=== PATIENT | female | born 1960 | race Caucasian/White ===

== ENCOUNTER 2021-07-31 15:23 | Inpatient (IN) | payer OTHER, SELFPAY ==
[2021-07-31] VITALS (8 sets, daily range): BP systolic 103–132; BP diastolic 41–53; PULSE 75–94; RESP 16–20; TEMP 36.1–37; O2SAT 99–100; BMI 29.7
--- NOTE | ~2021-07-31 | CT_ITS ---
EXAMINATION: CT abdomen pelvis wo con DATE: 07/31/2021 18:16 INDICATION: Left lower quadrant pain. Reflux. TECHNIQUE: Computed tomography (CT) of the abdomen and pelvis was performed without intravenous contr ast. The dose-length product was 935.20 mGy-cm. Automated exposure control and iterative reconstruction technique were employed. COMPARISON: None. FINDINGS: Lung bases are unremarkable. Heart size is normal. No significant pleural or pericardial ef fusion. Heart size is normal. Status post cholecystectomy. There is diffuse bladder wall thickening w ith mild perivesical fatty infiltration, suspicious for cystitis. There is atherosclerosis of the aor ta without aneurysm. No lymphadenopathy. There is mild thickening of the sigmoid colon with subtle sl ight surrounding stranding, consistent with mild acute diverticulitis. Status post cholecystectomy. The liver, spleen, pancreas, adrenal glands are unremarkable. Moderate o steoarthritis of the hips. There is a low-density lesion in the right kidney laterally measuring 3.6 cm with density measurement of 26 Hounsfield units, indeterminate. There are punctate nonobstructing bilateral renal stones. IMPRESSION: 1. Mildly thickened sigmoid colon with subtle surrounding pericolonic fatty infiltration, compatible with acute uncomplicated diverticulitis. 2: Thickened bladder wall with mild subtle perivesical fatty infiltration. Consider acute cystitis i n the appropriate clinical setting. 3: Nonobstructing bilateral nephrolithiasis. 4: Hypodense right renal mass, most likely complicated cysts, although further evaluation with ultras ound is recommended. Reviewed, dictated and finalized at location A. IMPRESSION: 1. Mildly thickened sigmoid colon with subtle surrounding pericolonic fatty inf iltration, compatible with acute uncomplicated diverticulitis. 2: Thickened bladder wall with mild subtle perivesical fatty infiltration. Con heel splitter acute cystitis in the appropriate clinical setting. 3: Nonobstructing bilateral nephrolithiasis. 4: Hypodense right renal mass, most likely complicated cysts, although further evaluation with ultrasound is recommended.
--- NOTE | ~2021-07-31 | US_ITS ---
US abdomen complete EXAMINATION: US Abdomen Complete INDICATION: Renal mass PROCEDURE: Realtime High Resolution abdomen ultrasound. COMPARISON: No prior studies for comparison FINDINGS: Gallbladder is surgically absent. Common bile duct measures 6 mm. Liver echotexture within normal limits without focal mass. Pancreas within normal limits. Pancreati c tail is obscured by bowel gas. Spleen is enlarged measuring 14 cm. There is a right renal cyst demetrio suring 3.3 cm corresponding to the mass seen on CT examination. There is mild right hydronephrosis. R ight kidney measures 12.7 cm. Left kidney measures 10.6 cm. Visualized aspects of the aorta and IVC are within normal limits. Portal vein is patent. No sonograph ic Serrano's sign indicated by the technologist. IMPRESSION: 1: Right renal cyst measuring 3.3 cm corresponding to the mass identified on CT. 2: Splenomegaly. Reviewed, dictated and finalized at location A. IMPRESSION: 1: Right renal cyst measuring 3.3 cm corresponding to the mass identified on CT . 2: Splenomegaly.
[2021-07-31 16:18] LABS: Mean Corpuscular HGB Conc 32.4 g/dl (32-36); Mean Corpuscular Hemoglobin 31.3 pg (26-34); Mean Corpuscular Volume 96.8 fl (80-100); Mean Platelet Volume 8.3 fl (7.4-10.4); Platelet Count Result 169 k/mm3 (150-375); Red Blood Count 2.17 M/mm3 (4.2-5.4); Red Cell Distribution Width 13.5 % (11.5-14.5); White Blood Count 3.5 K/mm3 (4.5-10.0)
--- NOTE | 2021-07-31 16:20 | ED.RECABL ---
HPI - Recheck/Abnormal Lab/Rx General Chief Complaint: Recheck/Abnormal Lab/Rx Stated Complaint: Low H&H, Seen at [place] Yesterday Time Seen by Provider: 07/31/21 16:00 History of Present Illness HPI narrative: Patient is a 61-year-old female sent here by her doctor low hemoglobin. Patient also complaining of a boil on her left buttocks that started 3 days ago. Patient has a history of lung CA and currently undergoing chemotherapy. Patient does admit to feeling weak and gets easily short of breath on exertion. Patient denies any GI bleeding. Patient denies any chest pain, abdominal pain, nausea, vomiting, diarrhea, fever or chills. Related Data Home Medications Medication Instructions Recorded Confirmed acetaminophen 325 mg capsule 325 mg PO Q6H PRN 06/22/21 06/22/21 (Tylenol) albuterol sulfate 90 mcg/actuation 1 inh inhalation Q4H 06/22/21 06/22/21 aerosol inhaler budesonide-formoterol HFA 80 2 puff inhalation Q12H 06/22/21 06/22/21 mcg-4.5 mcg/actuation aerosol inhaler (Symbicort) buspirone 10 mg tablet 10 mg PO BID 06/22/21 06/22/21 citalopram 40 mg tablet 20 mg PO DAILY 06/22/21 06/22/21 fluticasone propionate 50 1 spray intranasal DAILY 06/22/21 06/22/21 mcg/actuation nasal spray,suspension (Flonase Allergy Relief) simvastatin 5 mg tablet 5 mg PO DAILY 06/22/21 06/22/21 Allergies Allergy/AdvReac Type Severity Reaction Status Date / Time cortisone Allergy Unknown RASH Verified 06/22/21 07:47 Sulfa (Sulfonamide Allergy Unknown RASH Verified 06/22/21 07:47 Antibiotics) PROPOXYPHENE NAPSYLATE AdvReac Unknown NAUSEA Uncoded 06/22/21 07:47 Review of Systems Review of Systems: All systems reviewed & are unremarkable except as noted in HPI and below Constitutional: Constitutional: Denies body ache(s), Denies chills, Denies excessive sweating, Denies fatigue, Denies fever(s), Denies headache(s), Denies lethargy, Denies malaise and Denies weight loss Eyes: Eyes: Denies blurry vision, Denies change in vision and Denies loss of vision ENT: Denies dizziness, Denies ear discharge, Denies headache(s), Denies lip swelling, Denies epistaxis, Denies nasal congestion, Denies neck pain, Denies throat swelling and Denies tongue swelling Cardiovascular: Cardiovascular: Denies chest pain, Denies chest pain at rest, Denies chest pain with activity, Denies diaphoresis, Denies rapid heart rate, Denies edema, Denies irregular heart rhythm, Denies lightheadedness, Denies palpitations and Denies dyspnea Respiratory: Respiratory: Denies chest congestion, Denies cough, Denies hemoptysis and Denies dyspnea Gastrointestinal: Gastrointestinal: Denies abdominal pain, Denies melena, Denies hematochezia, Denies diarrhea, Denies nausea, Denies vomiting and Denies hematemesis Musculoskeletal: Musculoskeletal: Denies abnormal gait, Denies deformity, Denies joint swelling, Denies limited range of motion, Denies neck pain and Denies numbness Neurologic: Denies Abnormal speech present, Denies abnormal gait, Denies confusion, Denies dizziness, Denies headache(s), Denies focal weakness, Denies loss of vision, Denies numbness, Denies Other visual disturbances, Denies Sensory deficit (Neuro) and Denies weakness Psychiatric: Psychiatric: Denies confusion, Denies depression, Denies auditory hallucinations, Denies homicidal ideation and Denies suicidal ideation Endocrine: Endocrine: Denies cold intolerance, Denies excessive sweating, Denies fatigue, Denies heat intolerance and Denies palpitations Hematologic/Lymphatic: Hematologic/Lymphatic: Denies easy bleeding and Denies easy bruising Allergic/Immunologic: Allergic/Immunologic: Denies lip swelling, Denies throat swelling and Denies tongue swelling [facility] Family History Family History Father Cerebrovascular accident Mother Family history of congestive heart failure Social History Social History (Reviewed 07/31/21 @ 16:42 by Jayy
[2021-07-31 16:24] LABS: Hemoglobin 6.8 g/dL (12.0-15.0)
[2021-07-31 16:31] LABS: Alanine Aminotransferase 18 U/L (6-35); Alkaline Phosphatase 74 U/L (38-126); Anion Gap 7 mmol/L (8-16); Aspartate Amino Transferase 24 U/L (14-36); Bilirubin,Total 0.4 mg/dL (0.2-1.3); Blood Urea Nitrogen 8 mg/dL (7-17); Carbon Dioxide 28 mmol/L (22-30); Chloride 102 mmol/L (98-107); Estimated CRCL calculation 77 ml/min; Estimated Glomerular Filt Rate > 60; Glucose 122 mg/dL (65-110); Potassium 3.6 mmol/L (3.4-5.0); Sodium 137 mmol/L (137-145)
[2021-07-31 16:39] LABS: Band Neutrophils Percent 1 % (0-6); Lymphocytes Absolute Manual 1.26 K/mm3 (1.1-4.5); Lymphocytes Percent Manual 36 % (18-44); Monocytes Absolute Manual 0.52 K/mm3 (0.1-0.90); Monocytes Percent Manual 15 % (3-9); Neutrophils Absolute Manual 1.71 K/mm3 (1.7-7.2); Neutrophils Percent Manual 48 % (46-73); Platelet Estimate Adequate (Adequate); Total Cells Counted 100
[2021-07-31 16:40] LABS: Ovalocytes 1+ (NORMAL)
[2021-07-31] MEDS: HYDROmorphone HCL INJ (*CRX) 1 MG/ML SYR 0.5 MG IV PUSH (17:22)
[2021-07-31] MEDS: diphenhydrAMINE HCl CAP 25 MG CAPSULE 50 MG PO (17:22)
[2021-07-31] MEDS: ACETAMINOPHEN 325 MG TABLET 650 MG PO (17:23)
[2021-07-31] MEDS: SODIUM CHLORIDE 0.9% IV 250 ML 30 ML (19:10)
[2021-07-31] MEDS: TUBING, BLOOD PLUM PUMP TUBING 1 EACH XX (19:26)
[2021-07-31] MEDS: LIDO 1%/EPINEPHRINE 1:100,000 10 ML VIAL (20:50)
[2021-07-31 22:00] LABS: SARS-CoV-2 RNA PCR Negative
--- NOTE | 2021-07-31 22:11 | PC.NURSE ---
Abscess lanced by EDP and packed with iodoform gauze. Initial drainage of moderate amount of pink tinged pus noted. Pt tolerated procedure well.
[2021-07-31] MEDS: HYDROcodone/acetaminophen (*CRX) 5-325 MG TABLET 2 TAB PO (22:17)
--- NOTE | 2021-07-31 22:31 | PM.IMHP ---
H&P: [facility] History of Present Illness Date/Time: 07/31/21 22:31 Chief Complaint: skin lesion and low hemoglobin Narrative: 61-year-old female with past medical history significant for lung cancer currently receiving chemotherapy was referred to the ER for an incidental finding of low hemoglobin. While in the ER, she also was complaining of a boil on her left buttocks that has been there for the last few days. She does state that she has been feeling more short of breath and weak over the last few days. She denies blood in her stool. No nausea vomiting or diarrhea. She denies chest pain or shortness of breath. No fevers or chills. In the ER, an I&D was performed expressing purulent fluid. It was packed with iodoform. Due to her hemoglobin being 6.8, she was transfused 1 unit of packed red blood cells. Additionally, CT scan showed acute diverticulitis and therefore she was started on Zosyn. Review of Systems Review of Systems: Twelve point review of systems was reviewed and is negative except as noted in the HPI [facility] Family History Family History Father Cerebrovascular accident Cancer Mother Family history of congestive heart failure Sibling Cancer Malignant neoplasm of prostate Esophagus cancer Lung cancer Social History Social History Smoking packs per day: 1 Smoking cigarettes per day: 20.0 Years smoked: 48 Smoking pack-years: 48.00 Smoking status: Current some day smoker Tobacco type: cigarettes Alcohol intake: former Substance use: never Spiritual care concerns: Yes Meds Home Medications and Allergies Home Medications Medication Instructions Recorded Confirmed Type acetaminophen 325 mg capsule 325 mg PO Q6H PRN Pain 06/22/21 07/31/21 History (Tylenol) albuterol sulfate 90 mcg/actuation 1 inh inhalation Q4H 06/22/21 07/31/21 History aerosol inhaler budesonide-formoterol HFA 80 2 puff inhalation Q12H 06/22/21 07/31/21 History mcg-4.5 mcg/actuation aerosol inhaler (Symbicort) buspirone 10 mg tablet 10 mg PO PRN PRN Anxiety 06/22/21 07/31/21 History citalopram 40 mg tablet 20 mg PO DAILY 06/22/21 07/31/21 History famotidine 20 mg tablet 20 mg PO QHS #30 tabs 06/22/21 07/31/21 Rx simvastatin 5 mg tablet 5 mg PO DAILY 06/22/21 07/31/21 History bupropion HCl 100 mg tablet,12 hr 1 tablet PO BID 07/31/21 07/31/21 History sustained-release dexamethasone 4 mg tablet 1 tablet PO DAILY 07/31/21 07/31/21 History mirtazapine 15 mg tablet 1 tablet PO DAILY 07/31/21 07/31/21 History mupirocin 2 % topical ointment 1 applic topical PRN PRN Dry Nasal 07/31/21 07/31/21 History Passages omeprazole 40 mg capsule,delayed 1 cap PO DAILY 07/31/21 07/31/21 History release Allergies Allergy/AdvReac Type Severity Reaction Status Date / Time mold Allergy Severe Difficulty Verified 07/31/21 23:00 Breathing cortisone Allergy Mild RASH Verified 07/31/21 23:00 Sulfa (Sulfonamide Allergy Mild RASH Verified 07/31/21 23:00 Antibiotics) PROPOXYPHENE NAPSYLATE AdvReac Mild NAUSEA Uncoded 07/31/21 23:00 Vital Signs Vital Signs - 24 hr 07/31/21 15:26 07/31/21 19:10 07/31/21 19:25 Temperature 97.0 F L 98.1 F 98.5 F Pulse Rate 94 80 75 Respiratory Rate 20 17 16 Blood Pressure 109/53 L 113/51 L 107/46 L Pulse Oximetry 100 99 100 Oxygen Delivery Nasal Cannula Oxygen Flow Rate 4 07/31/21 20:25 07/31/21 20:48 07/31/21 20:49 Temperature 98.6 F 98.4 F 97.4 F L Pulse Rate 81 79 79 Respiratory Rate 16 16 16 Blood Pressure 103/41 L 110/42 L 110/42 L Pulse Oximetry 100 100 100 Oxygen Delivery Oxygen Flow Rate 07/31/21 22:17 Temperature 97.8 F Pulse Rate 84 Respiratory Rate 18 Blood Pressure 105/47 L Pulse Oximetry 100 Oxygen Delivery Oxygen Flow Rate Exam Narrative: General: Patient resting comfortably in bed, no acute di
--- NOTE | 2021-07-31 22:53 | ADMGEN ---
This patient, Marcia Salinas, was admitted to 3 Med Surg Room 309-01. Patient/family oriented to hospital policies and general routines including ID bracelet, bed and alarms, visiting hours, pain management, procedures, bathroom and other care routines, personal items, smoking policy, room service/diet, and visiting hours. Information on how to activate the Rapid Response Team has been discussed. Patient/Family are encouraged to report perceived risks to care and to ask questions if they do not understand what they are told or what they should do.
[2021-08-01] VITALS (8 sets, daily range): BP systolic 130–147; BP diastolic 51–60; PULSE 71–91; RESP 18–20; TEMP 36.1–36.6; O2SAT 97–100; BMI 29.7
[2021-08-01] MEDS: HYDROmorphone HCL INJ (*CRX) 1 MG/ML SYR 0.5 MG IV PUSH ×3 (00:18→08:39)
--- NOTE | 2021-08-01 08:46 | WPDPN ---
Progress Note: A&P Assessment and Plan (1) Anemia: Code(s): D64.9 - Anemia, unspecified Status: Acute (2) Abscess of buttock, left: Code(s): L02.31 - Cutaneous abscess of buttock Status: Acute Plan (1) Acute diverticulitis: ?Code(s): K57.92 - Diverticulitis of intestine, part unspecified, without perforation or abscess without bleeding ?Status:?Acute ?Assessment and Plan: ?continue Zosyn, follow-up general surgery recommendations per GI may possibly need EGD occult blood pending continue Zosyn continue PPI (2) Abscess of buttock, left: ?Code(s): L02.31 - Cutaneous abscess of buttock ?Status:?Acute ?Assessment and Plan: ?I&D in ER, consult wound care for management, will also need medical social worker to arrange outpatient wound care (3) GERD (gastroesophageal reflux disease): ?Code(s): K21.9 - Gastro-esophageal reflux disease without esophagitis ?Status:?Acute (4) Anxiety: ?Code(s): F41.9 - Anxiety disorder, unspecified ?Status:?Acute (5) Lung cancer: ?Code(s): C34.90 - Malignant neoplasm of unspecified part of unspecified bronchus or lung ?Status:?Acute ?Assessment and Plan: ?receiving chemotherapy at [place] for lung cancer (6) Anemia: ?Code(s): D64.9 - Anemia, unspecified ?Status:?Acute ?Assessment and Plan: ?unknown etiology, check fecal occult blood test, consult GI possibly secondary to hemorrhoids hemoglobin6.8>8.1 1 unit of PRBCs infused in the ED no active bleeding noted Subjective Date/time seen: 08/01/21 08:46 Interval history: patient complains of hemorrhoid point today. she notes that 2 days ago she took medication for constipation since then she has been experiencing hemorrhoid pain. Patient denies any bloody stools. She also notes that she has chronic back pain. she continues to also have lower abdominal pain. Patient notes that she did attempt to eat her meal denies any nausea vomiting does notice she did not have the urge to ED. Patient denies SOB, CP, palpitation, extremity numbness, lightheadness, dizziness, constipation, diarrhea, or chills or fever Review of Systems Review of Systems: All systems reviewed & are unremarkable except as noted in HPI and below Objective Data Vital Signs Vital Signs: Vital Signs - 24 hr 07/31/21 15:26 07/31/21 19:10 07/31/21 19:25 Temperature 97.0 F L 98.1 F 98.5 F Pulse Rate 94 80 75 Respiratory Rate 20 17 16 Blood Pressure 109/53 L 113/51 L 107/46 L Pulse Oximetry 100 99 100 Oxygen Delivery Nasal Cannula Oxygen Flow Rate 4 07/31/21 20:25 07/31/21 20:48 07/31/21 20:49 Temperature 98.6 F 98.4 F 97.4 F L Pulse Rate 81 79 79 Respiratory Rate 16 16 16 Blood Pressure 103/41 L 110/42 L 110/42 L Pulse Oximetry 100 100 100 Oxygen Delivery Oxygen Flow Rate 07/31/21 22:17 07/31/21 22:40 08/01/21 00:53 Temperature 97.8 F 97.1 F L Pulse Rate 84 79 Respiratory Rate 18 18 Blood Pressure 105/47 L 132/49 L Pulse Oximetry 100 100 97 Oxygen Delivery Nasal Cannula Oxygen Flow Rate 2 08/01/21 06:00 Temperature 97.8 F Pulse Rate 91 Respiratory Rate 18 Blood Pressure 147/60 H Pulse Oximetry 100 Oxygen Delivery Oxygen Flow Rate Intake/Output Intake/Output: Intake & Output 07/29/21 07/30/21 07/31/21 08/01/21 23:59 23:59 23:59 23:59 Intake Total 500 400 Balance 500 400 Meds/Results Medications: Active Medications Generic Name Dose Route Start Last Admin Trade Name Freq PRN Reason Stop Dose Admin Acetaminophen 650 mg 08/01/21 08:37 Acetaminophen 325 Mg Tablet PO Q4H PRN Pain Rated 1-3 Hydrocodone Bitart/Acetaminophen 1 tab 08/01/21 08:37 Hydrocodone/Acetaminophen (*Crx) 5-325 Mg Tablet PO Q6H PRN Pain Rated 4-6 Albuterol 1 puff 08/01/21 08:35 Albuterol Sulfate (*Sp) Aerosol 1 Puff INHALATION Q4H [facility] Bupropion HCl 100 mg 08/01/21 09:00
[2021-08-01 09:09] LABS: Hematocrit 24.4 % (37.0-47.0); Hemoglobin 8.1 g/dL (12.0-15.0); Mean Corpuscular HGB Conc 33.2 g/dl (32-36); Mean Corpuscular Hemoglobin 31.8 pg (26-34); Mean Corpuscular Volume 95.7 fl (80-100); Mean Platelet Volume 8.7 fl (7.4-10.4); Platelet Count Result 178 k/mm3 (150-375); Red Blood Count 2.55 M/mm3 (4.2-5.4); Red Cell Distribution Width 13.6 % (11.5-14.5); White Blood Count 4.6 K/mm3 (4.5-10.0)
[2021-08-01 09:20] LABS: Alanine Aminotransferase 21 U/L (6-35); Albumin Level 3.4 g/dL (3.5-5.1); Alkaline Phosphatase 101 U/L (38-126); Anion Gap 7 mmol/L (8-16); Aspartate Amino Transferase 25 U/L (14-36); Blood Urea Nitrogen 7 mg/dL (7-17); Calcium 8.1 mg/dL (8.4-10.2); Carbon Dioxide 26 mmol/L (22-30); Chloride 99 mmol/L (98-107); Estimated CRCL calculation 77 ml/min; Estimated Glomerular Filt Rate > 60; Glucose 119 mg/dL (65-110); Magnesium 1.6 mg/dL (1.6-2.3); Sodium 132 mmol/L (137-145)
[2021-08-01] MEDS: DEXAMETHASONE 4 MG TABLET PO (10:08)
[2021-08-01] MEDS: oxyCODONE/ACETAMINOPHEN (*CRX) 5-325 MG TABLET 1 TABLET PO ×3 (10:08→23:33)
[2021-08-01] MEDS: MIRTAZAPINE 15 MG TABLET PO (10:08)
[2021-08-01] MEDS: CITALOPRAM HYDROBROMIDE 20 MG TABLET PO (10:09)
[2021-08-01] MEDS: PANTOPRAZOLE 40 MG TABLET PO ×2 (10:09→20:31)
[2021-08-01] MEDS: buPROPion HCL SR (12HR) 100 MG TABCR PO ×2 (10:09→20:31)
[2021-08-01] MEDS: polyethylene glycoL 3350 17 GM POWD.PACK PO (10:09)
--- NOTE | 2021-08-01 10:44 | WPDGICN ---
GI Consult Note Consult date/time: 08/01/21 10:44 Reason for consult: Anemia and diverticulitis. HPI: Marcia Salinas is a 61 year old female seen in consultation request the hospitalist. The patient was examined and the chart was reviewed. Impression: Anemia. No evidence of GI blood loss at this time. The anemia is most likely multifactorial. Most certainly anemia of chronic disease. Abdominal pain compatible with diverticulitis. Ischiorectal abscess status post I&D. GERD with dysphagia. History of adenomatous colon polyps. PMH: COPD, small cell lung cancer, obesity, vocal cord paralysis, and remote history of cocaine use. Recommendation: Anemia workup including stools for occult blood. PPI b.i.d.. Antibiotics for diverticulitis. IV fluids. May eventually need EGD. Evaluation for heart murmur and carotid bruits per hospitalist. History: This 61-year-old white female with the above past medical history presented the emergency department with complaints of a boil on her left buttocks. This started approximately 3 days prior to admission. She was found to have an abscess which was incised and drained. The patient was also having complaints of increasing shortness of breath, weakness and dyspnea exertion. She has a history of small-cell lung cancer and is scheduled to undergo chemotherapy. Patient was found to be significantly anemic. She denies any nausea, vomiting or hematemesis. She denies any hematochezia, melena or acholic stools. She does have a history of reflux disease. She takes a PPI which controls her symptoms. She has had complaints of dysphagia to both solids and liquids the last couple of days. She initially denied any abdominal pain. However, last night, she began having lower abdominal pain. She describes the pain as somewhat severe. The pain is exacerbated at the time of defecation. She normally denies any hematochezia, melena, constipation or diarrhea. However, she has been having constipation for the last 3 or 4 days. She had 3 small bowel movements this morning. Patient underwent CT imaging. CT imaging revealed: IMPRESSION: 1. Mildly thickened sigmoid colon with subtle surrounding pericolonic fatty infiltration, compatible with acute uncomplicated diverticulitis. 2:? Thickened bladder wall with mild subtle perivesical fatty infiltration. Consider acute cystitis in the appropriate clinical setting. 3: Nonobstructing bilateral nephrolithiasis. 4: Hypodense right renal mass, most likely complicated cysts, although further evaluation with ultrasound is recommended. GI consultation was obtained to evaluate the anemia and for diverticulitis. Patient does have complaints of shortness of breath, dyspnea exertion and wheezing. She has a productive cough of clear phlegm. Fourteen point review systems otherwise unremarkable. General: very pleasant patient in no acute distress. HEENT: Head was normocephalic sclerae is clear mouth without masses neck was supple. Heart: Rate rhythm regular without S3 or S4. Systolic murmur radiating to the carotids. Lungs: Expiratory wheezes. Abdomen: Soft with no guarding or rigidity. Bowel sounds were active. Neurologic: Cranial nerves 2 through 12 intact. No focal defects. No clonus. Musculoskeletal system: Revealed no joint tenderness or swelling no muscle atrophy. Extremities: Reveal no significant edema. Skin: Warm and dry with normal turgor. Left buttocks shows wound from abscess. Mental status: intact. Patient is alert and oriented. [facility] Past Medical History Medical History (Updated 08/01/21 @ 10:41 by Soto Lima DO) Adenomatous colon polyp Anxiety Cocaine use COPD (chronic obstructive pulmonary disease) GERD (gastroesophageal reflux disease) Lung cancer Obesity Vocal cord paralysis Surgical History Surgical History (Updated 08/01/21 @ 10:41 by Soto Lima DO) H/O colonoscopy H/O tubal ligation S/P cholecys
[2021-08-01] MEDS: ALBUTEROL SULFATE (*SP) AEROSOL 1 PUFF INHALATION ×2 (11:30→20:09)
[2021-08-01 11:37] LABS: Hematocrit 22.7 % (37.0-47.0); Hemoglobin 7.7 g/dL (12.0-15.0); Immature Reticulocyte Fraction 14.9 % (3.0-15.9); Mean Corpuscular HGB Conc 33.9 g/dl (32-36); Mean Corpuscular Hemoglobin 31.7 pg (26-34); Mean Corpuscular Volume 93.4 fl (80-100); Mean Platelet Volume 8.5 fl (7.4-10.4); Platelet Count Result 180 k/mm3 (150-375); Red Blood Count 2.43 M/mm3 (4.2-5.4); Red Cell Distribution Width 13.7 % (11.5-14.5); Reticulocyte Hemoglobin Conten 37.4 pg (28.2-35.7); Reticulocyte Percent 1.48 % (0.7-4.3); Reticulocytes Absolute 0.04 B/L (32.2-175.7); White Blood Count 4.5 K/mm3 (4.5-10.0)
[2021-08-01 11:46] LABS: Anion Gap 6 mmol/L (8-16); Blood Urea Nitrogen 8 mg/dL (7-17); Calcium 8.1 mg/dL (8.4-10.2); Carbon Dioxide 27 mmol/L (22-30); Chloride 99 mmol/L (98-107); Cholesterol 150 mg/dL (0-200); Estimated CRCL calculation 88 ml/min; Estimated Glomerular Filt Rate > 60; Glucose 115 mg/dL (65-110); HDL Direct 25 mg/dL; Lactate Dehydrogenase 416 U/L (313-618); Magnesium 1.6 mg/dL (1.6-2.3); Potassium 4.1 mmol/L (3.4-5.0); Sodium 132 mmol/L (137-145); Triglycerides 132 mg/dL (<150)
[2021-08-01 12:03] LABS: LDL Cholesterol Direct 86 mg/dL
[2021-08-01 12:04] LABS: Iron 49 ug/dL (37-170)
[2021-08-01 12:08] LABS: T4 Thyroxine 7.19 ug/dL (5.53-11.0)
[2021-08-01 12:18] LABS: Percent Iron Saturation 26 % (20-50)
[2021-08-01 12:22] LABS: Thyroid Stimulating Hormone 0.646 uIU/mL (0.465-4.680)
[2021-08-01] MEDS: SODIUM CHLORIDE 0.9% IV 1,000 ML 100 ML IV CONT (12:23)
[2021-08-01] MEDS: MUPIROCIN 2% OINT 22 GM TUBE 1 APPLIC TOPICAL (12:27)
[2021-08-01 12:28] LABS: Free T4 Free Thyroxine 1.15 ng/mL (0.78-2.19)
[2021-08-01 13:04] LABS: Folic Acid 9.4 ng/mL (2.76->20); Vitamin B12 > 1000.0 pg/mL (239-931)
--- NOTE | 2021-08-01 13:17 | PM.CNGS ---
Assessment and Plan Assessment and plan (1) Perirectal abscess: Code(s): K61.1 - Rectal abscess Status: Acute Assessment and Plan: Patient underwent incision and drainage in the emergency department last night. This appears to be adequately drained at this time. Continue daily packing changes with quarter-inch iodoform gauze. Will continue to assess the wound daily and determine if further debridement incision and drainage is necessary as this progresses. Continue current antibiotics. (2) Acute diverticulitis: Code(s): K57.92 - Diverticulitis of intestine, part unspecified, without perforation or abscess without bleeding Status: Acute Assessment and Plan: I reviewed the CT. There does not appear to be any signs of perforation or abscess at this time. Continue to monitor and treat with antibiotics. (3) Lung cancer: Code(s): C34.90 - Malignant neoplasm of unspecified part of unspecified bronchus or lung Status: Acute (4) Anemia: Code(s): D64.9 - Anemia, unspecified Status: Acute History of Present Illness Consult details Consult date: 08/01/21 Reason for consult: other (Perirectal abscess) Requesting physician: Ann Pimentel DO Narrative: This is a 61-year-old woman who I am asked to see for a perirectal abscess. She presented to the emergency department yesterday with complaints profound anemia swelling and pain near her rectum. She has a recent diagnosis of lung cancer and is undergoing chemotherapy at [facility]. She was there getting treatment and was found to be profoundly anemic and was sent to [facility] emergency department. She did not want to wait there and decided to come home. She then came to our emergency department yesterday. She has noticed a boil near her rectum that started about 3 days ago. Incision and drainage was performed in the emergency department yesterday. The abscess was packed with iodoform gauze. She is still having tenderness in that region. She denies any fevers or chills. CT abdomen and pelvis in the emergency department did show evidence of acute uncomplicated diverticulitis as well. She was admitted for further treatment and placed on broad-spectrum IV antibiotics. Review of Systems Review of Systems: All systems reviewed & are unremarkable except as noted in HPI and below Constitutional: Constitutional: Denies chills and Denies fever(s) Eyes: Eyes: Denies change in vision ENT: Denies hearing loss, Denies neck pain and Denies sore throat Cardiovascular: Cardiovascular: Denies chest pain and Denies dyspnea Respiratory: Respiratory: Denies cough, Denies dyspnea and Denies wheezing Gastrointestinal: Gastrointestinal: Reports as per HPI Genitourinary: Genitourinary: Denies hematuria and Denies dysuria Musculoskeletal: Musculoskeletal: Denies arthralgias, Denies joint swelling and Denies neck pain Allergic/Immunologic: Allergic/Immunologic: Denies wheezing [facility] Past Medical History Medical History (Updated 08/01/21 @ 13:23 by Dirk Zaman DO) Adenomatous colon polyp Anxiety Cocaine use COPD (chronic obstructive pulmonary disease) GERD (gastroesophageal reflux disease) Lung cancer Obesity Vocal cord paralysis Surgical History Surgical History (Updated 08/01/21 @ 10:41 by Soto Lima DO) H/O colonoscopy H/O tubal ligation S/P cholecystectomy Family History Family History Father Cerebrovascular accident Cancer Mother Family history of congestive heart failure Sibling Cancer Malignant neoplasm of prostate Esophagus cancer Lung cancer Social History Social History Smoking packs per day: 1 Smoking cigarettes per day: 20.0 Years smoked: 48 Smoking pack-years: 48.00 Smoking status: Current some day smoker Tobacco type: cigarettes Alcohol intake: former Substance use
[2021-08-01 13:58] LABS: IFOB Positive Control Positive
[2021-08-01 14:12] LABS: Immunochemical Fecal Occult Bl Positive (N)
--- NOTE | 2021-08-01 15:36 | PC.NURSE ---
Pt positive for stool occult blood. Doctor Clarence called at 1535 to report this lab finding
[2021-08-01] MEDS: FLUTICASONE/SALMETEROL 45-21 MCG INHALER 1 PUFF 2 PUFF INHALATION (20:09)
[2021-08-01] MEDS: PHENYLEPHRINE HCL/COCOA BUTTER SUPP.RECT (*BKC) 1 SUPP RECTAL (20:31)
[2021-08-01] MEDS: FAMOTIDINE 20 MG TABLET PO (20:31)
[2021-08-01] MEDS: LORazepam INJ (*CRX) 2 MG/ML VIAL 0.5 MG IV PUSH (23:32)
[2021-08-01] MEDS: traMADol HCL (*CRX) 25 MG TABLET PO (23:32)
[2021-08-02] MEDS: SODIUM CHLORIDE 0.9% IV 1,000 ML 100 ML IV CONT ×2 (01:10→20:59)
[2021-08-02 06:00] VITALS: BP 123/64; PULSE 83; RESP 18; TEMP 37; O2SAT 98
[2021-08-02 07:34] LABS: Hematocrit 25.6 % (37.0-47.0); Hemoglobin 8.3 g/dL (12.0-15.0); Mean Corpuscular HGB Conc 32.4 g/dl (32-36); Mean Corpuscular Hemoglobin 31.8 pg (26-34); Mean Corpuscular Volume 98.1 fl (80-100); Mean Platelet Volume 8.9 fl (7.4-10.4); Platelet Count Result 234 k/mm3 (150-375); Red Blood Count 2.61 M/mm3 (4.2-5.4); Red Cell Distribution Width 13.8 % (11.5-14.5); White Blood Count 2.4 K/mm3 (4.5-10.0)
[2021-08-02] MEDS: FLUTICASONE/SALMETEROL 45-21 MCG INHALER 1 PUFF 2 PUFF INHALATION ×2 (07:35→19:52)
[2021-08-02 07:37] VITALS: PULSE 79; RESP 14
[2021-08-02 07:46] LABS: Alanine Aminotransferase 21 U/L (6-35); Albumin Level 3.5 g/dL (3.5-5.1); Alkaline Phosphatase 84 U/L (38-126); Anion Gap 6 mmol/L (8-16); Aspartate Amino Transferase 25 U/L (14-36); Bilirubin,Total 0.7 mg/dL (0.2-1.3); Blood Urea Nitrogen 11 mg/dL (7-17); Calcium 8.4 mg/dL (8.4-10.2); Carbon Dioxide 27 mmol/L (22-30); Chloride 105 mmol/L (98-107); Estimated CRCL calculation 88 ml/min; Estimated Glomerular Filt Rate > 60; Glucose 106 mg/dL (65-110); Potassium 4.3 mmol/L (3.4-5.0); Sodium 138 mmol/L (137-145)
[2021-08-02 08:00] VITALS: O2SAT 96
--- NOTE | 2021-08-02 08:13 | PM.IMPN ---
Progress Note: A&P Assessment and Plan (1) Acute diverticulitis: Code(s): K57.92 - Diverticulitis of intestine, part unspecified, without perforation or abscess without bleeding <Cecile Salter PA-C - Last Filed: 08/02/21 13:20> Status: Acute <Cecile Landeros LENI Salter - Last Filed: 08/02/21 13:20> Assessment and Plan: -08/02- Found incidentally, following complaints of abdominal pain. Started on Zosyn and PPI by GI. Patient denies nausea/vomiting/diarrhea. She does endorse severe constipation. Patient was placed on clear liquids, but is tolerating her diet. Will advance her diet as tolerated. Continue to monitor with AM labs, continue PPI. Possible EGD on Tuesday. <Cecile Salter PA-C - Last Filed: 08/02/21 13:20> (2) Perirectal abscess: Code(s): K61.1 - Rectal abscess <Cecile Salter PA-C - Last Filed: 08/02/21 13:20> Status: Acute <Cecile Salter PA-C - Last Filed: 08/02/21 13:20> Assessment and Plan: -08/01- Patient's underwent I&D in the ER. Surgery is following.? Continue daily packing changes with quarter-inch iodoform gauze. -08/02- Patient is stable at this time. Continue dressing changes. <Cecile Salter PA-C - Last Filed: 08/02/21 13:20> (3) Anemia: Code(s): D64.9 - Anemia, unspecified <Cecile Salter PA-C - Last Filed: 08/02/21 13:20> Status: Acute <Cecile Salter PA-C - Last Filed: 08/02/21 13:20> Assessment and Plan: Multifactorial. Fecal occult blood was positive. GI is currently following. -08/01- Hgb 6.8 on arrival. Pt 1 unit of PRBCs infused in the ED; denies active bleeding, blood in the stool. GI was consulted. - PPI BID - Anemia workup has thus far revealed elevated ferritin, normal iron, low TIBC, Folate, TSH, WNL, elevated B12 - RUQ US showed right renal cyst, splenomegaly. -08/02- Hgb 7.8 at noon. Continue to monitor H&H Q 6 hrs, transfuse if <7, continue PPI BID, Patient continues regular diet. EGD scheduled for Tuesday. <Cecile Salter PA-C - Last Filed: 08/02/21 13:20> (4) Murmur, cardiac: Code(s): R01.1 - Cardiac murmur, unspecified <Cecile Salter PA-C - Last Filed: 08/02/21 13:20> Status: Acute <Cecile Salter PA-C - Last Filed: 08/02/21 13:20> Assessment and Plan: -08/02- Systolic ejection murmur over the aortic area with radiation to bilateral carotids. distinct S1/S2 auscultated. Given patient's recent worsening shortness of breath and decreased exercise tolerance will evaluate with echocardiogram for valvular heart disease. <Cecile Salter PA-C - Last Filed: 08/02/21 13:20> (5) Lung cancer: Code(s): C34.90 - Malignant neoplasm of unspecified part of unspecified bronchus or lung <Cecile Salter PA-C - Last Filed: 08/02/21 13:20> Status: Acute <Cecile Salter PA-C - Last Filed: 08/02/21 13:20> Assessment and Plan: Patient currently undergoing chemotherapy at [facility] for small cell lung cancer. -08/02-phone 3 L supplemental oxygen nasal cannula, saturating well. <Cecile Salter PA-C - Last Filed: 08/02/21 13:20> Subjective Date/time seen: 08/02/21 08:13 61-year-old female with history of small-cell lung cancer undergoing chemotherapy anemia, presents to the ER with complaints of a boil on her left which started 3 days prior to admission. Patient underwent incision and drainage of the perirectal abscess in the ER on 08/01. During her stay she developed left lower quadrant pain, and CT found acute uncomplicated diverticulitis, and was placed on Zosyn. Patient endorses severe constipation at this time. She is only having small pebble like bowel movements. She denies nausea, vomiting epigastric pain. Does endorse a 1 month history of worsening shortness of breath, denies any maine syncope or dizziness. she does have occasional retrosternal ?twisting pain?, but none during her stay here. She denies card
--- NOTE | 2021-08-02 09:26 | WPDGIPROGNO ---
Subjective Date/time seen: 08/02/21 09:26 Patient feeling better. Much less abdominal pain. No nausea or vomiting. No evidence of significant GI bleeding. Vital signs stable. Heart rate rhythm regular. Lungs relatively clear. Abdomen was soft. No significant tenderness at this time. Bowel sounds were present. Impression: Anemia.? No evidence of overt GI blood loss at this time. All call blood in stool is noted. The anemia is most likely multifactorial.? Most certainly anemia of chronic disease.? Abdominal pain compatible with diverticulitis. Improved. Ischiorectal abscess status post I&D. GERD with dysphagia. History of adenomatous colon polyps. PMH:? COPD, small cell lung cancer, obesity, vocal cord paralysis, and remote history of cocaine use. Recommendation: Continue IV antibiotics. Advance diet as tolerated. EGD next week. Patient may need repeat colonoscopy as an outpatient in 6-8 weeks pending review previous colonoscopy report. Objective Data Vital Signs Vital Signs: Vital Signs - 24 hr 08/01/21 11:33 08/01/21 14:00 08/01/21 20:09 Temperature 36.1 C L Pulse Rate 79 79 71 Respiratory Rate 18 20 20 Blood Pressure 130/51 L Pulse Oximetry 97 Oxygen Delivery Oxygen Flow Rate 08/01/21 20:09 08/01/21 22:00 08/02/21 06:00 Temperature 36.6 C 37.0 C Pulse Rate 76 83 Respiratory Rate 18 18 Blood Pressure 130/60 123/64 Pulse Oximetry 100 98 98 Oxygen Delivery Nasal Cannula Oxygen Flow Rate 3 08/02/21 07:37 Temperature Pulse Rate 79 Respiratory Rate 14 Blood Pressure Pulse Oximetry Oxygen Delivery Oxygen Flow Rate Intake/Output Intake/Output: Intake & Output 07/30/21 07/31/21 08/01/21 08/02/21 23:59 23:59 23:59 23:59 Intake Total 500 2540 300 Balance 500 2540 300 Meds/Results Medications: Active Medications Generic Name Dose Route Start Last Admin Trade Name Freq PRN Reason Stop Dose Admin Acetaminophen 650 mg 08/01/21 08:37 Acetaminophen 325 Mg Tablet PO Q4H PRN Pain Rated 1-3 Albuterol 1 puff 08/01/21 08:35 08/01/21 20:09 Albuterol Sulfate (*Sp) Aerosol 1 Puff INHALATION 1 puff Q4H PRN Administration Shortness Of Breath Bupropion HCl 100 mg 08/01/21 09:00 08/01/21 20:31 Bupropion Hcl Sr (12hr) 100 Mg Tabcr PO 100 mg Q12HR LATOYA Administration Citalopram Hydrobromide 20 mg 08/01/21 09:00 08/01/21 10:09 Citalopram Hydrobromide 20 Mg Tablet PO 20 mg DAILY LATOYA Administration Dexamethasone 4 mg 08/01/21 09:00 08/01/21 10:08 Dexamethasone 4 Mg Tablet PO 4 mg DAILY LATOYA Administration Famotidine 20 mg 08/01/21 21:00 08/01/21 20:31 Famotidine 20 Mg Tablet PO 20 mg HS LATOYA Administration Hydromorphone HCl 0.5 mg 07/31/21 21:12 08/01/21 08:39 Hydromorphone Hcl Inj (*Crx) 1 Mg/Ml Syr IV PUSH 0.5 mg Q4H PRN Administration Pain Rated 7-10 Sodium Chloride 1,000 mls @ 75 mls/hr 08/01/21 08:40 08/02/21 01:10 Normal Saline Iv IV CONT 100 mls/hr .[id number] LATOYA Administration Piperacillin/Tazobactam/Dextrose 3.375 gm in 50 mls @ 100 mls/hr 08/01/21 12:00 08/02/21 05:26 Zosyn 3.375 Gm/D5w 50ml Pm IVPB 100 mls/hr Q6HR LATOYA Administration Lorazepam 0.5 mg 08/01/21 08:37 08/01/21 23:32 Lorazepam Inj (*Crx) 2 Mg/Ml Vial IV PUSH 0.5 mg Q6H PRN Administration Anxiety Mirtazapine 15 mg 08/01/21 09:00 08/01/21 10:08 Mirtazapine 15 Mg Tablet PO 15 mg DAILY LATOYA Administration Mupirocin 1 applic 08/01/21 08:35 08/01/21 12:27 Mupirocin 2% Oint 22 Gm Tube TOPICAL 1 applic PRN PRN Administration Dry Nasal Passages Oxycodone/Acetaminophen 1 tablet 08/01/21 09:25 08/01/21 23:33 Oxycodone/Acetaminophen (*Crx) 5-325 Mg Tablet PO 1 tablet Q6HR PRN Administration Pain Rated 7-10 Pantoprazole Sodium 40 mg 08/01/21 09:00 08/01/21 20:31 Pantoprazole 40 Mg Tablet PO 40 mg Q12HR LATOYA
[2021-08-02] MEDS: buPROPion HCL SR (12HR) 100 MG TABCR PO ×2 (09:32→20:55)
[2021-08-02] MEDS: DEXAMETHASONE 4 MG TABLET PO (09:32)
[2021-08-02] MEDS: MIRTAZAPINE 15 MG TABLET PO (09:32)
[2021-08-02] MEDS: CITALOPRAM HYDROBROMIDE 20 MG TABLET PO (09:32)
[2021-08-02] MEDS: PHENYLEPHRINE HCL/COCOA BUTTER SUPP.RECT (*BKC) 1 SUPP RECTAL (09:32)
[2021-08-02] MEDS: PANTOPRAZOLE 40 MG TABLET PO ×2 (09:32→20:55)
[2021-08-02] MEDS: polyethylene glycoL 3350 17 GM POWD.PACK PO (09:32)
[2021-08-02] MEDS: oxyCODONE/ACETAMINOPHEN (*CRX) 5-325 MG TABLET 1 TABLET PO ×2 (10:10→20:59)
[2021-08-02] MEDS: LORazepam INJ (*CRX) 2 MG/ML VIAL 0.5 MG IV PUSH ×2 (10:12→23:35)
[2021-08-02 11:51] LABS: Hematocrit 23.3 % (37.0-47.0); Hemoglobin 7.8 g/dL (12.0-15.0)
[2021-08-02 14:00] VITALS: BP 96/54; PULSE 75; RESP 16; TEMP 36.6; O2SAT 100
--- NOTE | 2021-08-02 14:10 | PM.PNGS ---
Progress Note: A&P Assessment and Plan (1) Perirectal abscess: Code(s): K61.1 - Rectal abscess Status: Acute Assessment and Plan: Continue daily packing changes Continue antibiotics Doesn't need any further intervention at this time OK to discharge from surgical standpoint as long as patient can arrange for wound care needs at home Follow up in office in 2 weeks (2) Lung cancer: Code(s): C34.90 - Malignant neoplasm of unspecified part of unspecified bronchus or lung Status: Acute (3) Anemia: Code(s): D64.9 - Anemia, unspecified Status: Acute (4) Acute diverticulitis: Code(s): K57.92 - Diverticulitis of intestine, part unspecified, without perforation or abscess without bleeding Status: Acute Subjective Subjective Date/Time Seen: 08/02/21 14:10 Interval history: Pain improved. Tolerating packing changes. No fevers. Exam GI: Other: Minimal erythema surrounding left perirectal abscess. No fluctuance or purulent drainage. Induration improved. Objective Data Vital Signs Vital Signs: Vital Signs - 24 hr 08/01/21 20:09 08/01/21 20:09 08/01/21 22:00 Temperature 36.6 C Pulse Rate 71 76 Respiratory Rate 20 18 Blood Pressure 130/60 Pulse Oximetry 100 98 Oxygen Delivery Nasal Cannula Oxygen Flow Rate 3 08/02/21 06:00 08/02/21 07:37 Temperature 37.0 C Pulse Rate 83 79 Respiratory Rate 18 14 Blood Pressure 123/64 Pulse Oximetry 98 Oxygen Delivery Oxygen Flow Rate Intake/Output Intake/Output: Intake & Output 07/30/21 07/31/21 08/01/21 08/02/21 23:59 23:59 23:59 23:59 Intake Total 500 2540 750 Balance 500 2540 750 Meds/Results Medications: Active Medications Generic Name Dose Route Start Last Admin Trade Name Freq PRN Reason Stop Dose Admin Acetaminophen 650 mg 08/01/21 08:37 Acetaminophen 325 Mg Tablet PO Q4H PRN Pain Rated 1-3 Albuterol 1 puff 08/01/21 08:35 08/01/21 20:09 Albuterol Sulfate (*Sp) Aerosol 1 Puff INHALATION 1 puff Q4H PRN Administration Shortness Of Breath Bupropion HCl 100 mg 08/01/21 09:00 08/02/21 09:32 Bupropion Hcl Sr (12hr) 100 Mg Tabcr PO 100 mg Q12HR LATOYA Administration Citalopram Hydrobromide 20 mg 08/01/21 09:00 08/02/21 09:32 Citalopram Hydrobromide 20 Mg Tablet PO 20 mg DAILY LATOYA Administration Dexamethasone 4 mg 08/01/21 09:00 08/02/21 09:32 Dexamethasone 4 Mg Tablet PO 4 mg DAILY LATOYA Administration Famotidine 20 mg 08/01/21 21:00 08/01/21 20:31 Famotidine 20 Mg Tablet PO 20 mg HS LATOYA Administration Hydromorphone HCl 0.5 mg 07/31/21 21:12 08/01/21 08:39 Hydromorphone Hcl Inj (*Crx) 1 Mg/Ml Syr IV PUSH 0.5 mg Q4H PRN Administration Pain Rated 7-10 Sodium Chloride 1,000 mls @ 75 mls/hr 08/01/21 08:40 08/02/21 01:10 Normal Saline Iv IV CONT 100 mls/hr .[id number] LATOYA Administration Piperacillin/Tazobactam/Dextrose 3.375 gm in 50 mls @ 100 mls/hr 08/01/21 12:00 08/02/21 05:26 Zosyn 3.375 Gm/D5w 50ml Pm IVPB 100 mls/hr Q6HR LATOYA Administration Lorazepam 0.5 mg 08/01/21 08:37 08/02/21 10:12 Lorazepam Inj (*Crx) 2 Mg/Ml Vial IV PUSH 0.5 mg Q6H PRN Administration Anxiety Mirtazapine 15 mg 08/01/21 09:00 08/02/21 09:32 Mirtazapine 15 Mg Tablet PO 15 mg DAILY LATOYA Administration Mupirocin 1 applic 08/01/21 08:35 08/01/21 12:27 Mupirocin 2% Oint 22 Gm Tube TOPICAL 1 applic PRN PRN Administration Dry Nasal Passages Oxycodone/Acetaminophen 1 tablet 08/01/21 09:25 08/02/21 10:10 Oxycodone/Acetaminophen (*Crx) 5-325 Mg Tablet PO 1 tablet Q6HR PRN Administration Pain Rated 7-10 Pantoprazole Sodium 40 mg 08/01/21 09:00 08/02/21 09:32 Pantoprazole 40 Mg Tablet PO 40 mg Q12HR LATOYA Administration Perflutren Lipid Microsphere 0 ml 08/02/21 12:58 Perflutren Lipid Microspheres 1.5 Ml Vial Diluted To 10 Ml
[2021-08-02 18:58] LABS: Hematocrit 23.3 % (37.0-47.0); Hemoglobin 7.9 g/dL (12.0-15.0)
[2021-08-02 19:57] VITALS: PULSE 80; O2SAT 98
[2021-08-02] MEDS: FAMOTIDINE 20 MG TABLET PO (20:55)
[2021-08-02 22:00] VITALS: BP 120/60; PULSE 66; RESP 16; TEMP 35.9; O2SAT 100
[2021-08-03] VITALS (7 sets, daily range): BP systolic 114–125; BP diastolic 45–65; PULSE 72–88; RESP 18–20; TEMP 35.8–36.2; O2SAT 97–100
--- NOTE | 2021-08-03 | ECHO_ITS ---
Patient Info Name: Marcia Salinas Age: 61 years : 1960 Gender: Female Ht: 69 in Wt: 200 lbs BSA: 2.12 m2 HR: 106 bpm BP: 120 / 54 mmHg Technical Quality: Good Exam Date: 08/03/2021 1:08 PM Exam Location[facility] Patient Status: Inpatient Admit Date: 08/02/2021 Staff Ordering Physician: Cecile Salter PA-C Washroom Attendant: Marcia Bah RDCS Attending Provider: Cecile Salter PA-C Referring Physician: Gaetano ALEJO; Exam Type: CA echo doppler color flow Study Info Indications I35.0 - Nonrheumatic aortic (valve) stenosis Complete two-dimensional, color flow and Doppler transthoracic echocardiogram is performed. Summary 1. Complete two-dimensional, color flow and Doppler transthoracic echocardiogram is performed. 2. Left ventricular chamber dimension is normal. 3. Left ventricular systolic function is normal, estimated at 60-65%. 4. The left ventricular diastolic function is abnormal. 5. E/e' 16 is elevated. 6. Left atrial chamber dimension is moderately enlarged. 7. There is mild aortic valve sclerosis. 8. There is trace tricuspid valve regurgitation. 9. No pulmonary hypertension, estimated pulmonary arterial systolic pressure is 25 mmHg. 10. There is small circumferential pericardial effusion. No cardiac tamponade. Left Ventricle E/e' 16 is elevated. Left ventricular chamber dimension is normal. Left ventricular systolic function is normal, estimated at 60-65%. The left ventricular diastolic function is abnormal. Right Ventricle Right ventricular systolic function is normal and with normal TAPSE 2.5 cm. Right ventricular chamber dimension is normal. Left Atria Left atrial chamber dimension is moderately enlarged. Right Atria Right atrial chamber dimension is normal. Aortic Valve The aortic valve is trileaflet. There is mild aortic valve sclerosis. There is no aortic valve stenosis. There is no aortic valve regurgitation. Pulmonic Valve There is no pulmonic regurgitation. Mitral Valve There is no mitral valve stenosis. There is no mitral valve regurgitation. Tricuspid Valve There is trace tricuspid valve regurgitation. No pulmonary hypertension, estimated pulmonary arterial systolic pressure is 25 mmHg. Pericardium/Pleural There is small circumferential pericardial effusion. No cardiac tamponade. Inferior Vena Cava Normal inferior vena cava with >50% collapse upon inspiration consistent with normal right atrial pressure, 5 mmHg. Aorta The aortic root size at the sinus of Valsalva is normal. Left Ventricular Outflow Tract Name Value Normal LVOT 2D LVOT Diameter 2.1 cm LVOT Doppler LVOT Peak Gradient 8 mmHg LVOT Mean Gradient 3 mmHg LVOT VTI 26 cm LVOT VTI/AV VTI Ratio 0.7 LVOT Stroke Volume 86 ml LVOT CO 16.8 l/min LVOT CI 7.9 l/min/m2 Pulmonic Valve
[2021-08-03 00:30] LABS: Hemoglobin 7.4 g/dL (12.0-15.0)
[2021-08-03] MEDS: oxyCODONE/ACETAMINOPHEN (*CRX) 5-325 MG TABLET 1 TABLET PO ×3 (05:37→21:11)
[2021-08-03 06:00] LABS: Hematocrit 22.7 % (37.0-47.0); Hemoglobin 7.4 g/dL (12.0-15.0); Mean Corpuscular HGB Conc 32.6 g/dl (32-36); Mean Corpuscular Hemoglobin 31.2 pg (26-34); Mean Corpuscular Volume 95.8 fl (80-100); Mean Platelet Volume 8.5 fl (7.4-10.4); Platelet Count Result 189 k/mm3 (150-375); Red Blood Count 2.37 M/mm3 (4.2-5.4); Red Cell Distribution Width 14.1 % (11.5-14.5); White Blood Count 2.6 K/mm3 (4.5-10.0)
[2021-08-03 06:10] LABS: Alanine Aminotransferase 21 U/L (6-35); Alkaline Phosphatase 70 U/L (38-126); Anion Gap 5 mmol/L (8-16); Aspartate Amino Transferase 23 U/L (14-36); Bilirubin,Total 0.4 mg/dL (0.2-1.3); Blood Urea Nitrogen 11 mg/dL (7-17); Calcium 8.2 mg/dL (8.4-10.2); Carbon Dioxide 25 mmol/L (22-30); Chloride 106 mmol/L (98-107); Estimated CRCL calculation 88 ml/min; Estimated Glomerular Filt Rate > 60; Glucose 99 mg/dL (65-110); Sodium 136 mmol/L (137-145)
[2021-08-03 06:55] LABS: Anisocytosis 1+ (NORMAL); Atypical Lymphocytes Present; Band Neutrophils Percent 5 % (0-6); Blastocytes 1 %; Lymphocytes Absolute Manual 1.95 K/mm3 (1.1-4.5); Monocytes Absolute Manual 0.13 K/mm3 (0.1-0.90); Monocytes Percent Manual 5 % (3-9); Neutrophils Absolute Manual 0.49 K/mm3 (1.7-7.2); Neutrophils Percent Manual 14 % (46-73); Platelet Estimate Adequate (Adequate); Poikilocytosis 1+ (NORMAL); Total Cells Counted 100
[2021-08-03 06:56] LABS: Hypochromasia 1+ (NORMAL)
[2021-08-03] MEDS: FLUTICASONE/SALMETEROL 45-21 MCG INHALER 1 PUFF 2 PUFF INHALATION ×2 (07:39→19:28)
--- NOTE | 2021-08-03 09:19 | WPDGIPROGNO ---
Subjective Date/time seen: 08/03/21 09:19 The patient presently stooling better. Tolerating full liquid diet. No nausea, vomiting, hematochezia, melena or acholic stools. Vital signs stable.? Heart rate rhythm regular. Lungs CTA. Abdomen was soft.? No significant tenderness at this time.? Bowel sounds were present.? Impression: Anemia.? No evidence of overt GI blood loss at this time.? All call blood in stool is noted.? The anemia is most likely multifactorial.? Most certainly anemia of chronic disease.? Pancytopenia noted. Abdominal pain compatible with diverticulitis.? Improved. Ischiorectal abscess status post I&D. GERD with dysphagia. History of adenomatous colon polyps. PMH:? COPD, small cell lung cancer, obesity, vocal cord paralysis, and remote history of cocaine use. Recommendation: Continue IV antibiotics.? EGD next week.? Patient may need repeat colonoscopy as an outpatient in 6-8 weeks pending review previous colonoscopy report. [facility] to resume care in a.m.. Objective Data Vital Signs Vital Signs: Vital Signs - 24 hr 08/02/21 14:00 08/02/21 19:57 08/02/21 22:00 Temperature 36.6 C 35.9 C L Pulse Rate 75 80 66 Respiratory Rate 16 16 Blood Pressure 96/54 L 120/60 Pulse Oximetry 100 98 100 Oxygen Delivery Nasal Cannula Oxygen Flow Rate 3 08/03/21 05:41 08/03/21 07:44 Temperature 36.1 C L Pulse Rate 73 72 Respiratory Rate 18 Blood Pressure 120/54 L Pulse Oximetry 100 98 Oxygen Delivery Nasal Cannula Oxygen Flow Rate 3 Intake/Output Intake/Output: Intake & Output 07/31/21 08/01/21 08/02/21 08/03/21 23:59 23:59 23:59 23:59 Intake Total 500 2540 2530 590 Output Total 1000 Balance 500 2540 2530 -410 Meds/Results Medications: Active Medications Generic Name Dose Route Start Last Admin Trade Name Freq PRN Reason Stop Dose Admin Acetaminophen 650 mg 08/01/21 08:37 Acetaminophen 325 Mg Tablet PO Q4H PRN Pain Rated 1-3 Albuterol 1 puff 08/01/21 08:35 08/01/21 20:09 Albuterol Sulfate (*Sp) Aerosol 1 Puff INHALATION 1 puff Q4H PRN Administration Shortness Of Breath Bupropion HCl 100 mg 08/01/21 09:00 08/02/21 20:55 Bupropion Hcl Sr (12hr) 100 Mg Tabcr PO 100 mg Q12HR LATOYA Administration Citalopram Hydrobromide 20 mg 08/01/21 09:00 08/02/21 09:32 Citalopram Hydrobromide 20 Mg Tablet PO 20 mg DAILY LATOYA Administration Dexamethasone 4 mg 08/01/21 09:00 08/02/21 09:32 Dexamethasone 4 Mg Tablet PO 4 mg DAILY LATOYA Administration Famotidine 20 mg 08/01/21 21:00 08/02/21 20:55 Famotidine 20 Mg Tablet PO 20 mg HS LATOYA Administration Hydromorphone HCl 0.5 mg 07/31/21 21:12 08/01/21 08:39 Hydromorphone Hcl Inj (*Crx) 1 Mg/Ml Syr IV PUSH 0.5 mg Q4H PRN Administration Pain Rated 7-10 Sodium Chloride 1,000 mls @ 75 mls/hr 08/01/21 08:40 08/02/21 20:59 Normal Saline Iv IV CONT 100 mls/hr .[id number] LATOYA Administration Piperacillin/Tazobactam/Dextrose 3.375 gm in 50 mls @ 100 mls/hr 08/01/21 12:00 08/03/21 06:05 Zosyn 3.375 Gm/D5w 50ml Pm IVPB Infused Q6HR LATOYA Infusion Lorazepam 0.5 mg 08/01/21 08:37 08/02/21 23:35 Lorazepam Inj (*Crx) 2 Mg/Ml Vial IV PUSH 0.5 mg Q6H PRN Administration Anxiety Mirtazapine 15 mg 08/01/21 09:00 08/02/21 09:32 Mirtazapine 15 Mg Tablet PO 15 mg DAILY LATOYA Administration Mupirocin 1 applic 08/01/21 08:35 08/01/21 12:27 Mupirocin 2% Oint 22 Gm Tube TOPICAL 1 applic PRN PRN Administration Dry Nasal Passages Oxycodone/Acetaminophen 1 tablet 08/01/21 09:25 08/03/21 05:37 Oxycodone/Acetaminophen (*Crx) 5-325 Mg Tablet PO 1 tablet Q6HR PRN Administration Pain Rated 7-10 Pantoprazole Sodium 40 mg 08/01/21 09:00 08/02/21 20:55 Pantoprazole 40 Mg Tablet PO 40 mg Q12HR LATOYA Administration Perflutren Lipid Microsphere 0 ml 08/02/21 12:58 Perflutren Lipid Microsphe
[2021-08-03] MEDS: polyethylene glycoL 3350 17 GM POWD.PACK PO (09:50)
[2021-08-03] MEDS: MIRTAZAPINE 15 MG TABLET PO (09:50)
[2021-08-03] MEDS: buPROPion HCL SR (12HR) 100 MG TABCR PO ×2 (09:50→20:55)
[2021-08-03] MEDS: PHENYLEPHRINE HCL/COCOA BUTTER SUPP.RECT (*BKC) 1 SUPP RECTAL (09:50)
[2021-08-03] MEDS: CITALOPRAM HYDROBROMIDE 20 MG TABLET PO (09:51)
[2021-08-03] MEDS: PANTOPRAZOLE 40 MG TABLET PO ×2 (09:51→20:55)
[2021-08-03] MEDS: DEXAMETHASONE 4 MG TABLET PO (09:51)
[2021-08-03] MEDS: ALPRAZolam (*CRX) 0.25 MG TABLET PO ×2 (09:52→21:12)
--- NOTE | 2021-08-03 11:12 | PM.PNGS ---
Progress Note: A&P Assessment and Plan (1) Perirectal abscess: Code(s): K61.1 - Rectal abscess Status: Acute Assessment and Plan: No further packing needed. Will change wound care orders to silver gel with 4 x 4 gauze and tape daily. Continue antibiotics Doesn't need any further intervention at this time OK to discharge from surgical standpoint as long as patient can arrange for wound care needs at home Follow up in office in 2 weeks (2) Lung cancer: Code(s): C34.90 - Malignant neoplasm of unspecified part of unspecified bronchus or lung Status: Acute (3) Anemia: Code(s): D64.9 - Anemia, unspecified Status: Acute (4) Acute diverticulitis: Code(s): K57.92 - Diverticulitis of intestine, part unspecified, without perforation or abscess without bleeding Status: Acute Subjective Subjective Date/Time Seen: 08/03/21 11:12 Interval history: Abscess area still painful. No other new complaints per Exam GI: Other: Perirectal abscess with 1 cm x 2 cm area of eschar at surface. Wound adequately opened with minimal scant purulence drainage. Minimal erythema, but no significant induration or fluctuance remaining. Objective Data Vital Signs Vital Signs: Vital Signs - 24 hr 08/02/21 14:00 08/02/21 19:57 08/02/21 22:00 Temperature 36.6 C 35.9 C L Pulse Rate 75 80 66 Respiratory Rate 16 16 Blood Pressure 96/54 L 120/60 Pulse Oximetry 100 98 100 Oxygen Delivery Nasal Cannula Oxygen Flow Rate 3 08/03/21 05:41 08/03/21 07:44 08/03/21 08:00 Temperature 36.1 C L Pulse Rate 73 72 Respiratory Rate 18 Blood Pressure 120/54 L Pulse Oximetry 100 98 98 Oxygen Delivery Nasal Cannula Nasal Cannula Oxygen Flow Rate 3 3 Intake/Output Intake/Output: Intake & Output 07/31/21 08/01/21 08/02/21 08/03/21 23:59 23:59 23:59 23:59 Intake Total 500 2540 2530 590 Output Total 1000 Balance 500 2540 2530 -410 Meds/Results Medications: Active Medications Generic Name Dose Route Start Last Admin Trade Name Freq PRN Reason Stop Dose Admin Acetaminophen 650 mg 08/01/21 08:37 Acetaminophen 325 Mg Tablet PO Q4H PRN Pain Rated 1-3 Albuterol 1 puff 08/01/21 08:35 08/01/21 20:09 Albuterol Sulfate (*Sp) Aerosol 1 Puff INHALATION 1 puff Q4H PRN Administration Shortness Of Breath Alprazolam 0.25 mg 08/03/21 09:36 08/03/21 09:52 Alprazolam (*Crx) 0.25 Mg Tablet PO 0.25 mg TID PRN Administration Anxiety Bupropion HCl 100 mg 08/01/21 09:00 08/03/21 09:50 Bupropion Hcl Sr (12hr) 100 Mg Tabcr PO 100 mg Q12HR LATOYA Administration Citalopram Hydrobromide 20 mg 08/01/21 09:00 08/03/21 09:51 Citalopram Hydrobromide 20 Mg Tablet PO 20 mg DAILY LATOYA Administration Dexamethasone 4 mg 08/01/21 09:00 08/03/21 09:51 Dexamethasone 4 Mg Tablet PO 4 mg DAILY LATOYA Administration Famotidine 20 mg 08/01/21 21:00 08/02/21 20:55 Famotidine 20 Mg Tablet PO 20 mg HS LATOYA Administration Hydromorphone HCl 0.5 mg 07/31/21 21:12 08/01/21 08:39 Hydromorphone Hcl Inj (*Crx) 1 Mg/Ml Syr IV PUSH 0.5 mg Q4H PRN Administration Pain Rated 7-10 Sodium Chloride 1,000 mls @ 75 mls/hr 08/01/21 08:40 08/02/21 20:59 Normal Saline Iv IV CONT 100 mls/hr .[id number] LAOTYA Administration Piperacillin/Tazobactam/Dextrose 3.375 gm in 50 mls @ 100 mls/hr 08/01/21 12:00 08/03/21 06:05 Zosyn 3.375 Gm/D5w 50ml Pm IVPB Infused Q6HR LATOYA Infusion Lorazepam 0.5 mg 08/01/21 08:37 08/02/21 23:35 Lorazepam Inj (*Crx) 2 Mg/Ml Vial IV PUSH 0.5 mg Q6H PRN Administration Anxiety Mirtazapine 15 mg 08/01/21 09:00 08/03/21 09:50 Mirtazapine 15 Mg Tablet PO 15 mg DAILY LATOYA Administration Mupirocin 1 applic 08/01/21 08:35 08/01/21 12:27 Mupirocin 2% Oint 22 Gm Tube TOPICAL 1 applic PRN PRN Administration Dry Nasal Passages Oxycodone/Acetaminop
[2021-08-03] MEDS: SILVERGEL (ELTA) 45 ML 1 APPLIC TOPICAL (12:20)
--- NOTE | 2021-08-03 12:58 | PM.IMPN ---
Progress Note: A&P Assessment and Plan (1) Acute diverticulitis: Code(s): K57.92 - Diverticulitis of intestine, part unspecified, without perforation or abscess without bleeding Status: Acute Assessment and Plan: -08/02- Found incidentally, following complaints of abdominal pain. Started on Zosyn and PPI by GI. Patient denies nausea/vomiting/diarrhea. She does endorse severe constipation. Patient was placed on clear liquids, but is tolerating her diet. Will advance her diet as tolerated. Continue to monitor with AM labs, continue PPI. Possible EGD on Tuesday. 08/03/2021 interval history: today patient states feeling better pain is controlled and able to tolerate her diet, seen by surgery service examined the wound does not need any more wound packing, may use silver gel and gauze for daily wound care, patient stats with history of lung CA and had been treated and now anemia and rectal abscess has developed depression and anxiety, her depression is controlled with celexa, will add atarax and xanax as needed. (2) Perirectal abscess: Code(s): K61.1 - Rectal abscess Status: Acute Assessment and Plan: -08/01- Patient's underwent I&D in the ER. Surgery is following.? Continue daily packing changes with quarter-inch iodoform gauze. -08/02- Patient is stable at this time. Continue dressing changes. (3) Anemia: Code(s): D64.9 - Anemia, unspecified Status: Acute Assessment and Plan: Multifactorial. Fecal occult blood was positive. GI is currently following. -08/01- Hgb 6.8 on arrival. Pt 1 unit of PRBCs infused in the ED; denies active bleeding, blood in the stool. GI was consulted. - PPI BID - Anemia workup has thus far revealed elevated ferritin, normal iron, low TIBC, Folate, TSH, WNL, elevated B12 - RUQ US showed right renal cyst, splenomegaly. -08/02- Hgb 7.8 at noon. Continue to monitor H&H Q 6 hrs, transfuse if <7, continue PPI BID, Patient continues regular diet. EGD scheduled for Tuesday. (4) Murmur, cardiac: Code(s): R01.1 - Cardiac murmur, unspecified Status: Acute Assessment and Plan: -08/02- Systolic ejection murmur over the aortic area with radiation to bilateral carotids. distinct S1/S2 auscultated. Given patient's recent worsening shortness of breath and decreased exercise tolerance will evaluate with echocardiogram for valvular heart disease. (5) Lung cancer: Code(s): C34.90 - Malignant neoplasm of unspecified part of unspecified bronchus or lung Status: Acute Assessment and Plan: Patient currently undergoing chemotherapy at [facility] for small cell lung cancer. -08/02-phone 3 L supplemental oxygen nasal cannula, saturating well. Subjective Date/time seen: 08/03/21 12:58 08/03/2021 interval history: today patient states feeling better pain is controlled and able to tolerate her diet, seen by surgery service examined the wound does not need any more wound packing, may use silver gel and gauze for daily wound care, patient stats with history of lung CA and had been treated and now anemia and rectal abscess has developed depression and anxiety, her depression is controlled with celexa, will add atarax and xanax as needed. Review of Systems Review of Systems: All systems reviewed & are unremarkable except as noted in HPI and below Exam Narrative: Patient is comfortable, NAD HEENT: eyes are clear and none icteric LUNGS: normal respiratory effort ABD: distended Lower extremities: no edema SKIN: nonjaundiced Neuro: grossly intact. Objective Data Vital Signs Vital Signs: Vital Signs - 24 hr 08/02/21 14:00 08/02/21 19:57 08/02/21 22:00 Temperature 97.8 F 96.6 F L Pulse Rate 75 80 66 Respiratory Rate 16 16 Blood Pressure 96/54 L 120/60 Pulse Oximetry 100 98 100 Oxygen Delivery Nasal Cannula Oxygen Flow Rate 3 08/03/21 05:41 08/03/21 07:44 08/03/21 08:00 Temperature 96.9 F L Puls
[2021-08-03] MEDS: ALBUTEROL SULFATE (*SP) AEROSOL 1 PUFF INHALATION ×2 (14:38→19:27)
[2021-08-03] MEDS: FAMOTIDINE 20 MG TABLET PO (20:54)
[2021-08-04] VITALS (7 sets, daily range): BP systolic 108–144; BP diastolic 46–78; PULSE 74–84; RESP 20–22; TEMP 36–36.1; O2SAT 95–100
[2021-08-04] MEDS: LORazepam INJ (*CRX) 2 MG/ML VIAL 0.5 MG IV PUSH (03:26)
[2021-08-04 06:34] LABS: Hematocrit 22.4 % (37.0-47.0); Hemoglobin 7.5 g/dL (12.0-15.0); Immature Granulocyte Absolute 0.03 K/mm3 (0.00-0.031); Immature Granulocyte Percent A 0.9 % (0-0.5); Lymphocytes Absolute Auto 2.45 K/mm3 (0.9-3.2); Lymphocytes Percent Auto 72.5 % (18.3-44.2); Mean Corpuscular HGB Conc 33.5 g/dl (32-36); Mean Corpuscular Hemoglobin 31.8 pg (26-34); Mean Corpuscular Volume 94.9 fl (80-100); Mean Platelet Volume 8.3 fl (7.4-10.4); Monocytes Absolute Auto 0.5 K/mm3 (0.1-0.6); Monocytes Percent Auto 13.6 % (2.6-8.5); Neutrophils Absolute Auto 0.4 K/mm3 (1.3-6.7); Platelet Count Result 183 k/mm3 (150-375); Red Blood Count 2.36 M/mm3 (4.2-5.4); White Blood Count 3.4 K/mm3 (4.5-10.0)
[2021-08-04 06:50] LABS: Alanine Aminotransferase 27 U/L (6-35); Alkaline Phosphatase 71 U/L (38-126); Anion Gap 8 mmol/L (8-16); Aspartate Amino Transferase 23 U/L (14-36); Bilirubin,Total 0.3 mg/dL (0.2-1.3); Blood Urea Nitrogen 10 mg/dL (7-17); Calcium 8.2 mg/dL (8.4-10.2); Carbon Dioxide 23 mmol/L (22-30); Chloride 108 mmol/L (98-107); Estimated CRCL calculation 77 ml/min; Estimated Glomerular Filt Rate > 60; Glucose 103 mg/dL (65-110); Potassium 3.5 mmol/L (3.4-5.0); Sodium 139 mmol/L (137-145)
[2021-08-04 07:30] LABS: Platelet Estimate Adequate (Adequate)
[2021-08-04 07:31] LABS: Anisocytosis 1+ (NORMAL)
[2021-08-04] MEDS: FLUTICASONE/SALMETEROL 45-21 MCG INHALER 1 PUFF 2 PUFF INHALATION (08:01)
[2021-08-04] MEDS: ALBUTEROL SULFATE (*SP) AEROSOL 1 PUFF INHALATION (08:05)
[2021-08-04] MEDS: CITALOPRAM HYDROBROMIDE 20 MG TABLET PO (08:07)
[2021-08-04] MEDS: DEXAMETHASONE 4 MG TABLET PO (08:07)
[2021-08-04] MEDS: SODIUM CHLORIDE 0.9% IV 1,000 ML 75 ML IV CONT ×2 (08:07→13:00)
[2021-08-04] MEDS: MIRTAZAPINE 15 MG TABLET PO (08:07)
[2021-08-04] MEDS: ALPRAZolam (*CRX) 0.25 MG TABLET PO ×2 (08:08→12:20)
[2021-08-04] MEDS: PANTOPRAZOLE 40 MG TABLET PO (08:08)
[2021-08-04] MEDS: buPROPion HCL SR (12HR) 100 MG TABCR PO (08:08)
[2021-08-04] MEDS: PHENYLEPH/MINERAL OIL/PETROLAT OINTMENT 57 GM 1 APPLIC RECTAL (08:10)
[2021-08-04] MEDS: SILVERGEL (ELTA) 45 ML 1 APPLIC TOPICAL (08:10)
[2021-08-04] MEDS: polyethylene glycoL 3350 17 GM POWD.PACK PO (08:10)
--- NOTE | 2021-08-04 09:02 | PC.NURSE ---
report given to GI lab, gl lab to sign consent with pt prior to procedure, possible EGD at 1130 am this morning.
[2021-08-04] MEDS: LACTATED RINGERS 1,000 ML 150 ML IV CONT (10:27)
--- NOTE | 2021-08-04 10:46 | WPDANESEPPF ---
Anes - Initial Pre Proc Eval Procedure: Operation Date: 08/04/21 11:30 Proposed Procedures p Esophagogastroduodenoscopy - Soto Amato MD Date/Time: 08/04/21 10:46 Surgeon: Cecile Salter PA-C Pre Op Diagnosis: Anemia, acute diverticulitis, left buttock abscess Patient Data Age: 61 Gender: F Height: 1.75 m Weight: 91.4 kg Last Vital Signs Temp 36.0 C L 08/04/21 10:25 Pulse 79 08/04/21 10:25 Resp 20 08/04/21 10:25 BP 116/62 08/04/21 10:25 Pulse Ox 100 08/04/21 10:25 O2 Del Method Nasal Cannula 08/04/21 10:25 O2 Flow Rate 3 08/04/21 10:25 Allergies Allergy/AdvReac Type Severity Reaction Status Date / Time mold Allergy Severe Difficulty Verified 07/31/21 23:00 Breathing cortisone Allergy Mild RASH Verified 07/31/21 23:00 Sulfa (Sulfonamide Allergy Mild RASH Verified 07/31/21 23:00 Antibiotics) propoxyphene AdvReac Mild Nausea Verified 08/03/21 10:10 Home Medications Medication Instructions Recorded Confirmed Type acetaminophen 325 mg capsule 325 mg PO Q6H PRN Pain 06/22/21 07/31/21 History (Tylenol) albuterol sulfate 90 mcg/actuation 1 inh inhalation Q4H 06/22/21 07/31/21 History aerosol inhaler budesonide-formoterol HFA 80 2 puff inhalation Q12H 06/22/21 07/31/21 History mcg-4.5 mcg/actuation aerosol inhaler (Symbicort) buspirone 10 mg tablet 10 mg PO PRN PRN Anxiety 06/22/21 07/31/21 History citalopram 40 mg tablet 20 mg PO DAILY 06/22/21 07/31/21 History famotidine 20 mg tablet 20 mg PO QHS #30 tabs 06/22/21 07/31/21 Rx simvastatin 5 mg tablet 5 mg PO DAILY 06/22/21 07/31/21 History bupropion HCl 100 mg tablet,12 hr 1 tablet PO BID 07/31/21 07/31/21 History sustained-release dexamethasone 4 mg tablet 1 tablet PO DAILY 07/31/21 07/31/21 History mirtazapine 15 mg tablet 1 tablet PO DAILY 07/31/21 07/31/21 History mupirocin 2 % topical ointment 1 applic topical PRN PRN Dry Nasal 07/31/21 07/31/21 History Passages omeprazole 40 mg capsule,delayed 1 cap PO DAILY 07/31/21 07/31/21 History release Laboratory Tests 08/04/21 08/04/21 06:27 06:27 WBC 3.4 K/mm3 L K/mm3 (4.5-10.0) RBC 2.36 M/mm3 L M/mm3 (4.2-5.4) Hgb 7.5 g/dL L g/dL (12.0-15.0) Hct 22.4 % L % (37.0-47.0) MCV 94.9 fl fl (80-100) MCH 31.8 pg pg (26-34) MCHC 33.5 g/dl g/dl (32-36) RDW 14.0 % % (11.5-14.5) Plt Count 183 k/mm3 k/mm3 (150-375) MPV 8.3 fl fl (7.4-10.4) Immature Gran % (Auto) 0.9 % H % (0-0.5) Neut % (Auto) 13.0 % L % (45.5-73.1) Lymph % (Auto) 72.5 % H % (18.3-44.2) Bea[place] % (Auto) 13.6 % H % (2.6-8.5) Eos % (Auto) 0.0 % % (0-4.4) Baso % (Auto) 0.0 % L % (0.2-1.2) Lymph # (Auto) 2.45 K/mm3 K/mm3 (0.9-3.2) [place] # (Auto) 0.5 K/mm3 K/mm3 (0.1-0.6) Eos # (Auto) 0.0 K/mm3 K/mm3 (0-0.3) Baso # (Auto) 0.0 K/mm3 K/mm3 (0.0-0.1) Abs Immat Gran (auto) 0.03 K/mm3 K/mm3 (0.00-0.031) Absolute Neuts (auto) 0.4 K/mm3 L K/mm3 (1.3-6.7) Absolute Nucleated RBC 0.0 K/mm3 K/mm3 (0.0-0.012) Nucleated RBC % 0.0 % % (0.0-0.2) Platelet Estimate Adequate (Adequate) Anisocytosis 1+ (NORMAL) Sodium 139 mmol/L mmol/L (137-145) Potassium 3.5 mmol/L mmol/L (3.4-5.0) Chloride 108 mmol/L H mmol/L (98-107) Carbon Dioxide 23 mmol/L mmol/L (22-30) Anion Gap 8 mmol/L mmol/L (8-16) BUN 10 mg/dL mg/dL (7-17) Creatinine 0.80 mg/dL mg/dL (0.7-1.0) Estim Creat Clear Calc 77 ml/min ml/min Estimated GFR > 60 (59 - ) Glucose 103 mg/dL mg/dL (65-110) Calcium 8.2 mg/dL L mg/dL (8.4-10.2) Total Bilirubin 0.3 mg/dL mg/dL (0.2-1.3) AST 23 U/L U/L (14-36) ALT 27 U/L U/L (6-35) Alkaline Phosphatase 71 U/L U/L (38-126) Total Protein 7.0 g/dL g/dL
[2021-08-04] MEDS: BENZOCAINE (*SP) 60 ML SPRAY CAN (HURRICAINE) 1 SPRAY MUCOUS MEM (11:13)
[2021-08-04] MEDS: oxyCODONE/ACETAMINOPHEN (*CRX) 5-325 MG TABLET 1 TABLET PO (12:20)
--- NOTE | 2021-08-04 14:00 | PC.NURSE ---
called MD Fernandez for consult, MD Wagner inquiring if pt can follow up outpatieint.
--- NOTE | 2021-08-04 14:04 | PC.NURSE ---
Md Fernandez stated ok to discharge will follow up outpatient, informed Md Wagner, MD Wagner to discharge pt home with self care.
--- NOTE | 2021-08-04 14:22 | PM.DS ---
DS: Admitting Diagnosis Discharge Date 08/04/2021 Admitting Diagnosis Anemia and rectal abscess DS: Discharge Diagnosis Discharge Diagnosis (1) Acute diverticulitis: Code(s): K57.92 - Diverticulitis of intestine, part unspecified, without perforation or abscess without bleeding Status: Acute Assessment and Plan: -08/02- Found incidentally, following complaints of abdominal pain. Started on Zosyn and PPI by GI. Patient denies nausea/vomiting/diarrhea. She does endorse severe constipation. Patient was placed on clear liquids, but is tolerating her diet. Will advance her diet as tolerated. Continue to monitor with AM labs, continue PPI. Possible EGD on Tuesday. (2) Perirectal abscess: Code(s): K61.1 - Rectal abscess Status: Acute Assessment and Plan: -08/01- Patient's underwent I&D in the ER. Surgery is following.? Continue daily packing changes with quarter-inch iodoform gauze. -08/02- Patient is stable at this time. Continue dressing changes. (3) Anemia: Code(s): D64.9 - Anemia, unspecified Status: Acute Assessment and Plan: Multifactorial. Fecal occult blood was positive. GI is currently following. -08/01- Hgb 6.8 on arrival. Pt 1 unit of PRBCs infused in the ED; denies active bleeding, blood in the stool. GI was consulted. - PPI BID - Anemia workup has thus far revealed elevated ferritin, normal iron, low TIBC, Folate, TSH, WNL, elevated B12 - RUQ US showed right renal cyst, splenomegaly. -08/02- Hgb 7.8 at noon. Continue to monitor H&H Q 6 hrs, transfuse if <7, continue PPI BID, Patient continues regular diet. EGD scheduled for Tuesday. (4) Murmur, cardiac: Code(s): R01.1 - Cardiac murmur, unspecified Status: Acute Assessment and Plan: -08/02- Systolic ejection murmur over the aortic area with radiation to bilateral carotids. distinct S1/S2 auscultated. Given patient's recent worsening shortness of breath and decreased exercise tolerance will evaluate with echocardiogram for valvular heart disease. (5) Lung cancer: Code(s): C34.90 - Malignant neoplasm of unspecified part of unspecified bronchus or lung Status: Acute Assessment and Plan: Patient currently undergoing chemotherapy at [facility] for small cell lung cancer. -08/02-phone 3 L supplemental oxygen nasal cannula, saturating well. DS: Summary Hospital Course Reason for hospitalization: skin lesion and low hemoglobin Narrative: ?61-year-old female with past medical history significant for lung cancer currently receiving chemotherapy was referred to the ER for an incidental finding of low hemoglobin.? While in the ER, she also was complaining of a boil on her left buttocks that has been there for the last few days.? She does state that she has been feeling more short of breath and weak over the last few days.? She denies blood in her stool.? No nausea vomiting or diarrhea.? She denies chest pain or shortness of breath.? No fevers or chills. In the ER, an I&D was performed expressing purulent fluid.? It was packed with iodoform.? Due to her hemoglobin being 6.8, she was transfused 1 unit of packed red blood cells.? Additionally, CT scan showed acute diverticulitis and therefore she was started on Zosyn.? Hospital Course: today patient states feeling better pain is controlled and able to tolerate her diet, seen by surgery service examined the wound? does not need any more wound packing,? may use silver gel and gauze for daily wound care, patient stats with history of lung CA and had been treated and now anemia and rectal abscess, has developed depression and anxiety, her depression is controlled with celexa, will add atarax and xanax as needed. 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
--- NOTE | 2021-08-04 14:44 | PC.NURSE ---
IV removed, discharge paperwork explained, all question and concerns answered. Awaiting ride home for discharge.
[2021-08-05 05:34] LABS: Haptoglobin 353 mg/dL (43-212)
[2021-08-05 10:13] LABS: Vitamin D 1,25 (OH)2 Total 33 pg/mL (18-72); Vitamin D2 1,25 (OH)2 <8 pg/mL; Vitamin D3 1,25 (OH)2 33 pg/mL
[2021-08-05 15:25] LABS: Hematocrit 23.6 % (35.0-45.0); Hemoglobin 7.6 g/dL (11.7-15.5); MCH 30.9 pg (27.0-33.0); MCV 95.9 fL (80.0-100.0); RDW 14.1 % (11.0-15.0); Red Blood Cell Count 2.46 Mill/uL (3.80-5.10)
== END 2021-08-04 15:30 | disposition home or self-care (01) | DRG 244 ==
LOC: ANHED 18:44 → ANH3MEDSUR 21:52
PROVIDERS: Internal Medicine Gastroenterology; Nurse Practitioner; Student in an Organized Health Care Education/Training Program; Admitting Provider Student in an Organized Health Care Education/Training Program; Emergency Provider Emergency Medicine; PCP Internal Medicine; Visit Provider Family Medicine
PROC: 0DJ08ZZ Inspection of Upper Intestinal Tract, Via Natural or Artificial Opening Endoscopic (ICD-10-PCS; CPT 43235; principal; 2021-08-04 11:30)
DX: K57.92 Diverticulitis of intestine, part unspecified, without perforation or abscess without bleeding (principal); C34.90 Malignant neoplasm of unspecified part of unspecified bronchus or lung; K22.70 Barrett's esophagus without dysplasia; L02.31 Cutaneous abscess of buttock; Z20.822 Contact with and (suspected) exposure to COVID-19; F17.210 Nicotine dependence, cigarettes, uncomplicated; D64.9 Anemia, unspecified; K21.9 Gastro-esophageal reflux disease without esophagitis; F41.9 Anxiety disorder, unspecified; K64.9 Unspecified hemorrhoids; G89.29 Other chronic pain; M54.9 Dorsalgia, unspecified; R01.1 Cardiac murmur, unspecified; R13.10 Dysphagia, unspecified; J44.9 Chronic obstructive pulmonary disease, unspecified; E66.9 Obesity, unspecified; Z68.29 Body mass index [BMI] 29.0-29.9, adult
CPT/HCPCS: 36415; 36430; 74176; 76700; 80048; 80053; 80061; 82274; 82525; 82607; 82652; 82728; 82746; 83010; 83021; 83540; 83550; 83615; 83735; 84100; 84436; 84439; 84443; 85014; 85018; 85025; 85027; 85046; 86850; 86900; 86901; 86920; 87081; 88305; 93306; 94640; 96361; 96365; 96366; 96375; 96376; 99285; A9270; C9803; G0378; G0379; J1170; J2060; J2543; J2704; J7030; J7050; J7120; J8540; P9016; U0003; U0005

== ENCOUNTER 2021-08-19 12:36 | Inpatient (IN) | payer OTHER, SELFPAY ==
[2021-08-19] VITALS (16 sets, daily range): BP systolic 98–135; BP diastolic 51–55; PULSE 79–94; RESP 16–22; TEMP 36.2–36.4; O2SAT 89–100; BMI 28.0
--- NOTE | ~2021-08-19 | CT_ITS ---
EXAMINATION: CT abdomen pelvis wo con DATE: 08/19/2021 13:10 INDICATION: Left lower quadrant abdominal pain. Diarrhea. TECHNIQUE: Computed tomography (CT) of the abdomen and pelvis was performed without intravenous contr ast. Automated exposure control and iterative reconstruction technique were employed. The dose-length product was 641.85 mGy-cm. COMPARISON: CT abdomen and pelvis 07/31/2021, abdomen ultrasound 08/01/2021 FINDINGS: The visualized portions of the lung bases demonstrate peripheral septal thickening, consist ent with mild chronic interstitial lung disease. No pleural effusion. The heart size is normal. No pe ricardial effusion. The liver is normal. There are changes of cholecystectomy. There is mild splenome hao that may be secondary to obesity. The pancreas, adrenal glands, and left kidney are normal. Ther e is a 3.5 cm cyst in right kidney. There are calcified fibroids in the uterus. There is wall thicken ing of sigmoid colon with surrounding fat stranding. There are foci of extraluminal gas adjacent to s igmoid colon. There is a 3.3 x 3.0 cm perisigmoid access with involvement of the wall of the bladder. There is wall thickening of the bladder. There are no pathologically enlarged lymph nodes. There is lumbar dextroscoliosis and mild spondylosis. IMPRESSION: 1. Sigmoid diverticulitis with microperforation and perisigmoid abscess with involvement of the bladd er wall. Reviewed, dictated and finalized at location B. IMPRESSION: 1. Sigmoid diverticulitis with microperforation and perisigmoid abscess with in volvement of the bladder wall.
--- NOTE | ~2021-08-19 | XR_ITS ---
XR abdomen NG/feed tube insert INDICATION: Evaluate NG tube position. TECHNIQUE: Limited KUB perform for evaluating NG tube . COMPARISON: 09/03/2021 FINDINGS: NG tube tip in the stomach. Visualized bowel gas pattern is unremarkable.Nonspecific bowel gas pattern. There is bilateral airspace disease, likely reflecting edema. There are cholecystectomy clips. IMPRESSION: 1: NG tube tip in the stomach. Reviewed, dictated and finalized at location A.
--- NOTE | ~2021-08-19 | XR_ITS ---
XR lumbar spine 2-3V DATE: 08/20/2021 17:54 INDICATION: Severe back pain TECHNIQUE: AP, lateral, coned lateral lumbosacral views COMPARISON: None FINDINGS: There is osteopenia. There is dextroscoliosis of the thoracolumbar spine. There is moderate degenerative spurring of lumbar spine but lumbar and lumbosacral interspaces are re latively well preserved. No fracture or bone destruction is detected. The lumbar pedicles are intact. The sacroiliac joints appear normal. Abdominal aortic calcification without evidence of aneurysm. Status post cholecystectomy. IMPRESSION: Osteopenia Dextroscoliosis Mild degenerative spurring Reviewed, dictated and finalized at location A.
--- NOTE | ~2021-08-19 | XR_ITS ---
EXAMINATION: XR chest ET placement INDICATION: Endotracheal tube insertion TECHNIQUE: Portable AP chest at 2105 hours COMPARISON: 0836 hours FINDINGS: An endotracheal tube is been inserted which ends approximately 4.7 cm above the liliya. The nasogastric tube is followed as far as the stomach. Its tip is beyond the inferior margin of the rad iograph. Diffuse interstitial and airspace opacities persist throughout all lung zones without signif icant change. A left pleural effusion is questioned. The cardiomediastinal silhouette is stable. Ther e is no pneumothorax. IMPRESSION: 1. An endotracheal tube ending approximately 4.7 cm above the liliya. 2. Diffuse lung disease without significant change, consistent with pneumonia/or pulmonary edema. 3. Probable left pleural effusion. Reviewed, dictated and finalized at location F. IMPRESSION: 1. An endotracheal tube ending approximately 4.7 cm above the liliya. 2. Diffuse lung disease without significant change, consistent with pneumonia/o r pulmonary edema. 3. Probable left pleural effusion.
--- NOTE | ~2021-08-19 | XR_ITS ---
EXAMINATION: XR chest 1V portable DATE: 09/02/2021 05:30 INDICATION: Respiratory failure TECHNIQUE: frontal view of the chest was obtained. COMPARISON: Chest radiograph dated 09/01/2021 FINDINGS: Persistent mild elevation of left hemidiaphragm. Persistent diffuse hazy opacity throughout the left hemithorax likely due to persistent consolidation of the left upper lobe and lingula with suggestion of nonobstructing left hilar mass as seen on recent CT dated 08/29/2021. Diffuse increased interstitia l pattern throughout both lungs consistent with superimposed mild pulmonary edema. No pleural effusio n or pneumothorax. The left side of the cardiac silhouette is partially obscured but does not appear enlarged. Cholecystectomy clips in the right upper quadrant. IMPRESSION: 1. Persistent diffuse opacification of the left upper lobe and lingula prior CT is concerning for pos tobstructive atelectasis and/or pneumonia secondary to a left hilar mass which is suspicious for antoine gnancy. 2. Persistent diffuse mild pulmonary edema. Reviewed, dictated and finalized at location A. IMPRESSION: 1. Persistent diffuse opacification of the left upper lobe and lingula prior CT is concerning for postobstructive atelectasis and/or pneumonia secondary to a left hilar mass which is suspicious for malignancy. 2. Persistent diffuse mild pulmonary edema.
--- NOTE | ~2021-08-19 | XR_ITS ---
XR abdomen/kub 1V 09/04/2021 09:24 Indication: Left lower quadrant pain. Vomiting and ileus. Status post recent sigmoidectomy. Procedure: KUB Comparison: Comparison to multiple prior studies sequentially, with oldest reviewed study dated 09/03. Findings: Nonobstructive bowel gas pattern. There is laparotomy staple line. There is a surgical drai n in the pelvis. Residual contrast is present in the right colon. Impression: 1: Nonobstructive bowel gas pattern. Reviewed, dictated and finalized at location A. Impression: 1: Nonobstructive bowel gas pattern.
--- NOTE | ~2021-08-19 | XR_ITS ---
EXAMINATION: XR abdomen NG/feed tube insert INDICATION: Nasogastric tube placement TECHNIQUE: Portable AP KUB-NG at 2105 hours COMPARISON: None available FINDINGS: The nasogastric tube is in the stomach. There are patchy airspace opacities of the visualiz ed lung bases. Surgical clips in the right upper quadrant are likely from prior cholecystectomy. IMPRESSION: 1. Nasogastric tube in the stomach. Reviewed, dictated and finalized at location F.
--- NOTE | ~2021-08-19 | XR_ITS ---
EXAMINATION: XR chest 1V portable DATE: 08/28/2021 05:28 INDICATION: Pleural effusion. TECHNIQUE: A single frontal view of the chest was obtained. COMPARISON: Chest single view 08/27/2021, CT abdomen and pelvis 08/25/2021 FINDINGS: There is mild elevation of left hemidiaphragm. There are airspace opacities in left perihil ar region. There is a diffuse interstitial pattern in the lungs. No pleural effusion or pneumothorax. The heart size is normal. The endotracheal tube tip is 3.6 cm above the liliya. The nasogastric tube tip is in the stomach. IMPRESSION: 1. Airspace opacities in left perihilar region and mild elevation of left hemidiaphragm, likely a lef t hilar mass with left upper lobe collapse. The patient has a recent diagnosis of lung cancer at [facility]. Correlate with outside CT. 2. Diffuse interstitial pattern, likely a combination of chronic interstitial lung disease and mild p ulmonary edema. Reviewed, dictated and finalized at location A. IMPRESSION: 1. Airspace opacities in left perihilar region and mild elevation of left hemid iaphragm, likely a left hilar mass with left upper lobe collapse. The patient h as a recent diagnosis of lung cancer at an outside hospital. Correlate with out side CT. 2. Diffuse interstitial pattern, likely a combination of chronic interstitial l balaji disease and mild pulmonary edema.
--- NOTE | ~2021-08-19 | CT_ITS ---
EXAMINATION: CT guide absc cath placement DATE: 08/25/2021 15:30 INDICATION: Perisigmoid abscess. TECHNIQUE: The procedure including the risks, benefits, and alternatives was discussed with the patie nt. Risks discussed included bleeding and infection. The patient understood the risks and benefits an d agreed to proceed. The patient was confirmed to be receiving appropriate antibiotic coverage. The skin overlying the lower abdomen was prepped and draped in usual sterile fashion. Anesthetic was adm inistered with 1% lidocaine subcutaneously. An 18 gauge trochar needle was inserted into the perisigm oid abscess with CT guidance. The needle was exchanged over a wire for 6 Djib[place]ian and 8 Djib[place]ian dilators and then for an 8.5 [place]ian pigtail catheter. The catheter was stitched to the skin, and a sterile dr essing was applied. The mA was adjusted according to patient size. Iterative reconstruction technique was employed. The dose-length product was 303.28 mGy-cm. There were no immediate complications. FINDINGS: CT images demonstrate the catheter within the perisigmoid abscess. 4 mL fluid was aspirated for testing. IMPRESSION: 1. Successful CT-guided perisigmoid abscess drainage. 2. 4 mL opaque, green-knowles, foul-smelling fluid was sent for aerobic and anaerobic cultures. Reviewed, dictated and finalized at location A. IMPRESSION: 1. Successful CT-guided perisigmoid abscess drainage. 2. 4 mL opaque, green-knowles, foul-smelling fluid was sent for aerobic and anaerob ic cultures.
--- NOTE | ~2021-08-19 | XR_ITS ---
XR abdomen/kub 1V DATE: 09/03/2021 13:57 INDICATION: Vomiting following earlier upper gastrointestinal series TECHNIQUE: Portable supine AP views on 09/03/2021 1348 1352 hours COMPARISON: 09/03/2021 upper GI series 08/27/2021 abdomen for NG tube 08/25/2021 CT abdomen pelvis FINDINGS: There are branden along the anterior abdominal and pelvic salazar. Surgical drain overlies th e right lower abdomen and lower central pelvis. There is retained contrast material within the stomach, duodenum and proximal small bowel. There are gas distended small bowel segments. The colon appears relatively evacuated. Surgical clips overlie the right upper quadrant, consistent with cholecystectomy. Extensive bilateral pulmonary infiltrates. IMPRESSION: Gaseous distention of multiple small bowel segments, possibly due to postoperative adynam ic ileus; retained contrast material in the stomach and proximal small bowel Postoperative change including some surgical drain overlying right lower abdomen and lower mid pelvis Extensive bilateral pulmonary infiltrates Reviewed, dictated and finalized at Location A. Reviewed, dictated and finalized at location B. IMPRESSION: Gaseous distention of multiple small bowel segments, possibly due t o postoperative adynamic ileus; retained contrast material in the stomach and p roximal small bowel Postoperative change including some surgical drain overlying right lower abdome n and lower mid pelvis Extensive bilateral pulmonary infiltrates
--- NOTE | ~2021-08-19 | XR_ITS ---
EXAMINATION: XR chest 1V portable DATE: 09/01/2021 06:09 INDICATION: Respiratory failure TECHNIQUE: frontal view of the chest was obtained. COMPARISON: Chest radiograph dated 08/31/[address] dated 08/29/2021 FINDINGS: Diffuse opacification of the left hemithorax corresponding to diffuse consolidation of the left upper lobe and lingula with meghana sickle lucency at the left apex corresponding to residual aerated lung at the superior segment of the left lower lobe hyperexpanded to account for some atelectasis in the opa cified left upper lobe and lingula. Also indicative of the volume loss is mild elevation of the left hemidiaphragm. Diffuse increased interstitial pattern in the right lung consistent with mild pulmonar y edema. No pneumothorax or definitive pleural effusion. Heart size is normal with partially obscured left side of the cardiac silhouette. IMPRESSION: 1. Persistent diffuse opacification of the left upper lobe and lingula which based upon prior CT is c oncerning for postobstructive atelectasis and pneumonia secondary to a left hilar mass suspicious for malignancy evident on prior CT. Consider bronchoscopy for further evaluation. 2. Persistent diffuse mild pulmonary edema. Reviewed, dictated and finalized at location A. IMPRESSION: 1. Persistent diffuse opacification of the left upper lobe and lingula which ba sed upon prior CT is concerning for postobstructive atelectasis and pneumonia s econdary to a left hilar mass suspicious for malignancy evident on prior CT. Co nsider bronchoscopy for further evaluation. 2. Persistent diffuse mild pulmonary edema.
--- NOTE | ~2021-08-19 | XR_ITS ---
EXAMINATION: XR chest 1V portable Exam Date/Time: 09/08/2021 21:25 CDT HISTORY: SOB Comparison: 09/04/2021. RESULT: Lines, tubes, and devices: Interval NG tube removal. Right upper extremity PICC, terminates in the s uperior vena cava. Lungs and pleura: Worsening reticular and coarse interstitial opacities with patchy groundglass opac ities overlying diffuse left lung opacification. Cardiomediastinal silhouette: Stable cardiomediastinal silhouette. Other: No acute osseous or upper abdominal finding. IMPRESSION: Right upper extremity PICC, in good position. Worsening pulmonary opacities represent worsening edema , infection and ARDS should be considered in the differential. Reviewed, dictated and finalized at location K. IMPRESSION: Right upper extremity PICC, in good position. Worsening pulmonary opacities rep resent worsening edema, infection and ARDS should be considered in the differen tial.
--- NOTE | ~2021-08-19 | CT_ITS ---
EXAMINATION: CT abdomen pelvis wo con DATE: 08/25/2021 08:19 INDICATION: Diverticular abscess. TECHNIQUE: Computed tomography (CT) of the abdomen and pelvis was performed without intravenous contr ast. Automated exposure control and iterative reconstruction technique were employed. The dose-length product was 659.79 mGy-cm. COMPARISON: CT abdomen and pelvis 08/19/2021, abdomen ultrasound 08/01/2021 FINDINGS: The visualized portions of the lung bases demonstrate small pleural effusions. There is per ipheral septal thickening in the lungs, likely a combination of mild pulmonary edema and chronic inte rstitial lung disease. There is mild dependent atelectasis bilaterally. The heart size is normal. No pericardial effusion. The liver and spleen are normal. There are changes of cholecystectomy. The panc reas, adrenal glands, and left kidney are normal. There is a 3.4 cm cyst in right kidney. There is wa ll thickening of the sigmoid colon. There is free gas and fat stranding adjacent to the sigmoid colon . There are abscesses adjacent to the sigmoid colon measuring up to 5.1 x 3.7 cm with involvement of the bladder wall. There are no dilated loops of bowel. The appendix is normal. There are no pathologi ana enlarged lymph nodes. There is no free intraperitoneal fluid. There are calcified fibroids in u terus. There is mild lumbar spondylosis. IMPRESSION: 1. Sigmoid diverticulitis with worsened perisigmoid abscesses. 2. Worsened small pleural effusions. Reviewed, dictated and finalized at location A.
--- NOTE | ~2021-08-19 | XR_ITS ---
XR abdomen/kub 1V DATE: 09/05/2021 06:43 INDICATION: Vomiting, ileus TECHNIQUE: Portable supine AP view on 09/05/2021 at 0611 hours COMPARISON: 09/04/2021 portable KUB at 0905 hours FINDINGS: NG tube unchanged in position, distal tip overlying gastric antrum approximately. Surgical clips, right upper quadrant, consistent with cholecystectomy. Skin branden overlie the anterior mid and lower abdomen. There is a catheter overlying the pelvis. Nonspecific bowel gas pattern without apparent obstruction. Residual contrast material remains withou t significant improvement since 09/04/2021. IMPRESSION: Likely postoperative adynamic ileus Reviewed, dictated and finalized at Location A. Reviewed, dictated and finalized at location A.
--- NOTE | ~2021-08-19 | XR_ITS ---
EXAMINATION: XR chest 1V portable INDICATION: Respiratory failure TECHNIQUE: Portable AP chest at 0511 hours COMPARISON: 08/29/2021 FINDINGS: The endotracheal tube has been removed. The nasogastric tube is followed as far as the stom ach. Its tip is beyond the inferior margin of the radiograph. A mild diffuse interstitial pattern per sists throughout the right lung. There is also near complete opacification of the left hemithorax wit h slight improvement in aeration of the left lung base. No pneumothorax is identified. The heart size is normal. IMPRESSION: 1. Near complete opacification of left hemithorax with slight improvement in aeration of the left hamzah g base, demonstrated to reflect left upper lobe collapse and pleural effusion on recent CT. 2. Stable diffuse interstitial opacities of the right lung, consistent with pulmonary edema, atelecta sis, pneumonia. Reviewed, dictated and finalized at location A. IMPRESSION: 1. Near complete opacification of left hemithorax with slight improvement in ae ration of the left lung base, demonstrated to reflect left upper lobe collapse and pleural effusion on recent CT. 2. Stable diffuse interstitial opacities of the right lung, consistent with pul monary edema, atelectasis, pneumonia.
--- NOTE | ~2021-08-19 | XR_ITS ---
EXAMINATION: XR chest 1V portable Exam Date/Time: 09/02/2021 18:50 CDT HISTORY: sob Comparison: 09/02/2021 at 5:23 AM. RESULT: Lines, tubes, and devices: None. Lungs and pleura: Worsening diffuse groundglass and reticular opacities, overlying persistent left u pper and lingular consolidation and left hilar mass. Cardiomediastinal silhouette: Stable cardiomediastinal silhouette. Other: No acute osseous or upper abdominal finding. IMPRESSION: Increasing bilateral pulmonary opacities may reflect worsening pulmonary edema. Reviewed, dictated and finalized at location K.
--- NOTE | ~2021-08-19 | XR_ITS ---
EXAMINATION: XR chest 1V portable DATE: 08/27/2021 08:57 INDICATION: Preoperative evaluation TECHNIQUE: frontal view of the chest was obtained. COMPARISON: Chest radiograph dated 03/08/2012 FINDINGS: Mild elevation of the left hemidiaphragm. Bilateral lung disease on the right with indistinct interst itial prominence on the left with more diffuse groundglass opacity which obscures the left heart bord er and the vascular structures at the left hilum. No pneumothorax or definitive pleural effusion. Hea rt size is normal. IMPRESSION: 1. Diffuse bilateral lung disease which could represent pulmonary edema or pneumonia. Reviewed, dictated and finalized at location B. IMPRESSION: 1. Diffuse bilateral lung disease which could represent pulmonary edema or pneu monia.
--- NOTE | ~2021-08-19 | US_ITS ---
EXAMINATION: US renal BI DATE: 09/08/2021 10:25 INDICATION: Acute kidney injury TECHNIQUE: Multiple grayscale and Doppler ultrasound images of the kidneys were obtained. COMPARISON: None. FINDINGS: The right kidney measures 14.7 x 4.1 x 5.1 cm and contains a 3.1 cm cyst. The left kidney m easures 12.8 x 5.1 x 6.3 cm. The kidneys demonstrate normal parenchymal echogenicity. There is no hyd ronephrosis. . There is questionable debris in the urinary bladder IMPRESSION: 1. Normal kidneys without hydronephrosis. 2. Possible debris in the urinary bladder. Correlate with urinalysis. Reviewed, dictated and finalized at location B.
--- NOTE | ~2021-08-19 | XR_ITS ---
EXAMINATION: XR chest 1V portable DATE: 08/31/2021 05:51 INDICATION: Respiratory failure TECHNIQUE: frontal view of the chest was obtained. COMPARISON: Chest radiograph dated 08/30/21 FINDINGS: Persistent diffuse opacification of the left hemithorax diffuse increased interstitial pattern throug hout both lungs. No pneumothorax discernible pleural effusion. Heart size is normal. Partially obscur ed. IMPRESSION: 1. Unchanged bilateral lung disease which on CT correspond to diffuse pulmonary edema and complete co nsolidation of the left upper lobe and lingula which could represent pneumonia, atelectasis and under lying malignancy not excludable. Reviewed, dictated and finalized at location A. IMPRESSION: 1. Unchanged bilateral lung disease which on CT correspond to diffuse pulmonary edema and complete consolidation of the left upper lobe and lingula which coul d represent pneumonia, atelectasis and underlying malignancy not excludable.
--- NOTE | ~2021-08-19 | XR_ITS ---
EXAMINATION: XR UGI water soluble wo kub DATE: 09/03/2021 11:20 INDICATION: . TECHNIQUE: Water-soluble contrast was administered orally. Fluoroscopic images of the esophagus, sto mach, and proximal duodenum were obtained in various projections. Thereafter, overhead images of the abdomen were performed. 1.6 minutes of fluroscopy. 61 fluoroscopic images. FINDINGS: The esophagus is normal in caliber, without mucosal lesions or strictures. There is normal esophagea l peristalsis. There is a small hiatal hernia. Gastroesophageal reflux witnessed during the course o f the study. No evidence for extravasation. Small bowel is dilated proximally, although no transition point identified. Gastric folds are unremarkable. There are cholecystectomy clips.. IMPRESSION: 1. Small hiatal hernia with gastroesophageal reflux. 2: Mildly dilated proximal small bowel without transition point, possibly ileus. Reviewed, dictated and finalized at location A. IMPRESSION: 1. Small hiatal hernia with gastroesophageal reflux. 2: Mildly dilated proximal small bowel without transition point, possibly ileus .
--- NOTE | ~2021-08-19 | XR_ITS ---
EXAMINATION: XR chest 1V portable INDICATION: Respiratory failure TECHNIQUE: Portable AP chest at 0500 hours COMPARISON: 08/28/2021 FINDINGS: The endotracheal tube ends approximately 4.9 cm above the liliya. The nasogastric tube is f ollowed as far as the stomach. Its tip is beyond the inferior margin of the radiograph. There is incr easing diffuse opacification of the left hemithorax. There is a mild diffuse interstitial pattern thr oughout the right lung. The heart border is obscured. No pneumothorax is identified. IMPRESSION: 1. Increasing diffuse opacification throughout the left hemithorax, possibly cavitation of pleural ef fusion and airspace disease. 2. Diffuse interstitial opacities, likely chronic interstitial lung disease and pulmonary edema. Reviewed, dictated and finalized at location A. IMPRESSION: 1. Increasing diffuse opacification throughout the left hemithorax, possibly ca vitation of pleural effusion and airspace disease. 2. Diffuse interstitial opacities, likely chronic interstitial lung disease and pulmonary edema.
--- NOTE | ~2021-08-19 | XR_ITS ---
XR UGI water soluble w sbs DATE: 09/05/2021 12:01 INDICATION: Postoperative ileus TECHNIQUE: Water-soluble Gastrografin upper gastrointestinal series 59.93 DAP 1.2 minutes fluoroscopy time COMPARISON: None FINDINGS: Water-soluble radiopaque Gastrografin contrast material (380 CC) was administered through t he existing nasogastric tube. Skin branden are noted along the central mid and lower abdomen. Surgical clips, right upper quadrant, consistent with cholecystectomy. No stricture, mucosal fold thickening, ulceration or intraluminal mass lesion of the esophagus or sto mach or duodenum is detected. There is normal transit of contrast material through the small bowel, with contrast material reaching the colon in 45 minutes. No small bowel mucosal fold thickening, stricture, obstruction or dilatatio n or intraluminal mass lesion is evident. IMPRESSION: No evidence of gastric or small bowel obstruction; contrast material reaches the colon wi thin 45 minutes Reviewed, dictated and finalized at Location A. Reviewed, dictated and finalized at location A. IMPRESSION: No evidence of gastric or small bowel obstruction; contrast materia l reaches the colon within 45 minutes
--- NOTE | ~2021-08-19 | XR_ITS ---
XR chest 1V portable 09/04/2021 09:24 Indication: Infiltrates. Shortness of breath. Procedure: AP portable chest Comparison: Comparison to multiple prior studies sequentially, with oldest reviewed study dated 10/31. Findings: NG tube in the stomach. Bilateral asymmetric airspace disease, left greater than right, unc hanged. No pneumothorax. No significant effusion. Impression: 1: Stable diffuse bilateral airspace disease, left greater than right. Differential diagnosis include s pneumonia and edema. Reviewed, dictated and finalized at location A. Impression: 1: Stable diffuse bilateral airspace disease, left greater than right. Differen tial diagnosis includes pneumonia and edema.
--- NOTE | ~2021-08-19 | CT_ITS ---
EXAMINATION: CT diagnostic chest wo con DATE: 08/29/2021 15:20 INDICATION: Resp Failure TECHNIQUE: Computed tomography (CT) of the chest was performed without intravenous contrast. Automate d exposure control and iterative reconstruction technique were employed. The dose-length product was 860.94 mGy-cm. COMPARISON: X-ray chest same date. CTPA 03/08/2012. FINDINGS: CHEST: Thoracic aorta: Mild arch calcification. No dilation.. Lung parenchyma and airways: Complete left upper lobe consolidation. Narrowing/occlusion of the right upper lobe mainstem bronchus. Interlobular septal thickening. Scattered centrilobular and groundglas s opacities. Peripheral reticulation. Thoracic inlet, axillae and chest wall: No thyroid or soft tissue mass. No axillary lymphadenopathy. Mediastinum: Mediastinal lymphadenopathy. Heart and pericardium: Normal size. Small pericardial effusion. Coronary artery calcifications: Moderate. Pleura: Small volume bilateral pleural fluid collections. Upper abdomen: Cholecystectomy. NG tube, in good position. Thoracic bones: No acute osseous finding in the chest. IMPRESSION: Complete left upper lobe consolidation, possibly secondary to a hilar mass or mucus plugging. Mediast inal lymphadenopathy. Pulmonary edema. Small bilateral effusions. Small pericardial effusion. Reviewed, dictated and finalized at location K. IMPRESSION: Complete left upper lobe consolidation, possibly secondary to a hilar mass or m ucus plugging. Mediastinal lymphadenopathy. Pulmonary edema. Small bilateral ef fusions. Small pericardial effusion.
--- NOTE | ~2021-08-19 | XR_ITS ---
EXAMINATION: XR chest 1V portable INDICATION: Shortness of breath TECHNIQUE: Portable AP chest at 0457 hours COMPARISON: 09/08/2021 FINDINGS: A right upper extremity PICC ends with its tip at the superior cavoatrial junction. There i s unchanged diffuse opacification throughout the left hemithorax. Patchy bilateral interstitial and a irspace opacities persist without significant change. No pneumothorax is identified. The cardiac silh ouette is obscured. IMPRESSION: 1. Stable diffuse lung disease, consistent with pneumonia and/or pulmonary edema. 2. Unchanged diffuse opacification throughout the left lung which likely reflects combination of pleu ral effusion and parenchymal lung disease. Reviewed, dictated and finalized at location B. IMPRESSION: 1. Stable diffuse lung disease, consistent with pneumonia and/or pulmonary jeevan a. 2. Unchanged diffuse opacification throughout the left lung which likely reflec ts combination of pleural effusion and parenchymal lung disease.
--- NOTE | ~2021-08-19 | NM_ITS ---
EXAMINATION: NM pulmonary perfusion DATE: 09/09/2021 14:57 INDICATION: Acute on chronic hypoxic respiratory failure TECHNIQUE: 4.7 mCi Tc-99m MAA by intravenous route. Scintigraphic images of the chest were obtained. COMPARISON: Chest radiograph dated 09/08/2021 FINDINGS: There is diffuse decreased perfusion throughout the left lung with corresponding airspace opacities t hroughout the left hemithorax. Small perfusion defect at the lateral right midlung zone also with cor responding airspace opacity on the prior radiograph. No unmatched perfusion defects identified. IMPRESSION: 1. Nondiagnostic (intermediate probability for pulmonary embolism). Reviewed, dictated and finalized at location A.
--- NOTE | 2021-08-19 12:46 | ECG_ITS ---
Measurements Intervals [place] Rate: 87 P: 29 [place]: 159 QRS: 59 QRSD: 103 T: 57 QT: 389 QTc: 468 Interpretive Statements SINUS RHYTHM INCOMPLETE RIGHT BUNDLE BRANCH BLOCK [90+ ms QRS DURATION, TERMINAL R IN V1/V2, 40+ ms S IN I/aVL/V4/V5/V6] MINIMAL ST DEPRESSION [0.025+ mV ST DEPRESSION] NO PREVIOUS ECG AVAILABLE FOR COMPARISON Electronically Signed On 08-20-2021 11:13:36 CDT by Kalin Figueroa MD
--- NOTE | 2021-08-19 13:11 | ED.GENADULT ---
HPI - General Adult General Chief complaint: Unspecified Stated complaint: ABD Pain Time Seen by Provider: 08/19/21 12:42 Source: patient History of Present Illness HPI narrative: Patient presents with left lower quadrant abdominal pain. Pain is achy, constant, radiates across her lower abdomen, no clear aggravating or alleviating factors. Patient ports history of diverticulitis and this feels like her prior episodes. Symptoms associated with nausea vomiting and diarrhea. She has not noted any fevers or urinary symptoms. Denies any chest pain or shortness of breath lightheadedness or dizziness. She attempted her pain medications at home however due to her nausea she threw them up. Related Data Home Medications Medication Instructions Recorded Confirmed acetaminophen 325 mg capsule 325 mg PO Q6H PRN Pain 06/22/21 07/31/21 (Tylenol) albuterol sulfate 90 mcg/actuation 1 inh inhalation Q4H 06/22/21 07/31/21 aerosol inhaler budesonide-formoterol HFA 80 2 puff inhalation Q12H 06/22/21 07/31/21 mcg-4.5 mcg/actuation aerosol inhaler (Symbicort) buspirone 10 mg tablet 10 mg PO PRN PRN Anxiety 06/22/21 07/31/21 citalopram 40 mg tablet 20 mg PO DAILY 06/22/21 07/31/21 simvastatin 5 mg tablet 5 mg PO DAILY 06/22/21 07/31/21 bupropion HCl 100 mg tablet,12 hr 1 tablet PO BID 07/31/21 07/31/21 sustained-release dexamethasone 4 mg tablet 1 tablet PO DAILY 07/31/21 07/31/21 mirtazapine 15 mg tablet 1 tablet PO DAILY 07/31/21 07/31/21 mupirocin 2 % topical ointment 1 applic topical PRN PRN Dry Nasal 07/31/21 07/31/21 Passages omeprazole 40 mg capsule,delayed 1 cap PO DAILY 07/31/21 07/31/21 release Allergies Allergy/AdvReac Type Severity Reaction Status Date / Time mold Allergy Severe Difficulty Verified 08/19/21 12:45 Breathing cortisone Allergy Mild RASH Verified 08/19/21 12:45 Sulfa (Sulfonamide Allergy Mild RASH Verified 08/19/21 12:45 Antibiotics) propoxyphene AdvReac Mild Nausea Verified 08/19/21 12:45 Review of Systems Review of Systems: CONSTITUTIONAL: Denies fever, chills, or sweats. EYES: Denies visual changes, redness, or discharge. ENT: Denies rhinorrhea, congestion, sore throat, or otalgia. CARDIOVASCULAR: Denies chest pain, palpitations, or edema. RESPIRATORY: Denies cough or dyspnea. GASTROINTESTINAL: Lower abdominal pain with nausea vomiting and diarrhea GENITOURINARY: Denies dysuria or hematuria. SKIN: Denies rash or itching. MUSCULOSKELETAL: Denies back pain, joint pain, or myalgia. NEUROLOGIC: Denies headache, numbness, dizziness, or weakness. PSYCHIATRIC: Denies anxiety or depression. All systems reviewed & are unremarkable except as noted in HPI and below PMFSH Past Medical History Medical History (Updated 08/19/21 @ 16:18 by DONNA Duron) Adenomatous colon polyp Anxiety Bond esophagus Cocaine use History of cocaine use, reportedly has not used since 1999 COPD (chronic obstructive pulmonary disease) GERD (gastroesophageal reflux disease) Lung cancer Obesity Vocal cord paralysis Surgical History Surgical History H/O colonoscopy H/O tubal ligation History of cataract extraction S/P cholecystectomy 2010 Laparoscopic cholecystectomy Family History Family History Father Cerebrovascular accident Cancer Mother Family history of congestive heart failure Sibling Cancer Malignant neoplasm of prostate Esophagus cancer Lung cancer Social History Social History Smoking packs per day: 1 Smoking cigarettes per day: 20.0 Years smoked: 48 Smoking pack-years: 48.00 Smoking status: Current some day smoker Tobacco type: cigarettes Smoking end date: 06/06/21 Alcohol intake: former Substance use: former Substance use type: crack/cocaine Last use: 1999 Living arrangements:
[2021-08-19] MEDS: ONDANSETRON INJ 4 MG/2 ML VIAL IV PUSH ×2 (13:37→18:16)
[2021-08-19] MEDS: SODIUM CHLORIDE 0.9% IV 1,000 ML 999 ML IV CONT (13:38)
[2021-08-19] MEDS: MORPHINE SULFATE (*CRX) 4 MG/ML INJ IV PUSH ×2 (13:38→16:36)
[2021-08-19 13:40] LABS: Hematocrit 23.8 % (37.0-47.0); Hemoglobin 7.6 g/dL (12.0-15.0); Mean Corpuscular HGB Conc 31.9 g/dl (32-36); Mean Corpuscular Hemoglobin 32.5 pg (26-34); Mean Corpuscular Volume 101.7 fl (80-100); Mean Platelet Volume 8.8 fl (7.4-10.4); Platelet Count Result 186 k/mm3 (150-375); Red Blood Count 2.34 M/mm3 (4.2-5.4); Red Cell Distribution Width 17.3 % (11.5-14.5); White Blood Count 4.5 K/mm3 (4.5-10.0)
[2021-08-19 13:53] LABS: Alanine Aminotransferase 15 U/L (6-35); Albumin Level 3.4 g/dL (3.5-5.1); Alkaline Phosphatase 89 U/L (38-126); Anion Gap 5 mmol/L (8-16); Aspartate Amino Transferase 16 U/L (14-36); Bilirubin,Total 0.3 mg/dL (0.2-1.3); Blood Urea Nitrogen 7 mg/dL (7-17); Calcium 8.3 mg/dL (8.4-10.2); Carbon Dioxide 29 mmol/L (22-30); Chloride 97 mmol/L (98-107); Estimated CRCL calculation 101 ml/min; Estimated Glomerular Filt Rate > 60; Glucose 118 mg/dL (65-110); Lipase 19 U/L (23-300); Potassium 3.5 mmol/L (3.4-5.0); Sodium 131 mmol/L (137-145)
[2021-08-19 13:54] LABS: Lactic Acid Reflex 1.9 mmol/L (0.7-2.0)
[2021-08-19 14:20] LABS: Band Neutrophils Percent 3 % (0-6); Blastocytes 1 %; Lymphocytes Absolute Manual 2.11 K/mm3 (1.1-4.5); Metamyelocytes Percent 1 %; Monocytes Absolute Manual 1.12 K/mm3 (0.1-0.90); Monocytes Percent Manual 25 % (3-9); Neutrophils Absolute Manual 1.17 K/mm3 (1.7-7.2); Neutrophils Percent Manual 23 % (46-73); Total Cells Counted 100
[2021-08-19 14:21] LABS: Spherocytes 1+ (NORMAL)
[2021-08-19 14:22] LABS: Macrocytosis 1+ (NORMAL); Poikilocytosis 1+ (NORMAL)
[2021-08-19 15:00] LABS: Appearance Urine Slightly Cloudy (Clear); Bilirubin Urine Negative (Negative); Blood Urine Negative (Negative); Color Urine Yellow (Yellow); Glucose Urine UA Negative (Negative); Ketones Urine Negative (Negative); Leukocyte Esterase Ur Trace LEU/UL (Negative); Nitrate Urine Negative (Negative); Protein Urine Negative (Negative); Urobilinogen Urine 0.2 mg/dL (<2.0)
[2021-08-19 15:09] LABS: Bacteria Urine Trace /hpf; RBC Urine 0-2 /hpf (0-2); Squamous Epithelial Cell Urine Many /hpf (Few); WBC Urine 0-3 /hpf
--- NOTE | 2021-08-19 15:09 | PM.CNGS ---
Assessment and Plan Assessment and plan (1) Diverticulitis of large intestine with perforation and abscess: Code(s): K57.20 - Diverticulitis of large intestine with perforation and abscess without bleeding Status: Acute Assessment and Plan: CT scan reviewed and discussed with the patient in detail. There is evidence of acute sigmoid diverticulitis with microperforation and a small peridiverticular abscess. Would recommend to continue broad-spectrum IV antibiotics, IV fluids, bowel rest, and analgesics as needed. I had consulted the Infectious Disease Pharmacist and he recommended that we continue with IV Zosyn for now and if there was any decompensation, then to consider adding IV Micafungin to her treatment regimen. Will continue to monitor with serial abdominal exams and labs. Discussed with the patient that this will likely improve with antibiotics, but there is a chance that she could require surgery with the risk of having an ostomy if she does not improve with conservative treatment. Will repeat labs tomorrow. (2) Lung cancer: Code(s): C34.90 - Malignant neoplasm of unspecified part of unspecified bronchus or lung Status: Acute Assessment and Plan: Diagnosed with lung cancer in June of 2021 and started chemotherapy. Reportedly switched her care to Dr. Fernandez. Her last treatment of chemotherapy was reportedly 2 months ago. (3) COPD (chronic obstructive pulmonary disease): Code(s): J44.9 - Chronic obstructive pulmonary disease, unspecified Status: Acute (4) Anemia: Code(s): D64.9 - Anemia, unspecified Status: Acute (5) GERD (gastroesophageal reflux disease): Code(s): K21.9 - Gastro-esophageal reflux disease without esophagitis Status: Acute (6) Anxiety: Code(s): F41.9 - Anxiety disorder, unspecified Status: Acute Additional Plan I have discussed the patient's case and plan of care with Dr. Neal. Thank you for allowing us to see the patient in consultation and we will continue to follow along with you. History of Present Illness Consult details Consult date: 08/19/21 Reason for consult: other (Sigmoid diverticulitis with microperforation and abscess) Requesting physician: Marc Mckeon MD Narrative: This is a 61-year-old female with a history of COPD, Bond's Esophagus, and metastatic lung cancer, who presented to the ER with complaints of abdominal pain, nausea, and vomiting. She was recently hospitalized at [facility] from 07/31/21 - 08/04/21 for anemia, perirectal abscess, and incidentally found to have acute uncomplicated diverticulitis. She received 5 days of IV antibiotics and had an I&D in the ER of the perirectal abscess. She had an EGD on 08/04/21 that showed Bond's Esophagus and underlying GE reflux. She was discharged home without additional oral antibiotics. She reports seeing her PCP, Dr. Jernigan, in follow-up after the hospitalization who prescribed her oral antibiotics. She reports completing all of the antibiotic, but cannot recall when she started them or how long they were taken. She reports noticing severe LLQ abdominal pain 2 days ago. She states she had more mild pain the few days before, but hadn't paid much attention to it. She reports associated nausea, vomiting, and loose stools. She is unsure of the stool color because she has impaired vision and did not look at her stools. She denies any fever or chills. Her abdominal pain persisted and she presented to the ER today for further evaluation. CT scan of the abdomen and pelvis showed acute sigmoid diverticulitis with microperforation and a small peridiverticular abscess. Labs showed a WBC count 4,500 and hemoglobin 7.6. She has been started on IV Zosyn and IV fluids. Our service was consulted by the ED physician. She is now seen in the ER. She appears uncomfortable and is restless in bed, which she states is related to her abdominal pain. She is no longer feeling nauseous and i
[2021-08-19 15:11] LABS: Add Urine Microscopic? YES
--- NOTE | 2021-08-19 16:57 | ADMGEN ---
This patient, Marcia Salinas, was admitted to Medical Room 257-01. Patient/family oriented to hospital policies and general routines including ID bracelet, bed and alarms, visiting hours, pain management, procedures, bathroom and other care routines, personal items, smoking policy, room service/diet, and visiting hours. Information on how to activate the Rapid Response Team has been discussed. Patient/Family are encouraged to report perceived risks to care and to ask questions if they do not understand what they are told or what they should do.
[2021-08-19] MEDS: SODIUM CHLORIDE 0.9% IV 1,000 ML 125 ML IV CONT (18:07)
[2021-08-19] MEDS: HYDROmorphone HCL INJ (*CRX) 1 MG/ML SYR IV PUSH ×2 (18:08→21:06)
--- NOTE | 2021-08-19 18:10 | PM.IMHP ---
H&P: HPI History of Present Illness Date/Time: Patient was placed observation status for expected length of stay less than 23 hours for management, will plan to re-evaluate tomorrow for improvement. 08/19/21 18:10 Chief Complaint: Abdominal pain Narrative: Ms. Salinas is a 61-year-old female who presented emergency room with complaints of abdominal pain. Patient states that she began having left lower quadrant pain on Tuesday. Patient states since that time she has had multiple loose stools and has been vomiting once to twice daily. Patient denies any fever or chills. Patient states she was recently admitted to the hospital for a perirectal abscess and had 5 days of antibiotics. Patient states she was feeling better after the antibiotics, but then on Tuesday she began having this abdominal pain. Patient denies any bloody stools, melena, or hematemesis. Patient denies any chest pain, shortness breast, lightheadedness, dizziness, syncopal, or near syncopal episodes. Upon evaluation in emergency room patient was noted to have a micro perforation of a diverticulum with abscess. Patient was given Zosyn and General surgery was consulted. Patient does have a known history of metastatic lung cancer and she states she has received chemotherapy at [facility], and she is attempting to change her oncologist Dr. Fernandez. Patient states she also has a known history of vocal cord paralysis and she has seen ENT for this. Patient also has a known history of COPD, GERD, anxiety, and anemia. During last admission patient did receive 1 unit packed red blood cells for her anemia. Review of Systems Review of Systems: A 12 point review of systems was completed patient all pertinent positive and negative per HPI the remainder are unremarkable. FOR[facility]LY [facility] Past Medical History Medical History (Updated 08/19/21 @ 16:18 by DONNA Duron) Adenomatous colon polyp Anxiety Bond esophagus Cocaine use History of cocaine use, reportedly has not used since 1999 COPD (chronic obstructive pulmonary disease) GERD (gastroesophageal reflux disease) Lung cancer Obesity Vocal cord paralysis Surgical History Surgical History H/O colonoscopy H/O tubal ligation History of cataract extraction S/P cholecystectomy 2010 Laparoscopic cholecystectomy Family History Family History Father Cerebrovascular accident Cancer Mother Family history of congestive heart failure Sibling Cancer Malignant neoplasm of prostate Esophagus cancer Lung cancer Social History Social History Smoking packs per day: 1 Smoking cigarettes per day: 20.0 Years smoked: 43 Smoking pack-years: 43.00 Smoking status: Former smoker Tobacco type: cigarettes Smoking end date: 06/06/21 Alcohol intake: never Substance use: never Substance use type: crack/cocaine Last use: 1999 Living arrangements: with family Additional living arrangements comments: her son Spiritual care concerns: No Meds Home Medications and Allergies Home Medications Medication Instructions Recorded Confirmed Type albuterol sulfate 90 mcg/actuation 1 inh inhalation Q4H 06/22/21 08/19/21 History aerosol inhaler budesonide-formoterol HFA 80 2 puff inhalation Q12H 06/22/21 08/19/21 History mcg-4.5 mcg/actuation aerosol inhaler (Symbicort) buspirone 10 mg tablet 10 mg PO PRN PRN Anxiety 06/22/21 08/19/21 History citalopram 40 mg tablet 20 mg PO HS 06/22/21 08/19/21 History simvastatin 5 mg tablet 5 mg PO HS 06/22/21 08/19/21 History bupropion HCl 100 mg tablet,12 hr 1 tablet PO BID 07/31/21 08/19/21 History sustained-release dexamethasone 4 mg tablet 1 tablet PO DAILY 07/31/21 08/19/21 History mirtazapine 15 mg tablet 1 tablet PO DAILY 07/31/21 08/19/21 History omeprazole 40 mg capsule,julia
[2021-08-19] MEDS: ALPRAZolam (*CRX) 0.25 MG TABLET PO (21:46)
[2021-08-20] VITALS (9 sets, daily range): BP systolic 99–146; BP diastolic 40–75; PULSE 80–99; RESP 16–18; TEMP 36.1–36.8; O2SAT 91–100; BMI 28.0
[2021-08-20] MEDS: HYDROmorphone HCL INJ (*CRX) 1 MG/ML SYR IV PUSH ×6 (01:22→20:35)
[2021-08-20] MEDS: SODIUM CHLORIDE 0.9% IV 1,000 ML 125 ML IV CONT ×2 (02:20→14:25)
[2021-08-20 05:38] LABS: Mean Corpuscular HGB Conc 32.3 g/dl (32-36); Mean Corpuscular Hemoglobin 32.2 pg (26-34); Mean Corpuscular Volume 99.5 fl (80-100); Mean Platelet Volume 8.7 fl (7.4-10.4); Platelet Count Result 181 k/mm3 (150-375); Red Blood Count 2.02 M/mm3 (4.2-5.4); Red Cell Distribution Width 17.5 % (11.5-14.5); White Blood Count 5.2 K/mm3 (4.5-10.0)
[2021-08-20 05:52] LABS: Anion Gap 5 mmol/L (8-16); Blood Urea Nitrogen 6 mg/dL (7-17); Calcium 7.9 mg/dL (8.4-10.2); Carbon Dioxide 25 mmol/L (22-30); Chloride 101 mmol/L (98-107); Estimated CRCL calculation 87 ml/min; Estimated Glomerular Filt Rate > 60; Glucose 107 mg/dL (65-110); Magnesium 1.6 mg/dL (1.6-2.3); Potassium 3.7 mmol/L (3.4-5.0); Sodium 131 mmol/L (137-145)
[2021-08-20 05:53] LABS: Hematocrit 20.1 % (37.0-47.0); Hemoglobin 6.5 g/dL (12.0-15.0)
[2021-08-20 06:20] LABS: Anisocytosis 1+ (NORMAL); Atypical Lymphocytes Present; Band Neutrophils Percent 4 % (0-6); Basophils Absolute Manual 0.05 K/mm3 (0.0-0.1); Basophils Percent Manual 1 % (0-1); Hypochromasia 2+ (NORMAL); Lymphocytes Absolute Manual 2.08 K/mm3 (1.1-4.5); Monocytes Absolute Manual 0.98 K/mm3 (0.1-0.90); Monocytes Percent Manual 19 % (3-9); Neutrophils Absolute Manual 2.08 K/mm3 (1.7-7.2); Neutrophils Percent Manual 36 % (46-73); Platelet Estimate Adequate (Adequate); Poikilocytosis 1+ (NORMAL); Total Cells Counted 100
[2021-08-20] MEDS: ONDANSETRON INJ 4 MG/2 ML VIAL IV PUSH (07:16)
[2021-08-20] MEDS: ENOXAPARIN 40 MG/0.4 ML SYRINGE SUB-Q (08:16)
--- NOTE | 2021-08-20 10:00 | PM.PNGS ---
Progress Note: A&P Assessment and Plan (1) Diverticulitis of large intestine with perforation and abscess: Code(s): K57.20 - Diverticulitis of large intestine with perforation and abscess without bleeding Status: Acute Assessment and Plan: Continue IV Zosyn, IV fluids, NPO with ice chips/sips, and analgesics as needed. Encouraged ambulating in the halls. Will repeat labs tomorrow. (2) Lung cancer: Code(s): C34.90 - Malignant neoplasm of unspecified part of unspecified bronchus or lung Status: Acute (3) COPD (chronic obstructive pulmonary disease): Code(s): J44.9 - Chronic obstructive pulmonary disease, unspecified Status: Acute (4) Anemia: Code(s): D64.9 - Anemia, unspecified Status: Acute Assessment and Plan: Anemia of chronic disease with a hemoglobin of 7.6 on admission, which is consistent with her labs from her recent hospitalization. Hgb down to 6.5 this morning. No signs of active bleeding, likely dilutional. Hospitalist ordered transfusion of 1 unit PRBCs today. Continue to monitor labs. Plan I have discussed the patient's case and plan of care with Dr. Neal. Subjective Subjective Date/Time Seen: 08/20/21 09:00 Patient reports: no new complaints, still having pain, voiding w/o difficulty, flatus, no bowel movement and afebrile Interval history: Patient seen and examined. She is still having lower abdominal pain mostly in the LLQ without much improvement. Reports nausea with one episode of vomiting early this morning, but her nausea has resolved. Reports flatus but no BM since admission. Last BM was yesterday morning. She also endorses a headache that started this morning. Review of Systems Review of Systems: All systems reviewed & are unremarkable except as noted in HPI and below Constitutional: Constitutional: Reports no additional constitutional complaints, Denies chills, Denies fever(s) and Reports headache(s) Gastrointestinal: Gastrointestinal: Reports as per HPI and Reports no additional gastrointestinal complaints Exam Const: General: no acute distress and ill appearing chronically Orientation/consciousness: patient oriented x3 GI: Inspection: non-distended GI Palp: Yes Soft to palpation, Yes Tenderness to palpation present (GI) (lower abdomen, worst in the LLQ), Yes Guarding due to palpation present (GI) (voluntary guarding in LLQ), No Hernia present and No Rebound tenderness present Auscultation: normal bowel sounds Skin: General skin exam: pallor Neuro: General: moves all extremities and no focal motor deficits Extrem: General: no calf tenderness and no edema Psych: Insight: Fair insight present (Psych) Judgement: Fair judgement present (Psych) Objective Data Vital Signs Vital Signs: Vital Signs - 24 hr 08/19/21 12:41 08/19/21 12:41 08/19/21 12:43 Temperature Pulse Rate 87 85 Respiratory Rate 20 21 H Blood Pressure 135/55 L 135/55 L Pulse Oximetry 100 95 100 Oxygen Delivery Nasal Cannula Oxygen Flow Rate 3 08/19/21 12:45 08/19/21 13:18 08/19/21 13:30 Temperature Pulse Rate 85 81 Respiratory Rate 17 19 Blood Pressure Pulse Oximetry 100 100 100 Oxygen Delivery Oxygen Flow Rate 08/19/21 13:45 08/19/21 14:00 08/19/21 14:15 Temperature Pulse Rate Respiratory Rate Blood Pressure Pulse Oximetry 96 99 89 L Oxygen Delivery Oxygen Flow Rate 08/19/21 14:30 08/19/21 14:45 08/19/21 15:00 Temperature Pulse Rate Respiratory Rate Blood Pressure Pulse Oximetry 96 100 100 Oxygen Delivery Oxygen Flow Rate 08/19/21 15:15 08/19/21 15:19 08/19/21 15:22 Temperature 97.2 F L Pulse Rate 86 79 Respiratory Rate 22 H 18 Blood Pressure 127/55 L Pulse Oximetry 96 100 Oxygen Delivery Oxygen Flow Rate 08/19/21 15:45 08/19/21 18:51 08/19/21 20:02 Temperature Pulse Rate 85 Respiratory Rate 16 Blood Pressure 113/51 L Pulse O
[2021-08-20] MEDS: SODIUM CHLORIDE 0.9% IV 250 ML 30 ML IV CONT (10:44)
[2021-08-20] MEDS: SILVERGEL (ELTA) 45 ML 1 APPLIC TOPICAL (10:44)
[2021-08-20] MEDS: FLUTICASONE/SALMETEROL 45-21 MCG INHALER 1 PUFF 2 PUFF INHALATION ×2 (11:01→20:45)
[2021-08-20] MEDS: ALBUTEROL SULFATE (*SP) AEROSOL 1 PUFF INHALATION ×4 (11:01→20:45)
--- NOTE | 2021-08-20 12:04 | PM.IMPN ---
Progress Note: A&P Assessment and Plan (1) Diverticulitis of large intestine with perforation and abscess: Code(s): K57.20 - Diverticulitis of large intestine with perforation and abscess without bleeding Status: Acute Assessment and Plan: General surgery has been consult and do appreciate further recommendations. At this point time patient is on Zosyn will continue with this antibiotic. Patient will be kept NPO. (2) COPD (chronic obstructive pulmonary disease): Code(s): J44.9 - Chronic obstructive pulmonary disease, unspecified Status: Acute Assessment and Plan: Will resume patient's home meter dose inhalers. Patient's COPD is stable at this time. (3) Anxiety: Code(s): F41.9 - Anxiety disorder, unspecified Status: Acute Assessment and Plan: Will have p.r.n. IV Ativan available for any anxiety. (4) Anemia: Code(s): D64.9 - Anemia, unspecified Status: Acute Assessment and Plan: Transfuse 1 unit. No active bleeding, fecal occult blood test pending. Subjective Date/time seen: 08/20/21 12:04 Having some mild lower abdominal pain. No nausea vomiting or diarrhea Exam Narrative: Constitutional: Patient is well-nourished in no acute distress. Patient is alert and oriented x3 HEENT: Moist mucous membranes. No scleral icterus. No lymphadenopathy. Neck: No carotid bruits noted no JVD noted Lungs: Lung sounds are clear to auscultation bilaterally. No accessory muscle use. No rhonchi, rales, or wheezes noted. Cardiovascular: Apical pulse is regular rate and rhythm. S1-S2 noted, no S3 or S4 noted. No gallops or rubs noted. Abdomen: Soft and round. Patient complains of tenderness to bilateral lower quadrants with palpation. No palpable masses. Extremities: No edema. Nontender. Skin: No rashes or lesions. Warm and dry. Skin is intact. Neurological: No focal neurological deficits. Cranial nerves II-XII grossly intact. Psychiatric: Cooperative, appropriate mood, and affect Objective Data Vital Signs Vital Signs: Vital Signs - 24 hr 08/19/21 12:41 08/19/21 12:41 08/19/21 12:43 Temperature Pulse Rate 87 85 Respiratory Rate 20 21 H Blood Pressure 135/55 L 135/55 L Pulse Oximetry 100 95 100 Oxygen Delivery Nasal Cannula Oxygen Flow Rate 3 08/19/21 12:45 08/19/21 13:18 08/19/21 13:30 Temperature Pulse Rate 85 81 Respiratory Rate 17 19 Blood Pressure Pulse Oximetry 100 100 100 Oxygen Delivery Oxygen Flow Rate 08/19/21 13:45 08/19/21 14:00 08/19/21 14:15 Temperature Pulse Rate Respiratory Rate Blood Pressure Pulse Oximetry 96 99 89 L Oxygen Delivery Oxygen Flow Rate 08/19/21 14:30 08/19/21 14:45 08/19/21 15:00 Temperature Pulse Rate Respiratory Rate Blood Pressure Pulse Oximetry 96 100 100 Oxygen Delivery Oxygen Flow Rate 08/19/21 15:15 08/19/21 15:19 08/19/21 15:22 Temperature 97.2 F L Pulse Rate 86 79 Respiratory Rate 22 H 18 Blood Pressure 127/55 L Pulse Oximetry 96 100 Oxygen Delivery Oxygen Flow Rate 08/19/21 15:45 08/19/21 18:51 08/19/21 20:02 Temperature Pulse Rate 85 Respiratory Rate 16 Blood Pressure 113/51 L Pulse Oximetry 95 Oxygen Delivery Room Air Room Air Oxygen Flow Rate 08/19/21 20:48 08/20/21 05:14 08/20/21 08:20 Temperature 97.6 F 98.1 F Pulse Rate 94 94 Respiratory Rate 18 16 Blood Pressure 98/53 L 99/57 L Pulse Oximetry 93 91 Oxygen Delivery Room Air Oxygen Flow Rate 08/20/21 10:38 08/20/21 10:54 08/20/21 11:09 Temperature 97.3 F L 97.3 F L 98.3 F Pulse Rate 80 80 82 Respiratory Rate 18 18 18 Blood Pressure 127/40 L 127/40 L 105/63 Pulse Oximetry 95 95 96 Oxygen Delivery Oxygen Flow Rate 08/20/21 11:09 Temperature 97 F L Pulse Rate 91 Respiratory Rate 18 Blood Pressure 109/45 L Pulse Oximetry 91 Oxygen Delivery Oxygen Flow Rate Intake/Outpu
[2021-08-20] MEDS: buPROPion HCL SR (12HR) 100 MG TABCR PO (18:24)
[2021-08-20] MEDS: LIDOCAINE 5% PATCH 1 PATCH TRANSDERM (18:24)
[2021-08-20] MEDS: hydrOXYzine HCL 25 MG TABLET PO (18:25)
[2021-08-20] MEDS: SIMVASTATIN 5 MG TABLET PO (20:44)
[2021-08-20] MEDS: CITALOPRAM HYDROBROMIDE 20 MG TABLET PO (20:45)
[2021-08-20] MEDS: HYDROmorphone HCL INJ (*CRX) 1 MG/ML SYR 0.5 MG IV PUSH (21:15)
[2021-08-21] VITALS (9 sets, daily range): BP systolic 120–144; BP diastolic 44–60; PULSE 86–95; RESP 14–26; TEMP 36.2–37.2; O2SAT 91–97
[2021-08-21] MEDS: ALBUTEROL SULFATE (*SP) AEROSOL 1 PUFF INHALATION ×3 (00:20→20:44)
[2021-08-21] MEDS: SODIUM CHLORIDE 0.9% IV 1,000 ML 125 ML IV CONT ×3 (00:35→21:17)
[2021-08-21] MEDS: HYDROmorphone HCL INJ (*CRX) 1 MG/ML SYR IV PUSH ×6 (03:40→21:16)
[2021-08-21 05:50] LABS: Hematocrit 21.3 % (37.0-47.0); Immature Granulocyte Absolute 0.02 K/mm3 (0.00-0.031); Immature Granulocyte Percent A 0.5 % (0-0.5); Lymphocytes Absolute Auto 1.04 K/mm3 (0.9-3.2); Lymphocytes Percent Auto 26.1 % (18.3-44.2); Mean Corpuscular HGB Conc 32.4 g/dl (32-36); Mean Corpuscular Hemoglobin 31.9 pg (26-34); Mean Corpuscular Volume 98.6 fl (80-100); Mean Platelet Volume 8.8 fl (7.4-10.4); Monocytes Absolute Auto 2.5 K/mm3 (0.1-0.6); Monocytes Percent Auto 62.8 % (2.6-8.5); Neutrophils Absolute Auto 0.4 K/mm3 (1.3-6.7); Neutrophils Percent Auto 10.6 % (45.5-73.1); Platelet Count Result 143 k/mm3 (150-375); Red Blood Count 2.16 M/mm3 (4.2-5.4); Red Cell Distribution Width 17.4 % (11.5-14.5)
[2021-08-21 06:13] LABS: Anion Gap 4 mmol/L (8-16); Blood Urea Nitrogen 4 mg/dL (7-17); Calcium 7.5 mg/dL (8.4-10.2); Carbon Dioxide 25 mmol/L (22-30); Chloride 101 mmol/L (98-107); Estimated CRCL calculation 103 ml/min; Estimated Glomerular Filt Rate > 60; Glucose 104 mg/dL (65-110); Potassium 3.3 mmol/L (3.4-5.0); Sodium 130 mmol/L (137-145)
[2021-08-21 07:14] LABS: Hemoglobin 6.9 g/dL (12.0-15.0)
[2021-08-21 07:28] LABS: Hypochromasia 2+ (NORMAL); Microcytosis 2+ (NORMAL); Platelet Estimate Adequate (Adequate)
[2021-08-21] MEDS: FLUTICASONE/SALMETEROL 45-21 MCG INHALER 1 PUFF 2 PUFF INHALATION ×2 (08:52→20:44)
[2021-08-21] MEDS: buPROPion HCL SR (12HR) 100 MG TABCR PO ×2 (10:05→16:41)
[2021-08-21] MEDS: hydrOXYzine HCL 25 MG TABLET PO ×2 (10:06→16:41)
[2021-08-21] MEDS: MIRTAZAPINE 15 MG TABLET PO (10:06)
[2021-08-21] MEDS: ENOXAPARIN 40 MG/0.4 ML SYRINGE SUB-Q (10:06)
[2021-08-21] MEDS: LIDOCAINE 5% PATCH 1 PATCH TRANSDERM (10:07)
--- NOTE | 2021-08-21 10:34 | PM.PNGS ---
Progress Note: A&P Assessment and Plan (1) Diverticulitis of large intestine with perforation and abscess: Code(s): K57.20 - Diverticulitis of large intestine with perforation and abscess without bleeding Status: Acute Assessment and Plan: Patient difficult to assess. Very anxious. Abdominal exam is clearly better than yesterday however. She still has tenderness especially in the left lower quadrant. Will continue NPO except ice chips. Possibly start liquids tomorrow. Continue IV antibiotics. Subjective Subjective Date/Time Seen: 08/21/21 10:34 Patient reports: still having pain, no bowel movement and afebrile Review of Systems Review of Systems: All systems reviewed & are unremarkable except as noted in HPI and below Cardiovascular: Cardiovascular: Denies chest pain and Denies dyspnea Respiratory: Respiratory: Denies cough and Denies dyspnea Gastrointestinal: Gastrointestinal: Reports as per HPI Exam Const: General: comfortable, no acute distress, alert and awake Nutritional Appearance: overweight Orientation/consciousness: No confusion GI: Inspection: non-distended and obesity GI Palp: Yes Soft to palpation, Yes Tenderness to palpation present (GI) ( Less tender than yesterday. Mostly in left lower quadrant.), No Guarding due to palpation present (GI) and No Rebound tenderness present Auscultation: Hypoactive bowel sounds present Extrem: General: no calf tenderness and no edema Objective Data Vital Signs Vital Signs: Vital Signs - 24 hr 08/20/21 10:38 08/20/21 10:54 08/20/21 11:09 Temperature 36.3 C L 36.3 C L 36.8 C Pulse Rate 80 80 82 Respiratory Rate 18 18 18 Blood Pressure 127/40 L 127/40 L 105/63 Pulse Oximetry 95 95 96 Oxygen Delivery Oxygen Flow Rate 08/20/21 11:09 08/20/21 12:12 08/20/21 13:16 Temperature 36.1 C L 36.1 C L 36.2 C L Pulse Rate 91 83 87 Respiratory Rate 18 18 18 Blood Pressure 109/45 L 111/45 L 107/44 L Pulse Oximetry 91 93 93 Oxygen Delivery Oxygen Flow Rate 08/20/21 14:17 08/20/21 20:33 08/20/21 20:54 Temperature 36.3 C L 36.7 C Pulse Rate 82 95 99 Respiratory Rate 16 16 Blood Pressure 108/75 146/53 H Pulse Oximetry 96 100 97 Oxygen Delivery Nasal Cannula Oxygen Flow Rate 3 06/17/22 05:43 08/21/21 08:53 08/21/21 08:53 Temperature 36.4 C L Pulse Rate 86 93 93 Respiratory Rate 14 26 H Blood Pressure 125/53 L Pulse Oximetry 96 97 Oxygen Delivery Nasal Cannula Oxygen Flow Rate 3 Intake/Output Intake/Output: Intake & Output 08/18/21 08/19/21 08/20/21 08/21/21 23:59 23:59 23:59 23:59 Intake Total 1200 2750 2150 Output Total 0 1000 Balance 1200 2750 1150 Meds/Results Medications: Active Medications Generic Name Dose Route Start Last Admin Trade Name Freq PRN Reason Stop Dose Admin Albuterol 1 puff 08/20/21 08:20 08/21/21 08:52 Albuterol Sulfate (*Sp) Aerosol 1 Puff INHALATION 1 puff Q4HRT LATOYA Administration Alprazolam 0.25 mg 08/19/21 20:57 08/19/21 21:46 Alprazolam (*Crx) 0.25 Mg Tablet PO 0.25 mg TID PRN Administration Anxiety Bupropion HCl 100 mg 08/20/21 17:00 08/21/21 10:05 Bupropion Hcl Sr (12hr) 100 Mg Tabcr PO 100 mg BID LATOYA Administration Buspirone HCl 10 mg 08/20/21 16:35 Buspirone Hcl 10 Mg Tablet PO PRN PRN Anxiety Citalopram Hydrobromide 20 mg 08/20/21 21:00 08/20/21 20:45 Citalopram Hydrobromide 20 Mg Tablet PO 20 mg HS LATOYA Administration Enoxaparin Sodium 40 mg 08/20/21 09:00 08/21/21 10:06 Enoxaparin 40 Mg/0.4 Ml Syringe SUB-Q 40 mg DAILY LATOYA Administration Hydromorphone HCl 1 mg 08/19/21 20:31 08/21/21 09:49 Hydromorphone Hcl Inj (*Crx) 1 Mg/Ml Syr IV PUSH 1 mg Q2H PRN Administration Pain Rated 7-10 Hydromorphone HCl 0.5 mg 08/19/21 20:31 08/20/21 21:15 Hydromorphone Hcl Inj (*Crx) 1 Mg/Ml Syr IV PUSH 0.5 mg Q2H PRN Administration Pain Rated 4-6
--- NOTE | 2021-08-21 10:44 | PCNFU ---
Nutrition Follow-Up Complete: Altered GI function as related to diverticulitis as evidenced by NPO Goal: Adequate Intake of at least 75% of meals/supplements patient has limited progress on goal. We will continue current goal. Pt current nutrition is NPO. Last recorded weight is 86 kg, no new weight to report. Bowel Motility:No BM reported. Labs Reviewed:Cr 0.5, BUN 4, Hct 21.3,Hgb 6.9,Na 130, K 3.3 Meds Noted:Remeron, Proventil, Lovenox, Dilaudid, Zosyn, NS Skin:Stage II Pressure Ulcer-Ischium Additional Notes: Patient remains NPO. Surgery consult. Plans to advance diet order to liquids tomorrow. Recommend Krystian BID for wound healing when diet order advances. Patient also requests Ensure Clear-Mixed Hernandez over Apple flavor for diet supplement preference. Monitoring: RD will monitor every 3 days.
--- NOTE | 2021-08-21 10:45 | PM.IMPN ---
Progress Note: A&P Assessment and Plan (1) Diverticulitis of large intestine with perforation and abscess: Code(s): K57.20 - Diverticulitis of large intestine with perforation and abscess without bleeding Status: Acute Assessment and Plan: General surgery has been consult and do appreciate further recommendations. At this point time patient is on Zosyn will continue with this antibiotic. Patient will be kept NPO with sips. Await further surgery recommendations. (2) COPD (chronic obstructive pulmonary disease): Code(s): J44.9 - Chronic obstructive pulmonary disease, unspecified Status: Acute Assessment and Plan: Will resume patient's home meter dose inhalers. Patient's COPD is stable at this time. (3) Anxiety: Code(s): F41.9 - Anxiety disorder, unspecified Status: Acute Assessment and Plan: Will have p.r.n. IV Ativan available for any anxiety. (4) Anemia: Code(s): D64.9 - Anemia, unspecified Status: Acute Assessment and Plan: Transfuse 1 unit. No active bleeding, fecal occult blood test pending. Subjective Date/time seen: 08/21/21 10:45 Has ongoing abdominal cramping pain. Also having some lower back pain. otherwise no new complaints. Exam Narrative: Constitutional: Patient is well-nourished in no acute distress. Patient is alert and oriented x3 HEENT: Moist mucous membranes. No scleral icterus. No lymphadenopathy. Neck: No carotid bruits noted no JVD noted Lungs: Lung sounds are clear to auscultation bilaterally. No accessory muscle use. No rhonchi, rales, or wheezes noted. Cardiovascular: Apical pulse is regular rate and rhythm. S1-S2 noted, no S3 or S4 noted. No gallops or rubs noted. Abdomen: Soft and round. Patient complains of tenderness to bilateral lower quadrants with palpation. No palpable masses. Extremities: No edema. Nontender. Skin: No rashes or lesions. Warm and dry. Skin is intact. Neurological: No focal neurological deficits. Cranial nerves II-XII grossly intact. Psychiatric: Cooperative, appropriate mood, and affect Objective Data Vital Signs Vital Signs: Vital Signs - 24 hr 08/20/21 10:54 08/20/21 11:09 08/20/21 11:09 Temperature 97.3 F L 98.3 F 97 F L Pulse Rate 80 82 91 Respiratory Rate 18 18 18 Blood Pressure 127/40 L 105/63 109/45 L Pulse Oximetry 95 96 91 Oxygen Delivery Oxygen Flow Rate 08/20/21 12:12 08/20/21 13:16 08/20/21 14:17 Temperature 97 F L 97.2 F L 97.3 F L Pulse Rate 83 87 82 Respiratory Rate 18 18 16 Blood Pressure 111/45 L 107/44 L 108/75 Pulse Oximetry 93 93 96 Oxygen Delivery Oxygen Flow Rate 08/20/21 20:33 08/20/21 20:54 08/21/21 05:43 Temperature 98.1 F 97.5 F L Pulse Rate 95 99 86 Respiratory Rate 16 14 Blood Pressure 146/53 H 125/53 L Pulse Oximetry 100 97 96 Oxygen Delivery Nasal Cannula Oxygen Flow Rate 3 08/21/21 08:53 08/21/21 08:53 Temperature Pulse Rate 93 93 Respiratory Rate 26 H Blood Pressure Pulse Oximetry 97 Oxygen Delivery Nasal Cannula Oxygen Flow Rate 3 Intake/Output Intake/Output: Intake & Output 08/18/21 08/19/21 08/20/21 08/21/21 23:59 23:59 23:59 23:59 Intake Total 1200 2750 2150 Output Total 0 1000 Balance 1200 2750 1150 Meds/Results Medications: Active Medications Generic Name Dose Route Start Last Admin Trade Name Freq PRN Reason Stop Dose Admin Albuterol 1 puff 08/20/21 08:20 08/21/21 08:52 Albuterol Sulfate (*Sp) Aerosol 1 Puff INHALATION 1 puff Q4HRT LATOYA Administration Alprazolam 0.25 mg 08/19/21 20:57 08/19/21 21:46 Alprazolam (*Crx) 0.25 Mg Tablet PO 0.25 mg TID PRN Administration Anxiety Bupropion HCl 100 mg 08/20/21 17:00 08/21/21 10:05 Bupropion Hcl Sr (12hr) 100 Mg Tabcr PO 100 mg BID LATOYA Administration Buspirone HCl 10 mg 08/20/21 16:35 Buspirone Hcl 10 Mg Tablet PO PRN PRN Anxiety Citalopram Hydrobromide
[2021-08-21] MEDS: ALPRAZolam (*CRX) 0.25 MG TABLET PO (13:49)
[2021-08-21] MEDS: POTASSIUM CHLORIDE 20 MEQ PACKET (FOR LIQUID) 40 MEQ PO (14:21)
--- NOTE | 2021-08-21 15:03 | PC.NURSE ---
Pt c/o pain to son via telephone. Pt never conveyed pain to nurse or charge nurse despite their being in the room with her administering other medications. Son stated her pain wasn't under control. I administered 1 mg IVP Dilaudid at 1345. Pt stated her pain was a 5, 6, maybe 7. At 1415, pain was reassessed. Pt was asked, What is your pain level? Pt would not answer, she just moaned. So I asked again, stating that I need to be able to reassess her pain level so that I can properly address her pain control, what is your pain level on a scale of 0 to 10, zero is no pain, ten is the worst pain you've ever had. Pt said, I don't know. It hurts. I asked, Can you give me a number? She answered, Eight. I told her that I'm confused about your pain level. Are you saying that your pain is worse now that it was before the Dilaudid? Pt did not answer. I told her, I gave you pain medicine a half hour ago. Is your pain better or worse? She said, The pain has eased up a bit. So, I asked her again to please give me a number for her pain level so that I would be able to accurately measure her pain and see whether the medicine was working or not. She did not answer. Since the patient wasn't answering regarding the pain medication and her pain level, I told her that her son had called and said that she has eye drops in her purse. She said, Don't worry about those. I told her that he wanted us to make sure she was getting those. I told her we don't have any eye drops on her home medication list and if she wants to get the eye drops, I need to know what kind of eye drops she uses. She said, Don't worry about it.
[2021-08-21] MEDS: SIMVASTATIN 5 MG TABLET PO (20:07)
[2021-08-21] MEDS: CITALOPRAM HYDROBROMIDE 20 MG TABLET PO (21:01)
[2021-08-21 22:49] LABS: Hematocrit 22.2 % (37.0-47.0); Hemoglobin 7.3 g/dL (12.0-15.0)
[2021-08-22] VITALS (7 sets, daily range): BP systolic 131–142; BP diastolic 47–55; PULSE 87–107; RESP 16–21; TEMP 36.1–36.6; O2SAT 93–100
[2021-08-22] MEDS: ALBUTEROL SULFATE (*SP) AEROSOL 1 PUFF INHALATION ×5 (00:30→20:09)
[2021-08-22] MEDS: HYDROmorphone HCL INJ (*CRX) 1 MG/ML SYR IV PUSH ×3 (02:58→12:26)
[2021-08-22] MEDS: SODIUM CHLORIDE 0.9% IV 1,000 ML 125 ML IV CONT ×2 (05:52→14:45)
[2021-08-22] MEDS: SILVERGEL (ELTA) 45 ML 1 APPLIC TOPICAL (05:55)
[2021-08-22 06:41] LABS: Anion Gap 5 mmol/L (8-16); Blood Urea Nitrogen 3 mg/dL (7-17); Calcium 7.7 mg/dL (8.4-10.2); Carbon Dioxide 24 mmol/L (22-30); Chloride 103 mmol/L (98-107); Estimated CRCL calculation 103 ml/min; Estimated Glomerular Filt Rate > 60; Glucose 108 mg/dL (65-110); Potassium 3.2 mmol/L (3.4-5.0); Sodium 132 mmol/L (137-145)
[2021-08-22 06:47] LABS: Hematocrit 23.1 % (37.0-47.0); Hemoglobin 7.7 g/dL (12.0-15.0); Mean Corpuscular HGB Conc 33.3 g/dl (32-36); Mean Corpuscular Hemoglobin 31.4 pg (26-34); Mean Corpuscular Volume 94.3 fl (80-100); Platelet Count Result 144 k/mm3 (150-375); Red Blood Count 2.45 M/mm3 (4.2-5.4); Red Cell Distribution Width 17.5 % (11.5-14.5); White Blood Count 4.1 K/mm3 (4.5-10.0)
[2021-08-22] MEDS: ALPRAZolam (*CRX) 0.25 MG TABLET PO ×3 (07:42→19:45)
[2021-08-22 07:43] LABS: IFOB Positive Control Positive; Immunochemical Fecal Occult Bl Negative (N)
[2021-08-22] MEDS: hydrOXYzine HCL 25 MG TABLET PO ×2 (08:23→17:00)
[2021-08-22] MEDS: LIDOCAINE 5% PATCH 1 PATCH TRANSDERM (08:24)
[2021-08-22] MEDS: MIRTAZAPINE 15 MG TABLET PO (08:24)
[2021-08-22] MEDS: ENOXAPARIN 40 MG/0.4 ML SYRINGE SUB-Q (08:24)
[2021-08-22] MEDS: buPROPion HCL SR (12HR) 100 MG TABCR PO ×2 (08:24→17:00)
[2021-08-22] MEDS: FLUTICASONE/SALMETEROL 45-21 MCG INHALER 1 PUFF 2 PUFF INHALATION ×2 (08:38→20:09)
--- NOTE | 2021-08-22 12:15 | PM.PNGS ---
Progress Note: A&P Assessment and Plan (1) Diverticulitis of large intestine with perforation and abscess: Code(s): K57.20 - Diverticulitis of large intestine with perforation and abscess without bleeding Status: Acute Assessment and Plan: exam improved, will try clears, cont Zosyn (2) Lung cancer: Code(s): C34.90 - Malignant neoplasm of unspecified part of unspecified bronchus or lung Status: Acute Assessment and Plan: management per oncology Subjective Subjective Date/Time Seen: 08/22/21 12:15 feels better this am, LLQ pain improved although still sore , hungry and wants to try diet Review of Systems Review of Systems: All systems reviewed & are unremarkable except as noted in HPI and below Exam Const: General: cooperative, no acute distress, alert, awake, Physically active and ill appearing Resp: Auscultation: diminished lung sounds Cardio: Rate: regular rate Rhythm: regular rhythm GI: Inspection: normal to inspection and non-distended GI Palp: Yes abdominal tenderness, Yes Soft to palpation, Yes Tenderness to palpation present (GI), No Guarding due to palpation present (GI) and No Rigid due to palpation Objective Data Vital Signs Vital Signs: Vital Signs - 24 hr 08/21/21 12:21 08/21/21 20:48 08/21/21 22:00 Temperature 37.2 C 36.2 C L Pulse Rate 93 95 Respiratory Rate 14 16 Blood Pressure 144/44 H 139/60 Pulse Oximetry 97 91 93 Oxygen Delivery Room Air Oxygen Flow Rate 08/21/21 20:00 08/22/21 06:00 08/22/21 08:42 Temperature 36.1 C L Pulse Rate 95 87 Respiratory Rate 16 21 H Blood Pressure 142/54 H Pulse Oximetry 93 100 94 Oxygen Delivery Room Air Nasal Cannula Oxygen Flow Rate 2 08/22/21 08:00 Temperature Pulse Rate Respiratory Rate Blood Pressure Pulse Oximetry 94 Oxygen Delivery Nasal Cannula Oxygen Flow Rate 2 Intake/Output Intake/Output: Intake & Output 08/19/21 08/20/21 08/21/21 08/22/21 23:59 23:59 23:59 23:59 Intake Total 1200 2750 3650 1100 Output Total 0 1650 600 Balance 1200 2750 2000 500 Meds/Results Medications: Active Medications Generic Name Dose Route Start Last Admin Trade Name Freq PRN Reason Stop Dose Admin Albuterol 1 puff 08/20/21 08:20 08/22/21 08:38 Albuterol Sulfate (*Sp) Aerosol 1 Puff INHALATION 1 puff Q4HRT LATOYA Administration Alprazolam 0.25 mg 08/19/21 20:57 08/22/21 07:42 Alprazolam (*Crx) 0.25 Mg Tablet PO 0.25 mg TID PRN Administration Anxiety Bupropion HCl 100 mg 08/20/21 17:00 08/22/21 08:24 Bupropion Hcl Sr (12hr) 100 Mg Tabcr PO 100 mg BID LATOYA Administration Buspirone HCl 10 mg 08/20/21 16:35 Buspirone Hcl 10 Mg Tablet PO PRN PRN Anxiety Citalopram Hydrobromide 20 mg 08/20/21 21:00 08/21/21 21:01 Citalopram Hydrobromide 20 Mg Tablet PO 20 mg HS LATOYA Administration Enoxaparin Sodium 40 mg 08/20/21 09:00 08/22/21 08:24 Enoxaparin 40 Mg/0.4 Ml Syringe SUB-Q 40 mg DAILY LATOYA Administration Hydromorphone HCl 1 mg 08/19/21 20:31 08/22/21 07:42 Hydromorphone Hcl Inj (*Crx) 1 Mg/Ml Syr IV PUSH 1 mg Q2H PRN Administration Pain Rated 7-10 Hydromorphone HCl 0.5 mg 08/19/21 20:31 08/20/21 21:15 Hydromorphone Hcl Inj (*Crx) 1 Mg/Ml Syr IV PUSH 0.5 mg Q2H PRN Administration Pain Rated 4-6 Hydroxyzine HCl 25 mg 08/20/21 17:00 08/22/21 08:23 Hydroxyzine Hcl 25 Mg Tablet PO 25 mg BID LATOYA Administration Piperacillin/Tazobactam/Dextrose 3.375 gm in 50 mls @ 100 mls/hr 08/19/21 21:00 08/22/21 09:00 Zosyn 3.375 Gm/D5w 50ml Pm IVPB Infused Q6H LATOYA Infusion Sodium Chloride 1,000 mls @ 125 mls/hr 08/19/21 14:20 08/22/21 05:52 Normal Saline Iv IV CONT 125 mls/hr .Q8H LATOYA Administration Lidocaine 1 patch 08/20/21 16:43 08/22/21 08:24 Lidocaine 5% Patch TRANSDERM 1 patch DAILY LATOYA Administration Mirtazapine 15 mg 08/21/21 09:00 08/05
[2021-08-22] MEDS: HYDROcodone/acetaminophen (*CRX) 5-325 MG TABLET 1 TAB PO (14:42)
[2021-08-22] MEDS: HYDROmorphone HCL INJ (*CRX) 1 MG/ML SYR 0.5 MG IV PUSH ×2 (17:01→19:44)
[2021-08-22] MEDS: CITALOPRAM HYDROBROMIDE 20 MG TABLET PO (19:45)
[2021-08-22] MEDS: SIMVASTATIN 5 MG TABLET PO (19:45)
[2021-08-23] VITALS (7 sets, daily range): BP systolic 135–155; BP diastolic 52–60; PULSE 83–102; RESP 16–21; TEMP 36.1–36.9; O2SAT 92–100
[2021-08-23] MEDS: SODIUM CHLORIDE 0.9% IV 1,000 ML 125 ML IV CONT ×3 (01:10→20:18)
[2021-08-23] MEDS: ALPRAZolam (*CRX) 0.25 MG TABLET PO ×2 (01:10→15:11)
[2021-08-23] MEDS: HYDROcodone/acetaminophen (*CRX) 5-325 MG TABLET 1 TAB PO (01:10)
--- NOTE | 2021-08-23 04:46 | PCRCNOTE ---
Window of time for administration has passed. See next scheduled administration.
[2021-08-23] MEDS: ALBUTEROL SULFATE (*SP) AEROSOL 1 PUFF INHALATION ×5 (04:59→20:23)
[2021-08-23] MEDS: busPIRone HCL 10 MG TABLET PO ×2 (06:28→08:18)
[2021-08-23] MEDS: FLUTICASONE/SALMETEROL 45-21 MCG INHALER 1 PUFF 2 PUFF INHALATION ×2 (07:30→20:23)
--- NOTE | 2021-08-23 08:10 | PM.PNGS ---
Progress Note: A&P Assessment and Plan (1) Diverticulitis of large intestine with perforation and abscess: Code(s): K57.20 - Diverticulitis of large intestine with perforation and abscess without bleeding Status: Acute Assessment and Plan: exam benign, cont low fiber diet, cont abx Subjective Subjective Date/Time Seen: 08/23/21 08:10 feels ok, some mild abd discomfort although overall improved, charles low fiber diet Review of Systems Review of Systems: All systems reviewed & are unremarkable except as noted in HPI and below Exam Const: General: comfortable, no acute distress and ill appearing Resp: Auscultation: diminished lung sounds Cardio: Rate: regular rate Rhythm: regular rhythm GI: Inspection: normal to inspection and non-distended GI Palp: Yes abdominal tenderness, Yes Soft to palpation, Yes Tenderness to palpation present (GI), No Guarding due to palpation present (GI) and No Rigid due to palpation Objective Data Vital Signs Vital Signs: Vital Signs - 24 hr 08/22/21 08:42 08/22/21 14:00 08/22/21 20:14 Temperature 36.6 C Pulse Rate 101 H Respiratory Rate 16 Blood Pressure 131/47 L Pulse Oximetry 94 93 94 Oxygen Delivery Nasal Cannula Nasal Cannula Oxygen Flow Rate 2 2 08/22/21 20:00 08/22/21 22:00 08/23/21 07:34 Temperature 36.3 C L Pulse Rate 101 H 107 H Respiratory Rate 16 18 Blood Pressure 134/55 L Pulse Oximetry 94 96 94 Oxygen Delivery Nasal Cannula Nasal Cannula Oxygen Flow Rate 3 2 08/23/21 06:00 Temperature 36.1 C L Pulse Rate 83 Respiratory Rate 21 H Blood Pressure 146/58 H Pulse Oximetry 100 Oxygen Delivery Oxygen Flow Rate Intake/Output Intake/Output: Intake & Output 08/20/21 08/21/21 08/22/21 08/23/21 23:59 23:59 23:59 23:59 Intake Total 2750 3650 4150 800 Output Total 1650 1400 1201 Balance 2750 1999 2750 -401 Meds/Results Medications: Active Medications Generic Name Dose Route Start Last Admin Trade Name Freq PRN Reason Stop Dose Admin Hydrocodone Bitart/Acetaminophen 1 tab 08/22/21 14:29 08/23/21 01:10 Hydrocodone/Acetaminophen (*Crx) 5-325 Mg Tablet PO 1 tab Q4H PRN Administration Pain Rated 4-6 Albuterol 1 puff 08/20/21 08:20 08/23/21 07:30 Albuterol Sulfate (*Sp) Aerosol 1 Puff INHALATION 1 puff Q4HRT LATOYA Administration Alprazolam 0.25 mg 08/19/21 20:57 08/23/21 01:10 Alprazolam (*Crx) 0.25 Mg Tablet PO 0.25 mg TID PRN Administration Anxiety Bupropion HCl 100 mg 08/20/21 17:00 08/22/21 17:00 Bupropion Hcl Sr (12hr) 100 Mg Tabcr PO 100 mg BID LATOYA Administration Buspirone HCl 10 mg 08/20/21 16:35 08/23/21 06:28 Buspirone Hcl 10 Mg Tablet PO 10 mg PRN PRN Administration Anxiety Citalopram Hydrobromide 20 mg 08/20/21 21:00 08/22/21 19:45 Citalopram Hydrobromide 20 Mg Tablet PO 20 mg HS LATOYA Administration Enoxaparin Sodium 40 mg 08/20/21 09:00 08/22/21 08:24 Enoxaparin 40 Mg/0.4 Ml Syringe SUB-Q 40 mg DAILY LATOYA Administration Hydromorphone HCl 0.5 mg 08/19/21 20:31 08/22/21 19:44 Hydromorphone Hcl Inj (*Crx) 1 Mg/Ml Syr IV PUSH 0.5 mg Q2H PRN Administration Pain Rated 7-10 Hydroxyzine HCl 25 mg 08/20/21 17:00 08/22/21 17:00 Hydroxyzine Hcl 25 Mg Tablet PO 25 mg BID LATOYA Administration Piperacillin/Tazobactam/Dextrose 3.375 gm in 50 mls @ 100 mls/hr 08/19/21 21:00 08/23/21 01:10 Zosyn 3.375 Gm/D5w 50ml Pm IVPB 100 mls/hr Q6H LATOYA Administration Sodium Chloride 1,000 mls @ 125 mls/hr 08/19/21 14:20 08/23/21 01:10 Normal Saline Iv IV CONT 125 mls/hr .Q8H LATOYA Administration Lidocaine 1 patch 08/20/21 16:43 08/22/21 08:24 Lidocaine 5% Patch TRANSDERM 1 patch DAILY LATOYA Administration Mirtazapine 15 mg 08/21/21 09:00 08/22/21 08:24 Mirtazapine 15 Mg Tablet PO 15 mg DAILY LATOYA Administration Ondansetron HCl 4 mg 08/19/21 14:19 08/20/21 07:16 Onda
[2021-08-23] MEDS: buPROPion HCL SR (12HR) 100 MG TABCR PO ×2 (08:18→16:04)
[2021-08-23] MEDS: ENOXAPARIN 40 MG/0.4 ML SYRINGE SUB-Q (08:18)
[2021-08-23] MEDS: MIRTAZAPINE 15 MG TABLET PO (08:18)
[2021-08-23] MEDS: LIDOCAINE 5% PATCH 1 PATCH TRANSDERM (08:18)
[2021-08-23] MEDS: hydrOXYzine HCL 25 MG TABLET PO ×2 (08:18→16:04)
[2021-08-23] MEDS: HYDROmorphone HCL INJ (*CRX) 1 MG/ML SYR 0.5 MG IV PUSH ×6 (08:32→17:39)
[2021-08-23] MEDS: POTASSIUM CHLORIDE 20 MEQ TABLET 40 MEQ PO (08:33)
[2021-08-23] MEDS: SILVERGEL (ELTA) 45 ML 1 APPLIC TOPICAL (08:37)
--- NOTE | 2021-08-23 11:33 | PM.IMPN ---
Progress Note: A&P Assessment and Plan (1) Diverticulitis of large intestine with perforation and abscess: Code(s): K57.20 - Diverticulitis of large intestine with perforation and abscess without bleeding Status: Acute Assessment and Plan: General surgery has been consult and do appreciate further recommendations. At this point time patient is on Zosyn will continue with this antibiotic. Low-fiber diet per surgery. Await further surgery recommendations. (2) COPD (chronic obstructive pulmonary disease): Code(s): J44.9 - Chronic obstructive pulmonary disease, unspecified Status: Acute Assessment and Plan: Will resume patient's home meter dose inhalers. Patient's COPD is stable at this time. (3) Anxiety: Code(s): F41.9 - Anxiety disorder, unspecified Status: Acute Assessment and Plan: Monitor (4) Anemia: Code(s): D64.9 - Anemia, unspecified Status: Acute Assessment and Plan: Transfuse 1 unit. No active bleeding, fecal occult blood test pending. Subjective Date/time seen: 08/23/21 11:33 The abdominal cramping still noted. Pain is improving a little bit each day. One loose BM this morning. Review of Systems Review of Systems: 10 point ROS negative except as stated in HPI / Subjective Exam Narrative: Constitutional: Patient is well-nourished in no acute distress. Patient is alert and oriented x3 HEENT: Moist mucous membranes. No scleral icterus. No lymphadenopathy. Neck: No carotid bruits noted no JVD noted Lungs: Lung sounds are clear to auscultation bilaterally. No accessory muscle use. No rhonchi, rales, or wheezes noted. Cardiovascular: Apical pulse is regular rate and rhythm. S1-S2 noted, no S3 or S4 noted. No gallops or rubs noted. Abdomen: Soft and round. Patient complains of tenderness to bilateral lower quadrants with palpation. No palpable masses. Extremities: No edema. Nontender. Skin: No rashes or lesions. Warm and dry. Skin is intact. Neurological: No focal neurological deficits. Cranial nerves II-XII grossly intact. Psychiatric: Cooperative, appropriate mood, and affect Objective Data Vital Signs Vital Signs: Vital Signs - 24 hr 08/22/21 14:00 08/22/21 20:14 08/22/21 20:00 Temperature 97.8 F Pulse Rate 101 H 101 H Respiratory Rate 16 16 Blood Pressure 131/47 L Pulse Oximetry 93 94 94 Oxygen Delivery Nasal Cannula Nasal Cannula Oxygen Flow Rate 2 3 08/22/21 22:00 08/23/21 07:34 08/23/21 06:00 Temperature 97.3 F L 97.0 F L Pulse Rate 107 H 83 Respiratory Rate 18 21 H Blood Pressure 134/55 L 146/58 H Pulse Oximetry 96 94 100 Oxygen Delivery Nasal Cannula Oxygen Flow Rate 2 08/23/21 08:44 Temperature Pulse Rate Respiratory Rate Blood Pressure Pulse Oximetry 94 Oxygen Delivery Nasal Cannula Oxygen Flow Rate 2 Intake/Output Intake/Output: Intake & Output 08/20/21 08/21/21 08/22/21 08/23/21 23:59 23:59 23:59 23:59 Intake Total 2750 3650 4150 1950 Output Total 1650 1400 1451 Balance 2750 1999 2750 499 Meds/Results Medications: Active Medications Generic Name Dose Route Start Last Admin Trade Name Freq PRN Reason Stop Dose Admin Hydrocodone Bitart/Acetaminophen 1 tab 08/22/21 14:29 08/23/21 01:10 Hydrocodone/Acetaminophen (*Crx) 5-325 Mg Tablet PO 1 tab Q4H PRN Administration Pain Rated 4-6 Albuterol 1 puff 08/20/21 08:20 08/23/21 11:15 Albuterol Sulfate (*Sp) Aerosol 1 Puff INHALATION 1 puff Q4HRT LATOYA Administration Alprazolam 0.25 mg 08/19/21 20:57 08/23/21 01:10 Alprazolam (*Crx) 0.25 Mg Tablet PO 0.25 mg TID PRN Administration Anxiety Bupropion HCl 100 mg 08/20/21 17:00 08/23/21 08:18 Bupropion Hcl Sr (12hr) 100 Mg Tabcr PO 100 mg BID LATOYA Administration Buspirone HCl 10 mg 08/20/21 16:35 08/23/21 08:18 Buspirone Hcl 10 Mg Tablet PO 10 mg PRN PRN Administration Anxiety Cital
--- NOTE | 2021-08-23 15:09 | PHAR ---
PT'S HOME MED PREDNISOLONE ACETATE 1% OPTH SUSP VERIFIED BY PHARMACY
[2021-08-23] MEDS: OFLOXACIN 0.3% OPHTH SOLN 5 ML BTL 1 DROP LEFT EYE (16:03)
[2021-08-23] MEDS: KETOROLAC 0.5% OP SOLN 5 ML BOTTLE 1 DROP LEFT EYE ×2 (16:30→20:19)
[2021-08-23] MEDS: prednisoLONE ACETATE 1% OPHTH 5 ML 1 DROP LEFT EYE (16:45)
[2021-08-23] MEDS: CITALOPRAM HYDROBROMIDE 20 MG TABLET PO (20:19)
[2021-08-23] MEDS: SIMVASTATIN 5 MG TABLET PO (20:20)
[2021-08-24] MEDS: ALBUTEROL SULFATE (*SP) AEROSOL 1 PUFF INHALATION ×6 (00:06→20:32)
[2021-08-24] MEDS: ALPRAZolam (*CRX) 0.25 MG TABLET PO ×2 (02:46→13:07)
[2021-08-24 06:00] VITALS: BP 129/52; PULSE 86; RESP 20; TEMP 36.4; O2SAT 98
[2021-08-24 08:01] VITALS: O2SAT 94
[2021-08-24] MEDS: FLUTICASONE/SALMETEROL 45-21 MCG INHALER 1 PUFF 2 PUFF INHALATION ×2 (08:01→20:32)
--- NOTE | 2021-08-24 08:12 | PM.PNGS ---
Progress Note: A&P Assessment and Plan (1) Diverticulitis of large intestine with perforation and abscess: Code(s): K57.20 - Diverticulitis of large intestine with perforation and abscess without bleeding Status: Acute Assessment and Plan: definitely improved. Patient could go home from my perspective either today or tomorrow on low-fiber diet and oral antibiotics to complete 10 days of antibiotic treatment. She would stay on a low-fiber diet for 2 weeks. I could see her in the office in 2 weeks. Nursing reports she is still taking Dilaudid IV preferentially for pain. Will discontinue this and change to [place] with backup of morphine sulfate. (2) Lung cancer: Code(s): C34.90 - Malignant neoplasm of unspecified part of unspecified bronchus or lung Status: Chronic Assessment and Plan: Could resume chemotherapy in 3-4 weeks. (3) Anemia: Code(s): D64.9 - Anemia, unspecified Status: Chronic (4) COPD (chronic obstructive pulmonary disease): Code(s): J44.9 - Chronic obstructive pulmonary disease, unspecified Status: Chronic Subjective Subjective Date/Time Seen: 08/24/21 08:12 Patient reports: feels better, pain is less, tolerating a regular diet, bowel movement and afebrile Review of Systems Review of Systems: All systems reviewed & are unremarkable except as noted in HPI and below Constitutional: Constitutional: Reports as per HPI, Denies chills, Denies fever(s), Denies night sweats and Denies poor appetite Cardiovascular: Cardiovascular: Denies chest pain and Denies dyspnea Respiratory: Respiratory: Denies cough and Denies dyspnea Gastrointestinal: Gastrointestinal: Reports as per HPI, Reports abdominal pain ( much better), Denies heartburn, Denies diarrhea and Denies nausea Exam Const: General: comfortable, no acute distress, alert and awake Nutritional Appearance: average body habitus Orientation/consciousness: No confusion GI: Inspection: normal to inspection and non-distended GI Palp: Yes Soft to palpation, Yes Tenderness to palpation present (GI) ( only tender left lower quadrant, this is better than previous exam), No Guarding due to palpation present (GI) and No Rebound tenderness present Auscultation: normal bowel sounds and normoactive bowel sounds Neuro: General: patient oriented x3, no focal motor deficits and No confusion Extrem: General: no calf tenderness and no edema Objective Data Vital Signs Vital Signs: Vital Signs - 24 hr 08/23/21 08:44 08/23/21 14:00 08/23/21 20:26 Temperature 36.8 C Pulse Rate 91 Respiratory Rate 16 Blood Pressure 155/60 H Pulse Oximetry 94 94 92 Oxygen Delivery Nasal Cannula Nasal Cannula Oxygen Flow Rate 2 3 08/23/21 20:00 08/23/21 22:00 08/24/21 06:00 Temperature 36.9 C 36.4 C Pulse Rate 102 H 86 Respiratory Rate 18 20 Blood Pressure 135/52 L 129/52 L Pulse Oximetry 96 95 98 Oxygen Delivery Nasal Cannula Oxygen Flow Rate 3 08/24/21 08:01 Temperature Pulse Rate Respiratory Rate Blood Pressure Pulse Oximetry 94 Oxygen Delivery Nasal Cannula Oxygen Flow Rate 3 Intake/Output Intake/Output: Intake & Output 08/21/21 08/22/21 08/23/21 08/24/21 23:59 23:59 23:59 23:59 Intake Total 3650 4150 3780 900 Output Total 1650 1400 2001 1300 Balance 1999 2750 8029 -400 Meds/Results Medications: Active Medications Generic Name Dose Route Start Last Admin Trade Name Freq PRN Reason Stop Dose Admin Hydrocodone Bitart/Acetaminophen 1 tab 08/22/21 14:29 08/23/21 01:10 Hydrocodone/Acetaminophen (*Crx) 5-325 Mg Tablet PO 1 tab Q4H PRN Administration Pain Rated 4-6 Hydrocodone Bitart/Acetaminophen 1 tab 08/24/21 08:07 Hydrocodone/Acetaminophen (*Crx) 10-325 Mg Tablet PO Q6H PRN Pain Rated 7-10; Albuterol 1 puff 08/20/21 08:20 08/24/21 08:00 Albuterol Sulfate (*Sp) Aerosol 1 Puff INHALATION 1 puff Q4HRT [facility] Administratio
[2021-08-24] MEDS: HYDROcodone/acetaminophen (*CRX) 10-325 MG TABLET 1 TAB PO ×3 (08:23→20:48)
[2021-08-24] MEDS: KETOROLAC 0.5% OP SOLN 5 ML BOTTLE 1 DROP LEFT EYE ×4 (08:24→20:46)
[2021-08-24] MEDS: buPROPion HCL SR (12HR) 100 MG TABCR PO ×2 (08:26→16:06)
[2021-08-24] MEDS: hydrOXYzine HCL 25 MG TABLET PO ×2 (08:26→16:05)
[2021-08-24] MEDS: ENOXAPARIN 40 MG/0.4 ML SYRINGE SUB-Q (08:26)
[2021-08-24] MEDS: busPIRone HCL 10 MG TABLET PO ×2 (08:26→20:47)
[2021-08-24] MEDS: MIRTAZAPINE 15 MG TABLET PO (08:27)
[2021-08-24] MEDS: LIDOCAINE 5% PATCH 1 PATCH TRANSDERM (08:27)
[2021-08-24] MEDS: SILVERGEL (ELTA) 45 ML 1 APPLIC TOPICAL (08:29)
[2021-08-24] MEDS: OFLOXACIN 0.3% OPHTH SOLN 5 ML BTL 1 DROP LEFT EYE ×3 (08:38→16:05)
[2021-08-24 08:39] VITALS: O2SAT 93
[2021-08-24] MEDS: prednisoLONE ACETATE 1% OPHTH 5 ML 1 DROP LEFT EYE ×3 (08:59→16:43)
[2021-08-24 09:07] LABS: Hematocrit 23.3 % (37.0-47.0); Hemoglobin 7.8 g/dL (12.0-15.0); Mean Corpuscular HGB Conc 33.5 g/dl (32-36); Mean Corpuscular Hemoglobin 31.6 pg (26-34); Mean Corpuscular Volume 94.3 fl (80-100); Platelet Count Result 140 k/mm3 (150-375); Red Blood Count 2.47 M/mm3 (4.2-5.4); Red Cell Distribution Width 17.9 % (11.5-14.5); White Blood Count 5.1 K/mm3 (4.5-10.0)
[2021-08-24 09:11] LABS: Anion Gap 4 mmol/L (8-16); Calcium 7.6 mg/dL (8.4-10.2); Carbon Dioxide 25 mmol/L (22-30); Chloride 102 mmol/L (98-107); Estimated CRCL calculation 103 ml/min; Estimated Glomerular Filt Rate > 60; Glucose 118 mg/dL (65-110); Potassium 2.9 mmol/L (3.4-5.0); Sodium 131 mmol/L (137-145)
[2021-08-24 09:21] LABS: Blood Urea Nitrogen < 2 mg/dL (7-17)
--- NOTE | 2021-08-24 10:26 | PM.IMPN ---
Progress Note: A&P Assessment and Plan (1) Diverticulitis of large intestine with perforation and abscess: Code(s): K57.20 - Diverticulitis of large intestine with perforation and abscess without bleeding Status: Acute Assessment and Plan: General surgery has been consult and do appreciate further recommendations. At this point time patient is on Zosyn will continue with this antibiotic. Low-fiber diet per surgery. Await further surgery recommendations. Question need to rescan abdomen at this point. Defer to General surgery. (2) COPD (chronic obstructive pulmonary disease): Code(s): J44.9 - Chronic obstructive pulmonary disease, unspecified Status: Chronic Assessment and Plan: Will resume patient's home meter dose inhalers. Patient's COPD is stable at this time. (3) Anxiety: Code(s): F41.9 - Anxiety disorder, unspecified Status: Acute Assessment and Plan: Monitor (4) Anemia: Code(s): D64.9 - Anemia, unspecified Status: Chronic Assessment and Plan: Transfuse 1 unit. No active bleeding, fecal occult blood test pending. Subjective Date/time seen: 08/24/21 10:26 Mild abdominal cramping. Overall improved. Exam Narrative: Constitutional: Patient is well-nourished in no acute distress. Patient is alert and oriented x3 HEENT: Moist mucous membranes. No scleral icterus. No lymphadenopathy. Neck: No carotid bruits noted no JVD noted Lungs: Lung sounds are clear to auscultation bilaterally. No accessory muscle use. No rhonchi, rales, or wheezes noted. Cardiovascular: Apical pulse is regular rate and rhythm. S1-S2 noted, no S3 or S4 noted. No gallops or rubs noted. Abdomen: Soft and round. Patient complains of tenderness to bilateral lower quadrants with palpation. No palpable masses. Extremities: No edema. Nontender. Skin: No rashes or lesions. Warm and dry. Skin is intact. Neurological: No focal neurological deficits. Cranial nerves II-XII grossly intact. Psychiatric: Cooperative, appropriate mood, and affect Objective Data Vital Signs Vital Signs: Vital Signs - 24 hr 08/23/21 14:00 08/23/21 20:26 08/23/21 20:00 Temperature 98.3 F Pulse Rate 91 Respiratory Rate 16 Blood Pressure 155/60 H Pulse Oximetry 94 92 96 Oxygen Delivery Nasal Cannula Nasal Cannula Oxygen Flow Rate 3 3 08/23/21 22:00 08/24/21 06:00 08/24/21 08:01 Temperature 98.4 F 97.6 F Pulse Rate 102 H 86 Respiratory Rate 18 20 Blood Pressure 135/52 L 129/52 L Pulse Oximetry 95 98 94 Oxygen Delivery Nasal Cannula Oxygen Flow Rate 3 08/24/21 08:39 Temperature Pulse Rate Respiratory Rate Blood Pressure Pulse Oximetry 93 Oxygen Delivery Nasal Cannula Oxygen Flow Rate 3 Intake/Output Intake/Output: Intake & Output 08/21/21 08/22/21 08/23/21 08/24/21 23:59 23:59 23:59 23:59 Intake Total 3650 4150 3780 950 Output Total 1650 1400 2000 1300 Balance 2000 0213 8216 -575 Meds/Results Medications: Active Medications Generic Name Dose Route Start Last Admin Trade Name Freq PRN Reason Stop Dose Admin Hydrocodone Bitart/Acetaminophen 1 tab 08/22/21 14:29 08/23/21 01:10 Hydrocodone/Acetaminophen (*Crx) 5-325 Mg Tablet PO 1 tab Q4H PRN Administration Pain Rated 4-6 Hydrocodone Bitart/Acetaminophen 1 tab 08/24/21 08:07 08/24/21 08:23 Hydrocodone/Acetaminophen (*Crx) 10-325 Mg Tablet PO 1 tab Q6H PRN Administration Pain Rated 7-10; Albuterol 1 puff 08/20/21 08:20 08/24/21 08:00 Albuterol Sulfate (*Sp) Aerosol 1 Puff INHALATION 1 puff Q4HRT LATOYA Administration Alprazolam 0.25 mg 08/19/21 20:57 08/24/21 02:46 Alprazolam (*Crx) 0.25 Mg Tablet PO 0.25 mg TID PRN Administration Anxiety Bupropion HCl 100 mg 08/20/21 17:00 08/24/21 08:26 Bupropion Hcl Sr (12hr) 100 Mg Tabcr PO 100 mg BID LATOYA Administration Buspirone HCl 10 mg 08/20/21 16:35 08/24/21 08:2
--- NOTE | 2021-08-24 10:36 | PCNFU ---
Nutrition Follow-Up Complete: Altered GI function as related to diverticulitis as evidenced by NPO Goal: Adequate Intake of at least 75% of meals/supplements Patient has limited progress toward goal. We will continue current goal. Pt current nutrition is Low fiber. Last recorded weight is 86 kg, no new weight to report. Bowel Motility:+BM reported 08/23 Labs Reviewed:Cr 0.5,Na 132, K 3.2, Hct 23.1,Hgb 7.7,BUN 3 Meds Noted:Remeron, Zosyn, Lovenox, Dilaudid, Zosyn, Proventil, [place], Zanax, Buspar. Skin: stage II Pressure Ulcer-Ischium Additional Notes: Nutrition follow up. Oral Intake has been poor, 5% reported today. Patient started on Ensure Clear-mixed yates BID providing an additional 240 kcals and 8 gms protein. Agree with diet orders. Monitoring: RD will monitor every 3 days.
[2021-08-24 14:00] VITALS: BP 153/56; PULSE 88; RESP 22; TEMP 36.6; O2SAT 98
[2021-08-24] MEDS: MORPHINE SULFATE (*CRX) 2 MG/ML INJ IV PUSH ×3 (16:01→21:47)
[2021-08-24 20:38] VITALS: O2SAT 94
[2021-08-24] MEDS: CITALOPRAM HYDROBROMIDE 20 MG TABLET PO (20:46)
[2021-08-24] MEDS: SIMVASTATIN 5 MG TABLET PO (20:46)
[2021-08-24 22:00] VITALS: BP 130/76; PULSE 97; RESP 24; TEMP 36.8; O2SAT 96
[2021-08-24] MEDS: POTASSIUM CHLORIDE 20 MEQ TABLET 40 MEQ PO (22:07)
[2021-08-24] MEDS: ONDANSETRON INJ 4 MG/2 ML VIAL IV PUSH (22:10)
[2021-08-25] MEDS: MORPHINE SULFATE (*CRX) 2 MG/ML INJ IV PUSH (00:21)
[2021-08-25] MEDS: ALBUTEROL SULFATE (*SP) AEROSOL 1 PUFF INHALATION ×5 (00:30→20:56)
[2021-08-25 00:43] LABS: Potassium 3.4 mmol/L (3.4-5.0)
[2021-08-25] MEDS: HYDROcodone/acetaminophen (*CRX) 10-325 MG TABLET 1 TAB PO ×4 (02:53→21:55)
[2021-08-25 05:08] LABS: Hematocrit 23.4 % (37.0-47.0); Hemoglobin 7.8 g/dL (12.0-15.0); Mean Corpuscular HGB Conc 33.3 g/dl (32-36); Mean Corpuscular Hemoglobin 31.8 pg (26-34); Mean Corpuscular Volume 95.5 fl (80-100); Platelet Count Result 143 k/mm3 (150-375); Red Blood Count 2.45 M/mm3 (4.2-5.4); Red Cell Distribution Width 17.9 % (11.5-14.5); White Blood Count 7.1 K/mm3 (4.5-10.0)
[2021-08-25] MEDS: ONDANSETRON INJ 4 MG/2 ML VIAL IV PUSH (05:08)
[2021-08-25 05:20] LABS: Anion Gap 4 mmol/L (8-16); Blood Urea Nitrogen 3 mg/dL (7-17); Calcium 7.8 mg/dL (8.4-10.2); Carbon Dioxide 27 mmol/L (22-30); Chloride 98 mmol/L (98-107); Estimated CRCL calculation 87 ml/min; Estimated Glomerular Filt Rate > 60; Glucose 104 mg/dL (65-110); Potassium 3.3 mmol/L (3.4-5.0); Sodium 129 mmol/L (137-145)
[2021-08-25 05:56] VITALS: BP 117/44; PULSE 97; RESP 24; TEMP 37.2; O2SAT 93
--- NOTE | 2021-08-25 07:40 | PM.PNGS ---
Progress Note: A&P Assessment and Plan (1) Diverticulitis of large intestine with perforation and abscess: Code(s): K57.20 - Diverticulitis of large intestine with perforation and abscess without bleeding Status: Acute Assessment and Plan: suspect emesis was more likely due to coughing and COPD with lung cancer rather than abdominal source. Will get repeat CT scan to evaluate diverticulitis as patient continues to have some tenderness in the left lower quadrant. Overall, her clinical progress suggest the diverticulitis is significantly better. She is also tolerating a low residue diet without difficulty. Unless CT scan shows larger abscess or other signs of progression, would recommend discharge with oral antibiotics as outlined in yesterday's note. (2) COPD (chronic obstructive pulmonary disease): Code(s): J44.9 - Chronic obstructive pulmonary disease, unspecified Status: Chronic (3) Lung cancer: Code(s): C34.90 - Malignant neoplasm of unspecified part of unspecified bronchus or lung Status: Chronic (4) Anemia: Code(s): D64.9 - Anemia, unspecified Status: Chronic Subjective Subjective Date/Time Seen: 08/25/21 07:40 Patient reports: still having pain ( still having some left lower quadrant pain; overall is much better), vomiting and afebrile Interval history: patient reports she was very hot earlier this morning. She then threw up. I talked with her nurse. This occurred wall nights was still seeing her. The night nurse reported that the patient had a lot of coughing and then coughed up sputum. Patient is still concerned that she has some left lower quadrant pain. She is very anxious. Review of Systems Review of Systems: All systems reviewed & are unremarkable except as noted in HPI and below ( HPI and those noted below) Constitutional: Constitutional: Reports as per HPI, Denies body ache(s), Denies chills, Denies fever(s) and Denies poor appetite Respiratory: Respiratory: Reports as per HPI and Reports cough Gastrointestinal: Gastrointestinal: Reports as per HPI, Reports abdominal pain ( left lower quadrant) and Denies early satiety Exam Const: General: cooperative, comfortable, no acute distress and alert Nutritional Appearance: average body habitus Orientation/consciousness: No confusion GI: Inspection: normal to inspection and non-distended GI Palp: Yes Soft to palpation, Yes Tenderness to palpation present (GI) ( left lower quadrant), No Guarding due to palpation present (GI) and No Rebound tenderness present Auscultation: normal bowel sounds Objective Data Vital Signs Vital Signs: Vital Signs - 24 hr 08/24/21 08:01 08/24/21 08:39 08/24/21 13:28 Temperature Pulse Rate Respiratory Rate Blood Pressure Pulse Oximetry 94 93 Oxygen Delivery Nasal Cannula Nasal Cannula Nasal Cannula Oxygen Flow Rate 3 3 3 08/24/21 14:00 08/24/21 15:02 08/24/21 20:38 Temperature 36.6 C Pulse Rate 88 Respiratory Rate 22 H Blood Pressure 153/56 H Pulse Oximetry 98 94 Oxygen Delivery Nasal Cannula Nasal Cannula Oxygen Flow Rate 3 3 08/24/21 22:00 08/25/21 05:56 Temperature 36.8 C 37.2 C Pulse Rate 97 97 Respiratory Rate 24 H 24 H Blood Pressure 130/76 117/44 L Pulse Oximetry 96 93 Oxygen Delivery Oxygen Flow Rate Intake/Output Intake/Output: Intake & Output 08/22/21 08/23/21 08/24/21 08/25/21 23:59 23:59 23:59 23:59 Intake Total 4150 3780 2190 50 Output Total 1400 2000 1900 700 Balance 2750 1779 290 -650 Meds/Results Medications: Active Medications Generic Name Dose Route Start Last Admin Trade Name Freq PRN Reason Stop Dose Admin Hydrocodone Bitart/Acetaminophen 1 tab 08/22/21 14:29 08/23/21 01:10 Hydrocodone/Acetaminophen (*Crx) 5-325 Mg Tablet PO 1 tab Q4H PRN Administration Pain Rated 4-6 Hydrocodone Bitart/Acetaminophen 1 tab 08/24/21 08:07 08/25/21 02:53 Hydrocodone/Acet
[2021-08-25 08:00] VITALS: O2SAT 97
[2021-08-25 08:41] VITALS: O2SAT 94
[2021-08-25] MEDS: FLUTICASONE/SALMETEROL 45-21 MCG INHALER 1 PUFF 2 PUFF INHALATION ×2 (08:42→20:56)
[2021-08-25] MEDS: POTASSIUM CHLORIDE 20 MEQ PACKET (FOR LIQUID) 40 MEQ PO (09:01)
[2021-08-25] MEDS: buPROPion HCL SR (12HR) 100 MG TABCR PO ×2 (09:05→16:39)
[2021-08-25] MEDS: ENOXAPARIN 40 MG/0.4 ML SYRINGE SUB-Q (09:05)
[2021-08-25] MEDS: hydrOXYzine HCL 25 MG TABLET PO ×2 (09:05→16:39)
[2021-08-25] MEDS: LIDOCAINE 5% PATCH 1 PATCH TRANSDERM (09:06)
[2021-08-25] MEDS: KETOROLAC 0.5% OP SOLN 5 ML BOTTLE 1 DROP LEFT EYE ×4 (09:06→21:08)
[2021-08-25] MEDS: MIRTAZAPINE 15 MG TABLET PO (09:06)
[2021-08-25] MEDS: prednisoLONE ACETATE 1% OPHTH 5 ML 1 DROP LEFT EYE ×3 (09:07→16:39)
[2021-08-25] MEDS: OFLOXACIN 0.3% OPHTH SOLN 5 ML BTL 1 DROP LEFT EYE ×3 (09:07→16:39)
--- NOTE | 2021-08-25 10:47 | PM.IMPN ---
Progress Note: A&P Assessment and Plan (1) Diverticulitis of large intestine with perforation and abscess: Code(s): K57.20 - Diverticulitis of large intestine with perforation and abscess without bleeding Status: Acute Assessment and Plan: General surgery has been consult and do appreciate further recommendations. At this point time patient is on Zosyn will continue with this antibiotic. Low-fiber diet per surgery. Follow up CT scan did show worsening abscess. Will make the patient NPO until surgery follows up with the patient. (2) COPD (chronic obstructive pulmonary disease): Code(s): J44.9 - Chronic obstructive pulmonary disease, unspecified Status: Chronic Assessment and Plan: Will resume patient's home meter dose inhalers. Patient's COPD is stable at this time. (3) Anxiety: Code(s): F41.9 - Anxiety disorder, unspecified Status: Acute Assessment and Plan: Monitor (4) Anemia: Code(s): D64.9 - Anemia, unspecified Status: Chronic Assessment and Plan: Monitor H and H transfuse as needed Subjective Date/time seen: 08/25/21 10:47 Still complaining of lower abdominal cramping and pain. CT scan ordered by surgery. Results show worsening abscess. Exam Narrative: Constitutional: Patient is well-nourished in no acute distress. Patient is alert and oriented x3 HEENT: Moist mucous membranes. No scleral icterus. No lymphadenopathy. Neck: No carotid bruits noted no JVD noted Lungs: Lung sounds are clear to auscultation bilaterally. No accessory muscle use. No rhonchi, rales, or wheezes noted. Cardiovascular: Apical pulse is regular rate and rhythm. S1-S2 noted, no S3 or S4 noted. No gallops or rubs noted. Abdomen: Soft and round. Patient complains of tenderness to bilateral lower quadrants with palpation. No palpable masses. Extremities: No edema. Nontender. Skin: No rashes or lesions. Warm and dry. Skin is intact. Neurological: No focal neurological deficits. Cranial nerves II-XII grossly intact. Psychiatric: Cooperative, appropriate mood, and affect Objective Data Vital Signs Vital Signs: Vital Signs - 24 hr 08/24/21 13:28 08/24/21 14:00 08/24/21 15:02 Temperature 97.9 F Pulse Rate 88 Respiratory Rate 22 H Blood Pressure 153/56 H Pulse Oximetry 98 Oxygen Delivery Nasal Cannula Nasal Cannula Oxygen Flow Rate 3 3 08/24/21 20:38 08/24/21 22:00 08/25/21 05:56 Temperature 98.3 F 99 F Pulse Rate 97 97 Respiratory Rate 24 H 24 H Blood Pressure 130/76 117/44 L Pulse Oximetry 94 96 93 Oxygen Delivery Nasal Cannula Oxygen Flow Rate 3 08/25/21 08:00 08/25/21 08:41 Temperature Pulse Rate Respiratory Rate Blood Pressure Pulse Oximetry 97 94 Oxygen Delivery Nasal Cannula Nasal Cannula Oxygen Flow Rate 3 3 Intake/Output Intake/Output: Intake & Output 08/22/21 08/23/21 08/24/21 08/25/21 23:59 23:59 23:59 23:59 Intake Total 4150 3780 2190 290 Output Total 1400 2001 1900 700 Balance 2750 1779 290 -410 Meds/Results Medications: Active Medications Generic Name Dose Route Start Last Admin Trade Name Freq PRN Reason Stop Dose Admin Hydrocodone Bitart/Acetaminophen 1 tab 08/22/21 14:29 08/23/21 01:10 Hydrocodone/Acetaminophen (*Crx) 5-325 Mg Tablet PO 1 tab Q4H PRN Administration Pain Rated 4-6 Hydrocodone Bitart/Acetaminophen 1 tab 08/24/21 08:07 08/25/21 09:08 Hydrocodone/Acetaminophen (*Crx) 10-325 Mg Tablet PO 1 tab Q6H PRN Administration Pain Rated 7-10; Albuterol 1 puff 08/20/21 08:20 08/25/21 08:42 Albuterol Sulfate (*Sp) Aerosol 1 Puff INHALATION 1 puff Q4HRT LATOYA Administration Alprazolam 0.25 mg 08/19/21 20:57 08/24/21 13:07 Alprazolam (*Crx) 0.25 Mg Tablet PO 0.25 mg TID PRN Administration Anxiety Bupropion HCl 100 mg 08/20/21 17:00 08/25/21 09:05 Bupropion Hcl Sr (12hr) 100 Mg Tabcr PO 100 mg BID S
[2021-08-25] MEDS: ALPRAZolam (*CRX) 0.25 MG TABLET PO ×2 (11:58→21:10)
[2021-08-25] MEDS: SILVERGEL (ELTA) 45 ML 1 APPLIC TOPICAL (11:58)
--- NOTE | 2021-08-25 13:44 | PCPTNOTE ---
Patient refused treatment this session. Pt stated that she didn't feel well this afternoon and had just got back to the bed.
--- NOTE | 2021-08-25 13:48 | PCOTNOTE ---
Attempted to see patient twice this date. First attempt, patient requested shower, however waiting for IV to be completed. Second attempt, patient just refused physical therapy reporting just getting back to bed. PT veterinarian assistant reported patient soon going for procedure. Pt not seen for this reason.
[2021-08-25 14:00] VITALS: BP 133/63; PULSE 85; RESP 16; TEMP 36.3; O2SAT 99
[2021-08-25 14:23] LABS: INR 1.4; Prothrombin Time 17.1 Seconds (11.1-14.7)
[2021-08-25 14:24] LABS: Partial Thromboplastin Time 38.4 SECONDS (22.3-36.8)
[2021-08-25 19:22] VITALS: BP 113/40; PULSE 90; RESP 17; TEMP 36.7; O2SAT 98
[2021-08-25 20:57] VITALS: PULSE 102; O2SAT 93
[2021-08-25] MEDS: SIMVASTATIN 5 MG TABLET PO (21:07)
[2021-08-25] MEDS: CITALOPRAM HYDROBROMIDE 20 MG TABLET PO (21:07)
[2021-08-25] MEDS: traZODone HCL 50 MG TABLET PO (21:55)
[2021-08-26] MEDS: ALBUTEROL SULFATE (*SP) AEROSOL 1 PUFF INHALATION ×6 (00:45→20:13)
[2021-08-26] MEDS: MORPHINE SULFATE (*CRX) 2 MG/ML INJ IV PUSH ×2 (02:33→21:26)
[2021-08-26 04:17] VITALS: BP 121/48; PULSE 100; RESP 18; TEMP 37.2; O2SAT 96
[2021-08-26 08:00] VITALS: O2SAT 96
[2021-08-26] MEDS: FLUTICASONE/SALMETEROL 45-21 MCG INHALER 1 PUFF 2 PUFF INHALATION ×2 (08:08→20:13)
[2021-08-26 08:09] VITALS: O2SAT 94
[2021-08-26 08:28] LABS: Hematocrit 22.1 % (37.0-47.0); Hemoglobin 7.4 g/dL (12.0-15.0); Mean Corpuscular HGB Conc 33.5 g/dl (32-36); Mean Corpuscular Volume 95.7 fl (80-100); Mean Platelet Volume 9.1 fl (7.4-10.4); Platelet Count Result 129 k/mm3 (150-375); Red Blood Count 2.31 M/mm3 (4.2-5.4); Red Cell Distribution Width 17.8 % (11.5-14.5); White Blood Count 5.2 K/mm3 (4.5-10.0)
[2021-08-26 08:37] LABS: Alanine Aminotransferase 14 U/L (6-35); Albumin Level 2.8 g/dL (3.5-5.1); Alkaline Phosphatase 126 U/L (38-126); Anion Gap 4 mmol/L (8-16); Aspartate Amino Transferase 16 U/L (14-36); Bilirubin,Total 1.1 mg/dL (0.2-1.3); Blood Urea Nitrogen 4 mg/dL (7-17); Calcium 7.7 mg/dL (8.4-10.2); Carbon Dioxide 30 mmol/L (22-30); Chloride 97 mmol/L (98-107); Estimated CRCL calculation 103 ml/min; Estimated Glomerular Filt Rate > 60; Glucose 105 mg/dL (65-110); Potassium 3.5 mmol/L (3.4-5.0); Sodium 131 mmol/L (137-145)
[2021-08-26 08:43] LABS: Lymphocytes Absolute Manual 1.66 K/mm3 (1.1-4.5); Monocytes Absolute Manual 1.66 K/mm3 (0.1-0.90); Monocytes Percent Manual 32 % (3-9); Neutrophils Percent Manual 36 % (46-73); Total Cells Counted 100
[2021-08-26 08:45] LABS: Hypochromasia 2+ (NORMAL); Platelet Estimate Adequate (Adequate)
[2021-08-26] MEDS: buPROPion HCL SR (12HR) 100 MG TABCR PO ×2 (09:32→17:33)
[2021-08-26] MEDS: hydrOXYzine HCL 25 MG TABLET PO ×2 (09:33→17:33)
[2021-08-26] MEDS: ENOXAPARIN 40 MG/0.4 ML SYRINGE SUB-Q (09:33)
[2021-08-26] MEDS: KETOROLAC 0.5% OP SOLN 5 ML BOTTLE 1 DROP LEFT EYE ×4 (09:33→21:28)
[2021-08-26] MEDS: prednisoLONE ACETATE 1% OPHTH 5 ML 1 DROP LEFT EYE ×3 (09:34→17:34)
[2021-08-26] MEDS: OFLOXACIN 0.3% OPHTH SOLN 5 ML BTL 1 DROP LEFT EYE ×3 (09:34→17:34)
[2021-08-26] MEDS: HYDROcodone/acetaminophen (*CRX) 10-325 MG TABLET 1 TAB PO ×2 (09:34→17:33)
[2021-08-26] MEDS: MIRTAZAPINE 15 MG TABLET PO (09:34)
[2021-08-26] MEDS: AMOXICILLIN/CLAVULANATE K 875-125 MG TAB 1 TABLET PO ×2 (09:57→21:29)
[2021-08-26] MEDS: SILVERGEL (ELTA) 45 ML 1 APPLIC TOPICAL (13:17)
[2021-08-26 14:00] VITALS: BP 130/59; PULSE 87; RESP 18; TEMP 36.4; O2SAT 95
--- NOTE | 2021-08-26 15:22 | PM.IMPN ---
Progress Note: A&P Assessment and Plan (1) Diverticulitis of large intestine with perforation and abscess: Code(s): K57.20 - Diverticulitis of large intestine with perforation and abscess without bleeding Status: Acute Assessment and Plan: General surgery has been consult and do appreciate further recommendations. At this point time patient is on Zosyn will continue with this antibiotic. Low-fiber diet per surgery. Follow up CT scan did show worsening abscess. Will make the patient NPO until surgery follows up with the patient. (2) COPD (chronic obstructive pulmonary disease): Code(s): J44.9 - Chronic obstructive pulmonary disease, unspecified Status: Chronic Assessment and Plan: Will resume patient's home meter dose inhalers. Patient's COPD is stable at this time. (3) Anxiety: Code(s): F41.9 - Anxiety disorder, unspecified Status: Acute Assessment and Plan: Monitor (4) Anemia: Code(s): D64.9 - Anemia, unspecified Status: Chronic Assessment and Plan: Monitor H and H transfuse as needed Subjective Date/time seen: 08/26/21 15:22 Interval history: Patient states her abdominal pain seems a little worse today than yesterday. She denies nausea and vomiting. Denies chest pain or shortness of breath. No fevers chills overnight events noted. Review of Systems Review of Systems: Twelve point review of systems was reviewed and is negative except as noted in the HPI Exam Narrative: General: Patient resting comfortably in bed, no acute distress, soft voice HEENT: Atraumatic, normocephalic, mucous membranes moist CV: Regular rate and rhythm, S1, S2, no murmurs rubs or gallops noted Lungs: Clear to auscultation bilaterally, no rales or crackles noted, no wheezes, good air entry Abdomen: Soft, diffusely tender to palpation, no rebounding or guarding Extremities: Normal to inspection, no edema noted Skin: No rashes noted, no lesions or wounds seen Psych: Euthymic, normal affect Objective Data Vital Signs Vital Signs: Vital Signs - 24 hr 08/25/21 19:22 08/25/21 20:57 08/26/21 04:17 Temperature 98.1 F 99 F Pulse Rate 90 102 H 100 Respiratory Rate 17 18 Blood Pressure 113/40 L 121/48 L Pulse Oximetry 98 93 96 Oxygen Delivery Nasal Cannula Oxygen Flow Rate 3 08/26/21 08:09 08/26/21 08:00 08/26/21 14:00 Temperature 97.6 F Pulse Rate 87 Respiratory Rate 18 Blood Pressure 130/59 L Pulse Oximetry 94 96 95 Oxygen Delivery Nasal Cannula Nasal Cannula Oxygen Flow Rate 3 3 Intake/Output Intake/Output: Intake & Output 08/23/21 08/24/21 08/25/21 08/26/21 23:59 23:59 23:59 23:59 Intake Total 378 2190 440 50 Output Total 20000 1800 500 Balance 1779 022 -0262 -788 Meds/Results Medications: Active Medications Generic Name Dose Route Start Last Admin Trade Name Freq PRN Reason Stop Dose Admin Hydrocodone Bitart/Acetaminophen 1 tab 08/22/21 14:29 08/23/21 01:10 Hydrocodone/Acetaminophen (*Crx) 5-325 Mg Tablet PO 1 tab Q4H PRN Administration Pain Rated 4-6 Hydrocodone Bitart/Acetaminophen 1 tab 08/24/21 08:07 08/26/21 09:34 Hydrocodone/Acetaminophen (*Crx) 10-325 Mg Tablet PO 1 tab Q6H PRN Administration Pain Rated 7-10; Albuterol 1 puff 08/20/21 08:20 08/26/21 12:55 Albuterol Sulfate (*Sp) Aerosol 1 Puff INHALATION 1 puff Q4HRT LATOYA Administration Alprazolam 0.25 mg 08/19/21 20:57 08/25/21 21:10 Alprazolam (*Crx) 0.25 Mg Tablet PO 0.25 mg TID PRN Administration Anxiety Amoxicillin/Clavulanate Potassium 1 tablet 08/26/21 09:00 08/26/21 09:57 Amoxicillin/Clavulanate K 875-125 Mg Tab PO 08/28/21 08:59 1 tablet Q12HR LATOYA Administration Bupropion HCl 100 mg 08/20/21 17:00 08/26/21 09:32 Bupropion Hcl Sr (12hr) 100 Mg Tabcr PO 100 mg BID LATOYA Administration Buspirone HCl 10 mg 08/20/21 16:35 08/24/21 20:47 Buspirone Hcl
[2021-08-26] MEDS: ALPRAZolam (*CRX) 0.25 MG TABLET PO (17:34)
--- NOTE | 2021-08-26 18:04 | PM.PNGS ---
Progress Note: A&P Assessment and Plan (1) Diverticulitis of large intestine with perforation and abscess: Code(s): K57.20 - Diverticulitis of large intestine with perforation and abscess without bleeding Status: Acute Assessment and Plan: Pelvic abscess drained. Pain seems to be mostly from drain catheter site. Will resume clear liquids tomorrow. Continue IV antibiotics. Continue to monitor. (2) Lung cancer: Code(s): C34.90 - Malignant neoplasm of unspecified part of unspecified bronchus or lung Status: Chronic (3) COPD (chronic obstructive pulmonary disease): Code(s): J44.9 - Chronic obstructive pulmonary disease, unspecified Status: Chronic Subjective Subjective Date/Time Seen: 08/26/21 18:04 Patient reports: still having pain (Still having abdominal pain, possibly worse. Seems to be from exit site of catheter) and afebrile Interval history: Patient had CT-guided drainage of pelvic abscess with placement of pigtail catheter yesterday afternoon. Purulent looking fluid was aspirated and sent for culture. Patient has remained NPO all day today. Review of Systems Review of Systems: All systems reviewed & are unremarkable except as noted in HPI and below (HPI and those items noted below) Constitutional: Constitutional: Denies chills and Denies fever(s) Cardiovascular: Cardiovascular: Denies chest pain, Denies diaphoresis, Denies dyspnea and Denies paroxysmal nocturnal dyspnea Respiratory: Respiratory: Denies chest congestion, Denies cough and Denies dyspnea Gastrointestinal: Gastrointestinal: Reports as per HPI and Reports abdominal pain Integumentary/Breasts: Skin/Breast: Denies lesions and Denies rash Exam Const: General: comfortable, no acute distress, alert and awake Nutritional Appearance: well nourished GI: Inspection: non-distended and incision (Drain in place with purulent fluid in container) GI Palp: Yes Soft to palpation and Yes Tenderness to palpation present (GI) (Mostly at drain exit site) Auscultation: normal bowel sounds Objective Data Vital Signs Vital Signs: Vital Signs - 24 hr 08/25/21 19:22 08/25/21 20:57 08/26/21 04:17 Temperature 36.7 C 37.2 C Pulse Rate 90 102 H 100 Respiratory Rate 17 18 Blood Pressure 113/40 L 121/48 L Pulse Oximetry 98 93 96 Oxygen Delivery Nasal Cannula Oxygen Flow Rate 3 08/26/21 08:09 08/26/21 08:00 08/26/21 14:00 Temperature 36.4 C Pulse Rate 87 Respiratory Rate 18 Blood Pressure 130/59 L Pulse Oximetry 94 96 95 Oxygen Delivery Nasal Cannula Nasal Cannula Oxygen Flow Rate 3 3 Intake/Output Intake/Output: Intake & Output 08/23/21 08/24/21 08/25/21 08/26/21 23:59 23:59 23:59 23:59 Intake Total 378 2190 440 50 Output Total 2000 1899 1800 500 Balance 1779 290 -7231 -102 Meds/Results Medications: Active Medications Generic Name Dose Route Start Last Admin Trade Name Freq PRN Reason Stop Dose Admin Hydrocodone Bitart/Acetaminophen 1 tab 08/22/21 14:29 08/23/21 01:10 Hydrocodone/Acetaminophen (*Crx) 5-325 Mg Tablet PO 1 tab Q4H PRN Administration Pain Rated 4-6 Hydrocodone Bitart/Acetaminophen 1 tab 08/24/21 08:07 08/26/21 17:33 Hydrocodone/Acetaminophen (*Crx) 10-325 Mg Tablet PO 1 tab Q6H PRN Administration Pain Rated 7-10; Albuterol 1 puff 08/20/21 08:20 08/26/21 12:55 Albuterol Sulfate (*Sp) Aerosol 1 Puff INHALATION 1 puff Q4HRT LATOYA Administration Alprazolam 0.25 mg 08/19/21 20:57 08/26/21 17:34 Alprazolam (*Crx) 0.25 Mg Tablet PO 0.25 mg TID PRN Administration Anxiety Amoxicillin/Clavulanate Potassium 1 tablet 08/26/21 09:00 08/26/21 09:57 Amoxicillin/Clavulanate K 875-125 Mg Tab PO 08/28/21 08:59 1 tablet Q12HR LATOYA Administration Bupropion HCl 100 mg 08/20/21 17:00 08/26/21 17:33 Bupropion Hcl Sr (12hr) 100 Mg Tabcr PO 100 mg BID LATOYA Administration Buspirone HCl 10 mg 08/20/21 16:
[2021-08-26 20:14] VITALS: O2SAT 95
[2021-08-26 20:22] VITALS: BP 117/54; PULSE 85; RESP 14; TEMP 36.5; O2SAT 97
[2021-08-26] MEDS: SIMVASTATIN 5 MG TABLET PO (21:29)
[2021-08-26] MEDS: CITALOPRAM HYDROBROMIDE 20 MG TABLET PO (21:29)
[2021-08-26] MEDS: traZODone HCL 50 MG TABLET PO (21:29)
[2021-08-27] VITALS (10 sets, daily range): BP systolic 113–163; BP diastolic 53–65; PULSE 89–98; RESP 16–27; TEMP 36.9–37.2; O2SAT 94–98
[2021-08-27] MEDS: ALBUTEROL SULFATE (*SP) AEROSOL 1 PUFF INHALATION ×2 (00:08→07:20)
[2021-08-27] MEDS: HYDROcodone/acetaminophen (*CRX) 10-325 MG TABLET 1 TAB PO (00:12)
[2021-08-27] MEDS: ALPRAZolam (*CRX) 0.25 MG TABLET PO ×2 (00:15→06:50)
[2021-08-27] MEDS: HYDROcodone/acetaminophen (*CRX) 5-325 MG TABLET 1 TAB PO (02:16)
[2021-08-27 06:31] LABS: Anion Gap 6 mmol/L (8-16); Blood Urea Nitrogen 5 mg/dL (7-17); Calcium 7.7 mg/dL (8.4-10.2); Carbon Dioxide 30 mmol/L (22-30); Chloride 97 mmol/L (98-107); Estimated CRCL calculation 125 ml/min; Estimated Glomerular Filt Rate > 60; Glucose 90 mg/dL (65-110); Potassium 3.4 mmol/L (3.4-5.0); Sodium 133 mmol/L (137-145)
[2021-08-27 07:00] LABS: Hematocrit 22.4 % (37.0-47.0); Hemoglobin 7.2 g/dL (12.0-15.0); Mean Corpuscular HGB Conc 32.1 g/dl (32-36); Mean Corpuscular Hemoglobin 31.6 pg (26-34); Mean Corpuscular Volume 98.2 fl (80-100); Mean Platelet Volume 9.2 fl (7.4-10.4); Platelet Count Result 123 k/mm3 (150-375); Red Blood Count 2.28 M/mm3 (4.2-5.4); White Blood Count 3.7 K/mm3 (4.5-10.0)
[2021-08-27 07:15] LABS: Band Neutrophils Percent 1 % (0-6); Lymphocytes Absolute Manual 1.51 K/mm3 (1.1-4.5); Monocytes Absolute Manual 0.99 K/mm3 (0.1-0.90); Monocytes Percent Manual 27 % (3-9); Neutrophils Absolute Manual 1.18 K/mm3 (1.7-7.2); Neutrophils Percent Manual 31 % (46-73); Total Cells Counted 100
[2021-08-27 07:16] LABS: Anisocytosis 1+ (NORMAL); Ovalocytes 1+ (NORMAL)
[2021-08-27 07:20] LABS: Hypochromasia 1+ (NORMAL)
[2021-08-27] MEDS: FLUTICASONE/SALMETEROL 45-21 MCG INHALER 1 PUFF 2 PUFF INHALATION (07:20)
--- NOTE | 2021-08-27 08:13 | PCWOUND ---
WOCN NOTE received order to curt patient's abdomen for descending colostomy. Patient in supine position to find optimal area, when patient was asked to cough, she refused due to discomfort. When I arrived in the room I was at the bedside and patient starting coughing hard to clear her throat. Again explained to patient the importance of her coughing to find the muscle in her abdomen, patient put not effort into coughing. Slight rise from muscle was felt, then patient was placed in a sitting position to assess abdomen for skin folds, while this was going on, patient crying out are you trying to kill me Explained that if I don't truly assess the abdomen for the most optimal spot that she could have worse issues after surgery. Patient kept complaining about she already has worse issues. Again asked patient to cough and little to no effort was given, tried to have her do it again and she refused. Black X placed on the abdomen for what is believed to be the best area for ostomy, covered with a Tegaderm. Will notify Dr Neal of the difficulty in marking patient.
--- NOTE | 2021-08-27 08:22 | PM.PNGS ---
Progress Note: A&P Assessment and Plan (1) Fecal peritonitis: Code(s): K65.8 - Other peritonitis Status: Acute Assessment and Plan: drainage from pigtail catheter yesterday was purulent. Nursing reports that through the night the drainage was purulent. However, I was present when the bag was being emptied this morning. There is clearly liquid stool by appearance and odor in the bag. Fecal peritonitis will not resolve without surgery. Although patient is certainly high risk for surgery and we had hoped to avoid laparotomy, waiting will only worsen her condition. I will restart her IV Zosyn and proceed with sigmoidectomy and end descending colostomy today. I discussed the findings and the reason for proceeding with the patient. I explained that the surgery is high risk but certainly less risk than continued leakage of stool from most likely diverticular perforation. She agrees to go ahead. (2) Diverticulitis of large intestine with perforation and abscess: Code(s): K57.20 - Diverticulitis of large intestine with perforation and abscess without bleeding Status: Acute Assessment and Plan: Now with essentially colovesical fistula with leakage of stool into the abscess drained by pigtail catheter and stool coming from the catheter. Please see above. Certainly possible the patient has a colon cancer as the cause of her fecal peritonitis and perforation although imaging makes diverticulitis much more likely. Will plan to go ahead with sigmoidectomy and colostomy as described above. (3) COPD (chronic obstructive pulmonary disease): Code(s): J44.9 - Chronic obstructive pulmonary disease, unspecified Status: Chronic Assessment and Plan: Increases surgical risk (4) Lung cancer: Code(s): C34.90 - Malignant neoplasm of unspecified part of unspecified bronchus or lung Status: Chronic Assessment and Plan: increases surgical risk (5) Anemia: Code(s): D64.9 - Anemia, unspecified Status: Chronic Assessment and Plan: increases surgical risk. Subjective Subjective Date/Time Seen: 08/27/21 06:32 Patient reports: still having pain ( Mostly at drain site, left lower quadrant), bowel movement and afebrile Review of Systems Review of Systems: All systems reviewed & are unremarkable except as noted in HPI and below ( HPI and those items noted below) Constitutional: Constitutional: Denies chills, Reports fatigue, Denies fever(s), Denies night sweats and Denies poor appetite Cardiovascular: Cardiovascular: Denies chest pain, Denies chest pain at rest, Denies diaphoresis, Denies irregular heart rhythm, Reports dyspnea on exertion and Denies paroxysmal nocturnal dyspnea Respiratory: Respiratory: Reports chest congestion, Reports cough and Reports dyspnea on exertion Gastrointestinal: Gastrointestinal: Reports as per HPI, Reports abdominal pain, Denies nausea and Denies vomiting Integumentary/Breasts: Skin/Breast: Denies lesions and Denies rash Exam Const: General: comfortable, no acute distress, alert and awake; No confusion Nutritional Appearance: well nourished Orientation/consciousness: No confusion GI: Inspection: non-distended and other ( liquid stool noted in pigtail catheter bag this morning. ) GI Palp: Yes Soft to palpation, Yes Tenderness to palpation present (GI) ( left lower quadrant and across lower abdomen, worse LLQ), No Guarding due to palpation present (GI), No Rebound tenderness present and Yes Other GI palpation findings present ( drain site in left lower quadrant where patient most tender) Auscultation: Hypoactive bowel sounds present Neuro: General: no focal motor deficits and No confusion Extrem: General: no calf tenderness and no edema Psych: Affect: normal affect Insight: Good insight present (Psych) Judgement: Good judgement present (Psych) Objective Data Vital Signs Vital Signs: Vital Signs - 24 hr 08/26/21
[2021-08-27] MEDS: buPROPion HCL SR (12HR) 100 MG TABCR PO (09:47)
[2021-08-27] MEDS: KETOROLAC 0.5% OP SOLN 5 ML BOTTLE 1 DROP LEFT EYE ×2 (09:47→20:30)
[2021-08-27] MEDS: prednisoLONE ACETATE 1% OPHTH 5 ML 1 DROP LEFT EYE ×2 (09:47→20:29)
[2021-08-27] MEDS: OFLOXACIN 0.3% OPHTH SOLN 5 ML BTL 1 DROP LEFT EYE ×2 (09:47→20:30)
[2021-08-27] MEDS: MIRTAZAPINE 15 MG TABLET PO (09:47)
[2021-08-27] MEDS: ENOXAPARIN 40 MG/0.4 ML SYRINGE SUB-Q (09:47)
[2021-08-27] MEDS: SILVERGEL (ELTA) 45 ML 1 APPLIC TOPICAL (09:48)
--- NOTE | 2021-08-27 10:53 | PCNFU ---
Nutrition Follow-Up Complete: Altered GI function as related to diverticulitis as evidenced by NPO Goal: Adequate Intake of at least 75% of meals/supplements Patient has limited progress towards goal. We will continue current goal. Pt current nutrition is NPO. Last recorded weight is 86 kg, no new weight to report. Bowel Motility:+Bm reported 08/27 Labs Reviewed:Cr 0.4,BUN 5, Na 133, Hct 22.4,Hgb 7.2 Meds Noted:Remeron, Zosyn, Lovenox, Dilaudid, Zosyn, Proventil, [place], Zanax, Wellbutrin. Skin: stage II Pressure Ulcer-Ischium Additional Notes: Patient currently NPO for surgery today. Plans to proceed with sigmoidectomy and end descending colostomy today. Will continue to monitor. Monitoring: RD will monitor every 3 days.
--- NOTE | 2021-08-27 11:43 | WPDANESPN ---
Anes - Prog Note Post-Op Date/Time: 08/27/21 11:43 Vital Signs: Last Vital Signs Temp 37.2 C 08/27/21 06:36 Pulse 98 08/27/21 06:36 Resp 16 08/27/21 06:36 BP 113/65 08/27/21 06:36 Pulse Ox 97 08/27/21 06:36 O2 Del Method Nasal Cannula 08/26/21 21:30 O2 Flow Rate 3 08/26/21 21:30 Pain Score (VAS): 0 I/O: Intake & Output 08/26/21 08/27/21 08/27/21 23:59 07:59 15:59 Intake Total 450 50 Output Total 460 520 Balance -10 -470 Laboratory Tests 08/27/21 05:54 08/27/21 05:54 08/27/21 08/27/21 08/27/21 05:54 05:54 08:38 WBC 3.7 L RBC 2.28 L Hgb 7.2 L Hct 22.4 L MCV 98.2 MCH 31.6 MCHC 32.1 RDW 18.0 H Plt Count 123 L MPV 9.2 Immature Gran % (Auto) Not Reportable Neut % (Auto) Not Reportable Lymph % (Auto) Not Reportable [place] % (Auto) Not Reportable Eos % (Auto) Not Reportable Baso % (Auto) Not Reportable Lymph # (Auto) Not Reportable [place] # (Auto) Not Reportable Eos # (Auto) Not Reportable Baso # (Auto) Not Reportable Abs Immat Gran (auto) Not Reportable Absolute Neuts (auto) Not Reportable Absolute Nucleated RBC Not Reportable Total Counted 100 Neutrophils % (Manual) 31 L Band Neutrophils % 1 Lymphocytes % (Manual) 41.0 Monocytes % (Manual) 27 H Nucleated RBC % Not Reportable Abs Neuts (Manual) 1.18 L Abs Lymphs (Manual) 1.51 Abs Monocytes (Manual) 0.99 H Platelet Estimate Slightly decreased Hypochromasia 1+ Anisocytosis 1+ Ovalocytes 1+ Sodium 133 L Potassium 3.4 Chloride 97 L Carbon Dioxide 30 Anion Gap 6 L BUN 5 L Creatinine 0.40 L Estim Creat Clear Calc 125 Estimated GFR > 60 Glucose 90 Calcium 7.7 L Blood Type O Positive Antibody Screen Negative Microbiology 08/25/21 15:30 Abscess Anaerobic Culture - Preliminary 08/25/21 15:30 Abscess Aerobic Culture - Preliminary Staphylococcus aureus Patient Feedback: Patient satisfied with anesthetic care.
--- NOTE | 2021-08-27 11:51 | PM.IMPN ---
Progress Note: A&P Assessment and Plan (1) Diverticulitis of large intestine with perforation and abscess: Code(s): K57.20 - Diverticulitis of large intestine with perforation and abscess without bleeding Status: Acute Assessment and Plan: OR later today for sigmoidectomy and colostomy Continue Zosyn, on antibiotic day 9 today, 1st dose started on August 19, 2021 (2) COPD (chronic obstructive pulmonary disease): Code(s): J44.9 - Chronic obstructive pulmonary disease, unspecified Status: Chronic Assessment and Plan: Will resume patient's home meter dose inhalers. Patient's COPD is stable at this time. (3) Anxiety: Code(s): F41.9 - Anxiety disorder, unspecified Status: Acute Assessment and Plan: Monitor (4) Anemia: Code(s): D64.9 - Anemia, unspecified Status: Chronic Assessment and Plan: Monitor H and H, transfuse as needed Subjective Date/time seen: 08/27/21 11:51 Interval history: Patient uncomfortable, states she is in more pain than yesterday. She is upset she is NPO for the procedure later today, but understands the ramifications. No overnight events noted. No fevers or chills. Review of Systems Review of Systems: Twelve point review of systems was reviewed and is negative except as noted in the HPI Exam Narrative: General: Patient resting comfortably in bed, no acute distress, soft voice HEENT: Atraumatic, normocephalic, mucous membranes moist CV: Regular rate and rhythm, S1, S2, no murmurs rubs or gallops noted Lungs: Clear to auscultation bilaterally, no rales or crackles noted, no wheezes, good air entry Abdomen: Soft, diffusely tender to palpation, no rebounding or guarding Extremities: Normal to inspection, no edema noted Skin: No rashes noted, no lesions or wounds seen Psych: Euthymic, normal affect Objective Data Vital Signs Vital Signs: Vital Signs - 24 hr 08/26/21 14:00 08/26/21 20:14 08/26/21 20:22 Temperature 97.6 F 97.7 F Pulse Rate 87 85 Respiratory Rate 18 14 Blood Pressure 130/59 L 117/54 L Pulse Oximetry 95 95 97 Oxygen Delivery Nasal Cannula Oxygen Flow Rate 3 08/26/21 21:30 08/27/21 06:36 Temperature 98.9 F Pulse Rate 98 Respiratory Rate 16 Blood Pressure 113/65 Pulse Oximetry 97 Oxygen Delivery Nasal Cannula Oxygen Flow Rate 3 Intake/Output Intake/Output: Intake & Output 08/24/21 08/25/21 08/26/21 08/27/21 23:59 23:59 23:59 23:59 Intake Total 2190 440 500 50 Output Total 1900 1800 960 520 Balance 603 -3510 -155 -870 Meds/Results Medications: Active Medications Generic Name Dose Route Start Last Admin Trade Name Freq PRN Reason Stop Dose Admin Hydrocodone Bitart/Acetaminophen 1 tab 08/22/21 14:29 08/27/21 02:16 Hydrocodone/Acetaminophen (*Crx) 5-325 Mg Tablet PO 1 tab Q4H PRN Administration Pain Rated 4-6 Hydrocodone Bitart/Acetaminophen 1 tab 08/24/21 08:07 08/27/21 00:12 Hydrocodone/Acetaminophen (*Crx) 10-325 Mg Tablet PO 1 tab Q6H PRN Administration Pain Rated 7-10; Albuterol 1 puff 08/20/21 08:20 08/27/21 07:20 Albuterol Sulfate (*Sp) Aerosol 1 Puff INHALATION 1 puff Q4HRT LATOYA Administration Alprazolam 0.25 mg 08/19/21 20:57 08/27/21 06:50 Alprazolam (*Crx) 0.25 Mg Tablet PO 0.25 mg TID PRN Administration Anxiety Bupropion HCl 100 mg 08/20/21 17:00 08/27/21 09:47 Bupropion Hcl Sr (12hr) 100 Mg Tabcr PO 100 mg BID LATOYA Administration Buspirone HCl 10 mg 08/20/21 16:35 08/24/21 20:47 Buspirone Hcl 10 Mg Tablet PO 10 mg PRN PRN Administration Anxiety Citalopram Hydrobromide 20 mg 08/20/21 21:00 08/26/21 21:29 Citalopram Hydrobromide 20 Mg Tablet PO 20 mg HS LATOYA Administration Enoxaparin Sodium 40 mg 08/20/21 09:00 08/27/21 09:47 Enoxaparin 40 Mg/0.4 Ml Syringe SUB-Q 40 mg DAILY LATOYA Administration Hydroxyzine HCl 25 mg 08/20/21 17:00
--- NOTE | 2021-08-27 12:01 | ECG_ITS ---
Measurements Intervals [place] Rate: 87 P: 60 NE: 152 QRS: 63 QRSD: 105 T: 57 QT: 387 QTc: 468 Interpretive Statements SINUS RHYTHM INCOMPLETE RIGHT BUNDLE BRANCH BLOCK [90+ ms QRS DURATION, TERMINAL R IN V1/V2, 40+ ms S IN I/aVL/V4/V5/V6] COMPARED TO ECG 08/19/2021 12:46:42 NO SIGNIFICANT CHANGES Electronically Signed On 08-28-2021 16:26:34 CDT by Viraj Belcher M.D.
[2021-08-27] MEDS: MORPHINE SULFATE (*CRX) 2 MG/ML INJ IV PUSH (12:35)
--- NOTE | 2021-08-27 13:10 | PCOTNOTE ---
Attempted to see pt. for occupational therapy treatment. Pt. refused treatment, stating that she was trying sleep up until her procedure at 3pm today.
--- NOTE | 2021-08-27 14:19 | PCPTNOTE ---
The patient treatment was not able to be completed on 08/27/2021 due to patient out of room for procedure. Will plan to continue treatment per plan of care.
--- NOTE | 2021-08-27 14:34 | P.PNAN_ITS ---
Anes - Eval Final PreProcedure Day of Procedure 08/27/21 14:34 Patient weight: overweight Heart: regular rate and rhythm Lungs: clear to auscultation Airway: Mallampati scale class II Neurological: alert and oriented Last oral intake: >/= 8 hours ASA classification: IV Emergent: no Anesthetic plan: proceed Anesthesia type and monitoring: general ETT and standard monitoring Results Review: All pre-operative results and documents have been reviewed as part of the pre- operative evaluation. Informed Consent: The patient's anesthetic plan and its attendant risks and benefits were discussed with the patient/family/POA. Questions were solicited and answers provided to the satisfaction of the patient/family/POA.
[2021-08-27] MEDS: LACTATED RINGERS 1,000 ML 30 ML IV CONT (14:57)
[2021-08-27] MEDS: MIDAZOLAM HCL (*CRX) 2 MG/2 ML VIAL IV PUSH (15:08)
--- NOTE | 2021-08-27 15:39 | WPDHPUPDATE1 ---
History and Physical Update Update Date/Time: 08/27/21 15:39 History and Physical has been reviewed, including an updated exam of the patient. There are NO changes in the patient's condition. Risks, benefits, and alternatives have been discussed and questions answered. Patient agrees to proceed with procedure.
--- NOTE | 2021-08-27 19:15 | PC.NURSE ---
This patient, Marcia Salinas, was received from [[facility]/OR ] on 08/28/21 at 1915. Patient/family oriented to unit policies and routines
--- NOTE | 2021-08-27 19:29 | W.PM.PROC2 ---
Procedure Note - Detailed Date of Procedure 08/27/21 Pre-op Diagnosis Diverticulitis with perforation, fecal peritonitis Post-op Diagnosis Same Procedure Performed Sigmoidectomy with end descending colostomy, Satya procedure Surgeon Robson Neal MD Lusterer SANTI Perez. Anesthesia General Indications Patient was admitted August 19 with diverticulitis and 3 cm abscess. She was treated with IV antibiotics and bowel rest initially but was then returned to oral intake and low residue diet. She continued to have persistent left lower quadrant pain. Repeat CT scan was performed on 08/25/2021. This showed a larger 5 cm abscess. This was drained with CT guidance and a pigtail catheter placed. Initially this drained purulent fluid. However this morning it was evident there was liquid stool being drained. Patient is taken to surgery now for free perforation of diverticulitis with fecal peritonitis. Findings She had a free perforation in the pelvis just posterior to the uterus. There was stool trapped by the inflammatory adhesions which apparently had been somewhat draining by the pigtail catheter. There was severe acute inflammation resulting in difficult dissection and more bleeding than usual. The degree of inflammation made the diagnosis difficult to delineate grossly in malignancy is a possibility. The sigmoid colon was able to be removed. Fecal peritonitis in the pelvis was controlled and washed out thoroughly. A drain was placed. Description of Procedure Patient was taken to surgery and induced into general anesthesia. She was placed in lithotomy in [facility]. The left lower quadrant pigtail catheter was removed prior to surgery. Dior catheter was placed. Rectal irrigation and rectal tube were placed. The abdomen was prepped and draped. Midline incision was made and dissection was carried through the midline fascia from above the umbilicus down to nearly the pubis. The abdomen was opened and explored. Some adhesions of omentum in the pelvis were taken down. The distal sigmoid was densely adherent in the pelvis. The right ovary was difficult to find although it was suspected to be attached to the sigmoid colon and appearance altered due to the adjacent inflammatory process. There was no free stool in the abdomen. We later found the stool to a been walled off in the anterior pelvis behind the uterus. After general exploration, lateral peritoneal attachments to the descending colon were taken down. The left ureter was found. We continued the dissection using blunt and sharp dissection. In the lower pelvis the ureter was densely adherent to the inflammatory mass of the sigmoid. This was carefully taken down and injury avoided. I also dissected the sigmoid from the patient's right side and provided mobilization in this direction down to the upper rectum. Continued dissection from both the patient's left and right side was carried out. The left ovary and associated vasculature was noted to be adjacent to the inflammatory process. The LigaSure was used to divide the vascular attachments of the left ovary and the ovary was left on the sigmoid colon. Dissection was carried out in the uterus was elevated from the inflammatory process. Eventually I was able to break into the abscess in the distal anterior pelvis. Fecal material was noted. This was suctioned away. Once this inflammatory process was broken up I was then able to mobilize the remaining sigmoid out of the pelvis. I exposed the upper rectum and divided the mesentery associated with it. I then used the contour stapling device and divided the sigmoid from the upper rectum. I then used the LigaSure and divided some of the mesenteric attachments to the sigmoid colon. Eventually we dissected back to the mesentery associated with the distal descending colon. This mesentery was divided with the LigaSure as well. I then used a TLC 75 stapler to divide the distal descending
--- NOTE | 2021-08-27 19:50 | PCRCNOTE ---
Patient mechanically ventilated, unable to administer mdi.
[2021-08-27] MEDS: PROPOFOL IV EMULSION 100 ML 12.9 MG IV CONT (20:06)
[2021-08-27 20:19] LABS: Hematocrit 25.6 % (37.0-47.0); Hemoglobin 8.2 g/dL (12.0-15.0); Mean Corpuscular Hemoglobin 31.1 pg (26-34); Mean Platelet Volume 9.2 fl (7.4-10.4); Platelet Count Result 145 k/mm3 (150-375); Red Blood Count 2.64 M/mm3 (4.2-5.4); Red Cell Distribution Width 17.9 % (11.5-14.5); White Blood Count 3.3 K/mm3 (4.5-10.0)
[2021-08-27] MEDS: fentaNYL CITRATE INJ (*CRX) 100 MCG/2 ML VIAL 50 MCG IV PUSH ×2 (20:25→22:43)
[2021-08-27] MEDS: MINERAL OIL/WHITE PETROLATUM OINTMENT 1 APPLIC EACH EYE (20:27)
[2021-08-27 20:33] LABS: Anion Gap 8 mmol/L (8-16); Blood Urea Nitrogen 8 mg/dL (7-17); Calcium 7.9 mg/dL (8.4-10.2); Carbon Dioxide 28 mmol/L (22-30); Chloride 98 mmol/L (98-107); Estimated CRCL calculation 103 ml/min; Estimated Glomerular Filt Rate > 60; Glucose 135 mg/dL (65-110); Magnesium 1.7 mg/dL (1.6-2.3); Potassium 4.1 mmol/L (3.4-5.0); Sodium 134 mmol/L (137-145)
[2021-08-27 20:40] LABS: NT Pro B Type Natriuretic Pept 2030 pg/mL (5-100)
[2021-08-27 20:54] LABS: Band Neutrophils Percent 5 % (0-6); Lymphocytes Absolute Manual 0.95 K/mm3 (1.1-4.5); Monocytes Absolute Manual 0.92 K/mm3 (0.1-0.90); Monocytes Percent Manual 28 % (3-9); Neutrophils Absolute Manual 1.41 K/mm3 (1.7-7.2); Neutrophils Percent Manual 38 % (46-73); Total Cells Counted 100
[2021-08-27 20:55] LABS: Anisocytosis 2+ (NORMAL); Platelet Estimate Decreased (Adequate)
[2021-08-27 21:00] LABS: Alveolar/Arterial O2 Gradient 178.7 mmHg; Base Excess ABG 2.4 mEq/l (+/-2.0); Carboxyhemoglobin 0.3 % THb (0-2.0); Device VENTILATOR; Fractional Inspired Oxygen 60 %; HCO3 ABG 26.7 mEq/l (22.0-26.0); Methemoglobin ABG 0.6 %THb (0-1.5); Modified Allen's Test Pass; Oxygen Content ABG 12.3 %vol (16.0-22.0); Oxygen Saturation ABG 99.4 % (95.0-100.0); Oxyhemoglobin 97.6 % THb (90.0-100.0); PCO2 ABG 39.8 mmHg (35.0-45.0); PO2 ABG 205.3 mmHg (80.0-100.0); PO2 FiO2 Ratio Arterial Blood 3.42 %; Reduced Hemoglobin 1.5 %THb (0-5.0); Site Drawn RIGHT RADIAL; Total Hemoglobin 8.6 g/dL (12.0-18.0); pH ABG 7.444 (7.350-7.450)
[2021-08-27 21:01] LABS: Arterial Blood Gas PEEP 5 cmH2O; Arterial Blood Gas Tidal Volume 420 ml; Arterial Blood Gas Vent Mode CMV; Arterial Blood Gas Ventilator rate 18 /MIN
[2021-08-27] MEDS: KCL 40 MEQ/D5/0.9% SOD CHL 1,000 ML 50 ML IV CONT (21:20)
[2021-08-28] VITALS (24 sets, daily range): BP systolic 80–144; BP diastolic 50–81; PULSE 62–101; RESP 16–29; TEMP 36.7–37.2; O2SAT 94–98; BMI 28.6
[2021-08-28 00:29] LABS: Glucose Point of Care 163 mg/dl (65-105)
[2021-08-28] MEDS: PROPOFOL IV EMULSION 100 ML 18.06 MG IV CONT (01:22)
[2021-08-28] MEDS: fentaNYL CITRATE INJ (*CRX) 100 MCG/2 ML VIAL 50 MCG IV PUSH ×3 (03:57→14:06)
[2021-08-28] MEDS: MORPHINE SULFATE (*CRX) 2 MG/ML INJ IV PUSH (05:59)
[2021-08-28 06:11] LABS: Anion Gap 6 mmol/L (8-16); Blood Urea Nitrogen 9 mg/dL (7-17); Calcium 7.6 mg/dL (8.4-10.2); Carbon Dioxide 27 mmol/L (22-30); Chloride 98 mmol/L (98-107); Estimated CRCL calculation 142 ml/min; Estimated Glomerular Filt Rate > 60; Glucose 135 mg/dL (65-110); Potassium 3.8 mmol/L (3.4-5.0); Sodium 131 mmol/L (137-145)
[2021-08-28 06:12] LABS: Glucose Point of Care 145 mg/dl (65-105)
[2021-08-28 06:15] LABS: Alveolar/Arterial O2 Gradient 115.7 mmHg; Base Excess ABG 6.9 mEq/l (+/-2.0); Carboxyhemoglobin 0.2 % THb (0-2.0); Fractional Inspired Oxygen 40 %; HCO3 ABG 31.2 mEq/l (22.0-26.0); Methemoglobin ABG 0.6 %THb (0-1.5); Oxygen Content ABG 11.4 %vol (16.0-22.0); Oxygen Saturation ABG 98.5 % (95.0-100.0); Oxyhemoglobin 96.6 % THb (90.0-100.0); PO2 ABG 118.9 mmHg (80.0-100.0); PO2 FiO2 Ratio Arterial Blood 2.97 %; Reduced Hemoglobin 2.6 %THb (0-5.0); Site Drawn RIGHT RADIAL; Total Hemoglobin 8.2 g/dL (12.0-18.0); pH ABG 7.469 (7.350-7.450)
[2021-08-28 06:16] LABS: Arterial Blood Gas PEEP 8 cmH2O; Arterial Blood Gas Tidal Volume 380 ml; Arterial Blood Gas Vent Mode CMV; Arterial Blood Gas Ventilator rate 18 /MIN; Device VENTILATOR; Modified Allen's Test Unable to perform
[2021-08-28] MEDS: PROPOFOL IV EMULSION 100 ML 15.48 MG IV CONT ×2 (06:18→11:52)
--- NOTE | 2021-08-28 06:58 | PM.PNGS ---
Progress Note: A&P Assessment and Plan (1) Diverticulitis of large intestine with perforation and abscess: Code(s): K57.20 - Diverticulitis of large intestine with perforation and abscess without bleeding Status: Acute Assessment and Plan: looks good after sigmoidectomy with drainage of pelvic abscess late yesterday. She is still on mechanical ventilator and is requiring quite a bit of narcotics p.r.n. for pain. Continue IV antibiotics, NG tube, NPO, ventilator management per horseradish maker. Follow daily labs exam. Start dressing changes tomorrow. (2) Fecal peritonitis: Code(s): K65.8 - Other peritonitis Status: Acute Assessment and Plan: Drain in place. On Zosyn. Contained free perforation in pelvis. (3) COPD (chronic obstructive pulmonary disease): Code(s): J44.9 - Chronic obstructive pulmonary disease, unspecified Status: Chronic (4) Lung cancer: Code(s): C34.90 - Malignant neoplasm of unspecified part of unspecified bronchus or lung Status: Chronic Subjective Subjective Date/Time Seen: 08/28/21 06:58 Post Op day: 1 Patient reports: other ( Sedated on mechanical ventilator. Receiving quite a bit to narcotics for pain ) Review of Systems Review of Systems: ROS unobtainable: Yes unobtainable due to endotracheal tube Exam Const: General: lethargic, patient obtunded and other ( intubated) Resp: Effort & Inspection: no audible wheezes and tachypneic ( rate 24, on ventilator) Auscultation: clear to auscultation bilaterally and no rales GI: Inspection: non-distended and incision ( dressing dry and intact, stoma pink and healthy) GI Palp: Yes Soft to palpation and Yes Tenderness to palpation present (GI) Auscultation: absent bowel sounds Objective Data Vital Signs Vital Signs: Vital Signs - 24 hr 08/27/21 13:16 08/27/21 14:00 08/27/21 19:25 Temperature 36.9 C Pulse Rate 89 90 Respiratory Rate 20 Blood Pressure 135/59 L Pulse Oximetry 95 94 98 Oxygen Delivery Nasal Cannula Nasal Cannula Mechanical Ventilation Oxygen Flow Rate 3 3 Fraction of Inspired Oxygen 60 08/27/21 20:06 08/27/21 21:00 08/27/21 20:00 Temperature Pulse Rate 90 90 Respiratory Rate 27 H Blood Pressure Pulse Oximetry 98 Oxygen Delivery Mechanical Ventilation Oxygen Flow Rate Fraction of Inspired Oxygen 50 60 08/27/21 22:28 08/27/21 20:00 08/27/21 22:40 Temperature Pulse Rate Respiratory Rate Blood Pressure Pulse Oximetry Oxygen Delivery Mechanical Ventilation Oxygen Flow Rate Fraction of Inspired Oxygen 40 60 40 08/27/21 22:00 08/27/21 22:25 08/27/21 22:34 Temperature Pulse Rate 91 92 94 Respiratory Rate 24 H 27 H Blood Pressure 163/53 H Pulse Oximetry 98 97 Oxygen Delivery Mechanical Ventilation Oxygen Flow Rate Fraction of Inspired Oxygen 40 08/28/21 00:00 08/27/21 22:00 08/28/21 00:00 Temperature Pulse Rate 101 H 91 Respiratory Rate Blood Pressure Pulse Oximetry Oxygen Delivery Oxygen Flow Rate Fraction of Inspired Oxygen 40 08/28/21 00:00 08/27/21 20:00 08/28/21 00:00 Temperature 37.1 C Pulse Rate 93 97 Respiratory Rate 29 H Blood Pressure 135/81 Pulse Oximetry 98 Oxygen Delivery Mechanical Ventilation Oxygen Flow Rate Fraction of Inspired Oxygen 40 08/28/21 01:22 08/28/21 02:00 08/28/21 02:00 Temperature Pulse Rate 87 87 87 Respiratory Rate 22 H 23 H Blood Pressure 143/60 H Pulse Oximetry 97 Oxygen Delivery Oxygen Flow Rate Fraction of Inspired Oxygen 08/28/21 01:55 08/28/21 04:00 08/28/21 04:00 Temperature 36.9 C Pulse Rate 88 89 Respiratory Rate 23 H Blood Pressure 144/56 H Pulse Oximetry 97 97 Oxygen Delivery Mechanical Ventilation Mechanical Ventilation Oxygen Flow Rate Fraction of Inspired Oxygen 40 40 08/28/21 04:00 08/28/21 04:00 08/28/21 05:00 Temperature
[2021-08-28 07:55] LABS: Hematocrit 23.3 % (37.0-47.0); Hemoglobin 7.5 g/dL (12.0-15.0); Mean Corpuscular HGB Conc 32.2 g/dl (32-36); Mean Corpuscular Hemoglobin 31.3 pg (26-34); Mean Corpuscular Volume 97.1 fl (80-100); Mean Platelet Volume 9.2 fl (7.4-10.4); Platelet Count Result 146 k/mm3 (150-375); White Blood Count 5.7 K/mm3 (4.5-10.0)
[2021-08-28] MEDS: prednisoLONE ACETATE 1% OPHTH 5 ML 1 DROP LEFT EYE ×3 (08:10→16:17)
[2021-08-28] MEDS: ENOXAPARIN 40 MG/0.4 ML SYRINGE SUB-Q (08:10)
[2021-08-28] MEDS: OFLOXACIN 0.3% OPHTH SOLN 5 ML BTL 1 DROP LEFT EYE ×3 (08:10→16:17)
[2021-08-28] MEDS: PANTOPRAZOLE SODIUM IV 40 MG VIAL IV PUSH (08:10)
[2021-08-28] MEDS: MINERAL OIL/WHITE PETROLATUM OINTMENT 1 APPLIC EACH EYE ×2 (08:11→21:03)
[2021-08-28] MEDS: SILVERGEL (ELTA) 45 ML 1 APPLIC TOPICAL (08:11)
[2021-08-28] MEDS: TOLNAFTATE 1% POWDER 45 GM BTL 1 APPLIC TOPICAL ×2 (08:11→21:04)
[2021-08-28] MEDS: KETOROLAC 0.5% OP SOLN 5 ML BOTTLE 1 DROP LEFT EYE ×4 (08:11→21:03)
--- NOTE | 2021-08-28 08:25 | WPDANESPN ---
Anes - Prog Note Post-Op Date/Time: 08/28/21 08:25 Vital Signs: Last Vital Signs Temp 36.9 C 08/28/21 04:00 Pulse 86 08/28/21 07:54 Resp 24 H 08/28/21 06:18 BP 144/67 H 08/28/21 06:00 Pulse Ox 97 08/28/21 07:54 O2 Del Method Mechanical Ventilation 08/28/21 07:54 O2 Flow Rate 3 08/27/21 14:00 FiO2 40 08/28/21 07:54 Pain Score (VAS): 0 I/O: Intake & Output 08/27/21 08/28/21 08/28/21 23:59 07:59 15:59 Intake Total 50 250 Output Total 30 390 Balance 20 -140 Laboratory Tests 08/28/21 05:21 08/27/21 08/27/21 08/27/21 08:38 20:04 20:04 WBC 3.3 L RBC 2.64 L Hgb 8.2 L Hct 25.6 L MCV 97.0 MCH 31.1 MCHC 32.0 RDW 17.9 H Plt Count 145 L MPV 9.2 Immature Gran % (Auto) Not Reportable Neut % (Auto) Not Reportable Lymph % (Auto) Not Reportable [place] % (Auto) Not Reportable Eos % (Auto) Not Reportable Baso % (Auto) Not Reportable Lymph # (Auto) Not Reportable [place] # (Auto) Not Reportable Eos # (Auto) Not Reportable Baso # (Auto) Not Reportable Abs Immat Gran (auto) Not Reportable Absolute Neuts (auto) Not Reportable Absolute Nucleated RBC Not Reportable Total Counted 100 Neutrophils % (Manual) 38 L Band Neutrophils % 5 Lymphocytes % (Manual) 29.0 Monocytes % (Manual) 28 H Nucleated RBC % Not Reportable Abs Neuts (Manual) 1.41 L Abs Lymphs (Manual) 0.95 L Abs Monocytes (Manual) 0.92 H Platelet Estimate Decreased Anisocytosis 2+ Puncture Site ABG pH ABG pCO2 ABG pO2 ABG PO2/FiO2 Ratio ABG HCO3 ABG O2 Saturation ABG O2 Content ABG Base Excess A-a Gradient Oxyhemoglobin Carboxyhemoglobin Methemoglobin Reduced Hemoglobin Total Hemoglobin O2 Delivery Device O2 Liters/Min Minute Volume Vent Rate Vent Mode FiO2 Tidal Volume PEEP Peak Inspir Pressure Pressure Support Sodium 134 L Potassium 4.1 Chloride 98 Carbon Dioxide 28 Anion Gap 8 BUN 8 Creatinine 0.50 L Estim Creat Clear Calc 103 Estimated GFR > 60 Glucose 135 H POC Capillary Glucose Calcium 7.9 L Magnesium 1.7 NT-Pro-B Natriuret Pep 2030 H Blood Type O Positive Antibody Screen Negative 08/27/21 08/28/21 08/28/21 20:45 00:21 05:21 WBC Pending RBC Pending Hgb Pending Hct Pending MCV Pending MCH Pending MCHC Pending RDW Pending Plt Count Pending MPV Pending Immature Gran % (Auto) Pending Neut % (Auto) Pending Lymph % (Auto) Pending [place] % (Auto) Pending Eos % (Auto) Pending Baso % (Auto) Pending Lymph # (Auto) Pending [place] # (Auto) Pending Eos # (Auto) Pending Baso # (Auto) Pending Abs Immat Gran (auto) Pending Absolute Neuts (auto) Pending Absolute Nucleated RBC Pending Total Counted Neutrophils % (Manual) Band Neutrophils % Lymphocytes % (Manual) Monocytes % (Manual) Nucleated RBC % Pending Abs Neuts (Manual) Abs Lymphs (Manual) Abs Monocytes (Manual) Platelet Estimate Anisocytosis Puncture Site Right radial ABG pH 7.444 ABG pCO2 39.8 ABG pO2 205.3 H ABG PO2/FiO2 Ratio 3.42 ABG HCO3 26.7 H ABG O2 Saturation 99.4 ABG O2 Content 12.3 L ABG Base Excess 2.4 A-a Gradient 178.7 Oxyhemoglobin 97.6 Carboxyhemoglobin 0.3 Methemoglobin 0.6 Reduced Hemoglobin 1.5 Total Hemoglobin 8.6 L O2 Delivery Device Ventilator O2 Liters/Min Not Reportable Minute Volume Not Reportable Vent Rate 18 Vent Mode Cmv FiO2 60 Tidal Volume 420 PEEP 5 Peak Inspir Pressure Not Reportable Pressure Support Not Reportable Sodium Potassium Chloride Carbon Dioxide Anion Gap BUN Creatinine Estim Creat Clear Calc Estimated GFR Glucose POC Capillary Glucose 163 H Calcium Magn
[2021-08-28 09:26] LABS: Alveolar/Arterial O2 Gradient 109.5 mmHg; Base Excess ABG 6.8 mEq/l (+/-2.0); Fractional Inspired Oxygen 40 %; HCO3 ABG 30.8 mEq/l (22.0-26.0); Oxygen Content ABG 7.6 %vol (16.0-22.0); Oxygen Saturation ABG 98.8 % (95.0-100.0); Oxyhemoglobin 95.7 % THb (90.0-100.0); PCO2 ABG 41.3 mmHg (35.0-45.0); PO2 ABG 128.2 mmHg (80.0-100.0)
[2021-08-28 09:27] LABS: Device VENTILATOR; Modified Allen's Test Pass; Site Drawn LEFT RADIAL
[2021-08-28 09:28] LABS: Arterial Blood Gas PEEP 5 cmH2O; Arterial Blood Gas Pressure Support 5 cmH2O; Arterial Blood Gas Vent Mode SPONTANEOUS
[2021-08-28 09:34] LABS: Total Hemoglobin 5.4 g/dL (12.0-18.0)
[2021-08-28] MEDS: MORPHINE SULFATE (*CRX) 4 MG/ML INJ IV PUSH ×2 (09:39→16:09)
[2021-08-28 10:42] LABS: Anisocytosis 1+ (NORMAL); Platelet Estimate Adequate (Adequate)
[2021-08-28 10:43] LABS: Band Neutrophils Percent 14 % (0-6); Lymphocytes Absolute Manual 1.65 K/mm3 (1.1-4.5); Lymphocytes Percent Manual 29 % (18-44); Metamyelocytes Percent 2 %; Monocytes Absolute Manual 1.93 K/mm3 (0.1-0.90); Monocytes Percent Manual 34 % (3-9); Neutrophils Absolute Manual 1.99 K/mm3 (1.7-7.2); Neutrophils Percent Manual 21 % (46-73); Total Cells Counted 100
--- NOTE | 2021-08-28 10:49 | PCNFU ---
Nutrition Follow-Up Complete: Altered GI function as related to diverticulitis as evidenced by NPO goal: Adequate Intake of at least 75% of meals/supplements Patient is not meeting current goal. New goal: meet estimated nutritional needs. Pt current nutrition is Vital AF 1.2 at 20 ml/hr over 22 hours. Last recorded weight is 88 kg, up from 86 kg on admit. Bowel Motility: ostomy Labs Reviewed:Glu 135, Na 131, Cr 0.4 Meds Noted: Propofol at 30 mics/15.48 ml/zh=508 kcals, Zosyn, Protonix, Lovenox Skin: Stage II Pressure Ulcer-Left Ischium Additional Notes: Patient had colostomy on 08/27. Patient transferred to ICU, currently on mechanical vent. Tube feedings started of Vital AF 1.2 at 20 ml/hr at this time. Propofol infusion at 30 mics/15.48 ml/fc=006 kcals. Plans to exchange engineer to Precedex. Once propofol is discontinued recommend goal rate at 65 ml/hr over 22 hours providing 1716 kcals/107 gms protein/1160 ml water. Free water flush 30 ml q 4 hours. Agree with diet orders. Monitoring :RD monitor in ICU rounds and reassessing every Tuesday and Tuesday.
[2021-08-28] MEDS: dexmedeTOMIDine 400 MCG/100 ML 400 MCG/100 ML BAG IV CONT (11:16)
[2021-08-28 11:22] LABS: Glucose Point of Care 136 mg/dl (65-105)
--- NOTE | 2021-08-28 14:23 | WPDCNINT ---
Assessment and Plan Assessment and plan (1) Acute respiratory failure: Code(s): J96.00 - Acute respiratory failure, unspecified whether with hypoxia or hypercapnia Status: Acute Assessment and Plan: Acute Respiratory failure secondary to , general anesthesia baseline COPD and lung cancer, bilateral infiltrates suggestive of pulmonary edema Chest x-ray reviewed 1. Airspace opacities in left perihilar region and mild elevation of left hemidiaphragm, likely a left hilar mass with left upper lobe collapse. The patient has a recent diagnosis of lung cancer at an outside hospital. Correlate with outside CT. 2. Diffuse interstitial pattern, likely a combination of chronic interstitial lung disease and mild pulmonary edema. ABG reviewed 08/28 I performed a PSV SBT. In failed due to high respiratory rate, RSBI, work of breathing, patient was agitated and pulling on lines and tubes. ABG was adequate. RSBI improved when patient was switched to 10/8 pressure support which will be continued for little bit eventually patient will be placed back on CMV today. I have started patient on Precedex to rule out anxiety as a reason for failure. It is quite possible a weaning will be difficult due to patient's history of COPD, pulmonary edema and lung cancer I will give her a dose of Lasix Continue full mechanical ventilation support to prevent hypoxemia/hypercarbia and end organ damage. ABG and PCXR reviewed and will repeat in am. Low tidal volume ventilation strategy to prevent volutrauma Add Bronchodilators (2) COPD (chronic obstructive pulmonary disease): Code(s): J44.9 - Chronic obstructive pulmonary disease, unspecified Status: Chronic Assessment and Plan: Continue bronchodilators Not in exacerbation hence hold steroids (3) Diverticulitis of large intestine with perforation and abscess: Code(s): K57.20 - Diverticulitis of large intestine with perforation and abscess without bleeding Status: Acute Assessment and Plan: Status post Sigmoidectomy with end descending colostomy, Satya procedure 08/[address] Pain control Start tube feeding Continue Zosyn Surgical wound care and HANNAH drain management per General surgery WBC normal and afebrile 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 1. Complete two-dimensional, color flow and Doppler transthoracic echocardiogram is performed. ? 2. Left ventricular chamber dimension is normal. ? 3. Left ventricular systolic function is normal, estimated at 60-65%. ? 4. The left ventricular diastolic function is abnormal. ? 5. E/e' 16 is elevated. ? 6. Left atrial chamber dimension is moderately enlarged. ? 7. There is mild aortic valve sclerosis. ? 8. There is trace tricuspid valve regurgitation. ? 9. No pulmonary hypertension, estimated pulmonary arterial systolic pressure is 25 mmHg. ? 10. There is small circumferential pericardial effusion. No cardiac tamponade. BNP 2000+ Hold further fluids Will give dose of Lasix at this time Additional Plan DVT prophylaxis -Lovenox Stress ulcer prophylaxis -PPI Nutrition -start Tube Feeds Code Status -patient is Full Code Case discussed with Dr. Neal from General surgery Total Cri
--- NOTE | 2021-08-28 14:41 | PCPTNOTE ---
PT held today due to patient transfer to ICU following change in medical status.
--- NOTE | 2021-08-28 15:39 | PM.IMPN ---
Progress Note: A&P Assessment and Plan (1) Acute respiratory failure: Code(s): J96.00 - Acute respiratory failure, unspecified whether with hypoxia or hypercapnia Status: Acute Assessment and Plan: Acute Respiratory failure secondary to , general anesthesia baseline COPD and lung cancer, bilateral infiltrates suggestive of pulmonary edema Appreciate critical care management of ventilator (2) COPD (chronic obstructive pulmonary disease): Code(s): J44.9 - Chronic obstructive pulmonary disease, unspecified Status: Chronic Assessment and Plan: Continue bronchodilators (3) Diverticulitis of large intestine with perforation and abscess: Code(s): K57.20 - Diverticulitis of large intestine with perforation and abscess without bleeding Status: Acute Assessment and Plan: Status post Sigmoidectomy with end descending colostomy, Satya procedure 08/[address] Pain control Start tube feeding Continue Zosyn Surgical wound care and HANNAH drain management per General surgery WBC normal and afebrile 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 Currently on chemotherapy Details of disease and treatment unknown Will try to obtain records from [facility] (6) GERD (gastroesophageal reflux disease): Code(s): K21.9 - Gastro-esophageal reflux disease without esophagitis Status: Acute Assessment and Plan: Continue PPI (7) Congestive heart failure: Code(s): I50.9 - Heart failure, unspecified Status: Acute Assessment and Plan: Echo 08/03 Summary ? 1. Complete two-dimensional, color flow and Doppler transthoracic echocardiogram is performed. ? 2. Left ventricular chamber dimension is normal. ? 3. Left ventricular systolic function is normal, estimated at 60-65%. ? 4. The left ventricular diastolic function is abnormal. ? 5. E/e' 16 is elevated. ? 6. Left atrial chamber dimension is moderately enlarged. ? 7. There is mild aortic valve sclerosis. ? 8. There is trace tricuspid valve regurgitation. ? 9. No pulmonary hypertension, estimated pulmonary arterial systolic pressure is 25 mmHg. ? 10. There is small circumferential pericardial effusion. No cardiac tamponade. BNP 2000+ Hold further fluids Will give dose of Lasix at this time Additional Plan DVT prophylaxis -Lovenox Stress ulcer prophylaxis -PPI Nutrition -start Tube Feeds Code Status -patient is Full Code Subjective Date/time seen: 08/28/21 15:39 Interval history: Patient is intubated, sedated. No overnight events noted. No fevers. Review of Systems Review of Systems: ROS unobtainable: Yes unobtainable due to endotracheal tube Exam Narrative: General: Pt is sedated, intubated and on mechanical ventilation Lungs/Chest: Trachea central Coarse BS B/L, bibasilar crackles, no significant wheezing Cardiac: RRR. Normal S1 S2. No murmurs Circulation: Pedal pulses are intact and symmetrical. Abdomen: Decreased bowel sounds. Obese. Soft. NT. ND. Colostomy on the left side, HANNAH drain with small amount of serosanguineous fluid, surgical incision is covered under dressing Extremities: No clubbing, cyanosis or edema. Warm : Dior in place Neurologic: Unable to assess due to sedation. Moves all 4 extremities, follows commands Objective Data Vital Signs Vital Signs: Vital Signs - 24 hr 08/27/21 19:25 08/27/21 20:06 08/27/21 21:00 Temperature Pulse Rate 90 90 90 Respiratory Rate 27 H Blood Pressure Pulse Oximetry 98 98 Oxygen Delivery Mechanical Ventilation Mechanical Ventilation Fraction of Inspired Oxygen 60 50 08/27/21 20:00 08/27/21 22:28 08/27/21 20:00 Temperatu
--- NOTE | 2021-08-28 16:09 | PCOTNOTE ---
D/C pt. from therapy services at this time as pt. has had change in medical status with procedure, has transferred to ICU-2 and is currently on respirator. Re-order when pt. is appropriate for continuation of services.
[2021-08-28] MEDS: FUROSEMIDE INJ 40 MG/4 ML VIAL IV PUSH (16:10)
[2021-08-28 16:54] LABS: Glucose Point of Care 121 mg/dl (65-105)
[2021-08-28] MEDS: PROPOFOL IV EMULSION 100 ML 7.74 MG IV CONT (18:55)
[2021-08-28] MEDS: dexmedeTOMIDine 400 MCG/100 ML 400 MCG/100 ML BAG 11 MCG IV CONT (20:59)
[2021-08-28] MEDS: PROPOFOL IV EMULSION 100 ML 2.58 MG IV CONT (21:01)
[2021-08-29] VITALS (20 sets, daily range): BP systolic 93–156; BP diastolic 51–79; PULSE 76–95; RESP 16–22; TEMP 36.7–37.4; O2SAT 93–99
[2021-08-29 00:46] LABS: Glucose Point of Care 139 mg/dl (65-105)
[2021-08-29 04:48] LABS: Mean Corpuscular Hemoglobin 31.1 pg (26-34); Mean Corpuscular Volume 97.2 fl (80-100); Mean Platelet Volume 9.2 fl (7.4-10.4); Platelet Count Result 120 k/mm3 (150-375); Red Blood Count 2.12 M/mm3 (4.2-5.4); Red Cell Distribution Width 18.1 % (11.5-14.5); White Blood Count 4.6 K/mm3 (4.5-10.0)
[2021-08-29 05:03] LABS: Alveolar/Arterial O2 Gradient 116.3 mmHg; Base Excess ABG 8.4 mEq/l (+/-2.0); Carboxyhemoglobin 0.2 % THb (0-2.0); Fractional Inspired Oxygen 35 %; HCO3 ABG 31.9 mEq/l (22.0-26.0); Methemoglobin ABG 0.8 %THb (0-1.5); Oxygen Content ABG 9.9 %vol (16.0-22.0); Oxygen Saturation ABG 97.4 % (95.0-100.0); Oxyhemoglobin 94.5 % THb (90.0-100.0); PCO2 ABG 39.8 mmHg (35.0-45.0); PO2 FiO2 Ratio Arterial Blood 2.49 %; Reduced Hemoglobin 4.5 %THb (0-5.0)
[2021-08-29 05:04] LABS: Total Hemoglobin 7.3 g/dL (12.0-18.0); pH ABG 7.522 (7.350-7.450)
[2021-08-29 05:05] LABS: Arterial Blood Gas PEEP 8 cmH2O; Arterial Blood Gas Tidal Volume 380 ml; Arterial Blood Gas Vent Mode CMV; Arterial Blood Gas Ventilator rate 18 /MIN; Device VENTILATOR; Modified Allen's Test Pass; Site Drawn LEFT RADIAL
[2021-08-29 05:22] LABS: Alanine Aminotransferase 14 U/L (6-35); Albumin Level 2.5 g/dL (3.5-5.1); Alkaline Phosphatase 106 U/L (38-126); Anion Gap 2 mmol/L (8-16); Aspartate Amino Transferase 19 U/L (14-36); Bilirubin,Total 0.9 mg/dL (0.2-1.3); Blood Urea Nitrogen 11 mg/dL (7-17); Calcium 7.6 mg/dL (8.4-10.2); Carbon Dioxide 34 mmol/L (22-30); Chloride 97 mmol/L (98-107); Estimated CRCL calculation 99 ml/min; Estimated Glomerular Filt Rate > 60; Glucose 153 mg/dL (65-110); Magnesium 1.9 mg/dL (1.6-2.3); Phosphorus 3.2 mg/dL (2.5-4.5); Potassium 3.3 mmol/L (3.4-5.0); Sodium 133 mmol/L (137-145)
[2021-08-29 05:25] LABS: Hematocrit 20.6 % (37.0-47.0); Hemoglobin 6.6 g/dL (12.0-15.0)
[2021-08-29] MEDS: dexmedeTOMIDine 400 MCG/100 ML 400 MCG/100 ML BAG 11 MCG IV CONT (05:58)
[2021-08-29 07:23] LABS: Anisocytosis 1+ (NORMAL); Lymphocytes Absolute Manual 1.84 K/mm3 (1.1-4.5); Monocytes Absolute Manual 1.28 K/mm3 (0.1-0.90); Monocytes Percent Manual 28 % (3-9); Neutrophils Percent Manual 32 % (46-73); Ovalocytes 1+ (NORMAL); Platelet Estimate Adequate (Adequate); Total Cells Counted 100
[2021-08-29] MEDS: POTASSIUM CHLORIDE 20 MEQ PACKET (FOR LIQUID) 40 MEQ FEED TUBE (08:15)
[2021-08-29] MEDS: OFLOXACIN 0.3% OPHTH SOLN 5 ML BTL 1 DROP LEFT EYE ×3 (08:16→16:33)
[2021-08-29] MEDS: PANTOPRAZOLE SODIUM IV 40 MG VIAL IV PUSH ×2 (08:16→20:01)
[2021-08-29] MEDS: SILVERGEL (ELTA) 45 ML 1 APPLIC TOPICAL (08:16)
[2021-08-29] MEDS: KETOROLAC 0.5% OP SOLN 5 ML BOTTLE 1 DROP LEFT EYE ×4 (08:16→20:01)
[2021-08-29] MEDS: prednisoLONE ACETATE 1% OPHTH 5 ML 1 DROP LEFT EYE ×3 (08:16→16:33)
[2021-08-29] MEDS: MINERAL OIL/WHITE PETROLATUM OINTMENT 1 APPLIC EACH EYE (08:17)
[2021-08-29] MEDS: TOLNAFTATE 1% POWDER 45 GM BTL 1 APPLIC TOPICAL ×2 (08:17→20:01)
[2021-08-29] MEDS: CALCIUM GLUC 1,000 MG/NS 50 ML 1,000 MG/50 ML BAG 100 MG IVPB (08:46)
[2021-08-29 08:53] LABS: Alveolar/Arterial O2 Gradient 112.9 mmHg; Base Excess ABG 9.9 mEq/l (+/-2.0); Fractional Inspired Oxygen 35 %; HCO3 ABG 33.6 mEq/l (22.0-26.0); Oxygen Content ABG 4.5 %vol (16.0-22.0); Oxygen Saturation ABG 97.5 % (95.0-100.0); Oxyhemoglobin 94.1 % THb (90.0-100.0); PCO2 ABG 41.4 mmHg (35.0-45.0); PO2 ABG 88.5 mmHg (80.0-100.0); PO2 FiO2 Ratio Arterial Blood 2.53 %
[2021-08-29 08:56] LABS: Device VENTILATOR; Modified Allen's Test Pass; Site Drawn LEFT RADIAL; pH ABG 7.527 (7.350-7.450)
[2021-08-29 08:57] LABS: Arterial Blood Gas PEEP 8 cmH2O; Arterial Blood Gas Vent Mode SPONTANEOUS
[2021-08-29 08:58] LABS: Arterial Blood Gas Pressure Support 5 cmH2O
[2021-08-29 09:00] LABS: Total Hemoglobin 3.2 g/dL (12.0-18.0)
--- NOTE | 2021-08-29 09:06 | WPDINTPN ---
Progress Note: A&P Assessment and Plan (1) Acute respiratory failure: Code(s): J96.00 - Acute respiratory failure, unspecified whether with hypoxia or hypercapnia Status: Acute Assessment and Plan: Acute Respiratory failure secondary to , general anesthesia baseline COPD and lung cancer, bilateral infiltrates suggestive of pulmonary edema Chest x-ray reviewed. Will get chest CT to further evaluate lung and pleural space ABG reviewed 08/28 I performed a PSV SBT. In failed due to high respiratory rate, RSBI, work of breathing, patient was agitated and pulling on lines and tubes. ABG was adequate. RSBI improved when patient was switched to 10/8 pressure support which will be continued for little bit eventually patient will be placed back on CMV today. I have started patient on Precedex to rule out anxiety as a reason for failure. It is quite possible a weaning will be difficult due to patient's history of COPD, pulmonary edema and lung cancer 08/28 patient was given a dose of Lasix 5/8 PSV SBT done on Precedex for more than 1/2 hour. RSBI, ABGI and Vitals acceptable. Pt awake and following commands. Will extubate and monitor. NPO for now. Bipap PRN Low tidal volume ventilation strategy to prevent volutrauma Add Bronchodilators (2) COPD (chronic obstructive pulmonary disease): Code(s): J44.9 - Chronic obstructive pulmonary disease, unspecified Status: Chronic Assessment and Plan: Continue bronchodilators Not in exacerbation hence hold steroids (3) Diverticulitis of large intestine with perforation and abscess: Code(s): K57.20 - Diverticulitis of large intestine with perforation and abscess without bleeding Status: Acute Assessment and Plan: Status post Sigmoidectomy with end descending colostomy, Satya procedure 08/[address] Pain control Was on tube feeding which on hold for weaning trial Continue Zosyn Surgical wound care and HANNAH drain management per General surgery WBC normal and afebrile 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 1. Complete two-dimensional, color flow and Doppler transthoracic echocardiogram is performed. ? 2. Left ventricular chamber dimension is normal. ? 3. Left ventricular systolic function is normal, estimated at 60-65%. ? 4. The left ventricular diastolic function is abnormal. ? 5. E/e' 16 is elevated. ? 6. Left atrial chamber dimension is moderately enlarged. ? 7. There is mild aortic valve sclerosis. ? 8. There is trace tricuspid valve regurgitation. ? 9. No pulmonary hypertension, estimated pulmonary arterial systolic pressure is 25 mmHg. ? 10. There is small circumferential pericardial effusion. No cardiac tamponade. BNP 2000+ Hold further fluids She received a dose of f Lasix 08/28 (8) Anemia: Code(s): D64.9 - Anemia, unspecified Status: Acute Assessment and Plan: Hemoglobin dropped to 6.6 today No evidence of bleeding at this time Change PPI to IV q.12 hours Chest was 1 unit PRBC and recheck hemoglobin later today I will hold her Lovenox until hemoglobin stable Additional Plan DVT prophylaxis -hold Lovenox, SCDs Stress ulcer prophylaxis -PPI Nutrition -currently on Tube Feeds Code St
[2021-08-29] MEDS: fentaNYL CITRATE INJ (*CRX) 100 MCG/2 ML VIAL 50 MCG IV PUSH (10:07)
[2021-08-29] MEDS: SODIUM CHLORIDE 0.9% IV 250 ML 30 ML IV CONT (10:30)
[2021-08-29] MEDS: MORPHINE SULFATE (*CRX) 2 MG/ML INJ IV PUSH (12:53)
--- NOTE | 2021-08-29 13:15 | PM.PNGS ---
Progress Note: A&P Assessment and Plan (1) Diverticulitis of large intestine with perforation and abscess: Code(s): K57.20 - Diverticulitis of large intestine with perforation and abscess without bleeding Status: Acute Assessment and Plan: OK to start clear liquids now that she is extubated Await ostomy output Continue IV antibiotics (2) Fecal peritonitis: Code(s): K65.8 - Other peritonitis Status: Acute Assessment and Plan: Drain in place. On Zosyn. Contained free perforation in pelvis. (3) COPD (chronic obstructive pulmonary disease): Code(s): J44.9 - Chronic obstructive pulmonary disease, unspecified Status: Chronic (4) Lung cancer: Code(s): C34.90 - Malignant neoplasm of unspecified part of unspecified bronchus or lung Status: Chronic Subjective Subjective Date/Time Seen: 08/29/21 13:15 Interval history: Extubated this AM. Having pain. Hemoglobin low this AM. Getting 1 unit PRBC today. Exam GI: Inspection: incision (dressing dry) GI Palp: Yes Tenderness to palpation present (GI) (incisional) Other: Ostomy pink, no stool in bag yet Objective Data Vital Signs Vital Signs: Vital Signs - 24 hr 08/28/21 13:47 08/28/21 14:00 08/28/21 14:00 Temperature 36.7 C Pulse Rate 84 81 85 Respiratory Rate 16 Blood Pressure 94/60 L Pulse Oximetry 97 97 Oxygen Delivery Mechanical Ventilation Fraction of Inspired Oxygen 40 08/28/21 16:00 08/28/21 16:51 08/28/21 16:00 Temperature 36.8 C Pulse Rate 88 84 83 Respiratory Rate 23 H 18 Blood Pressure 111/54 L Pulse Oximetry 95 97 96 Oxygen Delivery Mechanical Ventilation Mechanical Ventilation Fraction of Inspired Oxygen 40 40 08/28/21 16:00 08/28/21 16:00 08/28/21 18:00 Temperature Pulse Rate 62 62 Respiratory Rate Blood Pressure Pulse Oximetry Oxygen Delivery Fraction of Inspired Oxygen 40 08/28/21 18:00 08/28/21 20:00 08/28/21 20:00 Temperature 36.8 C Pulse Rate 83 82 Respiratory Rate 18 16 Blood Pressure 87/56 L 89/50 L Pulse Oximetry 96 97 Oxygen Delivery Mechanical Ventilation Fraction of Inspired Oxygen 40 08/28/21 20:00 08/28/21 22:00 08/28/21 20:00 Temperature Pulse Rate 88 81 Respiratory Rate 21 H Blood Pressure 80/54 L Pulse Oximetry 94 Oxygen Delivery Fraction of Inspired Oxygen 40 08/28/21 22:00 08/28/21 20:00 08/28/21 23:00 Temperature Pulse Rate 88 87 86 Respiratory Rate Blood Pressure Pulse Oximetry 96 96 Oxygen Delivery Mechanical Ventilation Mechanical Ventilation Fraction of Inspired Oxygen 40 40 08/29/21 00:00 08/29/21 00:00 08/29/21 00:00 Temperature 37.3 C Pulse Rate 84 Respiratory Rate 22 H Blood Pressure 93/51 L Pulse Oximetry 95 Oxygen Delivery Mechanical Ventilation Fraction of Inspired Oxygen 40 40 08/29/21 00:00 08/29/21 02:25 08/29/21 02:00 Temperature Pulse Rate 88 78 80 Respiratory Rate 19 Blood Pressure 98/54 L Pulse Oximetry 96 96 Oxygen Delivery Mechanical Ventilation Fraction of Inspired Oxygen 40 08/29/21 02:00 08/29/21 03:45 08/29/21 03:57 Temperature 37.4 C Pulse Rate 81 Respiratory Rate Blood Pressure Pulse Oximetry Oxygen Delivery Mechanical Ventilation Fraction of Inspired Oxygen 40 08/29/21 04:00 08/29/21 04:00 08/29/21 04:00 Temperature Pulse Rate 79 80 Respiratory Rate 18 Blood Pressure 94/54 L Pulse Oximetry 95 Oxygen Delivery Fraction of Inspired Oxygen 35 08/29/21 05:08 08/29/21 02:50 08/29/21 06:00 Temperature Pulse Rate 80 76 Respiratory Rate 18 Blood Pressure 102/79 Pulse Oximetry 94 94 95 Oxygen Delivery Mechanical Ventilation Fraction of Inspired Oxygen 35 35 08/29/21 06:00 08/29/21 07:58 08/29/21 08:00 Temperature Pulse Rate 76 77 77 Respiratory Rate 17 Blood Pressure Pulse Oximetry 99 99 Oxygen De
[2021-08-29] MEDS: oxyCODONE HCL (*CRX) 5 MG TAB IR 10 MG PO ×2 (13:32→17:15)
--- NOTE | 2021-08-29 15:13 | PM.IMPN ---
Progress Note: A&P Assessment and Plan (1) Acute respiratory failure: Code(s): J96.00 - Acute respiratory failure, unspecified whether with hypoxia or hypercapnia Status: Acute Assessment and Plan: Acute Respiratory failure secondary to , general anesthesia baseline COPD and lung cancer, bilateral infiltrates suggestive of pulmonary edema, improved (2) COPD (chronic obstructive pulmonary disease): Code(s): J44.9 - Chronic obstructive pulmonary disease, unspecified Status: Chronic Assessment and Plan: Continue bronchodilators Not in exacerbation hence hold steroids (3) Diverticulitis of large intestine with perforation and abscess: Code(s): K57.20 - Diverticulitis of large intestine with perforation and abscess without bleeding Status: Acute Assessment and Plan: Status post Sigmoidectomy with end descending colostomy, Satya procedure 08/27 Advanced diet as tolerated per surgery, monitor colostomy output 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 (6) GERD (gastroesophageal reflux disease): Code(s): K21.9 - Gastro-esophageal reflux disease without esophagitis Status: Acute Assessment and Plan: Continue PPI (7) Congestive heart failure: Code(s): I50.9 - Heart failure, unspecified Status: Acute Assessment and Plan: Echo 08/03 Summary ? 1. Complete two-dimensional, color flow and Doppler transthoracic echocardiogram is performed. ? 2. Left ventricular chamber dimension is normal. ? 3. Left ventricular systolic function is normal, estimated at 60-65%. ? 4. The left ventricular diastolic function is abnormal. ? 5. E/e' 16 is elevated. ? 6. Left atrial chamber dimension is moderately enlarged. ? 7. There is mild aortic valve sclerosis. ? 8. There is trace tricuspid valve regurgitation. ? 9. No pulmonary hypertension, estimated pulmonary arterial systolic pressure is 25 mmHg. ? 10. There is small circumferential pericardial effusion. No cardiac tamponade. BNP 2000+ Hold further fluids She received a dose of f Lasix 08/28 (8) Anemia: Code(s): D64.9 - Anemia, unspecified Status: Acute Assessment and Plan: Hemoglobin dropped to 6.6 today No evidence of bleeding at this time Change PPI to IV q.12 hours Chest was 1 unit PRBC and recheck hemoglobin later today I will hold her Lovenox until hemoglobin stable Subjective Date/time seen: 08/29/21 15:13 Interval history: Extubated this morning, attempting a diet today. No overnight events. No fevers or chills. Review of Systems Review of Systems: 12 point review of systems was assessed and was negative except as noted in the HPI Exam Narrative: Per bottom sander Objective Data Vital Signs Vital Signs: Vital Signs - 24 hr 08/28/21 16:00 08/28/21 16:51 08/28/21 16:00 Temperature 98.2 F Pulse Rate 88 84 83 Respiratory Rate 23 H 18 Blood Pressure 111/54 L Pulse Oximetry 95 97 96 Oxygen Delivery Mechanical Ventilation Mechanical Ventilation Oxygen Flow Rate Fraction of Inspired Oxygen 40 40 08/28/21 16:00 08/28/21 16:00 08/28/21 18:00 Temperature Pulse Rate 62 62 Respiratory Rate Blood Pressure Pulse Oximetry Oxygen Delivery Oxygen Flow Rate Fraction of Inspired Oxygen 40 08/28/21 18:00 08/28/21 20:00 08/28/21 20:00 Temperature 98.3 F Pulse Rate 83 82 Respiratory Rate 18 16 Blood Pressure 87/56 L 89/50 L Pulse Oximetry 96 97 Oxygen Delivery Mechanical Ventilation Oxygen Flow Rate Fraction
[2021-08-29] MEDS: fentaNYL CITRATE INJ (*CRX) 100 MCG/2 ML VIAL 25 MCG IV PUSH ×3 (15:33→23:01)
[2021-08-29] MEDS: ONDANSETRON INJ 4 MG/2 ML VIAL IV PUSH (15:35)
[2021-08-29] MEDS: FUROSEMIDE INJ 40 MG/4 ML VIAL IV PUSH (17:20)
[2021-08-29 17:34] LABS: Glucose Point of Care 119 mg/dl (65-105)
[2021-08-29] MEDS: FLUTICASONE/SALMETEROL 45-21 MCG INHALER 1 PUFF 2 PUFF INHALATION (20:24)
[2021-08-29] MEDS: ALBUTEROL SULFATE NEB 2.5 MG/3 ML INH INHALATION (20:24)
[2021-08-29] MEDS: IPRATROPIUM BR 0.02% INH SOLN 0.5 MG/2.5 ML VIAL INHALATION (20:24)
[2021-08-29] MEDS: HYDROcodone/acetaminophen (*CRX) 10-325 MG TABLET 1 TAB PO (20:56)
[2021-08-30] VITALS (10 sets, daily range): BP systolic 119–168; BP diastolic 59–67; PULSE 81–92; RESP 16–81; TEMP 36.3–37.2; O2SAT 92–98
[2021-08-30] MEDS: HYDROcodone/acetaminophen (*CRX) 10-325 MG TABLET 1 TAB PO (03:16)
[2021-08-30] MEDS: fentaNYL CITRATE INJ (*CRX) 100 MCG/2 ML VIAL 25 MCG IV PUSH ×3 (03:58→08:43)
[2021-08-30 04:16] LABS: Hematocrit 24.3 % (37.0-47.0); Hemoglobin 7.8 g/dL (12.0-15.0); Mean Corpuscular HGB Conc 32.1 g/dl (32-36); Mean Corpuscular Hemoglobin 30.5 pg (26-34); Mean Corpuscular Volume 94.9 fl (80-100); Mean Platelet Volume 9.3 fl (7.4-10.4); Platelet Count Result 107 k/mm3 (150-375); Red Blood Count 2.56 M/mm3 (4.2-5.4); Red Cell Distribution Width 18.2 % (11.5-14.5)
[2021-08-30 04:17] LABS: Alanine Aminotransferase 15 U/L (6-35); Albumin Level 2.8 g/dL (3.5-5.1); Alkaline Phosphatase 121 U/L (38-126); Anion Gap 5 mmol/L (8-16); Aspartate Amino Transferase 20 U/L (14-36); Bilirubin,Total 1.5 mg/dL (0.2-1.3); Blood Urea Nitrogen 9 mg/dL (7-17); Carbon Dioxide 33 mmol/L (22-30); Chloride 95 mmol/L (98-107); Estimated CRCL calculation 99 ml/min; Estimated Glomerular Filt Rate > 60; Glucose 118 mg/dL (65-110); Magnesium 1.6 mg/dL (1.6-2.3); Phosphorus 3.7 mg/dL (2.5-4.5); Potassium 3.2 mmol/L (3.4-5.0); Sodium 133 mmol/L (137-145)
[2021-08-30] MEDS: ALPRAZolam (*CRX) 0.25 MG TABLET PO (04:40)
[2021-08-30] MEDS: SIMETHICONE 80 MG TAB.CHEW PO ×2 (04:40→20:31)
[2021-08-30 05:01] LABS: Band Neutrophils Percent 2 % (0-6); Lymphocytes Absolute Manual 1.36 K/mm3 (1.1-4.5); Monocytes Absolute Manual 1.04 K/mm3 (0.1-0.90); Monocytes Percent Manual 26 % (3-9); Neutrophils Percent Manual 38 % (46-73); Total Cells Counted 100
[2021-08-30 05:02] LABS: Anisocytosis 1+ (NORMAL)
[2021-08-30] MEDS: PANTOPRAZOLE SODIUM IV 40 MG VIAL IV PUSH ×2 (08:46→20:32)
[2021-08-30] MEDS: prednisoLONE ACETATE 1% OPHTH 5 ML 1 DROP LEFT EYE ×3 (08:48→17:39)
[2021-08-30] MEDS: SILVERGEL (ELTA) 45 ML 1 APPLIC TOPICAL (08:48)
[2021-08-30] MEDS: TOLNAFTATE 1% POWDER 45 GM BTL 1 APPLIC TOPICAL ×2 (08:48→21:00)
[2021-08-30] MEDS: OFLOXACIN 0.3% OPHTH SOLN 5 ML BTL 1 DROP LEFT EYE ×3 (08:48→17:38)
[2021-08-30] MEDS: KETOROLAC 0.5% OP SOLN 5 ML BOTTLE 1 DROP LEFT EYE ×4 (08:48→20:31)
--- NOTE | 2021-08-30 09:36 | WPDINTPN ---
Progress Note: A&P Assessment and Plan (1) Acute respiratory failure: Code(s): J96.00 - Acute respiratory failure, unspecified whether with hypoxia or hypercapnia Status: Acute Assessment and Plan: Acute Respiratory failure secondary to , general anesthesia baseline COPD and lung cancer, bilateral infiltrates suggestive of pulmonary edema Chest x-ray reviewed. Will get chest CT to further evaluate lung and pleural space ABG reviewed 08/28 I performed a PSV SBT. In failed due to high respiratory rate, RSBI, work of breathing, patient was agitated and pulling on lines and tubes. ABG was adequate. RSBI improved when patient was switched to 10/8 pressure support which will be continued for little bit eventually patient will be placed back on CMV today. I have started patient on Precedex to rule out anxiety as a reason for failure. It is quite possible a weaning will be difficult due to patient's history of COPD, pulmonary edema and lung cancer 08/28 patient was given a dose of Lasix 08/29 5/8 PSV SBT done on Precedex for more than 1/2 hour. RSBI, ABGI and Vitals acceptable. Pt awake and following commands. Will extubate and monitor. NPO for now. Extubated Lasix given 08/[address] IMPRESSION: Complete left upper lobe consolidation, possibly secondary to a hilar mass or mucus plugging. Mediastinal lymphadenopathy. Pulmonary edema. Small bilateral effusions. Small pericardial effusion. Continue Bronchodilators Patient saturating well on 3 L nasal cannula Incentive spirometry Up in chair (2) COPD (chronic obstructive pulmonary disease): Code(s): J44.9 - Chronic obstructive pulmonary disease, unspecified Status: Chronic Assessment and Plan: Continue bronchodilators Not in exacerbation hence hold steroids (3) Diverticulitis of large intestine with perforation and abscess: Code(s): K57.20 - Diverticulitis of large intestine with perforation and abscess without bleeding Status: Acute Assessment and Plan: Status post Sigmoidectomy with end descending colostomy, Satya procedure 08/27 NG tube was removed by patient. 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 1. Complete two-dimensional, color flow and Doppler transthoracic echocardiogram is performed. ? 2. Left ventricular chamber dimension is normal. ? 3. Left ventricular systolic function is normal, estimated at 60-65%. ? 4. The left ventricular diastolic function is abnormal. ? 5. E/e' 16 is elevated. ? 6. Left atrial chamber dimension is moderately enlarged. ? 7. There is mild aortic valve sclerosis. ? 8. There is trace tricuspid valve regurgitation. ? 9. No pulmonary hypertension, estimated pulmonary arterial systolic pressure is 25 mmHg. ? 10. There is small circumferential pericardial effusion. No cardiac tamponade. BNP 2000+ Hold further fluids She received a dose of f Lasix 08/28 and 08/30 (8) Anemia: Code(s): D64.9 - Anemia, unspecified Status: Acute Assessment and P
--- NOTE | 2021-08-30 09:46 | P.PNIM_ITS ---
Progress Note: A&P Assessment and Plan (1) Acute respiratory failure: Code(s): J96.00 - Acute respiratory failure, unspecified whether with hypoxia or hypercapnia Status: Acute Assessment and Plan: Acute Respiratory failure secondary to , general anesthesia baseline COPD and lung cancer, bilateral infiltrates suggestive of pulmonary edema Chest x-ray reviewed. Will get chest CT to further evaluate lung and pleural space ABG reviewed 08/28 I performed a PSV SBT. In failed due to high respiratory rate, RSBI, work of breathing, patient was agitated and pulling on lines and tubes. ABG was adequate. RSBI improved when patient was switched to 10/8 pressure support which will be continued for little bit eventually patient will be placed back on CMV today. I have started patient on Precedex to rule out anxiety as a reason for failure. It is quite possible a weaning will be difficult due to patient's history of COPD, pulmonary edema and lung cancer 08/28 patient was given a dose of Lasix 08/29 5/8 PSV SBT done on Precedex for more than 1/2 hour. RSBI, ABGI and Vitals acceptable. Pt awake and following commands. Will extubate and monitor. NPO for now. Extubated Lasix given 08/[address] IMPRESSION: Complete left upper lobe consolidation, possibly secondary to a hilar mass or mucus plugging. Mediastinal lymphadenopathy. Pulmonary edema. Small bilateral effusions. Small pericardial effusion. Continue Bronchodilators Patient saturating well on 3 L nasal cannula Incentive spirometry Up in chair (2) COPD (chronic obstructive pulmonary disease): Code(s): J44.9 - Chronic obstructive pulmonary disease, unspecified Status: Chronic Assessment and Plan: Continue bronchodilators Not in exacerbation hence hold steroids (3) Diverticulitis of large intestine with perforation and abscess: Code(s): K57.20 - Diverticulitis of large intestine with perforation and abscess without bleeding Status: Acute Assessment and Plan: Status post Sigmoidectomy with end descending colostomy, Satya procedure 08/27 NG tube was removed by patient. 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 1. Complete two-dimensional, color flow and Doppler transthoracic echocardiogram is performed. ? 2. Left ventricular chamber dimension is normal. ? 3. Left ventricular systolic function is normal, estimated at 60-65%. ? 4. The left ventricular diastolic function is abnormal. ? 5. E/e' 16 is elevated. ? 6. Left atrial chamber dimension is moderately enlarged. ? 7. There is mild aortic valve sclerosis. ? 8. There is trace tricuspid valve regurgi
[2021-08-30] MEDS: HYDROmorphone HCL INJ (*CRX) 1 MG/ML SYR 0.5 MG IV PUSH (10:10)
[2021-08-30] MEDS: POTASSIUM CHLORIDE 20 MEQ PACKET (FOR LIQUID) 40 MEQ PO ×2 (10:11→17:39)
--- NOTE | 2021-08-30 10:38 | PM.PNGS ---
Progress Note: A&P Assessment and Plan (1) Diverticulitis of large intestine with perforation and abscess: Code(s): K57.20 - Diverticulitis of large intestine with perforation and abscess without bleeding Status: Acute Assessment and Plan: Advanced to full liquids Continue pain control with p.o. and IV pain meds Gradually increase activity Okay to transfer out of ICU (2) Fecal peritonitis: Code(s): K65.8 - Other peritonitis Status: Acute Assessment and Plan: Drain in place. On Zosyn. Contained free perforation in pelvis. (3) COPD (chronic obstructive pulmonary disease): Code(s): J44.9 - Chronic obstructive pulmonary disease, unspecified Status: Chronic (4) Lung cancer: Code(s): C34.90 - Malignant neoplasm of unspecified part of unspecified bronchus or lung Status: Chronic Subjective Subjective Date/Time Seen: 08/30/21 10:38 Interval history: Patient pulled NG out overnight. Does want NG replaced. Feels the need to cough, but cannot produce anything. Still complaining of a lot of abdominal pain. Exam GI: Inspection: non-distended, incision (Dry) and other (Ostomy functioning with minimal stool in bag) GI Palp: Yes Soft to palpation and Yes Tenderness to palpation present (GI) (Incisional) Objective Data Vital Signs Vital Signs: Vital Signs - 24 hr 08/29/21 12:00 08/29/21 12:00 08/29/21 12:00 Temperature Pulse Rate 82 86 86 Respiratory Rate 21 H 20 Blood Pressure 125/62 Pulse Oximetry 96 96 Oxygen Delivery Nasal Cannula Oxygen Flow Rate 4 08/29/21 14:00 08/29/21 14:00 08/29/21 16:00 Temperature Pulse Rate 86 86 89 Respiratory Rate 20 21 H Blood Pressure 125/62 Pulse Oximetry 96 95 Oxygen Delivery Nasal Cannula Oxygen Flow Rate 4 08/29/21 16:00 08/29/21 16:00 08/29/21 18:00 Temperature 36.7 C Pulse Rate 89 89 85 Respiratory Rate 21 H Blood Pressure 120/54 L Pulse Oximetry 95 Oxygen Delivery Oxygen Flow Rate 08/29/21 18:00 08/29/21 20:00 08/29/21 20:00 Temperature 37.1 C Pulse Rate 85 88 Respiratory Rate 22 H 19 Blood Pressure 144/58 H 146/64 H Pulse Oximetry 98 93 93 Oxygen Delivery Nasal Cannula Oxygen Flow Rate 4 08/29/21 20:27 08/29/21 20:27 08/29/21 20:40 Temperature Pulse Rate 86 86 Respiratory Rate 20 20 Blood Pressure Pulse Oximetry 97 Oxygen Delivery Nasal Cannula Oxygen Flow Rate 4 08/29/21 20:00 08/29/21 22:00 08/29/21 22:00 Temperature Pulse Rate 87 87 87 Respiratory Rate 16 Blood Pressure 156/63 H Pulse Oximetry 97 Oxygen Delivery Oxygen Flow Rate 08/30/21 00:00 08/30/21 00:00 08/30/21 00:00 Temperature 37.2 C Pulse Rate 88 88 Respiratory Rate 18 Blood Pressure 149/65 H Pulse Oximetry 97 97 Oxygen Delivery Nasal Cannula Oxygen Flow Rate 4 08/30/21 02:00 08/30/21 02:00 08/30/21 03:50 Temperature Pulse Rate 86 86 Respiratory Rate 17 Blood Pressure 152/64 H Pulse Oximetry 96 96 Oxygen Delivery Nasal Cannula Oxygen Flow Rate 3 08/30/21 04:00 08/30/21 04:00 08/30/21 06:00 Temperature 36.8 C Pulse Rate 87 88 83 Respiratory Rate 22 H 18 Blood Pressure 163/61 H 161/59 H Pulse Oximetry 96 95 Oxygen Delivery Oxygen Flow Rate 08/30/21 06:00 Temperature Pulse Rate 84 Respiratory Rate Blood Pressure Pulse Oximetry Oxygen Delivery Oxygen Flow Rate Intake/Output Intake/Output: Intake & Output 08/27/21 08/28/21 08/29/21 08/30/21 23:59 23:59 23:59 23:59 Intake Total 314 927 6090 1020 Output Total 443 763 3460 1830 Balance -450 190 317 -810 Meds/Results Medications: Active Medications Generic Name Dose Route Start Last Admin Trade Name Freq PRN Reason Stop Dose Admin Albuterol 2.5 mg 08/28/21 14:40 08/29/21 20:24 Albuterol Sulfate Neb 2.5 Mg/3 Ml Inh INHALATION 2.5 mg Q6HRT PRN Administration Wheezing Alpra
[2021-08-30 11:35] LABS: Glucose Point of Care 129 mg/dl (65-105)
[2021-08-30 11:36] LABS: Glucose Point of Care 118 mg/dl (65-105)
[2021-08-30] MEDS: MAGNESIUM SULF 2 GM/WATER 50ML 2 GM/50 ML BAG IVPB (12:35)
[2021-08-30 14:06] LABS: Glucose Point of Care 117 mg/dl (65-105)
[2021-08-30] MEDS: HYDROmorphone HCL INJ (*CRX) 1 MG/ML SYR IV PUSH ×2 (16:03→20:31)
[2021-08-30 18:01] LABS: Glucose Point of Care 114 mg/dl (65-105)
[2021-08-30] MEDS: LORazepam INJ (*CRX) 2 MG/ML VIAL 1 MG IV PUSH (20:30)
[2021-08-30 23:44] LABS: Glucose Point of Care 105 mg/dl (65-105)
[2021-08-31 01:17] LABS: Vancomycin Trough 11.4 ug/mL (10.0-20.0)
[2021-08-31] MEDS: HYDROmorphone HCL INJ (*CRX) 1 MG/ML SYR IV PUSH ×2 (02:16→08:49)
[2021-08-31] MEDS: oxyCODONE HCL (*CRX) 5 MG TAB IR 10 MG PO ×4 (05:00→20:39)
[2021-08-31] MEDS: ALPRAZolam (*CRX) 0.5 MG TABLET PO ×2 (05:00→20:39)
[2021-08-31 05:11] VITALS: BP 140/60; PULSE 88; RESP 20; TEMP 36.2; O2SAT 97
[2021-08-31 06:20] LABS: Hematocrit 23.4 % (37.0-47.0); Hemoglobin 7.4 g/dL (12.0-15.0); Mean Corpuscular HGB Conc 31.6 g/dl (32-36); Mean Corpuscular Hemoglobin 30.2 pg (26-34); Mean Corpuscular Volume 95.5 fl (80-100); Mean Platelet Volume 9.6 fl (7.4-10.4); Platelet Count Result 118 k/mm3 (150-375); Red Blood Count 2.45 M/mm3 (4.2-5.4); Red Cell Distribution Width 17.6 % (11.5-14.5); White Blood Count 3.5 K/mm3 (4.5-10.0)
[2021-08-31 06:33] LABS: Alanine Aminotransferase 18 U/L (6-35); Albumin Level 2.8 g/dL (3.5-5.1); Alkaline Phosphatase 131 U/L (38-126); Anion Gap 4 mmol/L (8-16); Aspartate Amino Transferase 25 U/L (14-36); Bilirubin,Total 2.2 mg/dL (0.2-1.3); Blood Urea Nitrogen 9 mg/dL (7-17); Calcium 7.9 mg/dL (8.4-10.2); Carbon Dioxide 32 mmol/L (22-30); Chloride 94 mmol/L (98-107); Estimated CRCL calculation 99 ml/min; Estimated Glomerular Filt Rate > 60; Glucose 107 mg/dL (65-110); Magnesium 1.9 mg/dL (1.6-2.3); Phosphorus 3.5 mg/dL (2.5-4.5); Potassium 3.5 mmol/L (3.4-5.0); Sodium 130 mmol/L (137-145)
[2021-08-31 07:07] LABS: Band Neutrophils Percent 4 % (0-6); Eosinophils Absolute Manual 0.03 K/mm3 (0.02-0.5); Eosinophils Percent Manual 1 % (0-4); Lymphocytes Absolute Manual 1.26 K/mm3 (1.1-4.5); Monocytes Absolute Manual 0.56 K/mm3 (0.1-0.90); Monocytes Percent Manual 16 % (3-9); Neutrophils Absolute Manual 1.64 K/mm3 (1.7-7.2); Neutrophils Percent Manual 43 % (46-73); Platelet Estimate Decreased (Adequate); Total Cells Counted 100
[2021-08-31 08:51] VITALS: O2SAT 97
[2021-08-31] MEDS: OFLOXACIN 0.3% OPHTH SOLN 5 ML BTL 1 DROP LEFT EYE ×3 (08:51→16:21)
[2021-08-31] MEDS: KETOROLAC 0.5% OP SOLN 5 ML BOTTLE 1 DROP LEFT EYE ×4 (08:51→20:39)
[2021-08-31] MEDS: PANTOPRAZOLE SODIUM IV 40 MG VIAL IV PUSH (08:51)
[2021-08-31] MEDS: prednisoLONE ACETATE 1% OPHTH 5 ML 1 DROP LEFT EYE ×3 (08:51→16:20)
[2021-08-31 09:51] LABS: Lactic Acid Reflex 0.8 mmol/L (0.7-2.0)
[2021-08-31 10:39] LABS: Procalcitonin 0.3 ng/mL
--- NOTE | 2021-08-31 11:00 | PCPTNOTE ---
Attempted PT evaluation, patient refused stating I can't. Will Follow
--- NOTE | 2021-08-31 11:31 | PM.PNGS ---
Progress Note: A&P Assessment and Plan (1) Diverticulitis of large intestine with perforation and abscess: Code(s): K57.20 - Diverticulitis of large intestine with perforation and abscess without bleeding Status: Acute Assessment and Plan: Continues to slowly improve. Minimal ostomy output but having a fair amount of gas in her bag. Continue full liquids today. Continue oxycodone PRN for pain control, discussed with the nurse and patient to try avoiding IV Dilaudid and sticking with oral analgesics for pain control if tolerated. Continue IV Zosyn. Encouraged gradually increasing activity, continue PT/OT (2) Fecal peritonitis: Code(s): K65.8 - Other peritonitis Status: Acute Assessment and Plan: POD#4, on Zosyn. Contained free perforation in pelvis. (3) COPD (chronic obstructive pulmonary disease): Code(s): J44.9 - Chronic obstructive pulmonary disease, unspecified Status: Chronic (4) Lung cancer: Code(s): C34.90 - Malignant neoplasm of unspecified part of unspecified bronchus or lung Status: Chronic Additional Plan I have discussed the patient's case and plan of care with Dr. Neal. Subjective Subjective Date/Time Seen: 08/31/21 11:31 Post Op day: 4 (Satya's procedure) Patient reports: still having pain and afebrile Interval history: Patient seen and examined. She reports having some groin burning pain but no significant abdominal pain. She reports some nausea this morning that resolved, but no vomiting. She was up to the chair this morning and is working with PT. Currently in bed. She is on 3L O2 NC and denies any shortness of breath. Still reports a cough with difficulty coughing up sputum. Review of Systems Review of Systems: All systems reviewed & are unremarkable except as noted in HPI and below Constitutional: Constitutional: Reports as per HPI, Reports no additional constitutional complaints and Denies fever(s) Cardiovascular: Cardiovascular: Reports no additional cardiovascular complaints and Denies chest pain Respiratory: Respiratory: Reports as per HPI and Reports no additional respiratory complaints Gastrointestinal: Gastrointestinal: Reports as per HPI and Reports no additional gastrointestinal complaints Exam Const: General: comfortable, no acute distress and awake Orientation/consciousness: patient oriented x3 GI: Inspection: non-distended, incision (minimal serosang. drainage near umibilicus, slightly pink near umbilicus) and other (ostomy bag full of gas, scant liquid stool) GI Palp: Yes Soft to palpation, Yes Tenderness to palpation present (GI) (incisional) and No Guarding due to palpation present (GI) Auscultation: Hypoactive bowel sounds present Urinary Catheter: Urinary Catheter: patent and draining and urine dark (dark yellow) Skin: General skin exam: pallor Neuro: General: moves all extremities and no focal motor deficits Extrem: General: no calf tenderness and no edema Psych: Insight: Fair insight present (Psych) Judgement: Fair judgement present (Psych) Objective Data Vital Signs Vital Signs: Vital Signs - 24 hr 08/30/21 15:11 08/30/21 16:41 08/30/21 21:22 Temperature 97.3 F L 97.3 F L Pulse Rate 87 89 Respiratory Rate 16 20 Blood Pressure 151/61 H 119/60 Pulse Oximetry 98 98 96 Oxygen Delivery Nasal Cannula Oxygen Flow Rate 3 08/31/21 05:11 08/31/21 07:51 08/31/21 08:51 Temperature 97.2 F L Pulse Rate 88 Respiratory Rate 20 Blood Pressure 140/60 Pulse Oximetry 97 97 Oxygen Delivery Nasal Cannula Nasal Cannula Oxygen Flow Rate 3 3 Intake/Output Intake/Output: Intake & Output 08/28/21 08/29/21 08/30/21 08/31/21 23:59 23:59 23:59 23:59 Intake Total 800 1352 1520 600 Output Total 990 1035 2088 750 Balance -190 456 -546 -037 Meds/Results Medications: Active Medications Generic Name Dose Route Start Last Admin Trade Name Freq PRN Reason Stop Dose Admin
[2021-08-31 12:02] LABS: Glucose Point of Care 116 mg/dl (65-105)
[2021-08-31] MEDS: SILVERGEL (ELTA) 45 ML 1 APPLIC TOPICAL (12:50)
[2021-08-31] MEDS: TOLNAFTATE 1% POWDER 45 GM BTL 1 APPLIC TOPICAL ×2 (12:50→20:40)
--- NOTE | 2021-08-31 13:30 | PC.NURSE ---
This RN informed patient of order to discontinue urinary catheter, patient refused removal of urinary catheter at this time and requested urinary catheter be removed 09/01/2021.
--- NOTE | 2021-08-31 13:42 | PCNFU ---
Nutrition Follow-Up Complete: Altered GI function as related to diverticulitis as evidenced by NPO Goal: Adequate Intake of at least 75% of meals/supplements Pt. is slowly progressing towards goal. Continue with current goal at this time. Pt current nutrition is Full Liquid diet and dietary supplements Nutrition recommendation: advance diet as tolerated by pt. Last recorded weight is 87.3 kg, stable. Recommend re-weighing prior to discharge. Bowel Motility: +ostomy output reported 08/31 Labs Reviewed:Hgb 7.4, Hct 23.4, Alb 2.8, Na 130, Cl 94, Cr 0.60, ALP 131, Ca 7.8 Meds Noted: Xanax, Dilaudid, Oxycodone, Zosyn, Dextrose, Vancomycin Skin: Abdomen wound, Left Ischium Pressure Ulcer - Stage II, Right groin rash Additional Notes: Pt. extubated 08/29/21 and Tube Feeding diet discharged 08/28/21. Pt. received 1 unit PRBC 08/29/21 due to drop in hemoglobin. Pt. pulled out NG tube on 08/30/21 and reports that she did not want NG tube in place. Pt. was transferred from ICU. Pt. was previous NPO, advanced to Clear Liquid diet and currently on Full Liquid diet. No reported intake in EMR. orders for dietary supplement of Ensure Compact BID is providing an additional 220kcal and 9g of protein. Agree with current diet orders at this time. Will continue to follow. RD will monitor every 3 days.
[2021-08-31 14:00] VITALS: BP 145/67; PULSE 92; RESP 16; TEMP 36.6; O2SAT 95
--- NOTE | 2021-08-31 18:40 | PM.IMPN ---
Progress Note: A&P Assessment and Plan (1) Acute respiratory failure: Code(s): J96.00 - Acute respiratory failure, unspecified whether with hypoxia or hypercapnia Status: Acute Assessment and Plan: Improving, status post extubation (2) COPD (chronic obstructive pulmonary disease): Code(s): J44.9 - Chronic obstructive pulmonary disease, unspecified Status: Chronic Assessment and Plan: Continue bronchodilators Not in exacerbation hence hold steroids (3) Diverticulitis of large intestine with perforation and abscess: Code(s): K57.20 - Diverticulitis of large intestine with perforation and abscess without bleeding Status: Acute Assessment and Plan: Status post Sigmoidectomy with end descending colostomy, Satya procedure 08/27 NG tube was removed by patient. 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 1. Complete two-dimensional, color flow and Doppler transthoracic echocardiogram is performed. ? 2. Left ventricular chamber dimension is normal. ? 3. Left ventricular systolic function is normal, estimated at 60-65%. ? 4. The left ventricular diastolic function is abnormal. ? 5. E/e' 16 is elevated. ? 6. Left atrial chamber dimension is moderately enlarged. ? 7. There is mild aortic valve sclerosis. ? 8. There is trace tricuspid valve regurgitation. ? 9. No pulmonary hypertension, estimated pulmonary arterial systolic pressure is 25 mmHg. ? 10. There is small circumferential pericardial effusion. No cardiac tamponade. BNP 2000+ Hold further fluids She received a dose of f Lasix 08/28 and 08/30 (8) Anemia: Code(s): D64.9 - Anemia, unspecified Status: Acute Assessment and Plan: 08/29 Hemoglobin dropped to 6.6 today No evidence of bleeding at this time Change PPI to IV q.12 hours She was transfused 1 unit PRBC and repeat hemoglobin has been stable Subjective Date/time seen: 08/31/21 18:40 Interval history: Patient resting comfortably. No overnight events noted. No chest pain or shortness of breath. No nausea, vomiting or diarrhea. No fevers or chills. Review of Systems Review of Systems: 12 point review of systems was assessed and was negative except as noted in the HPI Exam Narrative: General: No acute distress, alert and oriented per baseline HEENT: Atraumatic, normocephalic, mucous membranes moist CV: Regular rate and rhythm, S1, S2 Lungs: Clear to auscultation bilaterally, no rales or crackles noted, no wheezes, good air entry Abdomen: Soft, nontender, nondistended Extremities: Normal to inspection Skin: No rashes noted, no lesions or wounds seen Psych: Euthymic, normal affect Objective Data Vital Signs Vital Signs: Vital Signs - 24 hr 08/30/21 21:22 08/31/21 05:11 08/31/21 07:51 Temperature 97.3 F L 97.2 F L Pulse Rate 89 88 Respiratory Rate 20 20 Blood Pressure 119/60 140/60 Pulse Oximetry 96 97 Oxygen Delivery Nasal Cannula Oxygen Flow Rate 3 08/31/21 0
[2021-08-31] MEDS: FLUTICASONE/SALMETEROL 45-21 MCG INHALER 1 PUFF 2 PUFF INHALATION (21:19)
[2021-08-31 21:22] VITALS: O2SAT 94
[2021-08-31 21:34] VITALS: BP 164/69; PULSE 87; RESP 16; TEMP 37.1; O2SAT 93
[2021-09-01] VITALS (8 sets, daily range): BP systolic 136–149; BP diastolic 56–68; PULSE 83–94; RESP 16–20; TEMP 36.3–36.5; O2SAT 85–96
[2021-09-01] MEDS: oxyCODONE HCL (*CRX) 5 MG TAB IR 10 MG PO ×2 (00:59→08:43)
[2021-09-01 06:53] LABS: Mean Corpuscular HGB Conc 33.3 g/dl (32-36); Mean Corpuscular Hemoglobin 30.9 pg (26-34); Mean Corpuscular Volume 92.7 fl (80-100); Mean Platelet Volume 9.2 fl (7.4-10.4); Platelet Count Result 129 k/mm3 (150-375); Red Blood Count 2.59 M/mm3 (4.2-5.4); Red Cell Distribution Width 17.2 % (11.5-14.5); White Blood Count 3.9 K/mm3 (4.5-10.0)
[2021-09-01 07:19] LABS: Alanine Aminotransferase 21 U/L (6-35); Alkaline Phosphatase 138 U/L (38-126); Anion Gap 4 mmol/L (8-16); Aspartate Amino Transferase 36 U/L (14-36); Bilirubin,Total 2.2 mg/dL (0.2-1.3); Blood Urea Nitrogen 10 mg/dL (7-17); Calcium 7.9 mg/dL (8.4-10.2); Carbon Dioxide 33 mmol/L (22-30); Chloride 93 mmol/L (98-107); Estimated CRCL calculation 86 ml/min; Estimated Glomerular Filt Rate > 60; Glucose 111 mg/dL (65-110); Magnesium 1.8 mg/dL (1.6-2.3); Phosphorus 3.5 mg/dL (2.5-4.5); Potassium 3.7 mmol/L (3.4-5.0); Sodium 130 mmol/L (137-145)
[2021-09-01 07:39] LABS: Band Neutrophils Percent 1 % (0-6); Lymphocytes Absolute Manual 1.01 K/mm3 (1.1-4.5); Monocytes Absolute Manual 0.97 K/mm3 (0.1-0.90); Monocytes Percent Manual 25 % (3-9); Neutrophils Absolute Manual 1.91 K/mm3 (1.7-7.2); Neutrophils Percent Manual 48 % (46-73); Platelet Estimate Decreased (Adequate); Total Cells Counted 100
[2021-09-01 08:00] LABS: Glucose Point of Care 122 mg/dl (65-105)
[2021-09-01] MEDS: OFLOXACIN 0.3% OPHTH SOLN 5 ML BTL 1 DROP LEFT EYE ×3 (08:35→17:53)
[2021-09-01] MEDS: KETOROLAC 0.5% OP SOLN 5 ML BOTTLE 1 DROP LEFT EYE ×4 (08:35→21:57)
[2021-09-01] MEDS: PANTOPRAZOLE 40 MG TABLET PO (08:36)
[2021-09-01] MEDS: prednisoLONE ACETATE 1% OPHTH 5 ML 1 DROP LEFT EYE ×3 (08:37→17:54)
[2021-09-01] MEDS: FLUTICASONE/SALMETEROL 45-21 MCG INHALER 1 PUFF 2 PUFF INHALATION ×2 (09:06→20:59)
[2021-09-01] MEDS: TOLNAFTATE 1% POWDER 45 GM BTL 1 APPLIC TOPICAL ×2 (10:02→21:57)
[2021-09-01] MEDS: SILVERGEL (ELTA) 45 ML 1 APPLIC TOPICAL (10:02)
--- NOTE | 2021-09-01 11:48 | PM.PNGS ---
Progress Note: A&P Assessment and Plan (1) Diverticulitis of large intestine with perforation and abscess: Code(s): K57.20 - Diverticulitis of large intestine with perforation and abscess without bleeding Status: Acute Assessment and Plan: will increase dose of oxycodone to improved pain control. Continue to get patient up in chair. Continue full liquids for now. Wound is healing well. Pathology is still pending. (2) Fecal peritonitis: Code(s): K65.8 - Other peritonitis Status: Acute Assessment and Plan: Continue Zosyn and vancomycin antibiotics (3) COPD (chronic obstructive pulmonary disease): Code(s): J44.9 - Chronic obstructive pulmonary disease, unspecified Status: Chronic (4) Lung cancer: Code(s): C34.90 - Malignant neoplasm of unspecified part of unspecified bronchus or lung Status: Chronic Subjective Subjective Date/Time Seen: 09/01/21 11:48 Post Op day: 5 Patient reports: still having pain ( Complains inadequate pain control.), tolerating liquids well, no bowel movement ( No stool per ostomy as yet) and afebrile Review of Systems Review of Systems: All systems reviewed & are unremarkable except as noted in HPI and below ( HPI) Constitutional: Constitutional: Denies chills, Denies fever(s), Reports lethargy and Reports weakness Cardiovascular: Cardiovascular: Denies chest pain, Denies syncope, Denies edema and Denies dyspnea Respiratory: Respiratory: Reports cough, Denies hemoptysis and Denies dyspnea Gastrointestinal: Gastrointestinal: Reports abdominal pain, Reports constipation, Denies heartburn and Denies nausea Exam Const: General: cooperative, no acute distress, alert and awake GI: Inspection: incision ( dry with minimal drainage, no redness, closure intact) and other ( stoma pink and healthy, positive flatus no stool) GI Palp: Yes abdominal tenderness, Yes Soft to palpation, Yes Tenderness to palpation present (GI), No Guarding due to palpation present (GI) and No Palpable mass present Auscultation: normal bowel sounds Objective Data Vital Signs Vital Signs: Vital Signs - 24 hr 08/31/21 14:00 08/31/21 21:22 08/31/21 21:34 Temperature 36.6 C 37.1 C Pulse Rate 92 87 Respiratory Rate 16 16 Blood Pressure 145/67 H 164/69 H Pulse Oximetry 95 94 93 Oxygen Delivery Nasal Cannula Oxygen Flow Rate 3 09/01/21 06:00 09/01/21 09:07 09/01/21 09:08 Temperature 36.3 C L Pulse Rate 87 84 Respiratory Rate 16 18 Blood Pressure 149/61 H Pulse Oximetry 93 94 Oxygen Delivery Nasal Cannula Oxygen Flow Rate 2 09/01/21 09:22 Temperature Pulse Rate Respiratory Rate Blood Pressure Pulse Oximetry Oxygen Delivery Nasal Cannula Oxygen Flow Rate 2 Intake/Output Intake/Output: Intake & Output 08/29/21 08/30/21 08/31/21 09/01/21 23:59 23:59 23:59 23:59 Intake Total 1352 1520 1220 800 Output Total 1035 2088 1225 2400 Balance 394 -476 -1 -1806 Meds/Results Medications: Active Medications Generic Name Dose Route Start Last Admin Trade Name Freq PRN Reason Stop Dose Admin Albuterol 2.5 mg 08/28/21 14:40 08/29/21 20:24 Albuterol Sulfate Neb 2.5 Mg/3 Ml Inh INHALATION 2.5 mg Q6HRT PRN Administration Wheezing Alprazolam 0.5 mg 08/30/21 09:16 08/31/21 20:39 Alprazolam (*Crx) 0.5 Mg Tablet PO 0.5 mg TID PRN Administration Anxiety Dextrose 12.5 gm 08/27/21 19:56 Dextrose 50% 25 Gm/50 Ml Syringe IV PUSH PRN PRN Hypoglycemia Protocol Enoxaparin Sodium 40 mg 08/20/21 09:00 08/28/21 08:10 Enoxaparin 40 Mg/0.4 Ml Syringe SUB-Q 40 mg DAILY LATOYA Administration Fentanyl Citrate 25 mcg 08/30/21 10:37 Fentanyl Citrate Inj (*Crx) 100 Mcg/2 Ml Vial IV PUSH Q1H PRN Pain Rated 4-6 Glucagon 1 mg 08/27/21 19:56 Glucagon For Inj 1 Mg Vial IM PRN PRN Hypoglycemia Protocol Glucose 15 gm 08/27/21 19:56 Gluc
[2021-09-01] MEDS: oxyCODONE HCL (*CRX) 5 MG TAB IR 20 MG PO ×2 (11:59→17:56)
--- NOTE | 2021-09-01 12:25 | PCWOUND ---
WOCN NOTE Patient refuses to have teaching on colostomy care. Placed call to son to see if he can come in for teaching. Son refuses to come in and became irate that he is expected to care for his mother, states he works and does not have time to care for her and wants her placed. states we do not understand he is unable to care for her and can not take her home. He then hung up the phone. Placed call to [facility] for general surgery.
--- NOTE | 2021-09-01 16:15 | PM.IMPN ---
Progress Note: A&P Assessment and Plan (1) Acute respiratory failure: Code(s): J96.00 - Acute respiratory failure, unspecified whether with hypoxia or hypercapnia Status: Acute Assessment and Plan: Improving, status post extubation (2) COPD (chronic obstructive pulmonary disease): Code(s): J44.9 - Chronic obstructive pulmonary disease, unspecified Status: Chronic Assessment and Plan: Continue bronchodilators Not in exacerbation hence hold steroids (3) Diverticulitis of large intestine with perforation and abscess: Code(s): K57.20 - Diverticulitis of large intestine with perforation and abscess without bleeding Status: Acute Assessment and Plan: Status post Sigmoidectomy with end descending colostomy, Satya procedure 08/27 NG tube was removed by patient. 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 1. Complete two-dimensional, color flow and Doppler transthoracic echocardiogram is performed. ? 2. Left ventricular chamber dimension is normal. ? 3. Left ventricular systolic function is normal, estimated at 60-65%. ? 4. The left ventricular diastolic function is abnormal. ? 5. E/e' 16 is elevated. ? 6. Left atrial chamber dimension is moderately enlarged. ? 7. There is mild aortic valve sclerosis. ? 8. There is trace tricuspid valve regurgitation. ? 9. No pulmonary hypertension, estimated pulmonary arterial systolic pressure is 25 mmHg. ? 10. There is small circumferential pericardial effusion. No cardiac tamponade. Appears euvolemic (8) Anemia: Code(s): D64.9 - Anemia, unspecified Status: Acute Assessment and Plan: 08/29 Hemoglobin dropped to 6.6 today No evidence of bleeding at this time Change PPI to IV q.12 hours She was transfused 1 unit PRBC and repeat hemoglobin has been stable Additional Plan DVT prophylaxis -hold Lovenox for now SCDs Stress ulcer prophylaxis -PPI Nutrition -clear liquid, ADAT Code Status - DNR/DNI Subjective Date/time seen: 09/01/21 16:15 Interval history: Patient states she still experiencing significant abdominal pain and discomfort. No overnight events noted. No chest pain or shortness of breath. No nausea, vomiting or diarrhea. No fevers or chills. She keeps her eyes closed throughout questioning and examination. She grimaces with abdominal exam. Review of Systems Review of Systems: All systems reviewed & are unremarkable except as noted in HPI and below (Subjective) Exam Narrative: General: Patient resting in bed with her eyes closed, she appears uncomfortable HEENT: Atraumatic, normocephalic, mucous membranes moist CV: Regular rate and rhythm, S1, S2, no murmurs rubs or gallops noted Lungs: Clear to auscultation bilaterally, no rales or crackles noted, no wheezes, good air entry Abdomen: Soft, tender to palpation, no rebounding or guarding Extremities: Normal to inspection, no edema noted Objective Data Vital Signs Vital Signs: Vital Sign
[2021-09-01] MEDS: SIMETHICONE 80 MG TAB.CHEW PO (18:05)
[2021-09-02 05:54] VITALS: BP 142/70; PULSE 84; RESP 18; TEMP 36.1; O2SAT 84
[2021-09-02 08:06] LABS: Glucose Point of Care 127 mg/dl (65-105)
[2021-09-02 08:20] VITALS: O2SAT 93
[2021-09-02 10:05] VITALS: O2SAT 100
[2021-09-02] MEDS: KETOROLAC 0.5% OP SOLN 5 ML BOTTLE 1 DROP LEFT EYE ×4 (10:08→20:37)
[2021-09-02] MEDS: prednisoLONE ACETATE 1% OPHTH 5 ML 1 DROP LEFT EYE ×3 (10:08→17:52)
[2021-09-02] MEDS: OFLOXACIN 0.3% OPHTH SOLN 5 ML BTL 1 DROP LEFT EYE ×3 (10:08→17:52)
[2021-09-02] MEDS: PANTOPRAZOLE 40 MG TABLET PO (10:08)
[2021-09-02 10:12] LABS: Hematocrit 24.6 % (37.0-47.0); Hemoglobin 8.1 g/dL (12.0-15.0); Mean Corpuscular HGB Conc 32.9 g/dl (32-36); Mean Corpuscular Hemoglobin 30.1 pg (26-34); Mean Corpuscular Volume 91.4 fl (80-100); Mean Platelet Volume 9.4 fl (7.4-10.4); Platelet Count Result 179 k/mm3 (150-375); Red Blood Count 2.69 M/mm3 (4.2-5.4); Red Cell Distribution Width 17.4 % (11.5-14.5); White Blood Count 3.1 K/mm3 (4.5-10.0)
[2021-09-02] MEDS: SILVERGEL (ELTA) 45 ML 1 APPLIC TOPICAL (10:15)
[2021-09-02] MEDS: TOLNAFTATE 1% POWDER 45 GM BTL 1 APPLIC TOPICAL ×2 (10:15→20:36)
[2021-09-02 10:36] LABS: Alanine Aminotransferase 20 U/L (6-35); Albumin Level 2.9 g/dL (3.5-5.1); Alkaline Phosphatase 139 U/L (38-126); Anion Gap 8 mmol/L (8-16); Aspartate Amino Transferase 23 U/L (14-36); Bilirubin,Total 1.7 mg/dL (0.2-1.3); Blood Urea Nitrogen 8 mg/dL (7-17); Carbon Dioxide 27 mmol/L (22-30); Chloride 96 mmol/L (98-107); Estimated CRCL calculation 87 ml/min; Estimated Glomerular Filt Rate > 60; Glucose 147 mg/dL (65-110); Magnesium 1.6 mg/dL (1.6-2.3); Phosphorus 2.8 mg/dL (2.5-4.5); Potassium 3.1 mmol/L (3.4-5.0); Sodium 131 mmol/L (137-145)
[2021-09-02 10:55] LABS: Band Neutrophils Percent 2 % (0-6); Basophils Absolute Manual 0.03 K/mm3 (0.0-0.1); Basophils Percent Manual 1 % (0-1); Lymphocytes Absolute Manual 0.83 K/mm3 (1.1-4.5); Monocytes Absolute Manual 1.17 K/mm3 (0.1-0.90); Monocytes Percent Manual 38 % (3-9); Neutrophils Absolute Manual 1.05 K/mm3 (1.7-7.2); Neutrophils Percent Manual 32 % (46-73); Platelet Estimate Adequate (Adequate); Total Cells Counted 100
[2021-09-02 12:10] LABS: Glucose Point of Care 151 mg/dl (65-105)
--- NOTE | 2021-09-02 13:07 | PM.IMPN ---
Progress Note: A&P Assessment and Plan (1) Acute respiratory failure: Code(s): J96.00 - Acute respiratory failure, unspecified whether with hypoxia or hypercapnia Status: Acute Assessment and Plan: resolved (2) COPD (chronic obstructive pulmonary disease): Code(s): J44.9 - Chronic obstructive pulmonary disease, unspecified Status: Chronic Assessment and Plan: Continue bronchodilators Not in exacerbation hence hold steroids (3) Diverticulitis of large intestine with perforation and abscess: Code(s): K57.20 - Diverticulitis of large intestine with perforation and abscess without bleeding Status: Acute Assessment and Plan: Status post Sigmoidectomy with end descending colostomy, Satya procedure 08/27 NG tube was removed by patient. continue postop care. Surgery following continue pain control 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 Currently on chemotherapy and appears the patient is only received from its course Details of disease and treatment unknown (6) GERD (gastroesophageal reflux disease): Code(s): K21.9 - Gastro-esophageal reflux disease without esophagitis Status: Acute Assessment and Plan: Continue PPI (7) Congestive heart failure: Code(s): I50.9 - Heart failure, unspecified Status: Acute Assessment and Plan: Appears euvolemic (8) Anemia: Code(s): D64.9 - Anemia, unspecified Status: Acute Assessment and Plan: 08/29 Hemoglobin dropped to 6.6 today No evidence of bleeding at this time Change PPI to IV q.12 hours She was transfused 1 unit PRBC and repeat hemoglobin has been stable Additional Plan DVT prophylaxis -hold Lovenox for now SCDs Stress ulcer prophylaxis -PPI Nutrition -clear liquid, ADAT Code Status - DNR/DNI Subjective Date/time seen: 09/02/21 13:07 Mild abdominal pain today. Improved overall Exam Narrative: General: Patient resting in bed with her eyes closed, she appears uncomfortable HEENT: Atraumatic, normocephalic, mucous membranes moist CV: Regular rate and rhythm, S1, S2, no murmurs rubs or gallops noted Lungs: Clear to auscultation bilaterally, no rales or crackles noted, no wheezes, good air entry Abdomen: Soft, tender to palpation, no rebounding or guarding Extremities: Normal to inspection, no edema noted Objective Data Vital Signs Vital Signs: Vital Signs - 24 hr 09/01/21 14:15 09/01/21 21:01 09/01/21 21:39 Temperature 97.7 F 97.7 F Pulse Rate 94 83 Respiratory Rate 20 16 Blood Pressure 145/68 H 136/56 L Pulse Oximetry 96 94 85 L Oxygen Delivery Nasal Cannula Oxygen Flow Rate 2 Fraction of Inspired Oxygen 09/01/21 20:00 09/02/21 05:54 09/02/21 08:20 Temperature 97.0 F L Pulse Rate 83 84 Respiratory Rate 16 18 Blood Pressure 142/70 H Pulse Oximetry 85 L 84 L 93 Oxygen Delivery Nasal Cannula Room Air Oxygen Flow Rate 2 Fraction of Inspired Oxygen 40 09/02/21 10:05 Temperature Pulse Rate Respiratory Rate Blood Pressure Pulse Oximetry 100 Oxygen Delivery Nasal Cannula Oxygen Flow Rate 2 Fraction of Inspired Oxygen Intake/Output Intake/Output: Intake & Output 08/30/21 08/31/21 09/01/21 09/02/21 23:59 23:59 23:59 23:59 Intake Total 1520 1220 1450 1100 Output Total 8617 1222 8681 250 [facility] -568 -5 -1625 850 Meds/Results Medications: Active Medications Generic Name Dose Route Start Last Admin Trade Name Freq PRN Reason Stop Dose Admin Albuterol 2.5 mg 08/28/21 14:40 08/29/21 20:24 Albuterol Sulfate Neb 2.5 Mg/3 Ml Inh INHALATION 2.5 mg Q6HRT PRN Administration Whee
[2021-09-02 14:00] VITALS: BP 128/64; PULSE 86; RESP 20; TEMP 35.9; O2SAT 99
--- NOTE | 2021-09-02 14:20 | PCWOUND ---
WOCN NOTE Son came to patient room for ostomy teaching, Provided ostomy teaching folder and did education. Son did not want to touch stoma or assist with changing of the appliance. He did listen to oral instruction. stoma round, red moist, sutures present in stoma edge. applied new colostomy appliance and patient pulled off the other one. no output present from the stoma.
--- NOTE | 2021-09-02 15:29 | PM.PNGS ---
Progress Note: A&P Assessment and Plan (1) Diverticulitis of large intestine with perforation and abscess: Code(s): K57.20 - Diverticulitis of large intestine with perforation and abscess without bleeding Status: Acute Assessment and Plan: Increased oxycodone yesterday and now today patient is more confused. Oxycodone dose reduced. Still no stool output from ostomy. Continue full liquids. Encouraged increasing activity as tolerated and up to chair during the day. Will discuss pathology with patient once she her confusion improves. (2) Fecal peritonitis: Code(s): K65.8 - Other peritonitis Status: Acute Assessment and Plan: Continue IV antibiotics (3) COPD (chronic obstructive pulmonary disease): Code(s): J44.9 - Chronic obstructive pulmonary disease, unspecified Status: Chronic (4) Lung cancer: Code(s): C34.90 - Malignant neoplasm of unspecified part of unspecified bronchus or lung Status: Chronic (5) Altered mental status: Code(s): R41.82 - Altered mental status, unspecified Status: Acute Assessment and Plan: Patient confused today. No focal motor deficits. Could be accumulative affects of the narcotics, which were increased yesterday. Oxycodone dose decreased. Discussed with the Hospitalist. Will order an ABG and Neurology consult as well Additional Plan I have discussed the patient's case and plan of care with Dr. Neal. Subjective Subjective Date/Time Seen: 09/02/21 15:29 Post Op day: 6 Patient reports: afebrile Interval history: Patient seen and examined. Nurse at the bedside. Patient is very restless and confused today. She will answer some questions but not appropriately. She is not able to answer orientation questions for me today. When asked if she is having any pain, she will say hold on over and over without answering the question. Per nursing, she has been restless all day and pulling off her gown and dressings. She has not had any pain medication since about 1700 yesterday afternoon. She had her Dior removed yesterday morning and patient was continent yesterday but now incontinent today. Per nursing, she has also been pulling her nasal cannula off frequently throughout the day and found with it lying in the bed due to her confusion. Review of Systems Review of Systems: ROS unobtainable: Yes unobtainable due to mental status Exam Const: General: awake, anxious and confusion Orientation/consciousness: oriented to person, No oriented to place, No oriented to time and confusion Resp: Effort & Inspection: no respiratory distress and tachypneic (mild) Auscultation: diminished lung sounds Cardio: Rate: regular rate Rhythm: regular rhythm GI: Inspection: non-distended, obesity and other ( stoma pink and healthy, positive flatus no stool) GI Palp: Yes Soft to palpation, Yes Tenderness to palpation present (GI) (incisional), No Guarding due to palpation present (GI) and No Rebound tenderness present Auscultation: normal bowel sounds Other: dressing not in place over incision on my exam, there are 4 branden at the inferior aspect of the incision that are only partially intact on one side of the skin so they were removed, remaining branden intact, dressing reapplied Skin: General skin exam: pallor Neuro: General: moves all extremities, no focal motor deficits and other (exam limited d/t AMS, not following commands appropriately) Gait exam (Neuro): Unable to assess gait Extrem: General: normal to inspection and no edema Psych: Insight: Limited insight present (Psych) Judgement: Limited judgement present (Psych) Objective Data Vital Signs Vital Signs: Vital Signs - 24 hr 09/01/21 21:01 09/01/21 21:39 09/01/21 20:00 Temperature 97.7 F Pulse Rate 83 83 Respiratory Rate 16 16 Blood Pressure 136/56 L Pulse Oximetry 94 85 L 85 L Oxygen Delivery Nasal Cannula Nasal Cannula Oxygen Flow Rate 2 2 Fraction of Inspired Oxy
[2021-09-02 16:27] LABS: Alveolar/Arterial O2 Gradient 95.7 mmHg; Base Excess ABG 5.9 mEq/l (+/-2.0); Fractional Inspired Oxygen 28 %; HCO3 ABG 27.5 mEq/l (22.0-26.0); Oxygen Content ABG 11.3 %vol (16.0-22.0); Oxygen Saturation ABG 96.6 % (95.0-100.0); Oxyhemoglobin 94.9 % THb (90.0-100.0); PCO2 ABG 28.3 mmHg (35.0-45.0); PO2 ABG 70.5 mmHg (80.0-100.0); PO2 FiO2 Ratio Arterial Blood 2.52 %; Total Hemoglobin 8.4 g/dL (12.0-18.0)
[2021-09-02 16:30] LABS: Device NASAL CANNULA; Modified Allen's Test Pass; Site Drawn RIGHT RADIAL; pH ABG 7.605 (7.350-7.450)
[2021-09-02] MEDS: POTASSIUM CHLORIDE INJ 40 MEQ in SODIUM CHLORIDE 0.9% IV 500 ML 75 MEQ IVPB (17:51)
[2021-09-02 20:47] LABS: Magnesium 1.7 mg/dL (1.6-2.3); Phosphorus 3.2 mg/dL (2.5-4.5)
[2021-09-02 21:05] LABS: Appearance Urine Clear (Clear); Bilirubin Urine Negative (Negative); Color Urine Yellow (Yellow); Glucose Urine UA Negative (Negative); Ketones Urine Negative (Negative); Leukocyte Esterase Ur Negative LEU/UL (NEGATIVE); Nitrate Urine Negative (Negative); Protein Urine 1+ mg/dL (Negative); Specific Grav Ur 1.015 (1.001-1.035); pH Urine 7.5 (5.0-9.0)
[2021-09-02 21:07] LABS: WBC Urine 0-3 /hpf (0-3)
[2021-09-02 21:18] LABS: Add Urine Microscopic? YES; Blood Urine Trace-Intact (Negative)
[2021-09-02 21:22] VITALS: BP 151/55; PULSE 64; RESP 20; TEMP 36.1; O2SAT 99
[2021-09-03 01:13] LABS: Vancomycin Trough 19.7 ug/mL (10.0-20.0)
[2021-09-03] MEDS: IBUPROFEN 600 MG TABLET PO (05:10)
[2021-09-03 05:26] VITALS: BP 154/65; PULSE 77; RESP 18; TEMP 36.5; O2SAT 98
[2021-09-03 07:18] LABS: Hematocrit 22.3 % (37.0-47.0); Hemoglobin 7.5 g/dL (12.0-15.0); Mean Corpuscular HGB Conc 33.6 g/dl (32-36); Mean Corpuscular Hemoglobin 30.7 pg (26-34); Mean Corpuscular Volume 91.4 fl (80-100); Mean Platelet Volume 9.7 fl (7.4-10.4); Platelet Count Result 149 k/mm3 (150-375); Red Blood Count 2.44 M/mm3 (4.2-5.4); Red Cell Distribution Width 17.8 % (11.5-14.5); White Blood Count 3.2 K/mm3 (4.5-10.0)
[2021-09-03 07:27] LABS: Anion Gap 4 mmol/L (8-16); Blood Urea Nitrogen 8 mg/dL (7-17); Carbon Dioxide 25 mmol/L (22-30); Chloride 102 mmol/L (98-107); Estimated CRCL calculation 76 ml/min; Estimated Glomerular Filt Rate > 60; Glucose 124 mg/dL (65-110); Potassium 3.2 mmol/L (3.4-5.0); Sodium 131 mmol/L (137-145)
[2021-09-03 07:43] LABS: Anisocytosis 1+ (NORMAL); Atypical Lymphocytes Present; Hypochromasia 1+ (NORMAL); Platelet Estimate Adequate (Adequate)
[2021-09-03] MEDS: FLUTICASONE/SALMETEROL 45-21 MCG INHALER 1 PUFF 2 PUFF INHALATION ×2 (07:43→21:25)
[2021-09-03 07:48] VITALS: O2SAT 93
[2021-09-03 08:08] LABS: Band Neutrophils Percent 5 % (0-6); Neutrophils Percent Manual 45 % (46-73); Total Cells Counted 100
[2021-09-03 08:09] LABS: Lymphocytes Absolute Manual 1.05 K/mm3 (1.1-4.5); Monocytes Absolute Manual 0.54 K/mm3 (0.1-0.90); Monocytes Percent Manual 17 % (3-9)
[2021-09-03 08:43] LABS: Alveolar/Arterial O2 Gradient 78.5 mmHg; Base Excess ABG 3.7 mEq/l (+/-2.0); Fractional Inspired Oxygen 28 %; HCO3 ABG 25.2 mEq/l (22.0-26.0); Oxygen Content ABG 15.2 %vol (16.0-22.0); Oxygen Saturation ABG 97.8 % (95.0-100.0); Oxyhemoglobin 95.2 % THb (90.0-100.0); PCO2 ABG 28.4 mmHg (35.0-45.0); PO2 ABG 87.6 mmHg (80.0-100.0); PO2 FiO2 Ratio Arterial Blood 3.13 %; Total Hemoglobin 11.3 g/dL (12.0-18.0)
[2021-09-03 08:45] LABS: Device NASAL CANNULA; Modified Allen's Test Pass; Site Drawn RIGHT RADIAL; pH ABG 7.566 (7.350-7.450)
[2021-09-03 09:55] VITALS: O2SAT 96
[2021-09-03] MEDS: KETOROLAC 0.5% OP SOLN 5 ML BOTTLE 1 DROP LEFT EYE ×4 (09:55→22:24)
[2021-09-03] MEDS: OFLOXACIN 0.3% OPHTH SOLN 5 ML BTL 1 DROP LEFT EYE ×4 (09:55→22:24)
[2021-09-03] MEDS: prednisoLONE ACETATE 1% OPHTH 5 ML 1 DROP LEFT EYE ×3 (09:56→18:04)
[2021-09-03] MEDS: TOLNAFTATE 1% POWDER 45 GM BTL 1 APPLIC TOPICAL ×2 (09:57→22:39)
[2021-09-03] MEDS: SILVERGEL (ELTA) 45 ML 1 APPLIC TOPICAL (09:57)
[2021-09-03] MEDS: ONDANSETRON INJ 4 MG/2 ML VIAL IV PUSH (11:08)
--- NOTE | 2021-09-03 11:15 | PCPTNOTE ---
The patient treatment was not able to be completed due to patient out of room for testing. Will plan to continue treatment per plan of care.
--- NOTE | 2021-09-03 11:31 | PM.PNGS ---
Progress Note: A&P Assessment and Plan (1) Diverticulitis of large intestine with perforation and abscess: Code(s): K57.20 - Diverticulitis of large intestine with perforation and abscess without bleeding Status: Acute Assessment and Plan: Still no stool output from the colostomy and reporting spitting up some bilious-appearing liquid. Will get a Gastrografin upper GI to evaluate. Will also ask the wound care nurses to come by and irrigate the colostomy. Encouraged to still slowly increase activity since she is more alert and oriented today, continue PT/OT. Incision looks good, will have the nurse remove every other staple from the incision. (2) Fecal peritonitis: Code(s): K65.8 - Other peritonitis Status: Acute Assessment and Plan: Continue IV antibiotics (3) COPD (chronic obstructive pulmonary disease): Code(s): J44.9 - Chronic obstructive pulmonary disease, unspecified Status: Chronic (4) Lung cancer: Code(s): C34.90 - Malignant neoplasm of unspecified part of unspecified bronchus or lung Status: Chronic (5) Altered mental status: Code(s): R41.82 - Altered mental status, unspecified Status: Acute Assessment and Plan: Much improved. Likely accumulative effects of the narcotics. Will monitor. Additional Plan I have discussed the patient's case and plan of care with Dr. Neal. Subjective Subjective Date/Time Seen: 09/03/21 10:31 Post Op day: 7 Patient reports: feels better, pain is less, tolerating liquids well, voiding w/o difficulty, flatus, no bowel movement and afebrile Interval history: Patient feeling better today and now oriented. She is able to follow commands and answer questions appropriately. No complaints of abdominal pain this morning. She does reports spitting up some green/brown, bilious-appearing, liquid. No nausea or vomiting. Still no stool output from colostomy. Review of Systems Review of Systems: All systems reviewed & are unremarkable except as noted in HPI and below Exam Const: General: comfortable, no acute distress and alert Orientation/consciousness: patient oriented x3 Resp: Effort & Inspection: no respiratory distress Auscultation: diminished lung sounds Cardio: Rate: regular rate Rhythm: regular rhythm GI: Inspection: non-distended, incision ( dry with minimal drainage, no redness, closure intact), obesity and other ( stoma pink and healthy, positive flatus no stool) GI Palp: Yes Soft to palpation and Yes Tenderness to palpation present (GI) (incisional) Auscultation: normal bowel sounds Neuro: General: moves all extremities and no focal motor deficits Extrem: General: no calf tenderness and no edema Psych: Insight: Fair insight present (Psych) Judgement: Fair judgement present (Psych) Objective Data Vital Signs Vital Signs: Vital Signs - 24 hr 09/02/21 14:00 09/02/21 21:22 09/03/21 05:26 Temperature 96.7 F L 97 F L 97.7 F Pulse Rate 86 64 77 Respiratory Rate 20 20 18 Blood Pressure 128/64 151/55 H 154/65 H Pulse Oximetry 99 99 98 Oxygen Delivery 09/03/21 07:48 Temperature Pulse Rate Respiratory Rate Blood Pressure Pulse Oximetry 93 Oxygen Delivery Room Air Intake/Output Intake/Output: Intake & Output 08/31/21 09/01/21 09/02/21 09/03/21 23:59 23:59 23:59 23:59 Intake Total 1220 1450 1690 400 Output Total 1225 3075 265 Balance -5 -1625 1425 400 Meds/Results Medications: Active Medications Generic Name Dose Route Start Last Admin Trade Name Freq PRN Reason Stop Dose Admin Albuterol 2.5 mg 08/28/21 14:40 08/29/21 20:24 Albuterol Sulfate Neb 2.5 Mg/3 Ml Inh INHALATION 2.5 mg Q6HRT PRN Administration Wheezing Alprazolam 0.5 mg 08/30/21 09:16 08/31/21 20:39 Alprazolam (*Crx) 0.5 Mg Tablet PO 0.5 mg TID PRN Administration Anxiety Dextrose 12.5 gm 08/27/21 19:56 Dextrose 50% 25 Gm/50 Ml Syringe IV PUSH PRN PRN
[2021-09-03] MEDS: oxyCODONE HCL (*CRX) 5 MG TAB IR 10 MG PO (11:50)
--- NOTE | 2021-09-03 12:31 | PM.IMPN ---
Progress Note: A&P Assessment and Plan (1) Acute respiratory failure: Code(s): J96.00 - Acute respiratory failure, unspecified whether with hypoxia or hypercapnia Status: Acute Assessment and Plan: resolved (2) COPD (chronic obstructive pulmonary disease): Code(s): J44.9 - Chronic obstructive pulmonary disease, unspecified Status: Chronic Assessment and Plan: Continue bronchodilators Not in exacerbation hence hold steroids (3) Diverticulitis of large intestine with perforation and abscess: Code(s): K57.20 - Diverticulitis of large intestine with perforation and abscess without bleeding Status: Acute Assessment and Plan: Status post Sigmoidectomy with end descending colostomy, Satya procedure 08/27 Continue postop care Doing better overall. Surgery following Plan to continue IV antibiotics for another 3 days. Then transitioned to oral on discharge. 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 Currently on chemotherapy and appears the patient is only received from its course Details of disease and treatment unknown (6) GERD (gastroesophageal reflux disease): Code(s): K21.9 - Gastro-esophageal reflux disease without esophagitis Status: Acute Assessment and Plan: Continue PPI (7) Congestive heart failure: Code(s): I50.9 - Heart failure, unspecified Status: Acute Assessment and Plan: Appears euvolemic (8) Anemia: Code(s): D64.9 - Anemia, unspecified Status: Acute Assessment and Plan: 08/29 Hemoglobin dropped to 6.6 today No evidence of bleeding at this time Change PPI to IV q.12 hours She was transfused 1 unit PRBC and repeat hemoglobin has been stable Additional Plan DVT prophylaxis -hold Lovenox for now SCDs Stress ulcer prophylaxis -PPI Nutrition -clear liquid, ADAT Code Status - DNR/DNI Subjective Date/time seen: 09/03/21 12:31 Doing better today no altered mental status Exam Narrative: General: Patient resting in bed with her eyes closed, she appears uncomfortable HEENT: Atraumatic, normocephalic, mucous membranes moist CV: Regular rate and rhythm, S1, S2, no murmurs rubs or gallops noted Lungs: Clear to auscultation bilaterally, no rales or crackles noted, no wheezes, good air entry Abdomen: Soft, tender to palpation, no rebounding or guarding Extremities: Normal to inspection, no edema noted Objective Data Vital Signs Vital Signs: Vital Signs - 24 hr 09/02/21 14:00 09/02/21 21:22 09/03/21 05:26 Temperature 96.7 F L 97 F L 97.7 F Pulse Rate 86 64 77 Respiratory Rate 20 20 18 Blood Pressure 128/64 151/55 H 154/65 H Pulse Oximetry 99 99 98 Oxygen Delivery 09/03/21 07:48 Temperature Pulse Rate Respiratory Rate Blood Pressure Pulse Oximetry 93 Oxygen Delivery Room Air Intake/Output Intake/Output: Intake & Output 08/31/21 09/01/21 09/02/21 09/03/21 23:59 23:59 23:59 23:59 Intake Total 1220 1450 1690 450 Output Total 1225 3075 265 Balance -5 -1625 1425 450 Meds/Results Medications: Active Medications Generic Name Dose Route Start Last Admin Trade Name Freq PRN Reason Stop Dose Admin Albuterol 2.5 mg 08/28/21 14:40 08/29/21 20:24 Albuterol Sulfate Neb 2.5 Mg/3 Ml Inh INHALATION 2.5 mg Q6HRT PRN Administration Wheezing Alprazolam 0.5 mg 08/30/21 09:16 08/31/21 20:39 Alprazolam (*Crx) 0.5 Mg Tablet PO 0.5 mg TID PRN Administration Anxiety Dextrose 12.5 gm 08/27/21 19:56 Dextrose 50% 25 Gm/50 Ml Syringe IV PUSH PRN PRN Hypoglycemia Protocol Enoxaparin Sodium 40 mg 08/20/21 09:00 08/28/21
[2021-09-03] MEDS: POTASSIUM CHLORIDE INJ 40 MEQ in SODIUM CHLORIDE 0.9% IV 500 ML 130 MEQ IVPB (12:34)
--- NOTE | 2021-09-03 12:39 | PCNFU ---
Nutrition Follow-Up Complete: Altered GI function as related to diverticulitis as evidenced by full liquid diet order Goal:Adequate Intake of at least 75% of meals/supplements Pt is slowly progressing towards goal as diet has been advanced from NPO, to clear liquids, now to full liquids. Ensure compact BID ordered. Pt current nutrition is Full liquids. Nutrition recommendation: Continue with current diet orders Last recorded weight is 83.5 kg - down from 87.3kg. Bowel Motility: +BM 09/01 Labs Reviewed: Hb.5, HCT:22.4, NA:131, K:3.2, Glu:124 Meds Noted: Xanax, Dilaudid, Oxycodone, Zosyn, Dextrose, Vancomycin Skin:Stage II to ischium, abdominal wound Additional Notes: Pt diet advanced to full liquids. Pt did not wish to speak to this RD during time of assessment. Ensure clear on tray, she did nod and reply that she prefers that. Will switch supplement to Ensure clear and increase to TID with meals. PO intake not recorded at this time and did not appear pt is consuming much yet but did consume the Ensure clear. Monitor intake, diet order, tolerance, wt, labs. Follow up every 5 days.
[2021-09-03 14:00] VITALS: BP 148/69; PULSE 82; RESP 16; TEMP 36.9; O2SAT 99
--- NOTE | 2021-09-03 14:43 | PCPTNOTE ---
Patient refused treatment this session due to feeling nauseated.
[2021-09-03] MEDS: MORPHINE SULFATE (*CRX) 4 MG/ML INJ IV PUSH ×2 (18:10→22:29)
[2021-09-03 20:45] VITALS: PULSE 85; RESP 18; O2SAT 96
[2021-09-03 21:49] LABS: Sodium Urine Random 47 meq/L
[2021-09-03 22:00] VITALS: BP 155/62; PULSE 85; RESP 18; TEMP 36.6; O2SAT 96
[2021-09-04] MEDS: MORPHINE SULFATE (*CRX) 4 MG/ML INJ IV PUSH ×2 (04:44→09:34)
[2021-09-04 06:00] VITALS: BP 127/64; PULSE 83; RESP 16; TEMP 36.2; O2SAT 98
[2021-09-04 08:00] VITALS: O2SAT 94
[2021-09-04] MEDS: PANTOPRAZOLE SODIUM IV 40 MG VIAL IV PUSH (08:07)
[2021-09-04] MEDS: TOLNAFTATE 1% POWDER 45 GM BTL 1 APPLIC TOPICAL (08:08)
[2021-09-04 08:39] VITALS: O2SAT 94
[2021-09-04] MEDS: FLUTICASONE/SALMETEROL 45-21 MCG INHALER 1 PUFF 2 PUFF INHALATION ×2 (08:39→21:45)
[2021-09-04 08:52] LABS: Anion Gap 7 mmol/L (8-16); Blood Urea Nitrogen 9 mg/dL (7-17); Calcium 7.9 mg/dL (8.4-10.2); Carbon Dioxide 26 mmol/L (22-30); Chloride 102 mmol/L (98-107); Estimated CRCL calculation 67 ml/min; Estimated Glomerular Filt Rate > 60; Glucose 113 mg/dL (65-110); Potassium 3.6 mmol/L (3.4-5.0); Sodium 135 mmol/L (137-145)
--- NOTE | 2021-09-04 11:30 | PM.IMPN ---
Progress Note: A&P Assessment and Plan (1) Acute respiratory failure: Code(s): J96.00 - Acute respiratory failure, unspecified whether with hypoxia or hypercapnia Status: Acute Assessment and Plan: resolved (2) COPD (chronic obstructive pulmonary disease): Code(s): J44.9 - Chronic obstructive pulmonary disease, unspecified Status: Chronic Assessment and Plan: Continue bronchodilators Not in exacerbation hence hold steroids (3) Diverticulitis of large intestine with perforation and abscess: Code(s): K57.20 - Diverticulitis of large intestine with perforation and abscess without bleeding Status: Acute Assessment and Plan: Status post Sigmoidectomy with end descending colostomy, Satya procedure 08/27 Surgery following Patient now has NG tube for ileus. Plan to continue IV antibiotics while inpatient. Then transitioned to oral on discharge. 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 Currently on chemotherapy and appears the patient is only received from its course Details of disease and treatment unknown (6) GERD (gastroesophageal reflux disease): Code(s): K21.9 - Gastro-esophageal reflux disease without esophagitis Status: Acute Assessment and Plan: Continue PPI (7) Congestive heart failure: Code(s): I50.9 - Heart failure, unspecified Status: Acute Assessment and Plan: Appears euvolemic (8) Anemia: Code(s): D64.9 - Anemia, unspecified Status: Acute Assessment and Plan: 08/29 Hemoglobin dropped to 6.6 today No evidence of bleeding at this time Change PPI to IV q.12 hours She was transfused 1 unit PRBC and repeat hemoglobin has been stable Additional Plan DVT prophylaxis -hold Lovenox for now SCDs Stress ulcer prophylaxis -PPI Nutrition -clear liquid, ADAT Code Status - DNR/DNI Subjective Date/time seen: 09/04/21 11:30 NG tube has been placed for ileus. Has had significant output Overnite. Patient is just complaining that she wants to eat. Exam Narrative: General: Patient resting in bed with her eyes closed, she appears uncomfortable HEENT: Atraumatic, normocephalic, mucous membranes moist CV: Regular rate and rhythm, S1, S2, no murmurs rubs or gallops noted Lungs: Clear to auscultation bilaterally, no rales or crackles noted, no wheezes, good air entry Abdomen: Soft, tender to palpation, no rebounding or guarding Extremities: Normal to inspection, no edema noted Objective Data Vital Signs Vital Signs: Vital Signs - 24 hr 09/03/21 14:00 09/03/21 22:00 09/03/21 20:45 Temperature 98.4 F 97.8 F Pulse Rate 82 85 85 Respiratory Rate 16 18 18 Blood Pressure 148/69 H 155/62 H Pulse Oximetry 99 96 96 Oxygen Delivery Nasal Cannula Oxygen Flow Rate 2 Fraction of Inspired Oxygen 40 09/04/21 06:00 09/04/21 08:39 09/04/21 08:00 Temperature 97.1 F L Pulse Rate 83 Respiratory Rate 16 Blood Pressure 127/64 Pulse Oximetry 98 94 94 Oxygen Delivery Room Air Nasal Cannula Oxygen Flow Rate 2 Fraction of Inspired Oxygen Intake/Output Intake/Output: Intake & Output 09/01/21 09/02/21 09/03/21 09/04/21 23:59 23:59 23:59 23:59 Intake Total 1450 1690 1720 100 Output Total 3075 265 1070 750 Balance -1625 1425 650 -650 Meds/Results Medications: Active Medications Generic Name Dose Route Start Last Admin Trade Name Freq PRN Reason Stop Dose Admin Albuterol 2.5 mg 08/28/21 14:40 08/29/21 20:24 Albuterol Sulfate Neb 2.5 Mg/3 Ml Inh INHALATION 2.5 mg Q6HRT PRN Administration Wheezing Alprazolam 0.5 mg 08/30/21 09:16 08/31/21 20:39 Alp
--- NOTE | 2021-09-04 11:49 | PM.PNGS ---
Progress Note: A&P Assessment and Plan (1) Diverticulitis of large intestine with perforation and abscess: Code(s): K57.20 - Diverticulitis of large intestine with perforation and abscess without bleeding Status: Acute Assessment and Plan: Pathology does show diverticulitis. No evidence of malignancy. Patient now seems to have developed an ileus. No bowel sounds but x-rays clearly look better. Still no significant output from colostomy even though it was irrigated yesterday. Continue NG tube to suction and recheck labs, plain film of the abdomen and exam again tomorrow. Possibly Gastrografin upper GI small-bowel follow-through per NG tube tomorrow. Patient has poor IV access. Will have PICC line placed today. If unable to eat tomorrow, will need to start TPN. (2) Fecal peritonitis: Code(s): K65.8 - Other peritonitis Status: Acute Assessment and Plan: Discussed length of antibiotic therapy with Dr. Harrison. Continue antibiotics for now. (3) Lung cancer: Code(s): C34.90 - Malignant neoplasm of unspecified part of unspecified bronchus or lung Status: Chronic (4) COPD (chronic obstructive pulmonary disease): Code(s): J44.9 - Chronic obstructive pulmonary disease, unspecified Status: Chronic Subjective Subjective Date/Time Seen: 09/04/21 11:49 Post Op day: #8 Patient reports: no bowel movement, afebrile and other (Wants to eat.) Review of Systems Review of Systems: All systems reviewed & are unremarkable except as noted in HPI and below (HPI and those items noted below) Constitutional: Constitutional: Denies chills and Denies fever(s) Cardiovascular: Cardiovascular: Denies chest pain, Denies diaphoresis, Denies dyspnea and Denies paroxysmal nocturnal dyspnea Respiratory: Respiratory: Denies chest congestion, Denies cough and Denies dyspnea Integumentary/Breasts: Skin/Breast: Denies lesions and Denies rash Exam Const: General: cooperative, comfortable, no acute distress, alert and awake Nutritional Appearance: average body habitus GI: Inspection: non-distended, incision (Dry and healing, no sign infection) and other (Stoma pink and healthy, no gas in bag) GI Palp: Yes Soft to palpation and Yes Tenderness to palpation present (GI) Auscultation: absent bowel sounds Objective Data Vital Signs Vital Signs: Vital Signs - 24 hr 09/03/21 14:00 09/03/21 22:00 09/03/21 20:45 Temperature 36.9 C 36.6 C Pulse Rate 82 85 85 Respiratory Rate 16 18 18 Blood Pressure 148/69 H 155/62 H Pulse Oximetry 99 96 96 Oxygen Delivery Nasal Cannula Oxygen Flow Rate 2 Fraction of Inspired Oxygen 40 09/04/21 06:00 09/04/21 08:39 09/04/21 08:00 Temperature 36.2 C L Pulse Rate 83 Respiratory Rate 16 Blood Pressure 127/64 Pulse Oximetry 98 94 94 Oxygen Delivery Room Air Nasal Cannula Oxygen Flow Rate 2 Fraction of Inspired Oxygen Intake/Output Intake/Output: Intake & Output 09/01/21 09/02/21 09/03/21 09/04/21 23:59 23:59 23:59 23:59 Intake Total 1450 1690 1720 100 Output Total 3075 265 1070 750 Balance -1625 1425 650 -650 Meds/Results Medications: Active Medications Generic Name Dose Route Start Last Admin Trade Name Freq PRN Reason Stop Dose Admin Albuterol 2.5 mg 08/28/21 14:40 08/29/21 20:24 Albuterol Sulfate Neb 2.5 Mg/3 Ml Inh INHALATION 2.5 mg Q6HRT PRN Administration Wheezing Alprazolam 0.5 mg 08/30/21 09:16 08/31/21 20:39 Alprazolam (*Crx) 0.5 Mg Tablet PO 0.5 mg TID PRN Administration Anxiety Dextrose 12.5 gm 08/27/21 19:56 Dextrose 50% 25 Gm/50 Ml Syringe IV PUSH PRN PRN Hypoglycemia Protocol Enoxaparin Sodium 40 mg 08/20/21 09:00 08/28/21 08:10 Enoxaparin 40 Mg/0.4 Ml Syringe SUB-Q 40 mg DAILY LATOYA Administration Glucagon 1 mg 08/27/21 19:56 Glucagon For Inj 1 Mg Vial IM PRN PRN Hypoglycemia Protocol Glucose 15 gm
[2021-09-04] MEDS: LIDOCAINE HCL 1% PF INJ 5 ML VIAL INFILTRATE (12:30)
[2021-09-04] MEDS: CENTRAL LINE FLUSH 10 ML IV PUSH ×2 (13:42→22:08)
[2021-09-04 13:52] VITALS: BP 141/68; PULSE 84; RESP 16; TEMP 35.7; O2SAT 99
[2021-09-04] MEDS: MORPHINE SULFATE (*CRX) 4 MG/ML INJ 2 MG IV PUSH ×2 (17:10→22:03)
[2021-09-04] MEDS: oxyCODONE/ACETAMINOPHEN (*CRX) 5-325 MG TABLET 1 TABLET PO (20:43)
[2021-09-04 21:46] VITALS: O2SAT 97
[2021-09-04 21:54] LABS: Vancomycin Trough 8.9 ug/mL (10.0-20.0)
[2021-09-04 22:00] VITALS: BP 143/58; PULSE 85; RESP 16; TEMP 36.1; O2SAT 96
[2021-09-04] MEDS: ONDANSETRON INJ 4 MG/2 ML VIAL IV PUSH (22:04)
[2021-09-05] VITALS (7 sets, daily range): BP systolic 125–139; BP diastolic 49–67; PULSE 85–91; RESP 16–18; TEMP 35.7–36.8; O2SAT 92–98
[2021-09-05] MEDS: MORPHINE SULFATE (*CRX) 4 MG/ML INJ 2 MG IV PUSH ×2 (03:23→09:33)
[2021-09-05] MEDS: CENTRAL LINE FLUSH 10 ML IV PUSH ×3 (05:51→20:19)
[2021-09-05 06:32] LABS: Hemoglobin 7.5 g/dL (12.0-15.0); Mean Corpuscular HGB Conc 31.3 g/dl (32-36); Platelet Count Result 174 k/mm3 (150-375); Red Cell Distribution Width 18.6 % (11.5-14.5); White Blood Count 4.5 K/mm3 (4.5-10.0)
[2021-09-05 06:44] LABS: Anion Gap 3 mmol/L (8-16); Blood Urea Nitrogen 11 mg/dL (7-17); Calcium 8.1 mg/dL (8.4-10.2); Carbon Dioxide 29 mmol/L (22-30); Chloride 103 mmol/L (98-107); Estimated CRCL calculation 67 ml/min; Estimated Glomerular Filt Rate > 60; Glucose 111 mg/dL (65-110); Potassium 3.6 mmol/L (3.4-5.0); Sodium 135 mmol/L (137-145)
[2021-09-05] MEDS: FLUTICASONE/SALMETEROL 45-21 MCG INHALER 1 PUFF 2 PUFF INHALATION ×2 (09:19→19:38)
[2021-09-05] MEDS: PANTOPRAZOLE SODIUM IV 40 MG VIAL IV PUSH (09:22)
[2021-09-05] MEDS: TOLNAFTATE 1% POWDER 45 GM BTL 1 APPLIC TOPICAL ×2 (09:26→20:18)
--- NOTE | 2021-09-05 09:52 | PM.PNGS ---
Progress Note: A&P Assessment and Plan (1) Diverticulitis of large intestine with perforation and abscess: Code(s): K57.20 - Diverticulitis of large intestine with perforation and abscess without bleeding Status: Acute Assessment and Plan: Acute infection seems to have resolved. Although patient still does not have normal bowel sounds and does not have stool from her colostomy, her imaging and exam suggest no obstruction or bowel dilatation. Will go ahead and get water-soluble contrast upper GI small bowel series. If this has normal transit and no sign of obstruction, will DC NG tube and feed. If unable to feed, will need to start TPN. Wound healing well. Patient very comfortable. Hopefully will be able to start oral intake. (2) Fecal peritonitis: Code(s): K65.8 - Other peritonitis Status: Acute Assessment and Plan: Remains on Zosyn. Also vancomycin. Probably DC postop day 10. (3) COPD (chronic obstructive pulmonary disease): Code(s): J44.9 - Chronic obstructive pulmonary disease, unspecified Status: Chronic (4) Lung cancer: Code(s): C34.90 - Malignant neoplasm of unspecified part of unspecified bronchus or lung Status: Chronic Subjective Subjective Date/Time Seen: 09/05/21 09:52 Patient reports: no new complaints, pain is less, no bowel movement and other (Wants to eat) Review of Systems Review of Systems: All systems reviewed & are unremarkable except as noted in HPI and below (HPI and those items noted below) Constitutional: Constitutional: Denies chills and Denies fever(s) Cardiovascular: Cardiovascular: Denies chest pain and Denies dyspnea Respiratory: Respiratory: Denies cough and Denies dyspnea Gastrointestinal: Gastrointestinal: Reports as per HPI Integumentary/Breasts: Skin/Breast: Denies lesions and Denies rash Exam Const: General: comfortable and no acute distress; No confusion Orientation/consciousness: No confusion GI: Inspection: non-distended, incision (Dry and continues to heal well) and other (Stoma pink and healthy but no stool in bag) GI Palp: Yes Soft to palpation, No Tenderness to palpation present (GI), No Guarding due to palpation present (GI) and No Rebound tenderness present Auscultation: Hypoactive bowel sounds present Neuro: General: patient oriented x3, no focal motor deficits and No confusion Extrem: General: no calf tenderness and no edema Objective Data Vital Signs Vital Signs: Vital Signs - 24 hr 09/04/21 13:52 09/04/21 21:46 09/04/21 22:00 Temperature 35.7 C L 36.1 C L Pulse Rate 84 85 Respiratory Rate 16 16 Blood Pressure 141/68 H 143/58 H Pulse Oximetry 99 97 96 Oxygen Delivery Nasal Cannula Oxygen Flow Rate 2 09/05/21 06:00 09/05/21 09:23 09/05/21 09:23 Temperature 36.8 C Pulse Rate 88 85 Respiratory Rate 16 Blood Pressure 136/49 L Pulse Oximetry 94 98 Oxygen Delivery Nasal Cannula Oxygen Flow Rate 2 Intake/Output Intake/Output: Intake & Output 09/02/21 09/03/21 09/04/21 09/05/21 23:59 23:59 23:59 23:59 Intake Total 1690 1720 200 50 Output Total 265 1070 2760 2508 Balance 0738 138 -5185 -0803 Meds/Results Medications: Active Medications Generic Name Dose Route Start Last Admin Trade Name Freq PRN Reason Stop Dose Admin Albuterol 2.5 mg 08/28/21 14:40 08/29/21 20:24 Albuterol Sulfate Neb 2.5 Mg/3 Ml Inh INHALATION 2.5 mg Q6HRT PRN Administration Wheezing Alprazolam 0.5 mg 08/30/21 09:16 08/31/21 20:39 Alprazolam (*Crx) 0.5 Mg Tablet PO 0.5 mg TID PRN Administration Anxiety Dextrose 12.5 gm 08/27/21 19:56 Dextrose 50% 25 Gm/50 Ml Syringe IV PUSH PRN PRN Hypoglycemia Protocol Enoxaparin Sodium 40 mg 08/20/21 09:00 08/28/21 08:10 Enoxaparin 40 Mg/0.4 Ml Syringe SUB-Q 40 mg DAILY LATOYA Administration Glucagon 1 mg 08/27/21 19:56 Glucagon For Inj 1 Mg Vial IM PRN PRN
--- NOTE | 2021-09-05 10:32 | PCOTNOTE ---
Patient out of room for medical procedure.
--- NOTE | 2021-09-05 12:33 | PM.IMPN ---
Progress Note: A&P Assessment and Plan (1) Acute respiratory failure: Code(s): J96.00 - Acute respiratory failure, unspecified whether with hypoxia or hypercapnia Status: Acute Assessment and Plan: resolved (2) COPD (chronic obstructive pulmonary disease): Code(s): J44.9 - Chronic obstructive pulmonary disease, unspecified Status: Chronic Assessment and Plan: Continue bronchodilators Not in exacerbation hence hold steroids (3) Diverticulitis of large intestine with perforation and abscess: Code(s): K57.20 - Diverticulitis of large intestine with perforation and abscess without bleeding Status: Acute Assessment and Plan: Status post Sigmoidectomy with end descending colostomy, Satya procedure 08/27 Surgery following Patient now has NG tube for ileus. Patient will need to be started on TPN. Plan to continue IV antibiotics while inpatient. Then transitioned to oral on discharge. 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 Currently on chemotherapy and appears the patient is only received from its course Details of disease and treatment unknown (6) GERD (gastroesophageal reflux disease): Code(s): K21.9 - Gastro-esophageal reflux disease without esophagitis Status: Acute Assessment and Plan: Continue PPI (7) Congestive heart failure: Code(s): I50.9 - Heart failure, unspecified Status: Acute Assessment and Plan: Appears euvolemic (8) Anemia: Code(s): D64.9 - Anemia, unspecified Status: Acute Assessment and Plan: 08/29 Hemoglobin dropped to 6.6 today No evidence of bleeding at this time Change PPI to IV q.12 hours She was transfused 1 unit PRBC and repeat hemoglobin has been stable Additional Plan DVT prophylaxis -hold Lovenox for now SCDs Stress ulcer prophylaxis -PPI Nutrition -clear liquid, ADAT Code Status - DNR/DNI Subjective Date/time seen: 09/05/21 12:33 No new complaints Exam Narrative: General: Patient resting in bed with her eyes closed, she appears uncomfortable HEENT: Atraumatic, normocephalic, mucous membranes moist CV: Regular rate and rhythm, S1, S2, no murmurs rubs or gallops noted Lungs: Clear to auscultation bilaterally, no rales or crackles noted, no wheezes, good air entry Abdomen: Soft, tender to palpation, no rebounding or guarding Extremities: Normal to inspection, no edema noted Objective Data Vital Signs Vital Signs: Vital Signs - 24 hr 09/04/21 13:52 09/04/21 21:46 09/04/21 22:00 Temperature 96.2 F L 96.9 F L Pulse Rate 84 85 Respiratory Rate 16 16 Blood Pressure 141/68 H 143/58 H Pulse Oximetry 99 97 96 Oxygen Delivery Nasal Cannula Oxygen Flow Rate 2 09/05/21 06:00 09/05/21 09:23 09/05/21 09:23 Temperature 98.2 F Pulse Rate 88 85 Respiratory Rate 16 Blood Pressure 136/49 L Pulse Oximetry 94 98 Oxygen Delivery Nasal Cannula Oxygen Flow Rate 2 Intake/Output Intake/Output: Intake & Output 09/02/21 09/03/21 09/04/21 09/05/21 23:59 23:59 23:59 23:59 Intake Total 1690 1720 200 50 Output Total 265 1070 2760 2503 Balance 1427 606 -5852 -8969 Meds/Results Medications: Active Medications Generic Name Dose Route Start Last Admin Trade Name Freq PRN Reason Stop Dose Admin Albuterol 2.5 mg 08/28/21 14:40 08/29/21 20:24 Albuterol Sulfate Neb 2.5 Mg/3 Ml Inh INHALATION 2.5 mg Q6HRT PRN Administration Wheezing Alprazolam 0.5 mg 08/30/21 09:16 08/31/21 20:39 Alprazolam (*Crx) 0.5 Mg Tablet PO 0.5 mg TID PRN Administration Anxiety Dextrose 12.5 gm 08/27/21 19:56 Dextrose 50% 25 Gm
[2021-09-05] MEDS: oxyCODONE/ACETAMINOPHEN (*CRX) 5-325 MG TABLET 1 TABLET PO ×2 (14:45→20:29)
[2021-09-05] MEDS: traZODone HCL 50 MG TABLET PO (20:30)
[2021-09-06] VITALS (10 sets, daily range): BP systolic 106–136; BP diastolic 48–62; PULSE 76–91; RESP 16–20; TEMP 36.1–36.8; O2SAT 92–100
[2021-09-06] MEDS: oxyCODONE/ACETAMINOPHEN (*CRX) 5-325 MG TABLET 1 TABLET PO ×5 (02:50→20:35)
[2021-09-06] MEDS: CENTRAL LINE FLUSH 10 ML IV PUSH ×2 (06:32→14:44)
[2021-09-06 06:57] LABS: Anion Gap 5 mmol/L (8-16); Blood Urea Nitrogen 15 mg/dL (7-17); Calcium 7.8 mg/dL (8.4-10.2); Carbon Dioxide 28 mmol/L (22-30); Chloride 97 mmol/L (98-107); Estimated CRCL calculation 40 ml/min; Estimated Glomerular Filt Rate 38; Glucose 115 mg/dL (65-110); Potassium 3.1 mmol/L (3.4-5.0); Sodium 130 mmol/L (137-145)
[2021-09-06 07:50] LABS: Mean Corpuscular HGB Conc 31.8 g/dl (32-36); Mean Corpuscular Hemoglobin 29.9 pg (26-34); Mean Platelet Volume 9.4 fl (7.4-10.4); Platelet Count Result 179 k/mm3 (150-375); Red Blood Count 2.34 M/mm3 (4.2-5.4); Red Cell Distribution Width 18.5 % (11.5-14.5); White Blood Count 4.9 K/mm3 (4.5-10.0)
[2021-09-06] MEDS: PANTOPRAZOLE SODIUM IV 40 MG VIAL IV PUSH (09:00)
[2021-09-06] MEDS: TOLNAFTATE 1% POWDER 45 GM BTL 1 APPLIC TOPICAL ×2 (09:03→20:41)
[2021-09-06 09:28] LABS: Anion Gap 6 mmol/L (8-16); Blood Urea Nitrogen 15 mg/dL (7-17); Calcium 7.9 mg/dL (8.4-10.2); Carbon Dioxide 28 mmol/L (22-30); Chloride 96 mmol/L (98-107); Estimated CRCL calculation 37 ml/min; Estimated Glomerular Filt Rate 35; Glucose 131 mg/dL (65-110); Potassium 4.1 mmol/L (3.4-5.0); Sodium 130 mmol/L (137-145)
--- NOTE | 2021-09-06 09:52 | PM.PNGS ---
Progress Note: A&P Assessment and Plan (1) Diverticulitis of large intestine with perforation and abscess: Code(s): K57.20 - Diverticulitis of large intestine with perforation and abscess without bleeding Status: Acute Assessment and Plan: discussed with Dr. Harrison, hospitalist. Patient is now 10 days postoperative. Will go ahead and discontinue IV antibiotics and change to oral antibiotic. Will also remove her wound branden and discontinue her HANNAH drain. She had abundant output from her stoma following the water-soluble contrast upper GI small-bowel follow-through. She tells me she is in very hungry and continues to eat significant amounts. She seems to be doing very well at this point. (2) Fecal peritonitis: Code(s): K65.8 - Other peritonitis Status: Acute Assessment and Plan: See above. DC antibiotics and HANNAH drain (3) COPD (chronic obstructive pulmonary disease): Code(s): J44.9 - Chronic obstructive pulmonary disease, unspecified Status: Chronic (4) Lung cancer: Code(s): C34.90 - Malignant neoplasm of unspecified part of unspecified bronchus or lung Status: Chronic (5) MALINI (acute kidney injury): Code(s): N17.9 - Acute kidney failure, unspecified Status: Acute Assessment and Plan: discussed with hospitalist, Dr. Harrison. Will stop ibuprofen and vancomycin. Start normal saline at 100 an hour. Repeat again tomorrow to recheck. Hopefully she is just somewhat dehydrated and this will turn around quickly. Subjective Subjective Date/Time Seen: 09/06/21 09:52 Post Op day: #10 Patient reports: no new complaints, feels better, tolerating liquids well, bowel movement and afebrile Review of Systems Review of Systems: All systems reviewed & are unremarkable except as noted in HPI and below Constitutional: Constitutional: Denies chills, Denies fatigue, Denies fever(s), Denies headache(s) and Denies poor appetite Cardiovascular: Cardiovascular: Denies chest pain and Denies dyspnea Respiratory: Respiratory: Denies cough and Denies dyspnea Gastrointestinal: Gastrointestinal: Reports as per HPI, Denies abdominal pain, Denies bloating, Denies nausea and Denies vomiting Exam Const: General: cooperative, comfortable, no acute distress, alert and awake; No confusion Nutritional Appearance: average body habitus Orientation/consciousness: No confusion GI: Inspection: incision ( continues to heal well. HANNAH serous) GI Palp: Yes Soft to palpation, No Tenderness to palpation present (GI), No Guarding due to palpation present (GI) and No Rebound tenderness present Auscultation: Hypoactive bowel sounds present Neuro: General: patient oriented x3, no focal motor deficits and No confusion Extrem: General: no calf tenderness and no edema Psych: Affect: normal affect Objective Data Vital Signs Vital Signs: Vital Signs - 24 hr 09/05/21 14:00 09/05/21 19:40 09/05/21 19:41 Temperature 35.7 C L Pulse Rate 91 89 Respiratory Rate 18 16 Blood Pressure 139/67 Pulse Oximetry 95 92 Oxygen Delivery Nasal Cannula Oxygen Flow Rate 2 09/05/21 20:00 09/05/21 22:00 09/06/21 05:47 Temperature 36.6 C 36.1 C L Pulse Rate 85 83 Respiratory Rate 16 16 Blood Pressure 125/55 L 120/58 L Pulse Oximetry 97 98 98 Oxygen Delivery Nasal Cannula Oxygen Flow Rate 2 Intake/Output Intake/Output: Intake & Output 09/03/21 09/04/21 09/05/21 09/06/21 23:59 23:59 23:59 23:59 Intake Total 3937 489 9185 1140 Output Total 1070 2760 6143 2280 Balance 346 -7913 -2963 -7490 Meds/Results Medications: Active Medications Generic Name Dose Route Start Last Admin Trade Name Freq PRN Reason Stop Dose Admin Acetaminophen 500 mg 09/06/21 09:51 Acetaminophen 500 Mg Tablet PO Q6H PRN Mild Pain (1-3) or Fever Albuterol 2.5 mg 08/28/21 14:40 08/29/21 20:24 Albuterol Sulfate Neb 2.5 Mg/3 Ml Inh INHALATION 2.5 mg Q
--- NOTE | 2021-09-06 10:14 | PCPTNOTE ---
Patient refused treatment this session due to Pt having too bad of a headache. I just got back in bed too! Maybe later but I just can't right now. Will attempt again.
[2021-09-06] MEDS: SODIUM CHLORIDE 0.9% IV 1,000 ML 100 ML IV CONT ×2 (10:20→20:46)
[2021-09-06] MEDS: SODIUM CHLORIDE 0.9% IV 250 ML 30 ML IV CONT (10:55)
--- NOTE | 2021-09-06 10:57 | PM.IMPN ---
Progress Note: A&P Assessment and Plan (1) Acute respiratory failure: Code(s): J96.00 - Acute respiratory failure, unspecified whether with hypoxia or hypercapnia Status: Acute Assessment and Plan: resolved (2) COPD (chronic obstructive pulmonary disease): Code(s): J44.9 - Chronic obstructive pulmonary disease, unspecified Status: Chronic Assessment and Plan: Continue bronchodilators Not in exacerbation hence hold steroids (3) Diverticulitis of large intestine with perforation and abscess: Code(s): K57.20 - Diverticulitis of large intestine with perforation and abscess without bleeding Status: Acute Assessment and Plan: Status post Sigmoidectomy with end descending colostomy, Satya procedure 08/27 Surgery following NG has been pulled. 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 Currently on chemotherapy and appears the patient is only received from its course Details of disease and treatment unknown (6) GERD (gastroesophageal reflux disease): Code(s): K21.9 - Gastro-esophageal reflux disease without esophagitis Status: Acute Assessment and Plan: Continue PPI (7) Congestive heart failure: Code(s): I50.9 - Heart failure, unspecified Status: Acute Assessment and Plan: Appears euvolemic (8) Anemia: Code(s): D64.9 - Anemia, unspecified Status: Acute Assessment and Plan: 08/29 Hemoglobin dropped to 6.6 today No evidence of bleeding at this time Change PPI to IV q.12 hours She was transfused 1 unit PRBC and repeat hemoglobin has been stable (9) MALINI (acute kidney injury): Code(s): N17.9 - Acute kidney failure, unspecified Status: Acute Assessment and Plan: Question etiology. Monitor kidney function electrolytes. Tolerating p.o.. Additional Plan DVT prophylaxis -hold Lovenox for now SCDs Stress ulcer prophylaxis -PPI Nutrition -clear liquid, ADAT Code Status - DNR/DNI Subjective Date/time seen: 09/06/21 10:57 No new complaints. Pain controlled. NG tube pulled. Exam Narrative: General: alert and oriented Psych: appropriate mood nad affect Eyes: PERRLA Neck: Trachea midline, no new lesions Skin: no changes Lungs: CTA Cardiac: Normal S1,S2, no MGR ABD: soft, nd, nt, nbs Ext: no new lesions, no cce Vasc: Pulses intact Objective Data Vital Signs Vital Signs: Vital Signs - 24 hr 09/05/21 14:00 09/05/21 19:40 09/05/21 19:41 Temperature 96.3 F L Pulse Rate 91 89 Respiratory Rate 18 16 Blood Pressure 139/67 Pulse Oximetry 95 92 Oxygen Delivery Nasal Cannula Oxygen Flow Rate 2 09/05/21 20:00 09/05/21 22:00 09/06/21 05:47 Temperature 97.8 F 96.9 F L Pulse Rate 85 83 Respiratory Rate 16 16 Blood Pressure 125/55 L 120/58 L Pulse Oximetry 97 98 98 Oxygen Delivery Nasal Cannula Oxygen Flow Rate 2 Intake/Output Intake/Output: Intake & Output 09/03/21 09/04/21 09/05/21 09/06/21 23:59 23:59 23:59 23:59 Intake Total 3297 329 5217 1140 Output Total 1070 2760 6143 2280 Balance 650 -2560 -4223 -1140 Meds/Results Medications: Active Medications Generic Name Dose Route Start Last Admin Trade Name Freq PRN Reason Stop Dose Admin Acetaminophen 500 mg 09/06/21 09:51 Acetaminophen 500 Mg Tablet PO Q6H PRN Mild Pain (1-3) or Fever Albuterol 2.5 mg 08/28/21 14:40 08/29/21 20:24 Albuterol Sulfate Neb 2.5 Mg/3 Ml Inh INHALATION 2.5 mg Q6HRT PRN Administration Wheezing Alprazolam 0.5 mg 08/30/21 09:16 08/31/21 20:39 Alprazolam (*Crx) 0.5 Mg Tab
--- NOTE | 2021-09-06 14:10 | PCPTNOTE ---
Patient refused treatment this session due to I'm just not feeling up to it today. I just got blood and still having a hard time breathing. Thank you for checking again, but I just can't today. Reassured Pt, will continue per POC.
[2021-09-06] MEDS: KETOROLAC 0.5% OP SOLN 5 ML BOTTLE 1 DROP LEFT EYE (20:34)
[2021-09-06] MEDS: AMOXICILLIN/CLAVULANATE K 875-125 MG TAB 1 TABLET PO (20:34)
[2021-09-06] MEDS: CENTRAL LINE FLUSH 20 ML IV PUSH (20:47)
[2021-09-06] MEDS: FLUTICASONE/SALMETEROL 45-21 MCG INHALER 1 PUFF 2 PUFF INHALATION (21:56)
[2021-09-06] MEDS: diphenhydrAMINE HCl CAP 25 MG CAPSULE PO (22:21)
[2021-09-06] MEDS: traZODone HCL 50 MG TABLET PO (22:23)
[2021-09-07] MEDS: CENTRAL LINE FLUSH 10 ML IV PUSH ×4 (00:42→21:02)
[2021-09-07] MEDS: oxyCODONE/ACETAMINOPHEN (*CRX) 5-325 MG TABLET 1 TABLET PO ×2 (05:01→12:11)
[2021-09-07 05:07] VITALS: BP 129/49; PULSE 92; RESP 18; TEMP 36.1; O2SAT 94
[2021-09-07] MEDS: SODIUM CHLORIDE 0.9% IV 1,000 ML 100 ML IV CONT (05:07)
[2021-09-07 05:25] LABS: Hematocrit 25.6 % (37.0-47.0); Hemoglobin 8.6 g/dL (12.0-15.0); Mean Corpuscular HGB Conc 33.6 g/dl (32-36); Mean Corpuscular Hemoglobin 30.6 pg (26-34); Mean Corpuscular Volume 91.1 fl (80-100); Mean Platelet Volume 8.9 fl (7.4-10.4); Platelet Count Result 196 k/mm3 (150-375); Red Blood Count 2.81 M/mm3 (4.2-5.4); Red Cell Distribution Width 18.1 % (11.5-14.5)
[2021-09-07 05:32] LABS: Anion Gap 5 mmol/L (8-16); Blood Urea Nitrogen 16 mg/dL (7-17); Calcium 7.5 mg/dL (8.4-10.2); Carbon Dioxide 24 mmol/L (22-30); Chloride 101 mmol/L (98-107); Estimated CRCL calculation 33 ml/min; Estimated Glomerular Filt Rate 31; Glucose 111 mg/dL (65-110); Potassium 4.5 mmol/L (3.4-5.0); Sodium 130 mmol/L (137-145)
[2021-09-07] MEDS: PANTOPRAZOLE 40 MG TABLET PO (08:21)
[2021-09-07] MEDS: AMOXICILLIN/CLAVULANATE K 875-125 MG TAB 1 TABLET PO ×2 (08:21→20:22)
[2021-09-07] MEDS: TOLNAFTATE 1% POWDER 45 GM BTL 1 APPLIC TOPICAL ×2 (08:22→20:24)
[2021-09-07 08:43] VITALS: O2SAT 92
[2021-09-07] MEDS: FLUTICASONE/SALMETEROL 45-21 MCG INHALER 1 PUFF 2 PUFF INHALATION ×2 (08:43→21:15)
[2021-09-07 12:06] LABS: Eosinophil Urine None Seen % (None Seen)
[2021-09-07] MEDS: SIMETHICONE 80 MG TAB.CHEW PO ×2 (12:11→17:59)
[2021-09-07] MEDS: diphenhydrAMINE HCl CAP 25 MG CAPSULE PO ×2 (12:12→17:59)
--- NOTE | 2021-09-07 12:41 | PM.CNNEP ---
Assessment and Plan Additional Plan 1. Marcia has acute kidney injury. This is on top of normal kidney function. She has had several issues that could contribute to her rise in creatinine. She did have infection in her belly which can do this. Typically however this would happen during the height of the infection not after the recovery. She had large amounts of urine output plus stool output over the last couple of days. Perhaps she is just dehydrated. It looks to dehydrated on exam however but I think it is reasonable to give her IV fluids. She is getting saline [id number] an hour. I agree with continuing this. She has a rash. She could have allergic interstitial nephritis. She was on Zosyn and so may have a penicillin allergy. She was also on vancomycin which can cause an allergicrash as well. I discussed the possibility of some oral steroids with Dr. Harrison is. She is had quite a bit of trouble with her GI tract and also has cancer and is so immunosuppressed and is just recovering from infected so we are reluctant to give oral steroids at this point. Will wait a couple of days and see how this turns out. In the meantime will continue the IV fluids. She could have an idiosyncratic reaction to the vanc plus the Zosyn. If so this will run its course. Other courses likely glomerulonephritis are less likely in this clinical scenario. At this point will get urine electrolytes, a renal ultrasound, and CPK. 2. The patient has Barretts esophagus. She is on a PPI for this. 3. The patient has lung cancer. She is getting chemotherapy for this and will continue once the GI tract is better. 4. She has history of cocaine use but this is remote. History of Present Illness Reason for Consult Consult date: 09/07/21 Chief Complaint Chief complaint: Diverticulitis History of Present Illness Narrative: Marcia is a very pleasant lady who has multiple medical problems including lung cancer on chemotherapy, adenomatous colon polyp, Barretts esophagus, cocaine use in the distant past, COPD, GERD, and vocal cord paralysis. The patient was admitted to the hospital on around the 19 of August. She had abdominal pain which turned out to be a micro perforation of a diverticulum. See what is watch by Dr. Neal for a few days to see if it would seal itself off however she ended up having to go to surgery on the . She had a sigmoidectomy with an end descending colostomy with Satya's pouch. She had somewhat of a stormy postoperative course in the ICU with several days of antibiotics. Eventually the patient improved and the antibiotics were able to be discontinued. On the 05 of September her creatinine was normal at 0.8. Then yesterday was up to 1.4 and today 1.7 so renal consultation was requested. She says that she developed a rash on her back a couple of days ago. It is very itchy. She has not been allergic to penicillin or vancomycin. She has not received any contrast. She was on vancomycin and Zosyn for her abdominal infection. She has not received any nonsteroidal anti-inflammatory agents currently, low she did get 1 dose of ibuprofen in August. No other nephrotoxic medications. she has been getting some IV fluids but she also has had quite a bit of diarrhea. She had 2400cc of diarrhea out on the and 1200 on the 3rd. Her urine output has been pretty good also a 2500 on the and 1500 on the 3rd in spite of all that diarrhea. her sugars have been okay and she is not on any diuretics. Review of Systems Constitutional: Constitutional: Reports no additional constitutional complaints Eyes: Eyes: Reports no additional eye complaints ENT: Reports system reviewed and no additional complaints, except as documented Cardiovascular: Cardiovascular: Reports no additional cardiovascular complaints Respiratory: Respiratory: Reports no additional respiratory complaints Gastrointestinal: Gastrointestinal: Reports no addit
--- NOTE | 2021-09-07 13:05 | PM.IMPN ---
Progress Note: A&P Assessment and Plan (1) Acute respiratory failure: Code(s): J96.00 - Acute respiratory failure, unspecified whether with hypoxia or hypercapnia Status: Acute Assessment and Plan: resolved (2) COPD (chronic obstructive pulmonary disease): Code(s): J44.9 - Chronic obstructive pulmonary disease, unspecified Status: Chronic Assessment and Plan: Continue bronchodilators Not in exacerbation hence hold steroids (3) Diverticulitis of large intestine with perforation and abscess: Code(s): K57.20 - Diverticulitis of large intestine with perforation and abscess without bleeding Status: Acute Assessment and Plan: Status post Sigmoidectomy with end descending colostomy, Satya procedure 08/27 Surgery following Continue oral antibiotics Continue diet. 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 Currently on chemotherapy and appears the patient is only received from its course Details of disease and treatment unknown (6) GERD (gastroesophageal reflux disease): Code(s): K21.9 - Gastro-esophageal reflux disease without esophagitis Status: Acute Assessment and Plan: Continue PPI (7) Congestive heart failure: Code(s): I50.9 - Heart failure, unspecified Status: Acute Assessment and Plan: Appears euvolemic (8) Anemia: Code(s): D64.9 - Anemia, unspecified Status: Acute Assessment and Plan: Monitor (9) MALINI (acute kidney injury): Code(s): N17.9 - Acute kidney failure, unspecified Status: Acute Assessment and Plan: Likely secondary to antibiotic exposure with vanc/ Zosyn Might benefit from steroids. Appreciate Nephrology input. Given recent GI surgery and immunosuppression would hold on steroids at this a less kidney function worsens in the next day or 2. (10) Rash: Code(s): R21 - Rash and other nonspecific skin eruption Status: Acute Assessment and Plan: Steroid cream Additional Plan DVT prophylaxis -hold Lovenox for now SCDs Stress ulcer prophylaxis -PPI Nutrition -clear liquid, ADAT Code Status - DNR/DNI Subjective Date/time seen: 09/07/21 13:05 Now complaining of a rash on her back. Also worsening kidney function otherwise she feels good she is eating a diet. Exam Narrative: General: alert and oriented Psych: appropriate mood nad affect Eyes: PERRLA Neck: Trachea midline, no new lesions Skin: no changes Lungs: CTA Cardiac: Normal S1,S2, no MGR ABD: soft, nd, nt, nbs Ext: no new lesions, no cce Vasc: Pulses intact Objective Data Vital Signs Vital Signs: Vital Signs - 24 hr 09/06/21 14:00 09/06/21 13:25 09/06/21 13:45 Temperature 97.8 F 98.2 F 98.2 F Pulse Rate 79 84 84 Respiratory Rate 18 20 20 Blood Pressure 136/54 L 106/54 L 130/53 L Pulse Oximetry 100 99 95 Oxygen Delivery Oxygen Flow Rate 09/06/21 22:00 09/06/21 22:00 09/07/21 05:07 Temperature 98.2 F 97 F L Pulse Rate 91 92 Respiratory Rate 18 18 Blood Pressure 135/62 129/49 L Pulse Oximetry 93 92 94 Oxygen Delivery Nasal Cannula Oxygen Flow Rate 2 09/07/21 08:43 Temperature Pulse Rate Respiratory Rate Blood Pressure Pulse Oximetry 92 Oxygen Delivery Nasal Cannula Oxygen Flow Rate 2 Intake/Output Intake/Output: Intake & Output 09/04/21 09/05/21 09/06/21 09/07/21 23:59 23:59 23:59 23:59 Intake Total 200 1920 3168 1250 Output Total 2760 6143 2780 600 Balance -2560 -4223 388 650 Meds/Results Medications: Active Medications Generic Name Dose Route Start Last Admin Trade Name Freq PRN Reason Stop Dose Admin Acetaminophen 500
--- NOTE | 2021-09-07 13:14 | PM.PNGS ---
Progress Note: A&P Assessment and Plan (1) MALINI (acute kidney injury): Code(s): N17.9 - Acute kidney failure, unspecified Status: Acute Assessment and Plan: Creatinine higher today at 1.7. Non oliguric. Continue saline and recheck. Hopefully will resolve soon. (2) Diverticulitis of large intestine with perforation and abscess: Code(s): K57.20 - Diverticulitis of large intestine with perforation and abscess without bleeding Status: Acute Assessment and Plan: Eleven days status post sigmoidectomy with Satya procedure. Drain is out. Antibiotics have been discontinued. Wound is healing well. Home when MALINI improving and medically stable. (3) Fecal peritonitis: Code(s): K65.8 - Other peritonitis Status: Acute Assessment and Plan: Resolved (4) Lung cancer: Code(s): C34.90 - Malignant neoplasm of unspecified part of unspecified bronchus or lung Status: Chronic (5) COPD (chronic obstructive pulmonary disease): Code(s): J44.9 - Chronic obstructive pulmonary disease, unspecified Status: Chronic Subjective Subjective Date/Time Seen: 09/07/21 13:14 Post Op day: #11 Patient reports: no new complaints, feels better, tolerating a regular diet (Tolerating soft diet well), bowel movement and afebrile Review of Systems Review of Systems: All systems reviewed & are unremarkable except as noted in HPI and below (HPI) Exam Const: General: comfortable, alert and awake Nutritional Appearance: average body habitus Orientation/consciousness: No confusion GI: Inspection: non-distended, incision (Dry and healing well, colostomy pink and healthy) and other (HANNAH drain site looks good) GI Palp: Yes Soft to palpation, No Tenderness to palpation present (GI), Yes No hepatosplenomegaly present, No Hernia present and No Palpable mass present Auscultation: normal bowel sounds Objective Data Vital Signs Vital Signs: Vital Signs - 24 hr 09/06/21 14:00 09/06/21 13:25 09/06/21 13:45 Temperature 36.6 C 36.8 C 36.8 C Pulse Rate 79 84 84 Respiratory Rate 18 20 20 Blood Pressure 136/54 L 106/54 L 130/53 L Pulse Oximetry 100 99 95 Oxygen Delivery Oxygen Flow Rate 09/06/21 22:00 09/06/21 22:00 09/07/21 05:07 Temperature 36.8 C 36.1 C L Pulse Rate 91 92 Respiratory Rate 18 18 Blood Pressure 135/62 129/49 L Pulse Oximetry 93 92 94 Oxygen Delivery Nasal Cannula Oxygen Flow Rate 2 09/07/21 08:43 Temperature Pulse Rate Respiratory Rate Blood Pressure Pulse Oximetry 92 Oxygen Delivery Nasal Cannula Oxygen Flow Rate 2 Intake/Output Intake/Output: Intake & Output 09/04/21 09/05/21 09/06/21 09/07/21 23:59 23:59 23:59 23:59 Intake Total 200 1920 3168 1250 Output Total 2760 6143 2780 600 Balance -2560 -4223 388 650 Meds/Results Medications: Active Medications Generic Name Dose Route Start Last Admin Trade Name Freq PRN Reason Stop Dose Admin Acetaminophen 500 mg 09/06/21 09:51 Acetaminophen 500 Mg Tablet PO Q6H PRN Mild Pain (1-3) or Fever Albuterol 2.5 mg 08/28/21 14:40 08/29/21 20:24 Albuterol Sulfate Neb 2.5 Mg/3 Ml Inh INHALATION 2.5 mg Q6HRT PRN Administration Wheezing Alprazolam 0.5 mg 08/30/21 09:16 08/31/21 20:39 Alprazolam (*Crx) 0.5 Mg Tablet PO 0.5 mg TID PRN Administration Anxiety Amoxicillin/Clavulanate Potassium 1 tablet 09/06/21 21:00 09/07/21 08:21 Amoxicillin/Clavulanate K 875-125 Mg Tab PO 1 tablet Q12HR LATOYA Administration Clobetasol Propionate 1 applic 09/07/21 21:00 Clobetasol Propionate 0.05% Cream 30 Gm TOPICAL Q12HR LATOYA Dextrose 12.5 gm 08/27/21 19:56 Dextrose 50% 25 Gm/50 Ml Syringe IV PUSH PRN PRN Hypoglycemia Protocol Diphenhydramine HCl 25 mg 09/06/21 21:50 09/07/21 12:12 Diphenhydramine Hcl Cap 25 Mg Capsule PO 25 mg Q6H PRN Administration Itching Enoxaparin Sodium 40 mg 0
[2021-09-07 13:44] LABS: Creatine Kinase < 20 U/L (30-135)
[2021-09-07 14:00] VITALS: BP 123/40; PULSE 85; RESP 18; TEMP 36.3; O2SAT 98
[2021-09-07 15:32] LABS: Creatinine Urine 25.7 mg/dL; Total Protein Urine Random 32 mg/dL; Ur Ttl Prot Creatinine Ratio 1.25 mg/mg (0-0.20)
[2021-09-07 15:34] LABS: Sodium Urine Random 6 meq/L
[2021-09-07] MEDS: guaiFENesin/DEXTROMETHORPHAN 10 ML UDC 5 ML PO (17:59)
[2021-09-07] MEDS: MORPHINE SULFATE (*CRX) 4 MG/ML INJ 2 MG IV PUSH ×2 (17:59→22:39)
[2021-09-07 20:00] VITALS: O2SAT 98
[2021-09-07] MEDS: KETOROLAC 0.5% OP SOLN 5 ML BOTTLE 1 DROP LEFT EYE (20:22)
[2021-09-07] MEDS: CLOBETASOL PROPIONATE 0.05% CREAM 30 GM 1 APPLIC TOPICAL (20:26)
[2021-09-07] MEDS: traZODone HCL 50 MG TABLET PO (20:41)
[2021-09-07 21:18] VITALS: PULSE 65; RESP 20; O2SAT 96
[2021-09-07 22:00] VITALS: BP 150/48; PULSE 91; RESP 16; TEMP 37.1; O2SAT 95
[2021-09-08] VITALS (12 sets, daily range): BP systolic 98–140; BP diastolic 41–63; PULSE 97–112; RESP 16–26; TEMP 36.3–36.8; O2SAT 72–96
[2021-09-08] MEDS: ONDANSETRON INJ 4 MG/2 ML VIAL IV PUSH (01:29)
[2021-09-08] MEDS: ALPRAZolam (*CRX) 0.5 MG TABLET PO ×4 (01:29→23:33)
[2021-09-08] MEDS: guaiFENesin/DEXTROMETHORPHAN 10 ML UDC 5 ML PO (01:29)
[2021-09-08] MEDS: SODIUM CHLORIDE 0.9% IV 1,000 ML 100 ML IV CONT ×3 (05:04→22:04)
[2021-09-08] MEDS: CENTRAL LINE FLUSH 10 ML IV PUSH ×3 (05:05→22:07)
[2021-09-08] MEDS: ALTEPLASE 2 MG VIAL (CATHFLO) IV PUSH (06:00)
--- NOTE | 2021-09-08 06:35 | PC.NURSE ---
09/08/21 0600 unsuccessful in obtaining morning labs. unable to obtain blood from dual lumen picc. order recieved for cathflo.
[2021-09-08] MEDS: CENTRAL LINE FLUSH 20 ML IV PUSH (08:37)
[2021-09-08 08:45] LABS: Albumin Level 2.9 g/dL (3.5-5.1); Anion Gap 4 mmol/L (8-16); Blood Urea Nitrogen 15 mg/dL (7-17); Calcium 7.5 mg/dL (8.4-10.2); Carbon Dioxide 23 mmol/L (22-30); Chloride 102 mmol/L (98-107); Estimated CRCL calculation 37 ml/min; Estimated Glomerular Filt Rate 35; Glucose 117 mg/dL (65-110); Sodium 129 mmol/L (137-145)
[2021-09-08] MEDS: AMOXICILLIN/CLAVULANATE K 875-125 MG TAB 1 TABLET PO ×2 (09:24→21:04)
[2021-09-08] MEDS: PANTOPRAZOLE 40 MG TABLET PO (09:24)
[2021-09-08] MEDS: CLOBETASOL PROPIONATE 0.05% CREAM 30 GM 1 APPLIC TOPICAL ×2 (09:24→21:04)
[2021-09-08] MEDS: TOLNAFTATE 1% POWDER 45 GM BTL 1 APPLIC TOPICAL ×2 (09:25→21:05)
[2021-09-08] MEDS: FLUTICASONE/SALMETEROL 45-21 MCG INHALER 1 PUFF 2 PUFF INHALATION ×2 (10:56→21:13)
[2021-09-08] MEDS: oxyCODONE/ACETAMINOPHEN (*CRX) 5-325 MG TABLET 1 TABLET PO ×2 (11:43→16:40)
--- NOTE | 2021-09-08 12:32 | PM.IMPN ---
Progress Note: A&P Assessment and Plan (1) Acute respiratory failure: Code(s): J96.00 - Acute respiratory failure, unspecified whether with hypoxia or hypercapnia Status: Acute Assessment and Plan: resolved (2) COPD (chronic obstructive pulmonary disease): Code(s): J44.9 - Chronic obstructive pulmonary disease, unspecified Status: Chronic Assessment and Plan: Continue bronchodilators Not in exacerbation hence hold steroids (3) Diverticulitis of large intestine with perforation and abscess: Code(s): K57.20 - Diverticulitis of large intestine with perforation and abscess without bleeding Status: Acute Assessment and Plan: Status post Sigmoidectomy with end descending colostomy, Satya procedure 08/27 Surgery following Continue oral antibiotics -this is day 12 of 14. Continue diet. 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 Currently on chemotherapy and appears the patient is only received from its course Details of disease and treatment unknown (6) GERD (gastroesophageal reflux disease): Code(s): K21.9 - Gastro-esophageal reflux disease without esophagitis Status: Acute Assessment and Plan: Continue PPI (7) Congestive heart failure: Code(s): I50.9 - Heart failure, unspecified Status: Acute Assessment and Plan: Appears euvolemic (8) Anemia: Code(s): D64.9 - Anemia, unspecified Status: Acute Assessment and Plan: Monitor (9) MALINI (acute kidney injury): Code(s): N17.9 - Acute kidney failure, unspecified Status: Acute Assessment and Plan: Likely secondary to antibiotic exposure with vanc/ Zosyn Improving (10) Rash: Code(s): R21 - Rash and other nonspecific skin eruption Status: Acute Assessment and Plan: Steroid cream Monitor Plan Likely discharge 1-2 days Patient is agreeable for skilled placement Subjective Date/time seen: 09/08/21 12:32 Patient patient feels relatively weak today. Exam Narrative: General: alert and oriented Psych: appropriate mood nad affect Eyes: PERRLA Neck: Trachea midline, no new lesions Skin: no changes Lungs: CTA Cardiac: Normal S1,S2, no MGR ABD: soft, nd, nt, nbs Ext: no new lesions, no cce Vasc: Pulses intact Objective Data Vital Signs Vital Signs: Vital Signs - 24 hr 09/07/21 14:00 09/07/21 20:00 09/07/21 22:00 Temperature 97.3 F L 98.8 F Pulse Rate 85 91 Respiratory Rate 18 16 Blood Pressure 123/40 L 150/48 H Pulse Oximetry 98 98 95 Oxygen Delivery Nasal Cannula Oxygen Flow Rate 2 09/07/21 21:18 09/07/21 21:18 09/08/21 06:00 Temperature 97.8 F Pulse Rate 65 65 98 Respiratory Rate 20 20 16 Blood Pressure 98/41 L Pulse Oximetry 96 94 Oxygen Delivery Nasal Cannula Oxygen Flow Rate 2 09/08/21 10:56 Temperature Pulse Rate Respiratory Rate Blood Pressure Pulse Oximetry 96 Oxygen Delivery Nasal Cannula Oxygen Flow Rate 2 Intake/Output Intake/Output: Intake & Output 09/05/21 09/06/21 09/07/21 09/08/21 23:59 23:59 23:59 23:59 Intake Total 1920 3168 2650 750 Output Total 6143 2780 2100 1800 Balance -4223 388 550 -1050 Meds/Results Medications: Active Medications Generic Name Dose Route Start Last Admin Trade Name Freq PRN Reason Stop Dose Admin Acetaminophen 500 mg 09/06/21 09:51 Acetaminophen 500 Mg Tablet PO Q6H PRN Mild Pain (1-3) or Fever Albuterol 2.5 mg 08/28/21 14:40 08/29/21 20:24 Albuterol Sulfate Neb 2.5 Mg/3 Ml Inh INHALATION 2.5 mg Q6HRT PRN Administration Wheezing Alprazolam 0.5 mg 08/30/21 09:16 09/08/21
--- NOTE | 2021-09-08 13:27 | PM.PNGS ---
Progress Note: A&P Assessment and Plan (1) MALINI (acute kidney injury): Code(s): N17.9 - Acute kidney failure, unspecified Status: Acute Assessment and Plan: Creatinine slightly better today at 1.5. Continue to monitor. (2) Diverticulitis of large intestine with perforation and abscess: Code(s): K57.20 - Diverticulitis of large intestine with perforation and abscess without bleeding Status: Acute Assessment and Plan: Doing well. She has a slightly open but clean area at the bottom of her incision. Will start silver gel and dry gauze dressings to this area daily. Will go home on this as well. (3) Lung cancer: Code(s): C34.90 - Malignant neoplasm of unspecified part of unspecified bronchus or lung Status: Chronic (4) COPD (chronic obstructive pulmonary disease): Code(s): J44.9 - Chronic obstructive pulmonary disease, unspecified Status: Chronic Subjective Subjective Date/Time Seen: 09/08/21 13:27 Patient reports: no new complaints, tolerating a regular diet and afebrile Review of Systems Review of Systems: All systems reviewed & are unremarkable except as noted in HPI and below (HPI) Exam GI: Inspection: non-distended, incision (Bottom of incision somewhat open as rubbing on skin, clean) and other (Rest of incision as well as colostomy looks good) GI Palp: Yes Soft to palpation, No Tenderness to palpation present (GI), No Guarding due to palpation present (GI) and No Palpable mass present Objective Data Vital Signs Vital Signs: Vital Signs - 24 hr 09/07/21 14:00 09/07/21 20:00 09/07/21 22:00 Temperature 36.3 C L 37.1 C Pulse Rate 85 91 Respiratory Rate 18 16 Blood Pressure 123/40 L 150/48 H Pulse Oximetry 98 98 95 Oxygen Delivery Nasal Cannula Oxygen Flow Rate 2 09/07/21 21:18 09/07/21 21:18 09/08/21 06:00 Temperature 36.6 C Pulse Rate 65 65 98 Respiratory Rate 20 20 16 Blood Pressure 98/41 L Pulse Oximetry 96 94 Oxygen Delivery Nasal Cannula Oxygen Flow Rate 2 09/08/21 10:56 Temperature Pulse Rate Respiratory Rate Blood Pressure Pulse Oximetry 96 Oxygen Delivery Nasal Cannula Oxygen Flow Rate 2 Intake/Output Intake/Output: Intake & Output 09/05/21 09/06/21 09/07/21 09/08/21 23:59 23:59 23:59 23:59 Intake Total 1920 3163 2650 1590 Output Total 6167 5280 2100 2500 Balance -4223 388 550 -910 Meds/Results Medications: Active Medications Generic Name Dose Route Start Last Admin Trade Name Freq PRN Reason Stop Dose Admin Acetaminophen 500 mg 09/06/21 09:51 Acetaminophen 500 Mg Tablet PO Q6H PRN Mild Pain (1-3) or Fever Albuterol 2.5 mg 08/28/21 14:40 08/29/21 20:24 Albuterol Sulfate Neb 2.5 Mg/3 Ml Inh INHALATION 2.5 mg Q6HRT PRN Administration Wheezing Alprazolam 0.5 mg 08/30/21 09:16 09/08/21 01:29 Alprazolam (*Crx) 0.5 Mg Tablet PO 0.5 mg TID PRN Administration Anxiety Alteplase, Recombinant 2 mg 09/08/21 05:58 09/08/21 06:00 Alteplase 2 Mg Vial (Cathflo) IV PUSH 2 mg ONCE PRN Administration Line Occlusion Amoxicillin/Clavulanate Potassium 1 tablet 09/06/21 21:00 09/08/21 09:24 Amoxicillin/Clavulanate K 875-125 Mg Tab PO 1 tablet Q12HR LATOYA Administration Clobetasol Propionate 1 applic 09/07/21 21:00 09/08/21 09:24 Clobetasol Propionate 0.05% Cream 30 Gm TOPICAL 1 applic Q12HR LATOYA Administration Dextrose 12.5 gm 08/27/21 19:56 Dextrose 50% 25 Gm/50 Ml Syringe IV PUSH PRN PRN Hypoglycemia Protocol Diphenhydramine HCl 25 mg 09/06/21 21:50 09/07/21 17:59 Diphenhydramine Hcl Cap 25 Mg Capsule PO 25 mg Q6H PRN Administration Itching Enoxaparin Sodium 40 mg 08/20/21 09:00 08/28/21 08:10 Enoxaparin 40 Mg/0.4 Ml Syringe SUB-Q 40 mg DAILY LATOYA Administration Glucagon 1 mg 08/27/21 19:56 Glucagon For Inj 1 Mg Vial IM PRN PRN Hypoglycemia Pro
--- NOTE | 2021-09-08 13:30 | PCPTNOTE ---
Patient refused treatment this session due to pain. Patient states I hurt too much in my stomach right now. I worked with therapy over the weekend and made myself sick. PT will continue to follow per plan of care.
--- NOTE | 2021-09-08 13:49 | PCNFU ---
Nutrition Follow-Up Complete: Inadequate energy intake related to reduced appetite as evidenced by pt report and charted intake. Noted was full liquids, diet just advanced. Goal:Adequate Intake of at least 75% of meals/supplements. Pt is slowly progressing towards goal. Continue with same goal. Pt current nutrition is Regular, ensure compact BID. Nutrition recommendation: Continue with current plan of care. Encourage intake of meals and supplements. Last recorded weight is 79 kg - down from 86kg at admit. Bowel Motility: No recorded BM at this time Labs Reviewed:Alb:2.9, NA:129, Cr:1.5, Glu:117 Meds Noted: lovenox, sofran Skin: L ishcium-maceration Additional Notes: Pt diet just upgraded to regular. Ensure compact BID also ordered. Pt intake remains inadequate overall, charted at 25% at this time. Agree with diet orders and supplements. Encourage po intake as much as possible. Monitor intake, wt, labs. Follow up in 5 days.
--- NOTE | 2021-09-08 13:55 | PM.PNNEP ---
Progress Note: A&P Additional Plan 1. Marcia has acute kidney injury. This is on top of normal kidney function. Urine electrolytes non pre renal. Urine sodium is 6 but she has a large volume of urine and urine creatinine is low also. UA is bland except for a little protein Renal ultrasound shows normal kidneys CPK is not elevated Most likely this is allergic interstitial nephritis or possibly a direct drug effect from antibiotics. Will follow the rash. Her creatinine is better. She is getting Benadryl for itching. Check labs in the morning 2. The patient has Barretts esophagus. She is on a PPI for this. 3. The patient has lung cancer. She is getting chemotherapy for this and will continue once the GI tract is better. 4. She has history of cocaine use but this is remote. Subjective Date/time seen: 09/08/21 13:55 Interval history: Patient is alert. she has to go to the bathroom. I notified the nursing staff. Still itching. Now it is starting to wrap around the front. Review of Systems Cardiovascular: Cardiovascular: Reports no additional cardiovascular complaints Respiratory: Respiratory: Reports no additional respiratory complaints Gastrointestinal: Gastrointestinal: Reports no additional gastrointestinal complaints Genitourinary: Genitourinary: Reports no additional female genitourinary complaints Exam Narrative: WDWN in NAD skin stable macular papular rash. head ncat lungs clear cor reg no rub abd BS+ nontender and soft ext no edema. Objective Data Vital Signs Vital Signs: Vital Signs - 24 hr 09/07/21 14:00 09/07/21 20:00 09/07/21 22:00 Temperature 36.3 C L 37.1 C Pulse Rate 85 91 Respiratory Rate 18 16 Blood Pressure 123/40 L 150/48 H Pulse Oximetry 98 98 95 Oxygen Delivery Nasal Cannula Oxygen Flow Rate 2 09/07/21 21:18 09/07/21 21:18 09/08/21 06:00 Temperature 36.6 C Pulse Rate 65 65 98 Respiratory Rate 20 20 16 Blood Pressure 98/41 L Pulse Oximetry 96 94 Oxygen Delivery Nasal Cannula Oxygen Flow Rate 2 09/08/21 10:56 09/08/21 09:25 Temperature Pulse Rate Respiratory Rate Blood Pressure Pulse Oximetry 96 92 Oxygen Delivery Nasal Cannula Nasal Cannula Oxygen Flow Rate 2 2 Intake/Output Intake/Output: Intake & Output 09/05/21 09/06/21 09/07/21 09/08/21 23:59 23:59 23:59 23:59 Intake Total 2820 3160 2650 1590 Output Total 6113 4340 2100 2500 Balance -4223 388 550 -910 Meds/Results Medications: Active Medications Generic Name Dose Route Start Last Admin Trade Name Freq PRN Reason Stop Dose Admin Acetaminophen 500 mg 09/06/21 09:51 Acetaminophen 500 Mg Tablet PO Q6H PRN Mild Pain (1-3) or Fever Albuterol 2.5 mg 08/28/21 14:40 08/29/21 20:24 Albuterol Sulfate Neb 2.5 Mg/3 Ml Inh INHALATION 2.5 mg Q6HRT PRN Administration Wheezing Alprazolam 0.5 mg 08/30/21 09:16 09/08/21 01:29 Alprazolam (*Crx) 0.5 Mg Tablet PO 0.5 mg TID PRN Administration Anxiety Alteplase, Recombinant 2 mg 09/08/21 05:58 09/08/21 06:00 Alteplase 2 Mg Vial (Cathflo) IV PUSH 2 mg ONCE PRN Administration Line Occlusion Amoxicillin/Clavulanate Potassium 1 tablet 09/06/21 21:00 09/08/21 09:24 Amoxicillin/Clavulanate K 875-125 Mg Tab PO 1 tablet Q12HR LATOYA Administration Clobetasol Propionate 1 applic 09/07/21 21:00 09/08/21 09:24 Clobetasol Propionate 0.05% Cream 30 Gm TOPICAL 1 applic Q12HR LATOYA Administration Dextrose 12.5 gm 08/27/21 19:56 Dextrose 50% 25 Gm/50 Ml Syringe IV PUSH PRN PRN Hypoglycemia Protocol Diphenhydramine HCl 25 mg 09/06/21 21:50 09/07/21 17:59 Diphenhydramine Hcl Cap 25 Mg Capsule PO 25 mg Q6H PRN Administration Itching Enoxaparin Sodium 40 mg 08/20/21 09:00 08/28/21 08:10 Enoxaparin 40 Mg/0.4 Ml Syringe SUB-Q 40 mg DAILY LATOYA Administration Glucagon 1 mg 08/27/21 19:56 Glucagon For I
[2021-09-08] MEDS: traZODone HCL 50 MG TABLET PO (21:07)
[2021-09-08] MEDS: ALBUTEROL SULFATE NEB 2.5 MG/3 ML INH INHALATION (21:12)
[2021-09-08] MEDS: IPRATROPIUM BR 0.02% INH SOLN 0.5 MG/2.5 ML VIAL INHALATION (21:13)
[2021-09-08] MEDS: MORPHINE SULFATE (*CRX) 4 MG/ML INJ 2 MG IV PUSH (21:24)
[2021-09-08 21:32] LABS: Alveolar/Arterial O2 Gradient 334.9 mmHg; Base Excess ABG -0.8 mEq/l (+/-2.0); Fractional Inspired Oxygen 60 %; HCO3 ABG 22.4 mEq/l (22.0-26.0); Oxygen Content ABG 10.6 %vol (16.0-22.0); Oxygen Saturation ABG 92.3 % (95.0-100.0); Oxyhemoglobin 88.8 % THb (90.0-100.0); PCO2 ABG 31.3 mmHg (35.0-45.0); PO2 ABG 58.5 mmHg (80.0-100.0); PO2 FiO2 Ratio Arterial Blood 0.98 %; Total Hemoglobin 8.4 g/dL (12.0-18.0); pH ABG 7.473 (7.350-7.450)
[2021-09-08 21:33] LABS: Device OTHER DEVICE; Modified Allen's Test Unable to perform; Site Drawn LEFT RADIAL
[2021-09-08] MEDS: FUROSEMIDE INJ 40 MG/4 ML VIAL IV PUSH (22:06)
--- NOTE | 2021-09-08 22:13 | P.PNCROSS_ITS ---
Event Note Event Note Event Note: 09/08/2021 at 9:45 p.m. Nursing staff called me at the found the patient satting 76% on room air. The patient is usually on 2 L nasal cannula at all time. Patient was placed back on oxygen but oxygen had to be titrated up to 7 L high-flow to return oxygen saturations to 94%. The patient was coughing up blood-streaked frothy sputum. Respiratory therapy was at bedside and gave the patient nebulizer treatment which helped with patient's oxygenation but did not improve the patient's lung sounds she had bilateral crackles at the bases and increased work breathing. Patient denies any chest pain or palpitations. She was tachycardic. Patient appears acutely ill with marked pallor. She remains afebrile. Stat chest x-ray was obtained which demonstrated worsening bilateral infiltrates with left greater than right per the patient's baseline. ABG was performed which de monstrated hypoxia but normal pH without evidence of CO2 retention. Given evidence of possible pulmonary edema and the report of frothy sputum production stat dose of IV Lasix has been administered. I did this with caution given the patient also has had increasing creatinine over the last several days. The patient's IV fluids have been discontinued. Assessment and plan: Acute on chronic hypoxic respiratory failure---differential including pulmonary edema, worsening lung disease from patient's cancer, mucous plugging, or pneumonia. The patient's white count is stable and she remains afebrile. Will hold off on adding antibiotics at this time. Given chest x-ray findings concerning for worsening pulmonary edema will give at 1 dose of IV Lasix and monitor urine output. Will repeat BMP in a.m. to monitor creatinine. Patient is now on high-flow nasal cannula 7 L. I reiterated with patient the seriousness of her condition. She still insists that she is a DNR and understands that if she cannot breathe on her own that this could result in her . She states that she does wants to be made comfortable if conservative management with high-flow nasal cannula does not work. Given the patient's report of bloody sputum production differential does include pulmonary embolism but given her history of lung cancer that this could also be the reason she is having some hemoptysis. Will give 1 dose of therapeutic Lovenox and will check a V/Q scan in a.m.. Patient is not a candidate for CTA due to her renal failure. Patient has been given Pulmozyme to see if this may not help with improved aeration of her x-ray given the possibility of mucus plugging mention on prior CT scan. 45 minute spent in critical care activities. Due to a high probability of clinically significant, life threatening deterioration, the patient required my highest level of preparedness to intervene emergently and I personally spent this critical care time directly and personally managing the patient. This critical care time included obtaining a history; examining the patient; pulse oximetry; ordering and review of studies; arranging urgent treatment with development of a management plan; evaluation of patient's response to treatment; frequent reassessment; and discussions with other providers. It was exclusive of separately billable procedures and treating other patients and teaching time. Please see Assessment and Plan section and the rest of the note for further information on patient assessment and treatment.
[2021-09-08] MEDS: DORNASE ALFA INH SOLN 1 MG/ML 2.5 ML AMP 2.5 MG INHALATION (22:25)
[2021-09-08] MEDS: ENOXAPARIN 80 MG/0.8 ML SYRINGE SUB-Q (22:49)
[2021-09-08] MEDS: KETOROLAC 0.5% OP SOLN 5 ML BOTTLE 1 DROP LEFT EYE (22:50)
[2021-09-08 23:52] LABS: Appearance Urine Clear (Clear); Bilirubin Urine Negative (Negative); Blood Urine Negative (Negative); Glucose Urine UA Negative (Negative); Ketones Urine Negative (Negative); Leukocyte Esterase Ur Negative LEU/UL (Negative); Nitrate Urine Negative (Negative); Protein Urine Negative (Negative); Urobilinogen Urine 0.2 mg/dL (<2.0)
[2021-09-08 23:54] LABS: Add Urine Microscopic? NO; Color Urine Light Yellow (Yellow)
[2021-09-08 23:56] LABS: Bacteria Urine Trace /hpf; Mucus Urine Rare /lpf; RBC Urine 0-2 /hpf (0-2); WBC Urine 0-3 /hpf
[2021-09-09] VITALS (35 sets, daily range): BP systolic 109–145; BP diastolic 44–67; PULSE 93–107; RESP 18–24; TEMP 36.1–37.7; O2SAT 71–100
[2021-09-09] MEDS: ALBUTEROL SULFATE NEB 2.5 MG/3 ML INH INHALATION ×2 (05:02→17:20)
[2021-09-09] MEDS: IPRATROPIUM BR 0.02% INH SOLN 0.5 MG/2.5 ML VIAL INHALATION ×3 (05:02→17:20)
[2021-09-09] MEDS: MORPHINE SULFATE (*CRX) 4 MG/ML INJ 2 MG IV PUSH ×2 (05:09→20:19)
[2021-09-09] MEDS: CENTRAL LINE FLUSH 10 ML IV PUSH ×3 (05:10→20:21)
[2021-09-09 05:51] LABS: Eosinophils Percent Auto 0.2 % (0-4.4); Immature Granulocyte Absolute 0.01 K/mm3 (0.00-0.031); Immature Granulocyte Percent A 0.2 % (0-0.5); Lymphocytes Absolute Auto 2.18 K/mm3 (0.9-3.2); Lymphocytes Percent Auto 43.3 % (18.3-44.2); Mean Corpuscular HGB Conc 32.1 g/dl (32-36); Mean Corpuscular Hemoglobin 30.2 pg (26-34); Mean Corpuscular Volume 94.1 fl (80-100); Mean Platelet Volume 8.8 fl (7.4-10.4); Monocytes Absolute Auto 2.1 K/mm3 (0.1-0.6); Monocytes Percent Auto 41.9 % (2.6-8.5); Neutrophils Absolute Auto 0.7 K/mm3 (1.3-6.7); Neutrophils Percent Auto 14.4 % (45.5-73.1); Platelet Count Result 152 k/mm3 (150-375); Red Blood Count 2.22 M/mm3 (4.2-5.4); Red Cell Distribution Width 18.5 % (11.5-14.5)
[2021-09-09 06:01] LABS: Albumin Level 2.7 g/dL (3.5-5.1); Anion Gap 8 mmol/L (8-16); Blood Urea Nitrogen 14 mg/dL (7-17); Calcium 7.3 mg/dL (8.4-10.2); Carbon Dioxide 24 mmol/L (22-30); Chloride 100 mmol/L (98-107); Estimated CRCL calculation 40 ml/min; Estimated Glomerular Filt Rate 33; Glucose 137 mg/dL (65-110); Phosphorus 3.4 mg/dL (2.5-4.5); Potassium 2.9 mmol/L (3.4-5.0); Sodium 132 mmol/L (137-145)
[2021-09-09 06:31] LABS: Hematocrit 20.9 % (37.0-47.0); Hemoglobin 6.7 g/dL (12.0-15.0)
[2021-09-09] MEDS: POTASSIUM CHLORIDE 20 MEQ TABLET 40 MEQ PO ×2 (06:43→10:58)
[2021-09-09 07:03] LABS: Magnesium 1.4 mg/dL (1.6-2.3)
[2021-09-09] MEDS: PANTOPRAZOLE 40 MG TABLET PO (08:17)
[2021-09-09] MEDS: CLOBETASOL PROPIONATE 0.05% CREAM 30 GM 1 APPLIC TOPICAL ×2 (08:17→20:21)
[2021-09-09] MEDS: AMOXICILLIN/CLAVULANATE K 875-125 MG TAB 1 TABLET PO ×2 (08:17→20:20)
[2021-09-09] MEDS: TOLNAFTATE 1% POWDER 45 GM BTL 1 APPLIC TOPICAL ×2 (08:19→20:21)
[2021-09-09] MEDS: ALPRAZolam (*CRX) 0.5 MG TABLET PO ×2 (08:24→16:10)
[2021-09-09] MEDS: FLUTICASONE/SALMETEROL 45-21 MCG INHALER 1 PUFF 2 PUFF INHALATION ×2 (09:15→21:33)
[2021-09-09] MEDS: DORNASE ALFA INH SOLN 1 MG/ML 2.5 ML AMP 2.5 MG INHALATION ×2 (09:22→21:32)
[2021-09-09] MEDS: ACETAMINOPHEN 500 MG TABLET PO ×2 (09:43→16:09)
[2021-09-09] MEDS: SODIUM CHLORIDE 0.9% IV 250 ML 30 ML IV CONT (10:00)
[2021-09-09] MEDS: MAGNESIUM SULF 2 GM/WATER 50ML 2 GM/50 ML BAG IVPB (10:58)
--- NOTE | 2021-09-09 11:50 | PCPTNOTE ---
The patient treatment was not able to be completed. RN reports patient is receiving blood and has increased O2 needs 7L O2. Will plan to continue treatment per plan of care.
[2021-09-09] MEDS: LIDOCAINE 5% PATCH 2 PATCH TRANSDERM (11:59)
[2021-09-09] MEDS: guaiFENesin/DEXTROMETHORPHAN 10 ML UDC 5 ML PO (14:01)
--- NOTE | 2021-09-09 14:32 | PM.PNGS ---
Progress Note: A&P Assessment and Plan (1) MALINI (acute kidney injury): Code(s): N17.9 - Acute kidney failure, unspecified Status: Acute Assessment and Plan: Creatinine 1.6 today and did received IV Lasix last night. Continue to monitor labs. (2) Diverticulitis of large intestine with perforation and abscess: Code(s): K57.20 - Diverticulitis of large intestine with perforation and abscess without bleeding Status: Acute Assessment and Plan: Continues to do well from a surgical standpoint. Ostomy functioning well and tolerating a regular diet. Incision healing well with slightly open area on the bottom of the incision, continue silver gel dressing changes. Continue PT/OT. (3) Lung cancer: Code(s): C34.90 - Malignant neoplasm of unspecified part of unspecified bronchus or lung Status: Chronic (4) COPD (chronic obstructive pulmonary disease): Code(s): J44.9 - Chronic obstructive pulmonary disease, unspecified Status: Chronic Assessment and Plan: Found off her oxygen last night and found to be hypoxic. Now on 7L high flow NC. She was given one dose of IV Lasix last night. Continue to monitor. Management per Hospitalist. Additional Plan I have discussed the patient's case and plan of care with Dr. Neal. Subjective Subjective Date/Time Seen: 09/09/21 12:32 Post Op day: 13 Patient reports: tolerating a regular diet, bowel movement (ostomy functioning well) and other (Tmax 99.9F this morning, now afebrile) Interval history: Pt seen and examined. She is eating her lunch and tolerating well. Her main complaint is shortness of breath and productive cough. Last night, the patient was found with her O2 off and hypoxic with O2 sats in the 70's. Hospitalist evaluated the patient and suspected pulmonary edema, subsequently she was given IV Lasix. Morning labs showed anemia with hgb 6.7 and she was given 1 unit PRBCs this morning. K+ also low and replaced orally. She is currently on 7L HF NC. Review of Systems Review of Systems: All systems reviewed & are unremarkable except as noted in HPI and below (HPI) Exam Const: General: comfortable, no acute distress, awake and ill appearing chronically Orientation/consciousness: patient oriented x3 and No confusion GI: Inspection: non-distended, incision (Bottom of incision somewhat open and rubbing in the skin crease but clean) and other (Rest of incision as well looks good) Auscultation: normal bowel sounds Other: colostomy functioning well and stoma appears healthy Skin: General skin exam: pallor Other: In the skin crease below her panniculus and just left of the incision is a tiny pinpoint opening with purulent drainage and induration, I expressed as much yellow/knowles purulent drainage from this area as possible and cleaned around this. No erythema, but this area was tender. Will have nursing apply silver gel and a gauze dressing and monitor. Neuro: General: moves all extremities and no focal motor deficits Extrem: General: no calf tenderness and no edema Psych: Insight: Good insight present (Psych) Judgement: Good judgement present (Psych) Objective Data Vital Signs Vital Signs: Vital Signs - 24 hr 09/08/21 21:16 09/08/21 21:19 09/08/21 21:34 Temperature Pulse Rate 112 H 111 H Respiratory Rate 26 H 24 H Blood Pressure Pulse Oximetry 88 L Oxygen Delivery Nasal Cannula Oxygen Flow Rate 6 09/08/21 21:46 09/08/21 22:00 09/08/21 22:27 Temperature 98.3 F Pulse Rate 109 H Respiratory Rate 18 22 H Blood Pressure 140/63 Pulse Oximetry 95 94 Oxygen Delivery High Flow Nasal Cannula Oxygen Flow Rate 7 09/08/21 22:33 09/08/21 20:00 09/09/21 04:43 Temperature 99.0 F Pulse Rate 107 H 93 Respiratory Rate 22 H 24 H Blood Pressure 120/54 L Pulse Oximetry 72 L 94 Oxygen Delivery Nasal Cannula Oxygen Flow Rate 6 09/09/21 05:01 09/09/21 05:11 09/09/21 08:00 Temperature
[2021-09-09] MEDS: FUROSEMIDE INJ 40 MG/4 ML VIAL IV PUSH (16:56)
--- NOTE | 2021-09-09 17:11 | PM.IMPN ---
Progress Note: A&P Assessment and Plan (1) Acute respiratory failure: Code(s): J96.00 - Acute respiratory failure, unspecified whether with hypoxia or hypercapnia Status: Acute Assessment and Plan: 09/09/2021 interval history: patient is 61-year-old female presented with diverticulitis with large intestine perforation and abscess was seen by general surgery service 08/27 and had emergent surgical repair, patient is clinically improved bowel function have returned ostomy functioning and able to tolerate her diet, patient with lung cancer and shortness of breath concern for pulmonary emboli v/q scan nondiagnostic intermediate probability however patient is quite anemic hemoglobin is dropped to 6.7 and received 2 units of pack RBC continue to monitor patient wants to remain DNR. (2) COPD (chronic obstructive pulmonary disease): Code(s): J44.9 - Chronic obstructive pulmonary disease, unspecified Status: Chronic Assessment and Plan: patient with history of lung cancer will start the patient on bronchodilator and monitor (3) Diverticulitis of large intestine with perforation and abscess: Code(s): K57.20 - Diverticulitis of large intestine with perforation and abscess without bleeding Status: Acute Assessment and Plan: patient's clinical symptoms are improving and seen by surgery service (4) Fecal peritonitis: Code(s): K65.8 - Other peritonitis Status: Acute Assessment and Plan: plan is above (5) Lung cancer: Code(s): C34.90 - Malignant neoplasm of unspecified part of unspecified bronchus or lung Status: Chronic Assessment and Plan: remains clinically stable (6) GERD (gastroesophageal reflux disease): Code(s): K21.9 - Gastro-esophageal reflux disease without esophagitis Status: Acute Assessment and Plan: will continue PPI (7) Congestive heart failure: Code(s): I50.9 - Heart failure, unspecified Status: Acute Assessment and Plan: gently hydrate the patient (8) Anemia: Code(s): D64.9 - Anemia, unspecified Status: Acute Assessment and Plan: etiology uncertain concerning for hemoptysis, patient is given 2 unit of pack RBC will monitor (9) MALINI (acute kidney injury): Code(s): N17.9 - Acute kidney failure, unspecified Status: Acute Assessment and Plan: will gently hydrate the patient and monitor (10) Rash: Code(s): R21 - Rash and other nonspecific skin eruption Status: Acute Subjective Date/time seen: 09/09/21 17:11 09/09/2021 interval history: patient is 61-year-old female presented with diverticulitis with large intestine perforation and abscess was seen by general surgery service 08/27 and had emergent surgical repair, patient is clinically improved bowel function have returned ostomy functioning and able to tolerate her diet, patient with lung cancer and shortness of breath concern for pulmonary emboli v/q scan nondiagnostic intermediate probability however patient is quite anemic hemoglobin is dropped to 6.7 and received 2 units of pack RBC continue to monitor patient wants to remain DNR. Review of Systems Review of Systems: All systems reviewed & are unremarkable except as noted in HPI and below (HPI) Exam Narrative: Patient is comfortable, NAD HEENT: eyes are clear and none icteric LUNGS: normal respiratory effort ABD: distended Lower extremities: no edema SKIN: nonjaundiced Neuro: grossly intact. Objective Data Vital Signs Vital Signs: Vital Signs - 24 hr 09/08/21 21:16 09/08/21 21:19 09/08/21 21:34 Temperature Pulse Rate 112 H 111 H Respiratory Rate 26 H 24 H Blood Pressure Pulse Oximetry 88 L Oxygen Delivery Nasal Cannula Oxygen Flow Rate 6 09/08/21 21:46 09/08/21 22:00 09/08/21 22:27 Temperature 98.3 F Pulse Rate 109 H Respiratory Rate 18 22 H Blood Pressure 140/63 Pulse Ox
--- NOTE | 2021-09-09 17:51 | PM.PNNEP ---
Progress Note: A&P Additional Plan 1. Marcia has acute kidney injury. This is on top of normal kidney function. Urine electrolytes non pre renal. Urine sodium is 6 but she has a large volume of urine and urine creatinine is low also. UA is bland except for a little protein Renal ultrasound shows normal kidneys CPK is not elevated Most likely this is allergic interstitial nephritis or possibly a direct drug effect from antibiotics. rash is about the same creatinine is about the same. Will check more labs in the morning. 2. The patient has Barretts esophagus. She is on a PPI for this. 3. The patient has lung cancer. She is getting chemotherapy for this and will continue once the GI tract is better. 4. She has history of cocaine use but this is remote. 5. The patient is having chest pain or shortness of breath. Hospitalist is managing this. I discussed with the nurse. Subjective Date/time seen: 09/09/21 17:51 Interval history: Patient is alert. She has some shortness of breath and chest pain. Nursing is aware and has called the hospitalist who is handling this issue. Rash is about the same. Exam Narrative: WDWN in NAD skin stable macular papular rash. head ncat lungs clear bilaterally cor reg no rub or gallop abd BS+ nontender and soft ext no edema. Objective Data Vital Signs Vital Signs: Vital Signs - 24 hr 09/08/21 21:16 09/08/21 21:19 09/08/21 21:34 Temperature Pulse Rate 112 H 111 H Respiratory Rate 26 H 24 H Blood Pressure Pulse Oximetry 88 L Oxygen Delivery Nasal Cannula Oxygen Flow Rate 6 09/08/21 21:46 09/08/21 22:00 09/08/21 22:27 Temperature 36.8 C Pulse Rate 109 H Respiratory Rate 18 22 H Blood Pressure 140/63 Pulse Oximetry 95 94 Oxygen Delivery High Flow Nasal Cannula Oxygen Flow Rate 7 09/08/21 22:33 09/08/21 20:00 09/09/21 04:43 Temperature 37.2 C Pulse Rate 107 H 93 Respiratory Rate 22 H 24 H Blood Pressure 120/54 L Pulse Oximetry 72 L 94 Oxygen Delivery Nasal Cannula Oxygen Flow Rate 6 09/09/21 05:01 09/09/21 05:11 09/09/21 08:00 Temperature 36.6 C Pulse Rate 96 99 95 Respiratory Rate 24 H 22 H 20 Blood Pressure 109/52 L Pulse Oximetry 96 Oxygen Delivery Oxygen Flow Rate 09/09/21 09:18 09/09/21 09:23 09/09/21 09:28 Temperature Pulse Rate 95 98 Respiratory Rate 22 H 22 H Blood Pressure Pulse Oximetry 96 Oxygen Delivery High Flow Nasal Cannula Oxygen Flow Rate 7 09/09/21 09:43 09/09/21 10:07 09/09/21 10:43 Temperature 37.7 C H 37.7 C H 37.1 C Pulse Rate 93 Respiratory Rate 20 Blood Pressure 135/54 L Pulse Oximetry 98 Oxygen Delivery Oxygen Flow Rate 09/09/21 08:15 09/09/21 10:23 09/09/21 11:23 Temperature 37.2 C 37.1 C Pulse Rate 96 96 Respiratory Rate 22 H 22 H Blood Pressure 119/44 L 111/49 L Pulse Oximetry 96 100 95 Oxygen Delivery High Flow Nasal Cannula Oxygen Flow Rate 7 09/09/21 12:23 09/09/21 12:55 09/09/21 13:40 Temperature 37.1 C 37.0 C 37.2 C Pulse Rate 96 96 97 Respiratory Rate 22 H 22 H 22 H Blood Pressure 121/52 L 121/52 L 119/60 Pulse Oximetry 95 96 93 Oxygen Delivery Oxygen Flow Rate 09/09/21 13:55 09/09/21 14:00 09/09/21 16:09 Temperature 37.1 C 36.1 C L 37.7 C H Pulse Rate 96 99 Respiratory Rate 22 H 22 H Blood Pressure 135/53 L 133/54 L Pulse Oximetry 97 97 Oxygen Delivery Oxygen Flow Rate 09/09/21 14:55 09/09/21 15:55 09/09/21 16:30 Temperature 37.3 C 37.7 C H 37.4 C Pulse Rate 102 H 103 H 107 H Respiratory Rate 24 H 22 H 24 H Blood Pressure 145/55 H 141/58 H 143/67 H Pulse Oximetry 96 92 90 Oxygen Delivery Oxygen Flow Rate 09/09/21 16:30 09/09/21 17:20 09/09/21 17:24 Temperature 37.4 C Pulse Rate 107 H 102 H 102 H Respiratory Rate 24 H 22 H 22 H Blood Pressure 143/67 H Pulse Oximetry 90 96 Oxygen Delivery High Flow Nasal Cannula Oxygen Tim
[2021-09-09] MEDS: traZODone HCL 50 MG TABLET PO (20:20)
[2021-09-09] MEDS: LORazepam INJ (*CRX) 2 MG/ML VIAL 0.5 MG IV PUSH (21:09)
[2021-09-09 21:25] LABS: Hematocrit 28.1 % (37.0-47.0); Hemoglobin 9.3 g/dL (12.0-15.0); Mean Corpuscular HGB Conc 33.1 g/dl (32-36); Mean Corpuscular Hemoglobin 29.9 pg (26-34); Mean Corpuscular Volume 90.4 fl (80-100); Mean Platelet Volume 8.9 fl (7.4-10.4); Platelet Count Result 183 k/mm3 (150-375); Red Blood Count 3.11 M/mm3 (4.2-5.4); Red Cell Distribution Width 17.9 % (11.5-14.5); White Blood Count 6.4 K/mm3 (4.5-10.0)
[2021-09-10] VITALS (8 sets, daily range): BP systolic 137; BP diastolic 54; PULSE 92–96; RESP 16–30; TEMP 36.6; O2SAT 96–100
[2021-09-10] MEDS: IPRATROPIUM BR 0.02% INH SOLN 0.5 MG/2.5 ML VIAL INHALATION (04:04)
[2021-09-10] MEDS: ALBUTEROL SULFATE NEB 2.5 MG/3 ML INH INHALATION (04:04)
[2021-09-10] MEDS: MORPHINE SULFATE (*CRX) 4 MG/ML INJ 2 MG IV PUSH (04:43)
[2021-09-10] MEDS: FUROSEMIDE INJ 40 MG/4 ML VIAL IV PUSH (05:02)
--- NOTE | 2021-09-10 05:02 | ECG_ITS ---
Measurements Intervals [place] Rate: 92 P: 35 WA: 166 QRS: 39 QRSD: 100 T: 47 QT: 349 QTc: 432 Interpretive Statements SINUS RHYTHM INCOMPLETE RIGHT BUNDLE BRANCH BLOCK DELAYED PRECORDIAL R/S TRANSITION BASELINE ARTIFACT- II, III, V1-V2 BORDERLINE ECG Electronically Signed On 09-10-2021 7:05:02 CDT by Panfilo Henriquez D.O.
--- NOTE | 2021-09-10 05:12 | PM.EVENT ---
Event Note Event Note Event Note: 09/10/2021 at 4:30 a.m. Nursing staff called to notify me the patient is having increasing respiratory distress. She was increased from 9 L nasal cannula up to 15 at 8:00 p.m.. She was subsequently weaned back down to 10 L nasal cannula. Now the patient is at 15 L nasal cannula and only maintaining oxygen saturations between 82 and 86%. The patient reports that she feels like she cannot breathe. She is having abdominal pain and right chest pain. She reports that her pain is increasing from baseline. She has been having intermittent coughing fits but is not coughing at the time my evaluation. She appears to be in significantly more distress than she was last evening. She had a similar episode last evening and the V/Q scan was ordered for today. Her V/Q scan was indeterminate. She is not a candidate for CTA given her acute kidney injury. Unfortunately patient also developed symptomatic anemia at this morning and therapeutic Lovenox was not continued. Her chest x-ray this morning appear similar to yesterday's film. Follows at bedside respiratory therapy place patient on Airvo. With Airvo patient's oxygen saturations did improved to 98% on 50 L at 85%. The patient is still quite anxious. She is insistent that she does not want to be intubated or have cardiac resuscitation. She is open to discussions of hospice. Acute on chronic hypoxic respiratory failure--the patient's condition has continued to worsen overnight. Will give patient additional dose of Lasix. Patient has been transitioned to Airvo. At this point we cannot provide more support than the patient is on be on strict adjustments of Airvo. The patient is willing the discuss potential hospice. Will consult case management for hospice referral. Unfortunately I do not think the patient will be stable enough to transition to a manner of supplemental oxygen to go home. If the patient proceed with hospice care we may be will wean back down to high-flow nasal cannula. The patient refuses non-rebreather. Right now she is on Airvo or for comfort. Will adjust morphine to 4 mg q.4 hours and will add Ativan 0.5 mg q.4 hours as needed for anxiety and air hunger. I did order labs that were pending at the time of my last evaluation. 55 minute spent in critical care activities Due to a high probability of clinically significant, life threatening deterioration, the patient required my highest level of preparedness to intervene emergently and I personally spent this critical care time directly and personally managing the patient. This critical care time included obtaining a history; examining the patient; pulse oximetry; ordering and review of studies; arranging urgent treatment with development of a management plan; evaluation of patient's response to treatment; frequent reassessment; and discussions with other providers. It was exclusive of separately billable procedures and treating other patients and teaching time. Please see Assessment and Plan section and the rest of the note for further information on patient assessment and treatment.
[2021-09-10] MEDS: LORazepam INJ (*CRX) 2 MG/ML VIAL 0.5 MG IV PUSH (05:28)
[2021-09-10] MEDS: CENTRAL LINE FLUSH 10 ML IV PUSH (05:29)
[2021-09-10 05:37] LABS: Basophils Percent Auto 0.4 % (0.2-1.2); Eosinophils Percent Auto 0.2 % (0-4.4); Hematocrit 27.2 % (37.0-47.0); Immature Granulocyte Absolute 0.02 K/mm3 (0.00-0.031); Immature Granulocyte Percent A 0.4 % (0-0.5); Lymphocytes Absolute Auto 1.68 K/mm3 (0.9-3.2); Lymphocytes Percent Auto 33.4 % (18.3-44.2); Mean Corpuscular HGB Conc 33.1 g/dl (32-36); Mean Corpuscular Hemoglobin 29.9 pg (26-34); Mean Corpuscular Volume 90.4 fl (80-100); Mean Platelet Volume 8.8 fl (7.4-10.4); Monocytes Absolute Auto 2.4 K/mm3 (0.1-0.6); Monocytes Percent Auto 48.1 % (2.6-8.5); Neutrophils Absolute Auto 0.9 K/mm3 (1.3-6.7); Neutrophils Percent Auto 17.5 % (45.5-73.1); Platelet Count Result 163 k/mm3 (150-375); Red Blood Count 3.01 M/mm3 (4.2-5.4); Red Cell Distribution Width 18.5 % (11.5-14.5)
[2021-09-10 05:50] LABS: Lactic Acid Reflex 1.1 mmol/L (0.7-2.0)
[2021-09-10 05:53] LABS: INR 1.2; Partial Thromboplastin Time 33.2 SECONDS (22.3-36.8); Prothrombin Time 15.2 Seconds (11.1-14.7)
[2021-09-10 06:03] LABS: Alanine Aminotransferase 17 U/L (6-35); Albumin Level 2.9 g/dL (3.5-5.1); Alkaline Phosphatase 148 U/L (38-126); Anion Gap 7 mmol/L (8-16); Aspartate Amino Transferase 22 U/L (14-36); Bilirubin,Total 1.5 mg/dL (0.2-1.3); Blood Urea Nitrogen 16 mg/dL (7-17); Calcium 7.8 mg/dL (8.4-10.2); Carbon Dioxide 24 mmol/L (22-30); Chloride 100 mmol/L (98-107); Estimated CRCL calculation 40 ml/min; Estimated Glomerular Filt Rate 33; Glucose 123 mg/dL (65-110); Magnesium 1.7 mg/dL (1.6-2.3); Phosphorus 3.7 mg/dL (2.5-4.5); Potassium 3.5 mmol/L (3.4-5.0); Sodium 131 mmol/L (137-145)
[2021-09-10 06:34] LABS: CRP 29.9 mg/dL (<1.0)
[2021-09-10] MEDS: MORPHINE SULFATE (*CRX) 4 MG/ML INJ IV PUSH ×2 (07:51→11:13)
[2021-09-10] MEDS: TOLNAFTATE 1% POWDER 45 GM BTL 1 APPLIC TOPICAL (08:45)
[2021-09-10] MEDS: SILVERGEL (ELTA) 45 ML 1 APPLIC TOPICAL (08:47)
[2021-09-10] MEDS: CLOBETASOL PROPIONATE 0.05% CREAM 30 GM 1 APPLIC TOPICAL (08:47)
[2021-09-10] MEDS: FLUTICASONE/SALMETEROL 45-21 MCG INHALER 1 PUFF 2 PUFF INHALATION (09:32)
[2021-09-10] MEDS: DORNASE ALFA INH SOLN 1 MG/ML 2.5 ML AMP 2.5 MG INHALATION (09:32)
--- NOTE | 2021-09-10 11:22 | PM.DS ---
DS: Admitting Diagnosis Discharge Date 09/10/21 Admitting Diagnosis abdominal pain DS: Discharge Diagnosis Discharge Diagnosis (1) Acute respiratory failure: Code(s): J96.00 - Acute respiratory failure, unspecified whether with hypoxia or hypercapnia Status: Acute Assessment and Plan: 09/09/2021 interval history: patient is 61-year-old female presented with diverticulitis with large intestine perforation and abscess was seen by general surgery service 08/27 and had emergent surgical repair, patient is clinically improved bowel function have returned ostomy functioning and able to tolerate her diet, patient with lung cancer and shortness of breath concern for pulmonary emboli v/q scan nondiagnostic intermediate probability however patient is quite anemic hemoglobin is dropped to 6.7 and received 2 units of pack RBC continue to monitor patient wants to remain DNR. (2) COPD (chronic obstructive pulmonary disease): Code(s): J44.9 - Chronic obstructive pulmonary disease, unspecified Status: Chronic Assessment and Plan: patient with history of lung cancer will start the patient on bronchodilator and monitor (3) Diverticulitis of large intestine with perforation and abscess: Code(s): K57.20 - Diverticulitis of large intestine with perforation and abscess without bleeding Status: Acute Assessment and Plan: patient's clinical symptoms are improving and seen by surgery service (4) Fecal peritonitis: Code(s): K65.8 - Other peritonitis Status: Acute Assessment and Plan: plan is above (5) Lung cancer: Code(s): C34.90 - Malignant neoplasm of unspecified part of unspecified bronchus or lung Status: Chronic Assessment and Plan: remains clinically stable (6) GERD (gastroesophageal reflux disease): Code(s): K21.9 - Gastro-esophageal reflux disease without esophagitis Status: Acute Assessment and Plan: will continue PPI (7) Congestive heart failure: Code(s): I50.9 - Heart failure, unspecified Status: Acute Assessment and Plan: gently hydrate the patient (8) Anemia: Code(s): D64.9 - Anemia, unspecified Status: Acute Assessment and Plan: etiology uncertain concerning for hemoptysis, patient is given 2 unit of pack RBC will monitor (9) MALINI (acute kidney injury): Code(s): N17.9 - Acute kidney failure, unspecified Status: Acute Assessment and Plan: will gently hydrate the patient and monitor (10) Rash: Code(s): R21 - Rash and other nonspecific skin eruption Status: Acute DS: Summary Hospital Course Reason for hospitalization: [facility] [address] H&P: HPI History of Present Illness Date/Time: Patient was placed observation status for expected length of stay less than 23 hours for management, will plan to re-evaluate tomorrow for improvement. 08/19/21? 18:10 Chief Complaint: Abdominal pain Narrative: Ms. Salinas is a 61-year-old female who presented emergency room with complaints of abdominal pain.? Patient states that she began having left lower quadrant pain on Tuesday.? Patient states since that time she has had multiple loose stools and has been vomiting once to twice daily.? Patient denies any fever or chills.? Patient states she was recently admitted to the hospital for a perirectal abscess and had 5 days of antibiotics.? Patient states she was feeling better after the antibiotics, but then on Tuesday she began having this abdominal pain.? Patient denies any bloody stools, melena, or hematemesis.? Patient denies any chest pain, shortness breast, lightheadedness, dizziness, syncopal, or near syncopal episodes.? Upon evaluation in emergency room patient was noted to have a micro perforation of a diverticulum with abscess.? Patient was given Zosyn and General surgery was consulted. Patient does have a known history of metastatic hamzah
== END 2021-09-10 11:20 | disposition hospice, home (50) | DRG 231 ==
LOC: ANHED 13:49 → ANH2MED 14:48 → ANHICU 08-27 22:33 → ANH2MED 09-14 09:23 → ANH3MEDSUR 09-14 09:23 → ANHICU 09-14 09:23
PROVIDERS: Internal Medicine; Internal Medicine Nephrology; Nurse Practitioner; Nurse Practitioner Adult Health; Nurse Practitioner Family; Physician Assistant; Student in an Organized Health Care Education/Training Program; Surgery; Admitting Provider Chiropractor; Emergency Provider Emergency Medicine; PCP Internal Medicine; Visit Provider Family Medicine
PROC: 0DBN0ZZ Excision of Sigmoid Colon, Open Approach (ICD-10-PCS; CPT 44143; principal; 2021-08-27 15:00)
DX: K57.20 Diverticulitis of large intestine with perforation and abscess without bleeding (principal); J44.9 Chronic obstructive pulmonary disease, unspecified; F41.9 Anxiety disorder, unspecified; K21.9 Gastro-esophageal reflux disease without esophagitis; E66.9 Obesity, unspecified; Z80.42 Family history of malignant neoplasm of prostate; C34.90 Malignant neoplasm of unspecified part of unspecified bronchus or lung; K65.8 Other peritonitis; C79.9 Secondary malignant neoplasm of unspecified site; I50.9 Heart failure, unspecified; N17.9 Acute kidney failure, unspecified; J96.21 Acute and chronic respiratory failure with hypoxia; J38.00 Paralysis of vocal cords and larynx, unspecified; Z80.0 Family history of malignant neoplasm of digestive organs; Z87.891 Personal history of nicotine dependence; D64.9 Anemia, unspecified; T41.1X5A Adverse effect of intravenous anesthetics, initial encounter; Z79.899 Other long term (current) drug therapy
CPT/HCPCS: 36415; 36430; 36569; 36600; 71045; 71250; 72100; 74018; 74176; 74240; 74248; 75989; 76775; 78580; 80048; 80053; 80069; 80202; 81001; 81003; 82274; 82375; 82436; 82550; 82570; 82805; 82948; 83050; 83605; 83690; 83735; 83880; 84100; 84132; 84145; 84156; 84300; 85014; 85018; 85025; 85027; 85055; 85610; 85730; 85999; 86140; 86850; 86900; 86901; 86920; 87040; 87070; 87075; 87076; 87077; 87086; 87186; 87205; 88307; 88342; 93005; 94002; 94003; 94640; 96361; 96365; 96367; 96372; 96374; 96375; 96376; 97110; 97161; 97162; 97165; 97166; 97530; 97535; 99285; A9270; A9540; C1713; C1729; C1751; C1769; C9113; G0378; G0379; J0131; J0330; J0610; J1170; J1650; J1940; J2060; J2250; J2270; J2405; J2543; J2704; J2997; J3010; J3370; J3475; J3480; J7030; J7040; J7050; J7120; P9016

== ENCOUNTER 2021-09-10 11:39 | HOS | payer OTHER, SELFPAY ==
--- NOTE | 2021-09-10 11:45 | PC.NURSE ---
This patient, Marcia Salinas, was admitted to 3 Med Surg Room 329-01. Patient/family oriented to hospital policies and general routines including ID bracelet, bed and alarms, visiting hours, pain management, procedures, bathroom and other care routines, personal items, smoking policy, room service/diet, and visiting hours. Patient to hospice. Information on how to activate the Rapid Response Team has been discussed. Patient/Family are encouraged to report perceived risks to care and to ask questions if they do not understand what they are told or what they should do.
[2021-09-10 12:26] VITALS: O2SAT 96; BMI 29.0
[2021-09-10] MEDS: MORPHINE SULFATE INJ (*CRX) 50 MG in SODIUM CHLORIDE 0.9% IV 95 ML IV CONT (12:59)
--- NOTE | 2021-09-10 13:40 | PCWOUND ---
WOCN NOTE Received auto notice patient has pressure. patient is now on hospice, no WOCN to follow at this time.
[2021-09-10] MEDS: LORazepam INJ (*CRX) 2 MG/ML VIAL 1 MG IV PUSH ×3 (13:47→23:07)
[2021-09-10 14:00] VITALS: BP 149/63; PULSE 91; RESP 20; TEMP 36.7; O2SAT 100
[2021-09-10] MEDS: MORPHINE SULFATE (*CRX) 2 MG/ML INJ IV PUSH ×2 (15:20→18:36)
--- NOTE | 2021-09-10 16:04 | PM.IMHP ---
H&P: HPI History of Present Illness Date/Time: 09/10/21 16:04 Chief Complaint: Uncontrolled pain and dyspnea Narrative: 61-year-old female with metastatic lung cancer and COPD was admitted August 26 to [facility] with sepsis and abdominal pain found to have diverticulitis with perforation and abscess. Underwent surgical repair 623. Treated with broad-spectrum antibiotics. Bowel function had returned. However over the last couple of days she developed increased shortness of breath. She did not want to be intubated. She wanted DNR status. Ventilation perfusion lung scan on September 08 was nondiagnostic and chest x-ray showed worsening pulmonary opacities consistent with pulmonary edema infection or ARDS. Patient opted for comfort care only due to increasing dyspnea and generalized pain. She was admitted inpatient hospice service today for control those symptoms. A morphine drip at 1 milligram/hour has improved her symptoms but she continues to complain of pain although she was much less short of breath. Pain is generalized. She is too short of breath to speak and is unable to quantify or describe her pain. Review of Systems Review of Systems: ROS unobtainable: Yes unobtainable due to medical condition [facility] Past Medical History Medical History Adenomatous colon polyp Anxiety Bond esophagus Cocaine use History of cocaine use, reportedly has not used since 1999 COPD (chronic obstructive pulmonary disease) GERD (gastroesophageal reflux disease) Lung cancer Obesity Vocal cord paralysis Surgical History Surgical History H/O colonoscopy H/O tubal ligation History of cataract extraction S/P cholecystectomy 2010 Laparoscopic cholecystectomy Family History Family History Father Cerebrovascular accident Cancer Mother Family history of congestive heart failure Sibling Cancer Malignant neoplasm of prostate Esophagus cancer Lung cancer Social History Social History Smoking packs per day: 1 Smoking cigarettes per day: 20.0 Years smoked: 43 Smoking pack-years: 43.00 Smoking status: Former smoker Tobacco type: cigarettes Smoking end date: 06/06/21 Alcohol intake: never Substance use: never Substance use type: crack/cocaine Last use: 1999 Additional living arrangements comments: her son Spiritual care concerns: No Meds Home Medications and Allergies Home Medications Medication Instructions Recorded Confirmed Type albuterol sulfate 90 mcg/actuation 1 inh inhalation Q4H 06/22/21 08/19/21 History aerosol inhaler budesonide-formoterol HFA 80 2 puff inhalation Q12H 06/22/21 08/19/21 History mcg-4.5 mcg/actuation aerosol inhaler (Symbicort) buspirone 10 mg tablet 10 mg PO PRN PRN Anxiety 06/22/21 08/19/21 History citalopram 40 mg tablet 20 mg PO HS 06/22/21 08/19/21 History simvastatin 5 mg tablet 5 mg PO HS 06/22/21 08/19/21 History bupropion HCl 100 mg tablet,12 hr 1 tablet PO BID 07/31/21 08/19/21 History sustained-release dexamethasone 4 mg tablet 1 tablet PO DAILY 07/31/21 08/19/21 History mirtazapine 15 mg tablet 1 tablet PO DAILY 07/31/21 08/19/21 History omeprazole 40 mg capsule,delayed 1 cap PO DAILY 07/31/21 08/19/21 History release trazodone 50 mg tablet 50 mg PO HS PRN Insomnia #30 tabs 08/04/21 08/19/21 Rx alprazolam 0.25 mg tablet 0.25 mg PO TID PRN Anxiety 08/19/21 08/19/21 History famotidine 20 mg tablet 20 mg PO DAILY 08/19/21 08/19/21 History hydrocodone 5 mg-acetaminophen 325 1 tablet PO Q4H PRN Pain 08/19/21 08/19/21 History mg tablet hydroxyzine HCl 25 mg tablet 1 tablet PO BID 08/19/21 08/19/21 History ketorolac 0.5 % eye drops 1 drp LEFT EYE QID 08/23/21 08/23/21 History ofloxacin 0.3 % eye drops 1 drp LEFT EYE TID 08/23/21
[2021-09-10 19:58] VITALS: O2SAT 100
--- NOTE | 2021-09-10 20:35 | PC.NURSE ---
09/10/212034 brigette called back with orders from verna to increase morphine.
[2021-09-10] MEDS: MORPHINE SULFATE INJ (*CRX) 50 MG in SODIUM CHLORIDE 0.9% IV 95 ML 8 MG IV CONT (21:46)
--- NOTE | 2021-09-10 21:47 | PC.NURSE ---
09/10/21 3706 contacted pharmacy spoke with sol who stated no need to change current bag of morphine. informed to only change the rate. rate increased to 4mg/8ml/hr. que [place].
[2021-09-10 22:00] VITALS: BP 109/53; PULSE 113; RESP 16; TEMP 36.2; O2SAT 80
[2021-09-10] MEDS: MORPHINE SULFATE (*CRX) 4 MG/ML INJ IV PUSH (23:06)
[2021-09-11] MEDS: MORPHINE SULFATE (*CRX) 4 MG/ML INJ IV PUSH ×2 (04:13→09:04)
[2021-09-11] MEDS: LORazepam INJ (*CRX) 2 MG/ML VIAL 1 MG IV PUSH ×3 (04:14→22:45)
--- NOTE | 2021-09-11 04:50 | PC.NURSE ---
09/11/21 0450 removed ativan twice during the shift but only one is showing in the omnicell as being removed. spoke with david in pharmacy to clarify ativan was documented. david states it is showing on her screen that ativan was removed both times and witnessed by latasha.
[2021-09-11 06:00] VITALS: BP 133/67; PULSE 117; RESP 16; TEMP 36.8; O2SAT 93
[2021-09-11] MEDS: MORPHINE SULFATE INJ (*CRX) 50 MG in SODIUM CHLORIDE 0.9% IV 95 ML 8 MG IV CONT ×3 (06:03→22:37)
[2021-09-11 08:00] VITALS: O2SAT 93
[2021-09-11 14:00] VITALS: BP 125/85; PULSE 109; RESP 14; TEMP 36.9; O2SAT 91
[2021-09-11] MEDS: CENTRAL LINE FLUSH 10 ML IV PUSH ×2 (14:25→22:42)
--- NOTE | 2021-09-11 16:52 | PM.IMPN ---
Progress Note: A&P Assessment and Plan (1) Palliative care by specialist: Code(s): Z51.5 - Encounter for palliative care Status: Acute Assessment and Plan: Meet inpatient hospice criteria due to requiring continuous intravenous morphine for control of dyspnea and pain September 10 due to inadequately controlled pain, increased morphine from 1 to 2 milligrams/hour and bolus from 2 to 4 mg every 2 hours p.r.n. September 11 due to increased pain, increased morphine from 4 to 8 mg/hr (2) Acute respiratory failure: Code(s): J96.00 - Acute respiratory failure, unspecified whether with hypoxia or hypercapnia Status: Acute (3) COPD (chronic obstructive pulmonary disease): Code(s): J44.9 - Chronic obstructive pulmonary disease, unspecified Status: Chronic (4) Lung cancer: Code(s): C34.90 - Malignant neoplasm of unspecified part of unspecified bronchus or lung Status: Chronic (5) Diverticulitis of large intestine with perforation and abscess: Code(s): K57.20 - Diverticulitis of large intestine with perforation and abscess without bleeding Status: Acute (6) MALINI (acute kidney injury): Code(s): N17.9 - Acute kidney failure, unspecified Status: Acute (7) Congestive heart failure: Code(s): I50.9 - Heart failure, unspecified Status: Acute Subjective Date/time seen: 09/11/21 16:52 Increased pain today. Better after morphine drip increased to 8 mg/hr. Review of Systems Review of Systems: ROS unobtainable: Yes unobtainable due to medical condition Exam Narrative: Elderly female with generalized alopecia appears chronically ill lying semi recumbent in her hospital bed Printed ago sh pink sclerae nonicteric Neck without JVD Chest with coarse breath sounds throughout Heart normal S1-S2 regular rate without audible murmur Abdomen protuberant but soft hypoactive bowel sounds and nontender Extremities no edema cyanosis or clubbing Musculoskeletal without gross deformity Neurologic cranial nerves symmetric to inspection Psychiatric does not respond to verbal or tactile stimuli Objective Data Vital Signs Vital Signs: Vital Signs - 24 hr 09/10/21 19:58 09/10/21 22:00 09/11/21 06:00 Temperature 97.1 F L 98.2 F Pulse Rate 113 H 117 H Respiratory Rate 16 16 Blood Pressure 109/53 L 133/67 Pulse Oximetry 100 80 L 93 Oxygen Delivery High Flow Therapy with Na Oxygen Flow Rate 30 09/11/21 08:00 09/11/21 14:00 Temperature 98.5 F Pulse Rate 109 H Respiratory Rate 14 Blood Pressure 125/85 Pulse Oximetry 93 91 Oxygen Delivery High Flow Therapy with Na Oxygen Flow Rate 40 Intake/Output Intake/Output: Intake & Output 09/08/21 09/09/21 09/10/21 09/11/21 23:59 23:59 23:59 23:59 Intake Total 120 200 Output Total 1000 Balance -880 200 Meds/Results Medications: Active Medications Generic Name Dose Route Start Last Admin Trade Name Freq PRN Reason Stop Dose Admin Artificial Tears 1 drop 09/10/21 12:30 Artificial Tears Ophth Soln 15 Ml Bottle EACH EYE Q12H PRN Dry Eye(s) FOR COMFORT Bisacodyl 10 mg 09/10/21 12:30 Bisacodyl 10 Mg Suppository RECTAL DAILY PRN Constipation Diazepam 5 mg 09/11/21 09:39 Diazepam Inj (*Crx) 10 Mg/2 Ml Syringe IV PUSH Q4H PRN Agitation Glycopyrrolate 0.1 mg 09/10/21 12:30 Glycopyrrolate Inj (*Sp) 0.2 Mg/Ml Vial IV PUSH Q4H PRN secretions Morphine Sulfate 50 mg/ Sodium 100 mls @ 16 mls/hr 09/10/21 20:20 09/11/21 16:01 Chloride IV CONT 4 mg/hr .Q6H15M LATOYA 8 mls/hr Administration 8 MG/HR Lorazepam 1 mg 09/10/21 12:30 09/11/21 09:32 Lorazepam Inj (*Crx) 2 Mg/Ml Vial IV PUSH 1 mg Q4H PRN Administration ANXIETY/SOB Morphine Sulfate 8 mg 09/11/21 09:38 Morphine Sulfate (*Crx) 4 Mg/Ml Inj IV PUSH Q4H PRN Pain Rated 7-10 Prochlorperazine Edisylate 10 mg 09/10/21 12:30
[2021-09-11 22:00] VITALS: BP 106/64; PULSE 108; RESP 16; TEMP 36.6; O2SAT 92
[2021-09-12] MEDS: MORPHINE SULFATE (*CRX) 4 MG/ML INJ 8 MG IV PUSH ×2 (00:16→04:14)
[2021-09-12] MEDS: diazePAM INJ (*CRX) 10 MG/2 ML SYRINGE 5 MG IV PUSH (02:27)
[2021-09-12] MEDS: GLYCOPYRROLATE INJ (*SP) 0.2 MG/ML VIAL 0.1 MG IV PUSH (02:30)
--- NOTE | 2021-09-13 10:11 | P.DN_ITS ---
Discharge Summary Date and Time Date of : 09/12/21 Time of : 05:00 Provider Pronounced By: Misti REZA RN Probable Cause of Probable Cause of : Lung Cancer Summary Hospital Course: Admitted to inpatient hospice service due to uncontrolled dyspnea and pain. Medications titrated to comfort. Patient peacefully. Additional Data Confirmation of as documented by pronouncing clinician: Pupillary Reflex, Palpable Pulses, Response to Stimuli, Heart Tones and Breath Sounds Name of Provider Notified: KASSIDY Time Provider Notified: 05:04 Employee Development Specialist Notified: Yes Date [facility] Notified of : 09/12/21 Time [facility] Notified of : 05:24
== END 2021-09-12 05:00 | disposition expired | DRG 951 ==
LOC: ANH3MEDSUR 12:04
PROVIDERS: Admitting Provider Internal Medicine; PCP Internal Medicine; Visit Provider Internal Medicine
DX: Z51.5 Encounter for palliative care (principal); J96.00 Acute respiratory failure, unspecified whether with hypoxia or hypercapnia; C34.90 Malignant neoplasm of unspecified part of unspecified bronchus or lung; K57.20 Diverticulitis of large intestine with perforation and abscess without bleeding; N17.9 Acute kidney failure, unspecified; J44.9 Chronic obstructive pulmonary disease, unspecified; I50.9 Heart failure, unspecified; Z87.891 Personal history of nicotine dependence; Z79.899 Other long term (current) drug therapy; Z80.1 Family history of malignant neoplasm of trachea, bronchus and lung; Z80.0 Family history of malignant neoplasm of digestive organs; K21.9 Gastro-esophageal reflux disease without esophagitis; E66.9 Obesity, unspecified; F41.9 Anxiety disorder, unspecified
CPT/HCPCS: A9270; J2060; J2270; J3360